=== PATIENT | female | born 1965 | race Caucasian/White ===

== ENCOUNTER → 2018-07-24 08:17 | Outpatient (CLI) | payer MEDICARE, MEDICAID, SELFPAY ==
--- NOTE | 2018-07-24 08:24 | RAD_ITS ---
STUDY: AIR-CONTRAST UPPER GI STUDY REASON FOR EXAM: Female, 52 years old. ABDOMINAL PAIN, CRAMPING AND BLOATING. DIARRHEA X6 WEEKS FLUOROSCOPY TIME (if supplied): (0:50) minutes/seconds. 12 spot images, 7 overhead images. TECHNIQUE: Barium pill swallow with sips of water is performed at the beginning of the study without difficulty. Multiple barium swallows were performed under fluoroscopic monitoring. Multiple views of the esophagus, the stomach and the duodenum were performed. COMPARISON: None. FINDINGS: The esophagus appears normal in size and shape it shows unremarkable mucosal pattern. There is no evidence of hiatal hernia or abnormal vascular compression. The stomach is normal in size shape and position the gastric mucosal folds are unremarkable. The duodenum and bulb and duodenal loop are unremarkable. The duodenal jejunal junction is in normal anatomic position to the left of the vertebral body of T12. STUDY: SMALL BOWEL FOLLOW-THROUGH STUDY FLUOROSCOPY TIME (if supplied): (0:50) minutes/seconds TECHNIQUE: Multiple views of the abdomen were performed after barium ingestion fluoroscopic examination of the terminal ileal loop is also performed with multiple spot views were obtained. 7 overhead films were obtained. FINDINGS: SMALL BOWEL FOLLOW-THROUGH: Normal progression of barium is seen throughout different parts of the small bowel the cecum is reached at approximately 2 hours after barium ingestion. The duodenum, jejunum, and ileum mucosal pattern is unremarkable. Fluoroscopic examination of the terminal loop shows no abnormality. RAD/Upper GI/w Small Bowel IMPRESSION: Unremarkable upper GI and small bowel follow-through studies. Electronically Signed: Juan Beard MD at 15:28 EDT Tel , Service support ,
== END ==
PROVIDERS: Family Provider Family Medicine; PCP Family Medicine; Referring Provider Nurse Practitioner Adult Health; Visit Provider Nurse Practitioner Adult Health
DX: R10.84 Generalized abdominal pain (principal); R19.4 Change in bowel habit
CPT/HCPCS: 74249

== ENCOUNTER → 2018-08-15 06:51 | Outpatient (CLI) | payer MEDICARE, MEDICAID, SELFPAY ==
--- NOTE | 2018-08-15 07:29 | MRI_ITS ---
STUDY: MRI LUMBAR SPINE WITHOUT CONTRAST REASON FOR EXAM: Female, 52 years old. back pain, bilat leg numbness, tingling bilat feet, bowel and bladder issues TECHNIQUE: Standardized fat and water weighted pulse sequences were obtained in the sagittal and axial planes. # of Images: 121 COMPARISON: None FINDINGS: T12-L1: Normal endplates. Normal disc height, hydration and morphology. Normal bilateral facet joints. Normal central canal and bilateral lateral recesses. Normal bilateral intervertebral neural foramina. Normal lumbar lordosis. There is no substantial scoliosis. Normal conus medullaris that terminates at the L1 L1-2: Normal endplates. Normal disc height, hydration and morphology. Normal bilateral facet joints. Normal central canal and bilateral lateral recesses. Normal bilateral intervertebral neural foramina. L2-3: Normal endplates. Normal disc height, hydration and morphology. Normal bilateral facet joints. Normal central canal and bilateral lateral recesses. Normal bilateral intervertebral neural foramina. L3-4: There is minimal disc space narrowing and endplate spondylosis. There is no significant disc herniation, central canal or foraminal stenosis. There is mild facet arthropathy. L4-5: There is mild disc space narrowing and endplate spondylosis. There is a mild disc bulge and facet arthropathy without significant central canal or foraminal stenosis. L5-S1: There is moderate disc space narrowing and endplates spondylosis. There is moderate disc bulge and facet arthropathy with mild central canal and bilateral foraminal stenosis. Normal visualized sacral ala. Normal visualized paraspinous soft tissue structures. MRI/Spine Lumbar (Routine) IMPRESSION: L5/S1: Mild bilateral foraminal stenosis. Electronically Signed: Lala Sun MD at 15:56 EDT Tel , Service support ,
== END ==
PROVIDERS: Family Provider Family Medicine; PCP Family Medicine; Referring Provider Anesthesiology Pain Medicine; Visit Provider Anesthesiology Pain Medicine
DX: M48.07 Spinal stenosis, lumbosacral region (principal)
CPT/HCPCS: 72148

== ENCOUNTER → 2018-09-01 07:51 | Outpatient (CLI) | payer MEDICARE, MEDICAID, SELFPAY ==
--- NOTE | 2018-09-01 10:10 | NEURO ---
NCS and/or EMG Patient Report Ordering Doctor: Amparo Pelaez DATE OF SERVICE: 09/01/18 This is a bilateral lower extremity nerve conduction study and a left lower extremity EMG performed on this 52-year-old female with a history of leg cramping and tripping. She does not know her hemoglobin A1c however she states that her blood sugars tend to run in the 120-130 range. Symptoms are somewhat worse on the left. She does have back issues by report. Lateral lower extremity sensory and motor nerve conduction studies are performed. The sural sensory distal latencies amplitudes and conduction velocities are preserved. The common peroneal motor and tibial motor distal latencies, amplitudes, and conduction velocities are symmetrically preserved. F-wave latencies from the bilateral tibial and common peroneal nerves are preserved and H reflex responses from the right tibial nerve is normal, on the left side the H reflex response is low amplitude of unclear clinical significance. Her graph left lower extremity needle electromyography was performed. Muscles evaluated included the extensor digitorum brevis, abductor hallucis, medial gastrocnemius, anterior tibialis, vastus medialis and vastus lateralis muscles. All muscles demonstrated normal insertional activity with absence of pathologic spontaneous activity. Motor unit potential recruitment pattern and amplitude is normal in all muscles tested. Impression: This is an essentially normal electrophysiologic study of the lower extremities. There is a reduced H reflex amplitude on the left which is of unclear clinical significance.
== END ==
PROVIDERS: Family Provider Family Medicine; PCP Family Medicine; Referring Provider Nurse Practitioner Family; Visit Provider Nurse Practitioner Family
DX: M54.17 Radiculopathy, lumbosacral region (principal)
CPT/HCPCS: 95886; 95910

== ENCOUNTER → 2019-02-18 16:36 | Outpatient (CLI) | payer MEDICARE, MEDICAID, SELFPAY ==
[2016-10-10 14:27] VITALS: BMI 33.6
== END ==
PROVIDERS: Family Provider Family Medicine; PCP Family Medicine; Referring Provider Physician Assistant; Visit Provider Physician Assistant
DX: R07.89 Other chest pain (principal); R06.02 Shortness of breath; R94.31 Abnormal electrocardiogram [ECG] [EKG]
CPT/HCPCS: 84484

== ENCOUNTER 2020-04-04 16:02 | Emergency (ER) | payer MEDICARE, MEDICAID, SELFPAY ==
[2020-04-04 16:03] VITALS: BP 157/95; PULSE 72; RESP 16; TEMP 36.4; O2SAT 95; BMI 35.8
--- NOTE | 2020-04-04 16:33 | CT_ITS ---
STUDY: CT ABDOMEN AND PELVIS WITHOUT CONTRAST REASON FOR EXAM: Female, 54 years old. PAIN MID ABD. Hx of diabetes, HTN and heart stent. Prior hysterectomy and lt oopherectomy RADIATION DOSAGE (If Supplied By Facility): CTDIvol = ( 15.75 ) mGy, DLP = ( 751.62 ) mGycm TECHNIQUE: Transaxial images were obtained from the dome of the diaphragm to the symphysis pubis without oral contrast, and without intravenous contrast. Sagittal and coronal images were reconstructed. Individualized dose optimization techniques were used for this CT. COMPARISON: CT abdomen and pelvis 10/10/2016. FINDINGS: The visualized lung bases are unremarkable. The visualized portions of the heart are within normal limits. There is mild hypodensity within the liver. Normal gallbladder and extrahepatic biliary system. Normal spleen. Normal pancreas. Normal bilateral adrenal glands. Normal right kidney. Normal left kidney. Normal visualized stomach. Normal small intestine. There is scattered colonic diverticulosis, no diverticulitis.. The appendix is visualized and appears normal. Normal abdominal aorta. Normal inferior vena cava. Normal retroperitoneum. Normal urinary bladder. There is prior hysterectomy. Normal abdominal wall. There is progression of degenerative changes of the lumbar spine with posterior disc protrusion at L4-L5 and likely superior extrusion at L5-S1. CT/Abdomen/Pelvis without Cont IMPRESSION: Mild fatty infiltration within the liver Scattered colonic diverticulosis no diverticulitis Prior hysterectomy progression of degenerative changes of the lumbar spine with posterior disc protrusion at L4-L5 and likely superior extrusion at L5-S1. Electronically Signed: Rashi Ma, at 17:36 EDT Tel , Service support ,
[2020-04-04 16:56] LABS: Absolute Lymphocyte Count 1.82 X10^3/uL (0.83-4.51); Absolute Neutrophil Count 5.6 X10^3/uL (2.0-7.7); Basophil# 0.04 X10^3/uL; Basophil% 0.5 % (0-1); Eosinophil# 0.27 X10^3/uL; Eosinophils% 3.2 % (0-5); Hematocrit 43.1 % (37-47); Hemoglobin 13.7 g/dL (12.0-15.0); Lymphocyte # 1.82 X10^3/ul (4.0); Lymphocyte % 21.7 % (19-41); Mean Corp Hgb Conc 31.8 g/dL (32-36); Mean Corpuscular Hgb 27.7 pg (27.0-32.0); Mean Corpuscular Volume 87.1 fL (81-99); Mean Platelet Vol. 9.5 fl (6.2-12.0); Monocyte# 0.59 X10^3/uL; NRBC Flagged by Analyzer 0 % (0-5); Platelet Count 236 K/mm3 (150-450); RBC Distribution Width CV 13.5 % (11.6-14.6); RBC Distribution Width SD 42.6 fl (35.1-43.9); Red Blood Count 4.95 M/mm3 (4.2-5.4); White Blood Count 8.4 K/mm3 (4.4-11.0)
[2020-04-04] MEDS: 0.9% Normal Saline 1,000 ML 1000 ML IV (16:56)
[2020-04-04] MEDS: Ondansetron 4 MG/2 ML Vial IV (16:56)
[2020-04-04] MEDS: Ketorolac 30 MG/ML Syringe 15 MG IV (16:56)
[2020-04-04 17:14] LABS: ALB/GLOB Ratio 1.3 RATIO (0.9-2.4); AST(SGOT) 17 U/L (15-37); Alanine Aminotransfer ALT/SGPT 29 U/L (13-56); Albumin, Serum 4.3 g/dL (3.2-5.0); Alkaline Phosphatase 61 U/L (45-117); Anion Gap 8 (5-15); BUN 22 mg/dL (7-18); BUN/Creat Ratio 22.2 RATIO (10-20); Calcium,Total 9.5 mg/dL (8.5-10.1); Chloride 105 mmol/L (98-107); Creatinine, Serum 0.99 mg/dL (0.55-1.02); EST Glomerular Filtration Rate 62 mL/min (>60); Est Glom Filt Rate - Afr Amer 75 mL/min (>60); Estimated Creatinine Clearance 50.78 ml/min; Globulin 3.3 g/dL (2.2-4.2); Glucose 112 mg/dL (74-106); Lipase 123 U/L (73-393); Potassium 3.9 mmol/L (3.5-5.1); Protein, Total 7.6 g/dL (6.4-8.2); Sodium Level 142 mmol/L (136-145)
--- NOTE | 2020-04-04 17:32 | ED.DCSUM_ITS ---
- ER Visit Summary Date of Service: 04/04/20 Chief Complaint: Abdominal pain History of Present Illness: The patient is a [address] Piper. She reports that she has abdominal pain that began yesterday and is gradually gotten worse. Is an aching pain is 7-10 at worst and 6 of 10 currently. Is worsened by eating. Is relieved by laying flat. She is had nausea without vomiting. No diarrhea. Her last bowel was today. She is passing flatus. She denies any dysuria or frequency. Patient denies sick contacts. Has not been camping out of the country. No possible bad food exposure. Does not drink well water. No recent antibiotic use. Patient reports she had similar symptoms on and off for the past 2 months. She talked with her primary care physician who suggested that she come to the emergency department be checked for diverticulitis. Physical Examination: Vitals: Stable. Afebrile. General: Well-nourished and well-developed. Head: Normocephalic atraumatic. Neck: Supple, no lymphadenopathy. No JVD. Nontender. Cardiovascular: Regular rate and rhythm. No murmurs. Respiratory: No respiratory distress. Clear to auscultation bilaterally. Abdominal: Soft, moderate tenderness palpation over a ventral hernia that spontaneously reduces, nondistended, normal bowel sounds. No guarding, rebound, or peritoneal signs. Back: Nontender. Extremities: Nontender, no edema. Skin: Normal color, no rash. Neurologic: Alert and oriented ?3. Cranial nerves II through XII are intact. Normal strength and sensation. Psych: Normal affect. Test Results: CBC is normal. Chem-7 shows a glucose of 112 and BUN of 22. LFTs are normal. Lipase is 123. UA shows 1+ calcium oxalate crystals. Clinical Impression(s) from Imaging Studies Abdomen/Pelvis CT 04/04/20 16:33 IMPRESSION: Mild fatty infiltration within the liver Scattered colonic diverticulosis no diverticulitis Prior hysterectomy progression of degenerative changes of the lumbar spine with posterior disc protrusion at L4-L5 and likely superior extrusion at L5-S1. Electronically Signed: Rashi Ma, at 17:36 EDT Tel , Service support , Emergency Department Course and Treatment: Patient was treated with Toradol and Zofran IV. She is resting comfortably. Treatment Plan: Had a prolonged scratch the patient that her pain on exam is over her ventral hernia and I suspect that this may be what has been bothering her over the past 2 months. She will be discharged with instructions to follow- up with Dr. King for further evaluation and treatment. She is given a prescription for Zofran, Colace, and Percocet. Return to the emergency department for any worsening symptoms. Disposition: To home in improved and stable condition. Impression: 1 1. Abdominal pain. 2. Ventral hernia. This note was generated with [employer] dictation software. It may contain incorrect words, spelling, and punctuation that were not noted in review of the chart prior to signing ED Disposition - Plan for ED Patient: Disposition: Home or Assisted Living Instructions: ED Hernia Inguinal Prescriptions: Docusate Sodium [Colace] 100 mg PO DAILY #20 cap Prescription Printed Oxycodone HCl/Acetaminophen [Percocet 5/325] 1 tab PO Q6H PRN PRN 3 Days #10 tab PRN Reason: Pain Prescription Printed Ondansetron [Zofran Odt] 4 mg PO Q8H PRN PRN #10 tab PRN Reason: Nausea Prescription Printed Referrals: Celina Solis MD [STAFF PHYSICIAN] - 3-5 Days
[2020-04-04 17:39] LABS: Bacteria 0 SEEN /hpf (None Seen); Red Blood Cells-Urine 0 SEEN /hpf (0-5); White Blood Cells 0 SEEN /hpf (0-5)
[2020-04-04 17:45] LABS: Color, Urine Yellow (Yellow); Glucose, Dipstick Normal (Normal); Ketone-Dipstick Negative (Negative); Leukocyte Esterase-Dipstick Negative /ul (Negative); Nitrite-Dipstick Negative (Negative); Occult Blood-Urine Negative /ul (Negative); Protein-Dipstick Negative (Negative); Urine Bilirubin Dipstick Negative (Negative); Urine Clarity Sl. Cloudy (Clear); Urine Urobilinogen Normal (Normal)
[2020-04-04 18:09] LABS: Calcium Oxalate Crystals Ur 1+ /hpf (<or=2+); Mucous, Urine 1+ /hpf (<or=2+); Squamous Epithelial Cells - UA 0-5 SEEN /hpf (5-10)
[2020-04-04 18:29] VITALS: BP 148/87; PULSE 81; RESP 16; O2SAT 97
== END 2020-04-04 18:36 | disposition home or self-care (01) ==
PROVIDERS: Emergency Provider Emergency Medicine; PCP Family Medicine
DX: K43.9 Ventral hernia without obstruction or gangrene (principal); K57.30 Diverticulosis of large intestine without perforation or abscess without bleeding; I10 Essential (primary) hypertension; E11.9 Type 2 diabetes mellitus without complications; Z95.5 Presence of coronary angioplasty implant and graft; Z90.710 Acquired absence of both cervix and uterus; Z79.899 Other long term (current) drug therapy
CPT/HCPCS: 74176; 80053; 81001; 83690; 85025; 96361; 96374; 96375; 99283; J7030; A4216; J2405

== ENCOUNTER → 2020-08-01 10:12 | Outpatient (CLI) | payer MEDICARE, MEDICAID, SELFPAY | PROVIDERS: PCP Family Medicine; Referring Provider Nurse Practitioner Family; Visit Provider Nurse Practitioner Family | DX: Z20.828 Contact with and (suspected) exposure to other viral communicable diseases (principal) | CPT/HCPCS: 87635; C9803; U0003 ==

== ENCOUNTER 2020-12-04 08:21 | Day surgery (SDC) | payer MEDICARE, MEDICAID, SELFPAY ==
[2020-12-04 08:41] VITALS: BP 132/75; PULSE 73; RESP 16; TEMP 36.1; O2SAT 99; BMI 34.4
[2020-12-04] MEDS: Lactated Ringers 1,000 ML 100 ML IV (09:03)
[2020-12-04 09:21] LABS: Bedside Glucose 136 mg/dL (70-110)
--- NOTE | 2020-12-04 09:30 | RAD_ITS ---
STUDY: X-RAY - THORACIC SPINE REASON FOR EXAM: Female, 55 years old. RIGHT T9-T12 FACET INJECTION TECHNIQUE: 3 cone-down view(s) of the thoracic spine were obtained. COMPARISON: None. FINDINGS: Intraoperative imaging provided for right T9-T12 facet injection. RAD/Thoracic Spine 3 Views IMPRESSION: Intraoperative imaging provided for right T9-T12 facet joint injection. Electronically Signed: Bert Terrazas MD at 12:26 EST , Service support ,
[2020-12-04] MEDS: Bupivacaine 0.25% 30 ML Vial (09:37)
[2020-12-04] MEDS: MethylPREDNISolone Acetate 40 MG/ML Vial IM (09:37)
[2020-12-04] MEDS: Lidocaine 1% (5 ml sdv) 5 ML Vial (09:38)
[2020-12-04 09:43] VITALS: BP 122/76; BP 132/75; PULSE 73; RESP 16; TEMP 36.1; O2SAT 95
[2020-12-04 09:45] VITALS: BP 132/75; BP 139/77; PULSE 73; RESP 16; O2SAT 98
[2020-12-04 09:55] VITALS: BP 132/75; BP 132/82; PULSE 73; RESP 16; O2SAT 97
[2020-12-04 10:00] VITALS: BP 128/78; BP 132/75; PULSE 67; RESP 16; TEMP 36.5; O2SAT 97
[2020-12-04 10:20] VITALS: BP 132/75
--- NOTE | 2020-12-04 15:56 | OP.PCM_ITS ---
Report of Operation Date of Procedure: 12/04/20 Description of Surgical Findings:: PREOPERATIVE DIAGNOSIS: Thoracic spondylosis, thoracic degenerative disc disease, thoracic facet arthropathy POSTOPERATIVE DIAGNOSIS: Thoracic spondylosis, thoracic degenerative disc disease, thoracic facet arthropathy PROCEDURE PERFORMED: Right-sided thoracic facet steroid injection, T9, T10, T11, T12 ANESTHESIA: MAC. BLOOD LOSS: Minimal. COMPLICATIONS: None. DESCRIPTION OF PROCEDURE: History and physical of today was reviewed. Risks and benefits of the procedure were explained. The patient understood and agreed to proceed. Informed consent was obtained. IV inserted per routine protocol. The patient was taken to the operating room and placed in the prone position with a pillow positioned underneath the chest. The mid back area was prepped and draped in a sterile fashion using iodine x3. Under fluoroscopy guidance on AP view, the T9 through T12 vertebral bodies were visualized. The skin and subcutaneous tissue was anesthetized with approximately 5 mL of 1% lidocaine using a 25-gauge regular needle. Under direct visualization on fluoroscopy, at approximately 15-degree angle, starting on the right T9 ending on the right T12, passing through T10 and T11 using a 22-gauge 3-1/2-inch spinal needle, the needle was passed through the skin. The tip of the needle was maneuvered and directed towards the epiphyseal junction of each corresponding vertebra. Once the tip of the needle was at the vicinity of the medial branch and in contact with the bone, the needle was pulled approximately 2 mm off the bone. After neg ative aspiration for blood or CSF and confirmation on AP as well as oblique view and lateral view, a total of 6 mL of preservative-free 0.25% Marcaine with 80 mg of Depo-Medrol was injected in divided doses between those four levels. The needles were then removed intact. The patient experienced no sign or symptoms of intrathecal or intravascular injection. The patient experienced no paresthesia. The procedure was completed without any apparent difficulty or any complications. The patient appeared to tolerate it well. ASSESSMENT AND PLAN: This is a 55-year-old female with thoracic spondylosis, thoracic degenerative disc disease, thoracic facet arthropathy status post right-sided thoracic facet steroid injection T9-T12, patient will continue her current medications, patient will follow in approximately 2 weeks for reevaluation.
== END 2020-12-04 10:20 | disposition home or self-care (01) ==
LOC: SDC 08:27 → AC 08:28
PROVIDERS: PCP Family Medicine; Referring Provider Anesthesiology Pain Medicine; Visit Provider Anesthesiology Pain Medicine
PROC: 3E0R3BZ Introduction of Anesthetic Agent into Spinal Canal, Percutaneous Approach (ICD-10-PCS; CPT 62281; principal; 2020-12-04 10:25)
DX: M47.814 Spondylosis without myelopathy or radiculopathy, thoracic region (principal); M51.34 Other intervertebral disc degeneration, thoracic region; M46.94 Unspecified inflammatory spondylopathy, thoracic region; I10 Essential (primary) hypertension; E11.9 Type 2 diabetes mellitus without complications; E78.00 Pure hypercholesterolemia, unspecified; F32.9 Major depressive disorder, single episode, unspecified; F41.9 Anxiety disorder, unspecified; Z79.891 Long term (current) use of opiate analgesic; Z79.899 Other long term (current) drug therapy
CPT/HCPCS: 64490; 64491; 64492; 72072; 82962; J7120

== ENCOUNTER 2021-03-05 08:40 | Day surgery (SDC) | payer MEDICARE, MEDICAID, SELFPAY ==
[2021-03-05] VITALS (7 sets, daily range): BP systolic 124–147; BP diastolic 71–91; PULSE 68–72; RESP 16–18; TEMP 36.1–36.4; O2SAT 95–98; BMI 35.0
[2021-03-05] MEDS: Lactated Ringers 1,000 ML 100 ML IV (09:48)
[2021-03-05 09:56] LABS: Bedside Glucose 126 mg/dL (70-110)
--- NOTE | 2021-03-05 10:35 | RAD_ITS ---
STUDY: X-RAY - THORACIC SPINE REASON FOR EXAM: Female, 55 years old. THORACIC FACETS INJECTION, T4-T7,RIGHT TECHNIQUE: 4 limited intraoperative studies view(s) of the thoracic spine were obtained. COMPARISON: None. FINDINGS: 4 limited intraoperative studies were performed as the patient has undergone right-sided facet injection from T4 to T7. No plain film evidence of complications RAD/Thoracic Spine 3 Views IMPRESSION: 4 limited intraoperative studies performed as the patient has undergone right facet injection from T4 to T7 Electronically Signed: Cruz Prseton MD at 13:38 EDT , Service support ,
[2021-03-05] MEDS: MethylPREDNISolone Acetate 80 MG/ML Vial (10:42)
[2021-03-05] MEDS: Lidocaine 1% (5 ml sdv) 5 ML Vial (10:42)
[2021-03-05] MEDS: Bupivacaine 0.25% 30 ML Vial (10:43)
--- NOTE | 2021-03-05 15:51 | OP.PCM_ITS ---
Report of Operation Date of Procedure: 03/05/21 Pre-Operative Diagnosis: Thoracic spondylosis, thoracic degenerative disc disea se, thoracic facet arthropathy Post-Operative Diagnosis: Thoracic spondylosis, thoracic degenerative disc disease, thoracic facet arthropathy Surgery/Procedure Performed:: Right-sided thoracic facet steroid injection T4, T5, T6, T7 Description of Surgical Findings:: ANESTHESIA: MAC. BLOOD LOSS: Minimal. COMPLICATIONS: None. DESCRIPTION OF PROCEDURE: History and physical of today was reviewed. Risks and benefits of the procedure were explained. The patient understood and agreed to proceed. Informed consent was obtained. IV inserted per routine protocol. The patient was taken to the operating room and placed in the prone position with a pillow positioned underneath the chest. The mid back area was prepped and draped in a sterile fashion using iodine x3. Under fluoroscopy guidance on AP view, the T5 through T8 vertebral bodies were visualized. The skin and subcutaneous tissue was anesthetized with approximately 5 mL of 1% lidocaine using a 25-gauge regular needle. Under direct visualization on fluoroscopy, at approximately 15-degree angle, starting on the right T4 ending on the right T7, passing through the T5 and T6, using a 22-gauge 3-1/2-inch spinal needle, the needle was passed through the skin. The tip of the needle was maneuvered and directed towards the epiphyseal junction of each corresponding vertebra. Once the tip of the needle was at the vicinity of the medial branch and in contact with the bone, the needle was pulled approximately 2 mm off the bone. After negative aspiration for blood or CSF and confirmation on AP as well as oblique view and lateral view, a total of 6 mL of preservative-free 0.25% Marcaine with 80 mg of Depo-Medrol was injected in divided doses between those four levels. The needles were then removed intact. The patient experienced no sign or symptoms of intrathecal or intravascular injection. The patient experienced no paresthesia. The procedure was completed without any apparent difficulty or any complications. The patient appeared to tolerate it well. ASSESSMENT AND PLAN: This is a 55-year-old female with thoracic spondylosis, thoracic degenerative disc disease, thoracic facet arthropathy status post right-sided thoracic facet steroid injection T4-T7, the patient will continue current medications, patient will find approximately 2 weeks for reevaluation. Type of Anesthesia: MAC Estimated Blood Loss (mL): Minimal Complications None.
== END 2021-03-05 11:40 | disposition home or self-care (01) ==
LOC: SDC 08:41 → AC 08:50
PROVIDERS: PCP Family Medicine; Referring Provider Anesthesiology Pain Medicine; Visit Provider Anesthesiology Pain Medicine
PROC: 3E0R3BZ Introduction of Anesthetic Agent into Spinal Canal, Percutaneous Approach (ICD-10-PCS; CPT 62281; principal; 2021-03-05 10:45)
DX: M47.814 Spondylosis without myelopathy or radiculopathy, thoracic region (principal); M51.34 Other intervertebral disc degeneration, thoracic region; M46.94 Unspecified inflammatory spondylopathy, thoracic region; I10 Essential (primary) hypertension; E11.9 Type 2 diabetes mellitus without complications; Z79.891 Long term (current) use of opiate analgesic; Z79.899 Other long term (current) drug therapy
CPT/HCPCS: 64491; 64492; 64490; 72072; 82962; J7120

== ENCOUNTER → 2021-08-06 08:38 | Outpatient (CLI) | payer MEDICARE, MEDICAID, SELFPAY ==
[2021-03-05 09:31] VITALS: BMI 35.0
--- NOTE | 2021-08-06 10:45 | NEURO ---
NCS and/or EMG Patient Report Ordering Doctor: Twin Piper DATE OF SERVICE: 08/06/21 Indication: Intermittent sensory disturbances and cramping of both lower extremities for the last 3-4 years. Findings: Nerve conduction studies were performed in the bilateral lower extremities. The right peroneal motor study recording the extensor digitorum brevis showed a normal amplitude, normal distal latency and normal conduction velocity. No conduction block or focal slowing was present across the fibular neck. The right tibial motor study recording the abductor hallucis brevis showed a normal amplitude, normal distal latency and normal conduction velocity. Right sural sensory response showed a normal amplitude and conduction velocity. Right superficial peroneal sensory response showed a normal amplitude and conduction velocity. Right medial plantar sensory response showed a normal amplitude and conduction velocity. The left peroneal motor study recording the extensor digitorum brevis showed a normal amplitude, normal distal latency and normal conduction velocity. No conduction block or focal slowing was present across the fibular neck. The left tibial motor study recording the abductor hallucis brevis showed a normal amplitude, normal distal latency and normal conduction velocity. Left sural sensory response showed a normal amplitude and conduction velocity. Left superficial peroneal sensory response showed a normal amplitude and conduction velocity. Left medial plantar sensory response showed a normal amplitude and conduction velocity. Needle EMG of the left lower extremity muscles was performed. The paraspinal muscles were not examined due to the common presence of denervation in the diabetic population. No denervation was present in any muscle. Motor unit morphology, activation, and recruitment patterns were normal. Impression: This is a normal study. There is no electrophysiologic evidence of peripheral neuropathy in either lower extremity. In addition, there was no electrophysiologic evidence of lumbar radiculopathy in the left lower extremity. Please note: routine nerve conduction studies and needle EMG assess the larger, myelinated motor and sensory fibers. Thus, routine electrodiagnostic studies may be insensitive in detecting a peripheral neuropathy restricted to small fibers alone (i.e., pain, temperature and autonomic fibers). However, most peripheral neuropathies with predominantly small fiber large dysfunction will also involve large fibers to a lesser extent, and will demonstrate abnormalities on electrodiagnostic studies. Thus, clinical correlation is required in the interpretation of this negative electrodiagnostic study if an isolated small fiber neuropathy is considered. Gurinder Hernandez D.O. Multi Select Codes Neurology Neurology Interp Codes: 22788-93 Musc test done w/n test comp (interp) and 41564-06 Nrv cndj test 9-10 studies (interp)
== END ==
PROVIDERS: PCP Family Medicine; Referring Provider Family Medicine; Visit Provider Family Medicine
DX: R20.0 Anesthesia of skin (principal); R20.2 Paresthesia of skin
CPT/HCPCS: 95886; 95911

== ENCOUNTER 2022-01-22 14:51 | Emergency (ER) | payer MEDICARE, MEDICAID, SELFPAY ==
[2022-01-22 14:53] VITALS: BP 172/88; PULSE 74; RESP 18; TEMP 36; O2SAT 97; BMI 38.1
[2022-01-22 15:01] VITALS: BP 159/77; PULSE 70; RESP 13; O2SAT 97
--- NOTE | 2022-01-22 15:16 | EKG12_ITS ---
Test Reason : DIZZINESS Blood Pressure : / mmHG Vent. Rate : 060 BPM Atrial Rate : 060 BPM P-R Int : 206 ms QRS Dur : 080 ms QT Int : 438 ms P-R-T Axes : 041 089 089 degrees QTc Int : 438 ms Normal sinus rhythm T wave abnormality, consider anterior ischemia Abnormal ECG Confirmed by PALLAVI HORNER, YAEL ([id number]), manuscript editor JORDAN BEDOLLA ([id number]) on 01/23/2022 2:10:07 PM Referred By: ODILON Confirmed By:YAEL OLIVO MD
--- NOTE | 2022-01-22 15:18 | EX.ED.DYSGE1 ---
HPI History of Present Illness Chief Complaint: Dizziness Detail of Chief Complaint: Generalized weakness Informant: patient Onset/Context/Timing Onset: Days Context: Gradual Onset Timing: Intermittent Current Severity: Mild Maximum Severity: Mild Narrative Narrative: 56-year-old female on the teeth pulled. When she was leaving the dentist office she had some bleeding. She states she has really felt good since that time. She has had some nausea, vomiting and diarrhea. No melena. She is peeing frequently but it does not burn. Blister states she is just overall dizzy. When I asked her specifically what she said lightheaded, room spinning and off-balance. She denies any headache. She denies any chest or abdominal pain. Prior similar symptoms: No Recent Illness/Hospitalization: No PFSH PFSH Home Medications multivitamin with folic acid [Thera] 1 tab PO DAILY 09/17/13 [History Last Taken Unknown] Cetirizine Hcl [Zyrtec] 10 mg PO DAILY PRN 02/07/16 [History Last Taken 05/28/16] acyclovir 400 mg PO BID 02/07/16 [History Last Taken 05/28/16] baclofen 10 mg PO BID 02/07/16 [History Last Taken 05/28/16] acetaminophen [Tylenol] 325 mg PO Q6H PRN PRN 05/28/16 [History Last Taken Unknown] atorvastatin 10 mg PO QHS 05/28/16 [History Last Taken 05/27/16] bupropion HCl 100 mg PO TID 05/28/16 [History Last Taken 05/28/16] fenofibrate nanocrystallized 145 mg PO DAILY 05/28/16 [History Last Taken 05/28/16] naproxen 500 mg PO BID PRN PRN 05/28/16 [History Last Taken Unknown] sertraline 200 mg PO DAILY 05/28/16 [History Last Taken 05/28/16] lisinopril 20 mg PO QHS 03/31/19 [History Last Taken Unknown] Potassium (Otc) [Potassium Otc] 99 mg PO DAILY PRN 11/29/20 [History Last Taken Unknown] ascorbic acid (vitamin C) 1,000 mg PO DAILY 11/29/20 [History Last Taken Unknown] cyanocobalamin (vitamin B-12) 500 mcg PO DAILY@0800 11/29/20 [History Last Taken Unknown] ginkgo biloba 120 mg PO DAILY 11/29/20 [History Last Taken Unknown] magnesium oxide 500 mg PO DAILY 11/29/20 [History Last Taken Unknown] diazepam 01/22/22 [History Last Taken Unknown] pioglitazone 45 mg PO DAILY 01/22/22 [History Last Taken Unknown] Allergy/AdvReac Type Severity Reaction Status Date / Time codeine Allergy Unknown Verified 01/22/22 14:53 erythromycin base Allergy Itching Verified 01/22/22 14:53 [Erythromycin Base] hydrocodone bitartrate Allergy Itching Verified 01/22/22 14:53 [From Vicodin] latex Allergy Hives Verified 01/22/22 14:53 paroxetine HCl [From Paxil] Allergy Unknown Verified 01/22/22 14:53 Social History Smoking Status: Never smoker ROS ROS ED ROS Narrative Nausea, vomiting and diarrhea. Weakness. Dizziness. Review of Systems ROS Unobtainable: Denies due to encephalopathy Constitutional Constitutional ED: Denies chills or fever(s) Eyes Eyes: Denies change in vision ENT ENT ED: Denies ear pain, rhinorrhea or sore throat Cardiovascular Cardiovascular: Denies chest pain Respiratory/Chest Respiratory/Chest: Denies cough, dyspnea or sputum Gastrointestinal Gastrointestinal: Reports diarrhea, nausea and vomiting; Denies abdominal pain, constipation or melena Genitourinary Genitourinary ED: Reports urinary frequency; Denies dysuria or hematuria Musculoskeletal Musculoskeletal: Denies myalgias Integumentary Denies rash Neurologic Neurologic: Denies headache(s) Psychiatric Psychiatric: Denies depression Endocrine Endocrinology: Denies polyuria EXAM Physical Exam Narrative Exam Narrative: 56-year-old female no acute distress. Vital signs stable afebrile. H EENT exam unremarkable. No facial droop. Normal speech. Moist membranes. No trauma. Neck nontender. Lungs clear to auscultation. Heart regular rhythm no murmur. Rate about 70. Abdomen soft nontender normal bowel sounds no peritoneal signs. Patient moving all 4 extremities. Calves are nontender without edema or cords. Neurologically she is awake and alert. No focal motor deficits. 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 Normal dorsi plantar flexion. Const Vital Signs: 01/22/22 14:53 01/22/22 14:59 01/22/22 15:01 Temperature 96.8 F L Temperature Source Temporal Pulse Rate 74 70 Respiratory Rate 18 13 Respiratory Effort Normal Non-Labored Respiratory Pattern Normal Blood Pressure 172/88 H 159/77 H Blood Pressure Mean 116 104 Pulse Ox 97 97 Oxygen Delivery Method Room Air Positive well nourished, well developed and obese; Negative for cachectic, contractures or unkempt General Appearance ED: well developed and NAD; Negative for unkempt, cachectic, contractures or pallor Nutritional Appearance: obese; Negative for cachectic HEENT Reports moist mucous membranes Negative for trauma or tenderness Eyes PERRL and EOMs intact bilaterally Neck no lymphadenopathy, supple and no JVD General: Negative for tenderness Chest Wall inspection of chest normal and palpation of chest normal Resp normal respiratory effort and clear to auscultation bilaterally Effort and Inspection: Negative for pain with movement Auscultation: Negative for rales Cardio regular rate, regular rhythm, S1 normal heart sound, S2 normal heart sound and no murmurs GI normal to inspection, nondistended, normoactive bowel sounds, non-tender and non-distended Palpation: soft Back/Spine no CVA tenderness General Back: Negative for CVA tenderness Cervical Spine: Negative for cervical spine tenderness Thoracic Spine / Upper Back: Negative for thoracic spinal tenderness Extremity normal to inspection General Extremety ED: Negative for edema or tenderness General Extremity: Negative for edema Neuro oriented x3 Sensorium / Orientation: alert; Negative for orientation impaired, lethargic or stuporous Motor Exam: strength 5/5 throughout Psych mental status grossly normal Appearance: Negative for unkempt Mood & Affect: Negative for depressed or tearful Skin no rashes or lesions noted, no wounds and No skin turgor normal General Skin Exam: Negative for elasticity normal, jaundice or pallor MDM MDM MDM Narrative Medical decision making narrative: 56-year-old female generalized weakness with nausea vomiting diarrhea after having her teeth pulled. Exam is benign. She received IV fluids and Zofran. Screening labs are being obtained. Repeat exam at 5:11 PM patient is doing well. Exam unchanged. We went over all of her test results. She is comfortable being discharged to home. Lab Data Attestation: I reviewed the patient's lab results. Lab results narrative: CBC normal. White count is 7. H&H 13 and 40. Electrolytes unremarkable gap of 4 normal BUN and creatinine. Glucose 153. UA negative. No nitrites nor red or white cells nor bacteria. Labs: Laboratory Results - last 24 hr 01/22/22 01/22/22 01/22/22 15:30 15:30 15:40 WBC 7.3 RBC 4.84 Hgb 13.3 Hct 40.3 MCV 83.3 MCH 27.5 MCHC 33.0 RDW Std Deviation 40.7 RDW Coeff of Delia 13.3 Plt Count 244 MPV 9.2 Immature Gran % (Auto) 0.500 Neut % (Auto) 64.4 Lymph % (Auto) 23.0 [place] % (Auto) 7.1 Eos % (Auto) 4.3 Baso % (Auto) 0.7 Absolute Neuts (auto) 4.7 Absolute Lymphs (auto) 1.68 Nucleated RBC % 0 Sodium 139 Potassium 3.9 Chloride 107 Carbon Dioxide 28.0 Anion Gap 4 L BUN 15 Creatinine 0.75 Estim Creat Clear Calc 65.45 Est GFR (MDRD) Af Amer 102 Est GFR (MDRD) Non-Af 85 BUN/Creatinine Ratio 20.0 Glucose 153 H Calcium 9.2 Urine Color Yellow Urine Clarity Clear Urine pH 5.0 Ur Specific [place] 1.025 Urine Protein Negative Urine Glucose (UA) Normal Urine Ketones Negative Urine Occult Blood Negative Urine Nitrite Negative Urine Bilirubin Negative Urine Urobilinogen Normal Ur Leukocyte Esterase Negative Urine RBC 0 SEEN Urine WBC 0 SEEN Ur Squamous Epith Cells 0 SEEN Urine Bacteria 0 SEEN Urine Mucus 0 SEEN Rhythm Strip Rhythm Strip: Sinus Rhythm Rate: 60 Ectopy: None EKG Initial EKG: Attestation: I personally reviewed and interpreted this EKG as follows: Interpretation: Sinus Rhythm and No Acute Injury Pattern Comments: Normal sinus rhythm rate of 60 no acute signs of VT or ischemia. Inverted T waves in V23 and 4. Discharge Plan Triage Chief Complaint: Dizziness ED Provider: Wes Calabrese Dx/Rx/DC Orders Clinical Impression: Generalized weakness, Hypertension, DM type 2 (diabetes mellitus, type 2) Instructions: ED Weakness (Uncertain Cause) Prescriptions: No Action multivitamin with folic acid [Thera] 1 TABLET tablet 1 tab PO DAILY RF: 0 acyclovir 400 MG tablet 400 mg PO BID RF: 0 baclofen 10 MG tablet 10 mg PO BID RF: 0 Cetirizine Hcl [Zyrtec] 10 MG tablet 10 mg PO DAILY PRN (Reason: Allergies) RF: 0 acetaminophen [Tylenol] 325 MG tablet 325 mg PO Q6H PRN PRN (Reason: Pain) RF: 0 atorvastatin 10 MG tablet 10 mg PO QHS RF: 0 sertraline 100 MG tablet 200 mg PO DAILY RF: 0 bupropion HCl 75 MG tablet 100 mg PO TID RF: 0 naproxen 500 MG tablet 500 mg PO BID PRN PRN (Reason: Pain) RF: 0 fenofibrate nanocrystallized 145 MG tablet 145 mg PO DAILY RF: 0 lisinopril 10 MG tablet 20 mg PO QHS RF: 0 ascorbic acid (vitamin C) 1,000 MG tablet 1,000 mg PO DAILY RF: 0 cyanocobalamin (vitamin B-12) 500 MCG tablet 500 mcg PO DAILY@0800 RF: 0 ginkgo biloba 120 MG tablet 120 mg PO DAILY RF: 0 magnesium oxide 500 MG capsule 500 mg PO DAILY RF: 0 Potassium (Otc) [Potassium Otc] 99 MG tablet 99 mg PO DAILY PRN (Reason: vitamin) RF: 0 pioglitazone 45 mg tablet 45 mg PO DAILY RF: 0 diazepam 10 mg tablet RF: 0 Primary Care Provider: Twin Piper Referrals: Twin Piper MD [Primary Care Provider] - 1 Week if not improving Activity Restrictions/Additional Instructions: Your exam and lab work was unremarkable. Plenty of fluids and rest. Follow-up with your primary care physician in a week if not improving. Return if worse. Disposition Disposition: Home, Self Care
[2022-01-22] MEDS: Ondansetron 4 MG/2 ML Vial IV (15:33)
[2022-01-22] MEDS: 0.9% Normal Saline 1,000 ML 1000 ML IV (15:33)
[2022-01-22 15:47] LABS: Absolute Lymphocyte Count 1.68 X10^3/uL (0.83-4.51); Absolute Neutrophil Count 4.7 X10^3/uL (2.0-7.7); Basophil# 0.05 X10^3/uL; Basophil% 0.7 % (0-1); Eosinophil# 0.31 X10^3/uL; Eosinophils% 4.3 % (0-5); Hematocrit 40.3 % (37-47); Hemoglobin 13.3 g/dL (12.0-15.0); Lymphocyte # 1.68 X10^3/ul (0.83-4.51); Mean Corpuscular Hgb 27.5 pg (27.0-32.0); Mean Corpuscular Volume 83.3 fL (81-99); Mean Platelet Vol. 9.2 fl (6.2-12.0); Monocyte# 0.52 X10^3/uL; Monocyte% 7.1 % (0-10); NRBC Flagged by Analyzer 0 % (0-5); Neutrophil # 4.69 X10^3/uL (2.7-7.7); Neutrophil % 64.4 % (47-70); Platelet Count 244 K/mm3 (150-450); RBC Distribution Width CV 13.3 % (11.6-14.6); RBC Distribution Width SD 40.7 fl (35.1-43.9); Red Blood Count 4.84 M/mm3 (4.2-5.4); White Blood Count 7.3 K/mm3 (4.4-11.0)
[2022-01-22 15:47] LABS: Bacteria 0 SEEN /hpf (None Seen); Mucous, Urine 0 SEEN /hpf (<or=2+); Red Blood Cells-Urine 0 SEEN /hpf (0-5); Squamous Epithelial Cells - UA 0 SEEN /hpf (5-10); White Blood Cells 0 SEEN /hpf (0-5)
[2022-01-22 15:58] LABS: Anion Gap 4 (5-15); BUN 15 mg/dL (7-18); Calcium,Total 9.2 mg/dL (8.5-10.1); Chloride 107 mmol/L (98-107); Creatinine, Serum 0.75 mg/dL (0.55-1.02); EST Glomerular Filtration Rate 85 mL/min (>60); Est Glom Filt Rate - Afr Amer 102 mL/min (>60); Estimated Creatinine Clearance 65.45 ml/min; Glucose 153 mg/dL (74-106); Potassium 3.9 mmol/L (3.5-5.1); Sodium Level 139 mmol/L (136-145)
[2022-01-22 15:59] LABS: Color, Urine Yellow (Yellow); Glucose, Dipstick Normal (Normal); Ketone-Dipstick Negative (Negative); Leukocyte Esterase-Dipstick Negative /ul (Negative); Nitrite-Dipstick Negative (Negative); Occult Blood-Urine Negative /ul (Negative); Protein-Dipstick Negative (Negative); Specific Gravity, Urine 1.025 (1.002-1.030); Urine Bilirubin Dipstick Negative (Negative); Urine Clarity Clear (Clear); Urine Urobilinogen Normal (Normal)
[2022-01-22 17:12] VITALS: BP 172/82; PULSE 66; RESP 16; O2SAT 97
== END 2022-01-22 17:25 | disposition home or self-care (01) ==
PROVIDERS: Emergency Provider Emergency Medicine; PCP Family Medicine; Visit Provider Emergency Medicine
DX: R53.1 Weakness (principal); E11.9 Type 2 diabetes mellitus without complications; I10 Essential (primary) hypertension; E66.9 Obesity, unspecified; Z68.38 Body mass index [BMI] 38.0-38.9, adult; Z79.899 Other long term (current) drug therapy
CPT/HCPCS: 80048; 81001; 85025; 93005; 96361; 96374; 99283; J7030; A4216; J2405

== ENCOUNTER 2022-04-08 14:02 | Emergency (ER) | payer MEDICARE, MEDICAID, SELFPAY ==
[2022-04-08 14:02] VITALS: BP 177/89; PULSE 75; RESP 18; TEMP 35.8; O2SAT 97; BMI 36.2
--- NOTE | 2022-04-08 14:31 | CT_ITS ---
STUDY: CT ABDOMEN AND PELVIS WITH CONTRAST REASON FOR EXAM: Female, 56 years old. Abdominal pain and bloating RADIATION DOSAGE (If Supplied By Facility): CTDIvol = ( 19.07 ) mGy, DLP = ( 1094.87 ) mGycm TECHNIQUE: Transaxial images were obtained from the dome of the diaphragm to the symphysis pubis without oral contrast. IV 100mL Isovue-370 was administered. Sagittal and coronal images were reconstructed. Individualized dose optimization techniques were used for this CT. COMPARISON: None. FINDINGS: The visualized lung bases are unremarkable. The visualized portions of the heart are within normal limits. Enlarged fatty infiltrated liver without mass or bile duct dilatation. Normal gallbladder and extrahepatic biliary system. Normal spleen. Normal pancreas. Normal bilateral adrenal glands. Normal right kidney. Mild renal pelvocaliectasis or small parapelvic cysts. Normal visualized stomach. Mild ileus with diffuse fecal retention in the colon. Diverticular changes of the descending and sigmoid colon with minor stranding in the pelvic fat consistent with mild acute diverticulitis.. The appendix is visualized and appears normal. Minor atherosclerotic changes of the aorta without evidence for aneurysm. Normal inferior vena cava. Normal retroperitoneum. Incompletely distended thick-walled bladder likely of no significance Uterus has been removed surgically Normal abdominal wall. Lumbar spine demonstrates mild spondylosis. CT/Abdomen/Pelvis W IV Cont ONLY IMPRESSION: Mild nonspecific ileus.. Diverticular changes of the descending and sigmoid colon with mild stranding in the pelvic fat consistent with mild acute diverticulitis. Electronically Signed: Twin Simon MD at 16:31 EDT ,
--- NOTE | 2022-04-08 14:33 | ED.VIS.GI ---
HPI HPI - GI History of Present Illness Chief Complaint: Diarrhea Narrative Narrative: Patient presents with abdominal pain and bloating, along with diarrhea that she has had for a week. She states that she is having yellow stooling. There was a time last week when she went a small amount and it was pebble-like. She denies any blood in her stooling. No dysuria or hematuria. She states that her abdomen feels bloated as if she were 3 months . She has past surgical history of sections, and had a cyst that was removed and she states her intestines were wrapped around it. She denies any fevers or chills. No nausea or vomiting, no exacerbating or alleviating factors. She presents because of the due to diffuse abdominal pain, bloating, and diarrhea. PFSH PFSH Home Medications multivitamin with folic acid 400 mcg tablet (Thera) 1 tab PO DAILY 09/17/13 [History Last Taken Unknown] Cetirizine Hcl [Zyrtec] 10 mg PO DAILY PRN Allergies 02/07/16 [History Last Taken 05/28/16] acyclovir 400 mg tablet 400 mg PO BID 02/07/16 [History Last Taken 05/28/16] baclofen 10 mg tablet 10 mg PO BID 02/07/16 [History Last Taken 05/28/16] acetaminophen 325 mg tablet (Tylenol) 325 mg PO Q6H PRN PRN Pain 05/28/16 [History Last Taken Unknown] atorvastatin 10 mg tablet 10 mg PO QHS 05/28/16 [History Last Taken 05/27/16] bupropion HCl 75 mg tablet 100 mg PO TID 05/28/16 [History Last Taken 05/28/16] fenofibrate nanocrystallized 145 mg tablet 145 mg PO DAILY 05/28/16 [History Last Taken 05/28/16] naproxen 500 mg tablet 500 mg PO BID PRN PRN Pain 05/28/16 [History Last Taken Unknown] sertraline 100 mg tablet 200 mg PO DAILY 05/28/16 [History Last Taken 05/28/16] lisinopril 10 mg tablet 20 mg PO QHS 03/31/19 [History Last Taken Unknown] Potassium (Otc) [Potassium Otc] 99 mg PO DAILY PRN vitamin 11/29/20 [History Last Taken Unknown] ascorbic acid (vitamin C) 1,000 mg tablet 1,000 mg PO DAILY 11/29/20 [History Last Taken Unknown] cyanocobalamin (vitamin B-12) 500 mcg tablet 500 mcg PO DAILY@0800 11/29/20 [History Last Taken Unknown] ginkgo biloba 120 mg tablet 120 mg PO DAILY 11/29/20 [History Last Taken Unknown] magnesium oxide 500 mg capsule 500 mg PO DAILY 11/29/20 [History Last Taken Unknown] diazepam 10 mg tablet 01/22/22 [History Last Taken Unknown] pioglitazone 45 mg tablet 45 mg PO DAILY 01/22/22 [History Last Taken Unknown] ciprofloxacin HCl 500 mg tablet (Cipro) 500 mg PO BID #20 tabs 04/08/22 [Rx Last Taken Unknown] metronidazole 500 mg tablet 500 mg PO TID #30 tabs 04/08/22 [Rx Last Taken Unknown] Allergy/AdvReac Type Severity Reaction Status Date / Time codeine Allergy Unknown Verified 04/08/22 14:04 erythromycin base Allergy Itching Verified 04/08/22 14:04 [Erythromycin Base] hydrocodone bitartrate Allergy Itching Verified 04/08/22 14:04 [From Vicodin] latex Allergy Hives Verified 04/08/22 14:04 paroxetine HCl [From Paxil] Allergy Unknown Verified 04/08/22 14:04 Social History Smoking Status: Never smoker ROS ROS ED ROS Narrative Constitutional: No fever, no chills. HEENT: No sore throat. No neck pain. No loss of vision. No rhinorrhea. Cardiovascular: No chest pain. No palpitations. No pedal edema. Respiratory: No cough, no shortness of breath. Abdominal: Positive diffuse abdominal pain. Abdominal bloating. No nausea. No vomiting. Diarrhea. 5 episodes of nonbloody stool within the last 24 hours. Genitourinary: No dysuria. No hematuria. Musculoskeletal: No myalgias. No arthralgias. Neurologic: No headaches. No dizziness. No lightheadedness. Skin: No rash. No change in color. Psychiatric: No depression. No anxiety. EXAM Physical Exam Narrative Exam Narrative: Afebrile. Vital signs noted. HEENT: Normocephalic. Atraumatic. PERRL, EOMI. Neck soft and supple. No point tenderness or step off. Cardiovascular: Regular rate and rhythm. No murmurs, rubs, or gallops appreciated. Respiratory: No tachypnea. Lungs clear to auscultation bilaterally. Gastrointestinal: Abdomen soft, diffuse tenderness to palpation, with normoactive to decreased bowel sounds. No rebound or guarding. Neurological: Awake. Alert. Nonfocal, nonlateralizing. Skin: No rash. Normal color. No pallor. Musculoskeletal: No pedal edema. Full range of motion extremities. Const Vital Signs: 04/08/22 14:02 Temperature 96.4 F L Temperature Source Temporal Pulse Rate 75 Respiratory Rate 18 Blood Pressure 177/89 H Blood Pressure Mean 118 Pulse Ox 97 Oxygen Delivery Method Room Air MDM MDM MDM Narrative Medical decision making narrative: Comprehensive work-up was pursued. Concern is also for partial small bowel obstruction although she has not had nausea and vomiting. CBC shows normal white count of 8.9, hemoglobin normal at 13.6, hematocrit 42.5. Electrolyte panel is grossly unremarkable with an AST of 12 low however, normal ALT. Urinalysis shows no evidence of infection. CT of the abdomen and pelvis does show questionable nonspecific ileus, but on examination she has bowel sounds, but there is noted descending colon and sigmoid diverticulitis. Repeat examination shows that her abdomen remains soft. She declined any analgesics here in the emergency department. Given that she is afebrile, and does not have an elevated white count, she would like to try outpatient antibiotics. She was given her first doses of Cipro/Flagyl and prescriptions written for the next 10 days. She was warned of the risk of perforation and abscess development and acknowledges an understanding. She would like to take [id number] medications for analgesia and declined a prescription for narcotic pain medications. Return instructions to the emergency department were reviewed. She will follow-up with her primary care physician in the next 2 to 5 days. I feel she can be discharged safely home with follow-up. Disposition is discharged home in stable condition. Lab Data Attestation: I reviewed the patient's lab results. Labs: Laboratory Results - last 24 hr 04/08/22 04/08/22 04/08/22 14:45 15:13 15:13 WBC 8.9 RBC 5.01 Hgb 13.6 Hct 42.5 MCV 84.8 MCH 27.1 MCHC 32.0 RDW Std Deviation 41.1 RDW Coeff of Delia 13.3 Plt Count 239 MPV 9.7 Immature Gran % (Auto) 0.300 Neut % (Auto) 67.7 Lymph % (Auto) 21.1 [place] % (Auto) 6.7 Eos % (Auto) 3.8 Baso % (Auto) 0.4 Absolute Neuts (auto) 6.0 Absolute Lymphs (auto) 1.88 Nucleated RBC % 0 Sodium 139 Potassium 3.9 Chloride 106 Carbon Dioxide 29.0 Anion Gap 4 L BUN 15 Creatinine 0.66 Estim Creat Clear Calc 74.38 Est GFR (MDRD) Af Amer 118 Est GFR (MDRD) Non-Af 97 BUN/Creatinine Ratio 22.6 H Glucose 103 Calcium 9.4 Total Bilirubin 0.30 Direct Bilirubin 0.11 AST 12 L ALT 29 Alkaline Phosphatase 94 Total Protein 7.2 Albumin 3.9 Globulin 3.3 Albumin/Globulin Ratio 1.2 Urine Color Yellow Urine Clarity Clear Urine pH 5.0 Ur Specific [place] 1.025 Urine Protein Negative Urine Glucose (UA) Normal Urine Ketones Negative Urine Occult Blood Negative Urine Nitrite Negative Urine Bilirubin Negative Urine Urobilinogen Normal Ur Leukocyte Esterase Negative Urine RBC 0 SEEN Urine WBC 0 SEEN Ur Squamous Epith Cells 0 SEEN Ur Transition Epith Cell 0-5 SEEN Triple Phos Crystals 4+ Urine Bacteria 1+ Urine Mucus 0 SEEN Radiography Diagnostic Testing: Clinical Impression(s) from Imaging Studies Abdomen/Pelvis CT 04/08/22 14:31 IMPRESSION: Mild nonspecific ileus.. Diverticular changes of the descending and sigmoid colon with mild stranding in the pelvic fat consistent with mild acute diverticulitis. Electronically Signed: Twin Simon MD at 16:31 EDT Reading Location ID and State: [facility] / [place] , Service support , Discharge Plan Triage Chief Complaint: Diarrhea ED Provider: Rufino Salter Dx/Rx/DC Orders Clinical Impression: Ileus, Diverticulitis large intestine, Diarrhea Instructions: ED Diverticulitis Prescriptions: New ciprofloxacin HCl [Cipro] 500 mg tablet 500 mg PO BID Qty: 20 0RF metronidazole 500 mg tablet 500 mg PO TID Qty: 30 0RF No Action multivitamin with folic acid [Thera] 1 TABLET tablet 1 tab PO DAILY Label Comments: supplement acyclovir 400 MG tablet 400 mg PO BID Label Comments: anti-viral baclofen 10 MG tablet 10 mg PO BID Label Comments: pain Cetirizine Hcl [Zyrtec] 10 MG tablet 10 mg PO DAILY PRN (Reason: Allergies) Label Comments: allergies acetaminophen [Tylenol] 325 MG tablet 325 mg PO Q6H PRN PRN (Reason: Pain) atorvastatin 10 MG tablet 10 mg PO QHS Label Comments: cholesterol lowering sertraline 100 MG tablet 200 mg PO DAILY Label Comments: mental health bupropion HCl 75 MG tablet 100 mg PO TID Label Comments: mental health naproxen 500 MG tablet 500 mg PO BID PRN PRN (Reason: Pain) fenofibrate nanocrystallized 145 MG tablet 145 mg PO DAILY Label Comments: cholesterol lisinopril 10 MG tablet 20 mg PO QHS ascorbic acid (vitamin C) 1,000 MG tablet 1,000 mg PO DAILY cyanocobalamin (vitamin B-12) 500 MCG tablet 500 mcg PO DAILY@0800 ginkgo biloba 120 MG tablet 120 mg PO DAILY magnesium oxide 500 MG capsule 500 mg PO DAILY Potassium (Otc) [Potassium Otc] 99 MG tablet 99 mg PO DAILY PRN (Reason: vitamin) pioglitazone 45 mg tablet 45 mg PO DAILY diazepam 10 mg tablet Label Comments: TAKE 1 TABLET BY MOUTH 1 HOUR PRIOR , DO NOT DRIVE. Primary Care Provider: Twin Piper Referrals: Twin Piper MD [Primary Care Provider] - 3-5 Days Activity Restrictions/Additional Instructions: Take your antibiotics as directed. You have been diagnosed with diverticulitis. Return with fever, increased pain, new or worsening symptoms. This includes inability to take your medications. Follow-up with your primary care physician in the next 2 to 5 days. Disposition Disposition: Home, Self Care
[2022-04-08 14:53] LABS: Mucous, Urine 0 SEEN /hpf (<or=2+); Red Blood Cells-Urine 0 SEEN /hpf (0-5); Squamous Epithelial Cells - UA 0 SEEN /hpf (5-10); White Blood Cells 0 SEEN /hpf (0-5)
[2022-04-08] MEDS: 0.9% Normal Saline 1,000 ML 1000 ML IV (15:08)
[2022-04-08 15:17] LABS: Absolute Lymphocyte Count 1.88 X10^3/uL (0.83-4.51); Basophil# 0.04 X10^3/uL; Basophil% 0.4 % (0-1); Eosinophil# 0.34 X10^3/uL; Eosinophils% 3.8 % (0-5); Hematocrit 42.5 % (37-47); Hemoglobin 13.6 g/dL (12.0-15.0); Lymphocyte # 1.88 X10^3/ul (0.83-4.51); Lymphocyte % 21.1 % (19-41); Mean Corpuscular Hgb 27.1 pg (27.0-32.0); Mean Corpuscular Volume 84.8 fL (81-99); Mean Platelet Vol. 9.7 fl (6.2-12.0); Monocyte% 6.7 % (0-10); NRBC Flagged by Analyzer 0 % (0-5); Neutrophil # 6.01 X10^3/uL (2.7-7.7); Neutrophil % 67.7 % (47-70); Platelet Count 239 K/mm3 (150-450); RBC Distribution Width CV 13.3 % (11.6-14.6); RBC Distribution Width SD 41.1 fl (35.1-43.9); Red Blood Count 5.01 M/mm3 (4.2-5.4); White Blood Count 8.9 K/mm3 (4.4-11.0)
[2022-04-08 15:23] LABS: Color, Urine Yellow (Yellow); Glucose, Dipstick Normal (Normal); Ketone-Dipstick Negative (Negative); Leukocyte Esterase-Dipstick Negative /ul (Negative); Nitrite-Dipstick Negative (Negative); Occult Blood-Urine Negative /ul (Negative); Protein-Dipstick Negative (Negative); Specific Gravity, Urine 1.025 (1.002-1.030); Urine Bilirubin Dipstick Negative (Negative); Urine Clarity Clear (Clear); Urine Urobilinogen Normal (Normal)
[2022-04-08 15:44] LABS: ALB/GLOB Ratio 1.2 RATIO (0.9-2.4); AST(SGOT) 12 U/L (15-37); Alanine Aminotransfer ALT/SGPT 29 U/L (13-56); Albumin, Serum 3.9 g/dL (3.2-5.0); Alkaline Phosphatase 94 U/L (45-117); Anion Gap 4 (5-15); BUN 15 mg/dL (7-18); BUN/Creat Ratio 22.6 RATIO (10-20); Bilirubin, Direct 0.11 mg/dL (0.00-0.30); Calcium,Total 9.4 mg/dL (8.5-10.1); Chloride 106 mmol/L (98-107); Creatinine, Serum 0.66 mg/dL (0.55-1.02); EST Glomerular Filtration Rate 97 mL/min (>60); Est Glom Filt Rate - Afr Amer 118 mL/min (>60); Estimated Creatinine Clearance 74.38 ml/min; Globulin 3.3 g/dL (2.2-4.2); Glucose 103 mg/dL (74-106); Potassium 3.9 mmol/L (3.5-5.1); Protein, Total 7.2 g/dL (6.4-8.2); Sodium Level 139 mmol/L (136-145)
[2022-04-08 16:00] LABS: Transitional Epithelial - Ur 0-5 SEEN /hpf (0-5)
[2022-04-08 16:01] LABS: Bacteria 1+ /hpf (None Seen); Triple Phosphate Crystals Ur 4+ /hpf (<or=1+)
[2022-04-08] MEDS: metroNIDAZOLE 500 MG Tablet PO (18:04)
[2022-04-08] MEDS: Ciprofloxacin 500 MG Tablet PO (18:04)
[2022-04-08 18:05] VITALS: BP 167/88; PULSE 69; RESP 18; O2SAT 98
== END 2022-04-08 18:08 | disposition home or self-care (01) ==
PROVIDERS: Emergency Provider Emergency Medicine; PCP Family Medicine; Visit Provider Emergency Medicine
DX: K56.7 Ileus, unspecified (principal); K57.32 Diverticulitis of large intestine without perforation or abscess without bleeding
CPT/HCPCS: 74177; 80053; 80076; 81001; 85025; 96360; 99284; J7030; Q9967; A4216

== ENCOUNTER 2022-04-24 10:29 | Emergency (ER) | payer MEDICARE, MEDICAID, SELFPAY ==
[2022-04-24 10:30] VITALS: BP 193/85; PULSE 59; RESP 18; TEMP 35.9; O2SAT 98; BMI 37.1
[2022-04-24 10:32] VITALS: BP 193/85; PULSE 59; RESP 18; TEMP 35.9; O2SAT 98
--- NOTE | 2022-04-24 10:41 | CT_ITS ---
STUDY: CT ABDOMEN AND PELVIS WITHOUT CONTRAST REASON FOR EXAM: Female, 56 years old. Abdominal pain, HISTORY OF DIVERTICULITIS RADIATION DOSAGE (If Supplied By Facility): CTDIvol = ( 16.49 ) mGy, DLP = ( 782.68 ) mGycm TECHNIQUE: Transaxial images were obtained from the dome of the diaphragm to the symphysis pubis without oral contrast, and without intravenous contrast. Sagittal and coronal images were reconstructed. Individualized dose optimization techniques were used for this CT. COMPARISON: Comparison is made with prior study dated 04/08/2022. FINDINGS: The visualized lung bases are unremarkable. The visualized portions of the heart are within normal limits. There is decreased attenuation of the liver consistent with steatosis. Normal gallbladder and extrahepatic biliary system. Normal spleen. Normal pancreas. Normal bilateral adrenal glands. There is malrotation of the right kidney. Normal left kidney. There is a small hiatal hernia. Normal small intestine. There are multiple colonic diverticula consistent with diverticulosis. There is non-visualization of the appendix. There is scattered atherosclerotic calcification of the abdominal aorta, without a demonstrated aneurysm. Normal inferior vena cava. There is borderline retroperitoneal lymphadenopathy with enlarged nodes no greater than 10mm in the short axis diameter. Normal urinary bladder. There is absence of the uterus consistent with a prior hysterectomy. Normal abdominal wall. Disc space narrowing and disc degeneration at the L5-S1 level. CT/Abdomen/Pelvis without Cont IMPRESSION: Sigmoid diverticulosis without diverticulitis. Status post hysterectomy. Stable malrotation of the right kidney. Electronically Signed: Bert Terrazas MD at 11:54 EDT ,
--- NOTE | 2022-04-24 10:43 | EDS_ITS ---
HPI History of Present Illness Chief Complaint: Abd Pain Narrative Narrative: Patient presents with few week history of abdominal pain she was found to have diverticulitis she took antibiotics but the pain persists. The past week or so she has had loose stools but not watery stools. She has no fevers or chills, she is complaining of polyuria but no urinary hesitancy or dysuria or hematuria. She has no upper abdominal pain, she has no fever chills no back pain or tearing sensation PFSH PFSH Home Medications multivitamin with folic acid 400 mcg tablet (Thera) 1 tab PO DAILY 09/17/13 [Hi story Last Taken Unknown] Cetirizine Hcl [Zyrtec] 10 mg PO DAILY PRN Allergies 02/07/16 [History Last Taken 05/28/16] acyclovir 400 mg tablet 400 mg PO BID 02/07/16 [History Last Taken 05/28/16] baclofen 10 mg tablet 10 mg PO BID 02/07/16 [History Last Taken 05/28/16] acetaminophen 325 mg tablet (Tylenol) 325 mg PO Q6H PRN PRN Pain 05/28/16 [History Last Taken Unknown] atorvastatin 10 mg tablet 10 mg PO QHS 05/28/16 [History Last Taken 05/27/16] bupropion HCl 75 mg tablet 100 mg PO TID 05/28/16 [History Last Taken 05/28/16] fenofibrate nanocrystallized 145 mg tablet 145 mg PO DAILY 05/28/16 [History Last Taken 05/28/16] naproxen 500 mg tablet 500 mg PO BID PRN PRN Pain 05/28/16 [History Last Taken Unknown] sertraline 100 mg tablet 200 mg PO DAILY 05/28/16 [History Last Taken 05/28/16] lisinopril 10 mg tablet 20 mg PO QHS 03/31/19 [History Last Taken Unknown] Potassium (Otc) [Potassium Otc] 99 mg PO DAILY PRN vitamin 11/29/20 [History Last Taken Unknown] ascorbic acid (vitamin C) 1,000 mg tablet 1,000 mg PO DAILY 11/29/20 [History Last Taken Unknown] cyanocobalamin (vitamin B-12) 500 mcg tablet 500 mcg PO DAILY@0800 11/29/20 [History Last Taken Unknown] ginkgo biloba 120 mg tablet 120 mg PO DAILY 11/29/20 [History Last Taken Unknown] magnesium oxide 500 mg capsule 500 mg PO DAILY 11/29/20 [History Last Taken Unknown] diazepam 10 mg tablet 01/22/22 [History Last Taken Unknown] pioglitazone 45 mg tablet 45 mg PO DAILY 01/22/22 [History Last Taken Unknown] ciprofloxacin HCl 500 mg tablet (Cipro) 500 mg PO BID #20 tabs 04/08/22 [Rx Last Taken Unknown] metronidazole 500 mg tablet 500 mg PO TID #30 tabs 04/08/22 [Rx Last Taken Unknown] dicyclomine 20 mg tablet 20 mg PO BID #10 tabs 04/24/22 [Rx Last Taken Unknown] ondansetron 4 mg disintegrating tablet 4 mg PO Q8H #7 tabs 04/24/22 [Rx Last Taken Unknown] Allergy/AdvReac Type Severity Reaction Status Date / Time codeine Allergy Unknown Verified 04/24/22 10:32 erythromycin base Allergy Itching Verified 04/24/22 10:32 [Erythromycin Base] hydrocodone bitartrate Allergy Itching Verified 04/24/22 10:32 [From Vicodin] latex Allergy Hives Verified 04/24/22 10:32 paroxetine HCl [From Paxil] Allergy Unknown Verified 04/24/22 10:32 Surgical History (Updated 04/24/22 @ 10:55 by Tamra Hull) H/O: hysterectomy History of tonsillectomy Social History Smoking Status: Never smoker ROS ROS ED ROS Narrative Past medical history: Reviewed in [facility] and at the bedside, includes diabetes, hypertension, chronic back pain on disability for this, fatty liver, diverticulitis Medications: Reviewed Social history: Noncontributory Review of systems: All systems negative except as indicated General: No fever Eyes: No visual changes ENT: No upper airway congestion, normal voice Neck: No neck pain Cardiovascular: No chest pain Respiratory: No shortness of breath or cough Gastrointestinal: As in HPI Genitourinary: Polyuria but no dysuria no hematuria or other urinary symptoms Musculoskeletal: Denies myalgias no difficulty with ambulation Skin: No rash Neurological: No memory loss, confusion or any focal weakness Psych: No recent behavioral changes Hematologic: No easy bleeding or easy bruising EXAM Physical Exam Narrative Exam Narrative: Physical exam General: Well nourished, Well developed, No Acute Distress. She appears relatively comfortable in the bed Head: Normocephalic, Atraumatic Eyes: Conjunctiva not pale ENT: Moist mucous membranes, she does not exhibit any signs of dehydration Neck: Supple, Nontender, No lymphadenopathy Cardiovascular: Regular rate, Regular rhythm Respiratory: No distress, CTA bilaterally Abdomen: Soft, mostly suprapubic and some left-sided abdominal pain mostly lower. She does not have any upper abdominal pain she does not have any pain at McBurney's, negative Bianchi's Back: Nontender, Normal Inspection. Negative for: CVA tenderness Extremities: Nontender, No edema Skin: Normal color, No rash Neurological: Alert, Normal Strength, Normal Sensation Psychological: Normal affect Const Vital Signs: 04/24/22 10:30 04/24/22 10:32 04/24/22 12:01 Temperature 96.6 F L 96.6 F L Temperature Source Temporal Temporal Pulse Rate 59 L 59 L 66 Respiratory Rate 18 18 16 Blood Pressure 193/85 H 193/85 H 153/90 H Blood Pressure Mean 121 111 Pulse Ox 98 98 97 Oxygen Delivery Method Room Air Room Air Room Air MDM MDM MDM Narrative Medical decision making narrative: Patient's work-up is unremarkable, this is chronic and recurrent abdominal pain in fact she has seen GI in the past and is due to have a colonoscopy. I will add Bentyl and I will discharge in stable condition Lab Data Labs: Laboratory Results - last 24 hr 04/24/22 04/24/22 04/24/22 10:40 10:58 10:58 WBC 7.0 RBC 5.23 Hgb 14.1 Hct 44.1 MCV 84.3 MCH 27.0 MCHC 32.0 RDW Std Deviation 40.9 RDW Coeff of Delia 13.3 Plt Count 239 MPV 9.6 Immature Gran % (Auto) 0.300 Neut % (Auto) 64.0 Lymph % (Auto) 22.6 [place] % (Auto) 8.2 Eos % (Auto) 4.2 Baso % (Auto) 0.7 Absolute Neuts (auto) 4.5 Absolute Lymphs (auto) 1.57 Nucleated RBC % 0 Sodium 141 Potassium 3.8 Chloride 108 H Carbon Dioxide 29.0 Anion Gap 4 L BUN 15 Creatinine 0.66 Estim Creat Clear Calc 74.38 Est GFR (MDRD) Af Amer 119 Est GFR (MDRD) Non-Af 99 BUN/Creatinine Ratio 22.9 H Glucose 122 H Calcium 9.2 Total Bilirubin 0.50 AST 13 L ALT 25 Alkaline Phosphatase 84 Total Protein 6.9 Albumin 3.7 Globulin 3.2 Albumin/Globulin Ratio 1.2 Lipase 101 Urine Color Yellow Urine Clarity Clear Urine pH 8.0 Ur Specific [place] 1.015 Urine Protein Negative Urine Glucose (UA) Normal Urine Ketones Negative Urine Occult Blood Negative Urine Nitrite Negative Urine Bilirubin Negative Urine Urobilinogen Normal Ur Leukocyte Esterase 25 H Urine RBC 0 SEEN Urine WBC 0 SEEN Ur Squamous Epith Cells 0 SEEN Urine Bacteria 0 SEEN Urine Mucus 0 SEEN Radiography Diagnostic Testing: Clinical Impression(s) from Imaging Studies Abdomen/Pelvis CT 04/24/22 10:41 IMPRESSION: Sigmoid diverticulosis without diverticulitis. Status post hysterectomy. Stable malrotation of the right kidney. Electronically Signed: Bert Terrazas MD at 11:54 EDT , Discharge Plan Triage Chief Complaint: Abd Pain ED Provider: French Will Dx/Rx/DC Orders Clinical Impression: Abdominal pain, Nausea Instructions: Abdominal Pain Prescriptions: New dicyclomine 20 mg tablet 20 mg PO BID Qty: 10 0RF ondansetron 4 mg tablet,disintegrating 4 mg PO Q8H Qty: 7 0RF No Action multivitamin with folic acid [Thera] 1 TABLET tablet 1 tab PO DAILY Label Comments: supplement acyclovir 400 MG tablet 400 mg PO BID Label Comments: anti-viral baclofen 10 MG tablet 10 mg PO BID Label Comments: pain Cetirizine Hcl [Zyrtec] 10 MG tablet 10 mg PO DAILY PRN (Reason: Allergies) Label Comments: allergies acetaminophen [Tylenol] 325 MG tablet 325 mg PO Q6H PRN PRN (Reason: Pain) atorvastatin 10 MG tablet 10 mg PO QHS Label Comments: cholesterol lowering sertraline 100 MG tablet 200 mg PO DAILY Label Comments: mental health bupropion HCl 75 MG tablet 100 mg PO TID Label Comments: mental health naproxen 500 MG tablet 500 mg PO BID PRN PRN (Reason: Pain) fenofibrate nanocrystallized 145 MG tablet 145 mg PO DAILY Label Comments: cholesterol lisinopril 10 MG tablet 20 mg PO QHS ascorbic acid (vitamin C) 1,000 MG tablet 1,000 mg PO DAILY cyanocobalamin (vitamin B-12) 500 MCG tablet 500 mcg PO DAILY@0800 ginkgo biloba 120 MG tablet 120 mg PO DAILY magnesium oxide 500 MG capsule 500 mg PO DAILY Potassium (Otc) [Potassium Otc] 99 MG tablet 99 mg PO DAILY PRN (Reason: vitamin) pioglitazone 45 mg tablet 45 mg PO DAILY diazepam 10 mg tablet Label Comments: TAKE 1 TABLET BY MOUTH 1 HOUR PRIOR , DO NOT DRIVE. ciprofloxacin HCl [Cipro] 500 mg tablet 500 mg PO BID Qty: 20 0RF metronidazole 500 mg tablet 500 mg PO TID Qty: 30 0RF Primary Care Provider: Twin Piper Referrals: Twin Piper MD [Primary Care Provider] - 2 Days Disposition Disposition: Home, Self Care
[2022-04-24 11:03] LABS: Bacteria 0 SEEN /hpf (None Seen); Mucous, Urine 0 SEEN /hpf (<or=2+); Red Blood Cells-Urine 0 SEEN /hpf (0-5); Squamous Epithelial Cells - UA 0 SEEN /hpf (5-10); White Blood Cells 0 SEEN /hpf (0-5)
[2022-04-24 11:07] LABS: Absolute Lymphocyte Count 1.57 X10^3/uL (0.83-4.51); Absolute Neutrophil Count 4.5 X10^3/uL (2.0-7.7); Basophil# 0.05 X10^3/uL; Basophil% 0.7 % (0-1); Eosinophil# 0.29 X10^3/uL; Eosinophils% 4.2 % (0-5); Hematocrit 44.1 % (37-47); Hemoglobin 14.1 g/dL (12.0-15.0); Lymphocyte # 1.57 X10^3/ul (0.83-4.51); Lymphocyte % 22.6 % (19-41); Mean Corpuscular Volume 84.3 fL (81-99); Mean Platelet Vol. 9.6 fl (6.2-12.0); Monocyte# 0.57 X10^3/uL; Monocyte% 8.2 % (0-10); NRBC Flagged by Analyzer 0 % (0-5); Neutrophil # 4.46 X10^3/uL (2.7-7.7); Platelet Count 239 K/mm3 (150-450); RBC Distribution Width CV 13.3 % (11.6-14.6); RBC Distribution Width SD 40.9 fl (35.1-43.9); Red Blood Count 5.23 M/mm3 (4.2-5.4)
[2022-04-24 11:10] LABS: Color, Urine Yellow (Yellow); Glucose, Dipstick Normal (Normal); Ketone-Dipstick Negative (Negative); Leukocyte Esterase-Dipstick 25 /ul (Negative); Nitrite-Dipstick Negative (Negative); Occult Blood-Urine Negative /ul (Negative); Protein-Dipstick Negative (Negative); Specific Gravity, Urine 1.015 (1.002-1.030); Urine Bilirubin Dipstick Negative (Negative); Urine Clarity Clear (Clear); Urine Urobilinogen Normal (Normal)
[2022-04-24 11:20] LABS: ALB/GLOB Ratio 1.2 RATIO (0.9-2.4); AST(SGOT) 13 U/L (15-37); Alanine Aminotransfer ALT/SGPT 25 U/L (13-56); Albumin, Serum 3.7 g/dL (3.2-5.0); Alkaline Phosphatase 84 U/L (45-117); Anion Gap 4 (5-15); BUN 15 mg/dL (7-18); BUN/Creat Ratio 22.9 RATIO (10-20); Calcium,Total 9.2 mg/dL (8.5-10.1); Chloride 108 mmol/L (98-107); Creatinine, Serum 0.66 mg/dL (0.55-1.02); EST Glomerular Filtration Rate 99 mL/min (>60); Est Glom Filt Rate - Afr Amer 119 mL/min (>60); Estimated Creatinine Clearance 74.38 ml/min; Globulin 3.2 g/dL (2.2-4.2); Glucose 122 mg/dL (74-106); Lipase 101 U/L (73-393); Potassium 3.8 mmol/L (3.5-5.1); Protein, Total 6.9 g/dL (6.4-8.2); Sodium Level 141 mmol/L (136-145)
[2022-04-24 12:01] VITALS: BP 153/90; PULSE 66; RESP 16; O2SAT 97
[2022-04-24 13:09] VITALS: RESP 16
== END 2022-04-24 13:09 | disposition home or self-care (01) ==
PROVIDERS: Emergency Provider Emergency Medicine; PCP Family Medicine; Visit Provider Emergency Medicine
DX: K57.30 Diverticulosis of large intestine without perforation or abscess without bleeding (principal); E11.9 Type 2 diabetes mellitus without complications; G89.29 Other chronic pain; I10 Essential (primary) hypertension; Z90.710 Acquired absence of both cervix and uterus; Z79.84 Long term (current) use of oral hypoglycemic drugs; Z79.899 Other long term (current) drug therapy
CPT/HCPCS: 74176; 80053; 81001; 83690; 85025; 96360; 99284; J7040

== ENCOUNTER 2022-07-18 16:03 | Emergency (ER) | payer MEDICARE, MEDICAID, SELFPAY ==
[2022-07-18 16:04] VITALS: BP 149/67; PULSE 74; RESP 16; TEMP 36.4; O2SAT 98; BMI 36.6
--- NOTE | 2022-07-18 16:16 | CT_ITS ---
STUDY: CT ABDOMEN AND PELVIS WITH CONTRAST REASON FOR EXAM: Female, 56 years old. right sided abd pain -- IV PO Contrast RADIATION DOSAGE (If Supplied By Facility): CTDIvol = ( 15.75 ) mGy, DLP = ( 1011.18 ) mGycm TECHNIQUE: Transaxial images were obtained from the dome of the diaphragm to the symphysis pubis without oral contrast. Oral and amp; IV Gastrografin and amp; 100mL Isovue-300 was administered. Sagittal and coronal images were reconstructed. Individualized dose optimization techniques were used for this CT. COMPARISON: CT abdomen and pelvis 04/24/2022 FINDINGS: The visualized lung bases are unremarkable. The visualized portions of the heart are within normal limits. Normal liver. Normal gallbladder and extrahepatic biliary system. Normal spleen. Normal pancreas. Normal bilateral adrenal glands. Normal right kidney. Normal left kidney. Normal visualized stomach. Oral contrast into the small or large bowel. Increased stool otherwise Normal colon. The appendix is visualized and appears normal. Normal abdominal aorta. Normal inferior vena cava. Normal retroperitoneum. Normal urinary bladder. Normal abdominal wall. Vacuum disc phenomena at L5-S1. CT/Abdomen/Pelvis WITH Contrast IMPRESSION: Increased stool. No acute disease. Electronically Signed: Levi Jacobson MD at 18:34 EDT ,
--- NOTE | 2022-07-18 16:17 | EDS_ITS ---
HPI History of Present Illness Chief Complaint: Abd Pain Informant: patient Onset/Context/Timing Onset: Days (3 days) Context: Gradual Onset Timing: Waxes and wanes Current Severity: Moderate Maximum Severity: Moderate Narrative Narrative: Patient presents secondary to right-sided abdominal pain. She points to the mid right abdomen and states she had pain for the past 3 days. She went to her PCP today thinking that she had a flare of her diverticulitis. She has had episodes where she gets hot flashes but did not measure her temperature. She has had some diarrhea but no vomiting. No blood in her stool. [facility] Medical History Chronic pain syndrome DM type 2 (diabetes mellitus, type 2) Gastroesophageal reflux disease Hypertension Home Medications multivitamin with folic acid 400 mcg tablet (Thera) 1 tab PO DAILY 09/17/13 [History Last Taken Unknown] Cetirizine Hcl [Zyrtec] 10 mg PO DAILY PRN Allergies 02/07/16 [History Last Taken 05/28/16] acyclovir 400 mg tablet 400 mg PO BID 02/07/16 [History Last Taken 05/28/16] baclofen 10 mg tablet 10 mg PO BID 02/07/16 [History Last Taken 05/28/16] acetaminophen 325 mg tablet (Tylenol) 325 mg PO Q6H PRN PRN Pain 05/28/16 [History Last Taken Unknown] atorvastatin 10 mg tablet 10 mg PO QHS 05/28/16 [History Last Taken 05/27/16] bupropion HCl 75 mg tablet 100 mg PO TID 05/28/16 [History Last Taken 05/28/16] fenofibrate nanocrystallized 145 mg tablet 145 mg PO DAILY 05/28/16 [History Last Taken 05/28/16] naproxen 500 mg tablet 500 mg PO BID PRN PRN Pain 05/28/16 [History Last Taken Unknown] sertraline 100 mg tablet 200 mg PO DAILY 05/28/16 [History Last Taken 05/28/16] lisinopril 10 mg tablet 20 mg PO QHS 03/31/19 [History Last Taken Unknown] Potassium (Otc) [Potassium Otc] 99 mg PO DAILY PRN vitamin 11/29/20 [History Last Taken Unknown] ascorbic acid (vitamin C) 1,000 mg tablet 1,000 mg PO DAILY 11/29/20 [History Last Taken Unknown] cyanocobalamin (vitamin B-12) 500 mcg tablet 500 mcg PO DAILY@0800 11/29/20 [History Last Taken Unknown] ginkgo biloba 120 mg tablet 120 mg PO DAILY 11/29/20 [History Last Taken Unknown] magnesium oxide 500 mg capsule 500 mg PO DAILY 11/29/20 [History Last Taken Unknown] diazepam 10 mg tablet 01/22/22 [History Last Taken Unknown] pioglitazone 45 mg tablet 45 mg PO DAILY 01/22/22 [History Last Taken Unknown] ciprofloxacin HCl 500 mg tablet (Cipro) 500 mg PO BID #20 tabs 04/08/22 [Rx Last Taken Unknown] metronidazole 500 mg tablet 500 mg PO TID #30 tabs 04/08/22 [Rx Last Taken Unknown] dicyclomine 20 mg tablet 20 mg PO BID #10 tabs 04/24/22 [Rx Last Taken Unknown] ondansetron 4 mg disintegrating tablet 4 mg PO Q8H #7 tabs 04/24/22 [Rx Last Taken Unknown] Allergy/AdvReac Type Severity Reaction Status Date / Time codeine Allergy Unknown Verified 07/18/22 16:04 erythromycin base Allergy Itching Verified 07/18/22 16:04 [Erythromycin Base] hydrocodone bitartrate Allergy Itching Verified 07/18/22 16:04 [From Vicodin] latex Allergy Hives Verified 07/18/22 16:04 paroxetine HCl [From Paxil] Allergy Unknown Verified 07/18/22 16:04 Surgical History H/O: hysterectomy History of tonsillectomy Social History Smoking Status: Never smoker ROS ROS ED Constitutional Constitutional ED: Denies chills or fever(s) Eyes Eyes: Denies change in vision or discharge from eye(s) ENT ENT ED: Denies discharge from eye(s), rhinorrhea or sore throat Cardiovascular Cardiovascular: Denies chest pain or palpitations Respiratory/Chest Respiratory/Chest: Denies cough or dyspnea Gastrointestinal Gastrointestinal: Reports abdominal pain and diarrhea; Denies nausea or vomiting Genitourinary Genitourinary ED: Denies difficulty urinating or dysuria Musculoskeletal Musculoskeletal: Denies back pain or extremity pain Integumentary Denies Abrasions or rash Neurologic Neurologic: Denies headache(s) or weakness Allergic/Immunologic Allergic/Immunologic ED: Denies lip swelling or urticaria EXAM Physical Exam Const Vital Signs: 07/18/22 16:04 07/18/22 18:28 Temperature 97.6 F L Temperature Source Temporal Pulse Rate 74 71 Respiratory Rate 16 18 Blood Pressure 149/67 H 176/88 H Blood Pressure Mean 94 117 Pulse Ox 98 97 Oxygen Delivery Method Room Air Room Air Positive well nourished and well developed General Appearance ED: well developed HEENT Reports normocephalic and head/scalp atraumatic Eyes PERRL and EOMs intact bilaterally Neck supple Chest Wall inspection of chest normal and palpation of chest normal Resp normal respiratory effort and clear to auscultation bilaterally Cardio regular rate and regular rhythm GI GI Narrative: Abdomen is soft with tenderness in the right lower quadrant. No guarding at this time. Hypoactive bowel sounds are noted. Palpation: soft Back/Spine no CVA tenderness Extremity normal to inspection Neuro oriented x3 and no sensory deficits noted Sensorium / Orientation: alert Motor Exam: strength 5/5 throughout Psych mental status grossly normal Skin no rashes or lesions noted MDM MDM MDM Narrative Medical decision making narrative: Patient declined anything for pain. Lab work, urinalysis, CT scan obtained. Lab Data Attestation: I reviewed the patient's lab results. Labs: Laboratory Results - last 24 hr 07/18/22 07/18/22 07/18/22 15:45 16:15 16:15 WBC 7.4 RBC 5.28 Hgb 14.7 Hct 45.0 MCV 85.2 MCH 27.8 MCHC 32.7 RDW Std Deviation 42.5 RDW Coeff of Delia 13.6 Plt Count 236 MPV 9.8 Immature Gran % (Auto) 0.400 Neut % (Auto) 63.0 Lymph % (Auto) 24.8 [place] % (Auto) 6.6 Eos % (Auto) 4.5 Baso % (Auto) 0.7 Absolute Neuts (auto) 4.7 Absolute Lymphs (auto) 1.83 Nucleated RBC % 0 Sodium 141 Potassium 3.7 Chloride 106 Carbon Dioxide 26.0 Anion Gap 9 BUN 12 Creatinine 0.76 Estim Creat Clear Calc 64.59 Est GFR (MDRD) Af Amer 100 Est GFR (MDRD) Non-Af 83 BUN/Creatinine Ratio 15.7 Glucose 144 H Calcium 9.1 Total Bilirubin 0.40 Direct Bilirubin 0.08 AST 13 L ALT 27 Alkaline Phosphatase 89 Total Protein 7.2 Albumin 3.8 Globulin 3.4 Lipase 105 Urine Color Yellow Urine Clarity Clear Urine pH 5.0 Ur Specific [place] 1.020 Urine Protein 15 H Urine Glucose (UA) Normal Urine Ketones Negative Urine Occult Blood Negative Urine Nitrite Negative Urine Bilirubin Negative Urine Urobilinogen Normal Ur Leukocyte Esterase Negative Urine RBC 0 SEEN Urine WBC 0 SEEN Ur Squamous Epith Cells 0 SEEN Calcium Oxalate Crystal RARE Urine Bacteria 0 SEEN Urine Mucus 0 SEEN Radiography Diagnostic Testing: Clinical Impression(s) from Imaging Studies Abdomen/Pelvis CT 07/18/22 16:16 IMPRESSION: Increased stool. No acute disease. Electronically Signed: Levi Jacobson MD at 18:34 EDT Reading Location ID and State: [address] [place] [address] , Service support , Treatment and Re-Evaluation Narrative: Lab work is unremarkable. Urinalysis reveals no sign of acute infection. CT scan shows increased stool but no evidence of acute disease.The appendix is visualized and appears normal. Test results are discussed with the patient. She states she had a large bowel movement here after going to CT. I encouraged her to increase fluids. Return for worsened pain, fever, chills, any further concerns. Discharge Plan Triage Chief Complaint: Abd Pain ED Provider: Trice Tipton Dx/Rx/DC Orders Clinical Impression: Abdominal pain, Constipation Instructions: ED Abdominal Pain Unkn Cause Fem, ED Constipation (Adult) Prescriptions: No Action multivitamin with folic acid [Thera] 1 TABLET tablet 1 tab PO DAILY Label Comments: supplement acyclovir 400 MG tablet 400 mg PO BID Label Comments: anti-viral baclofen 10 MG tablet 10 mg PO BID Label Comments: pain Cetirizine Hcl [Zyrtec] 10 MG tablet 10 mg PO DAILY PRN (Reason: Allergies) Label Comments: allergies acetaminophen [Tylenol] 325 MG tablet 325 mg PO Q6H PRN PRN (Reason: Pain) atorvastatin 10 MG tablet 10 mg PO QHS Label Comments: cholesterol lowering sertraline 100 MG tablet 200 mg PO DAILY Label Comments: mental health bupropion HCl 75 MG tablet 100 mg PO TID Label Comments: mental health naproxen 500 MG tablet 500 mg PO BID PRN PRN (Reason: Pain) fenofibrate nanocrystallized 145 MG tablet 145 mg PO DAILY Label Comments: cholesterol lisinopril 10 MG tablet 20 mg PO QHS ascorbic acid (vitamin C) 1,000 MG tablet 1,000 mg PO DAILY cyanocobalamin (vitamin B-12) 500 MCG tablet 500 mcg PO DAILY@0800 ginkgo biloba 120 MG tablet 120 mg PO DAILY magnesium oxide 500 MG capsule 500 mg PO DAILY Potassium (Otc) [Potassium Otc] 99 MG tablet 99 mg PO DAILY PRN (Reason: vitamin) pioglitazone 45 mg tablet 45 mg PO DAILY diazepam 10 mg tablet Label Comments: TAKE 1 TABLET BY MOUTH 1 HOUR PRIOR , DO NOT DRIVE. ciprofloxacin HCl [Cipro] 500 mg tablet 500 mg PO BID Qty: 20 0RF metronidazole 500 mg tablet 500 mg PO TID Qty: 30 0RF dicyclomine 20 mg tablet 20 mg PO BID Qty: 10 0RF ondansetron 4 mg tablet,disintegrating 4 mg PO Q8H Qty: 7 0RF Primary Care Provider: Twin Piper Referrals: Twin Piper MD [Primary Care Provider] - 1 Week if not improving Disposition Disposition: Home, Self Care
[2022-07-18] MEDS: 0.9% Normal Saline 1,000 ML 150 ML IV (16:35)
[2022-07-18 16:43] LABS: Bacteria 0 SEEN /hpf (None Seen); Mucous, Urine 0 SEEN /hpf (<or=2+); Red Blood Cells-Urine 0 SEEN /hpf (0-5); Squamous Epithelial Cells - UA 0 SEEN /hpf (5-10); White Blood Cells 0 SEEN /hpf (0-5)
[2022-07-18 16:48] LABS: Color, Urine Yellow (Yellow); Glucose, Dipstick Normal (Normal); Ketone-Dipstick Negative (Negative); Leukocyte Esterase-Dipstick Negative /ul (Negative); Nitrite-Dipstick Negative (Negative); Occult Blood-Urine Negative /ul (Negative); Protein-Dipstick 15 mg/dl (Negative); Urine Bilirubin Dipstick Negative (Negative); Urine Clarity Clear (Clear); Urine Urobilinogen Normal (Normal)
[2022-07-18 16:54] LABS: Calcium Oxalate Crystals Ur RARE /hpf (<or=2+)
[2022-07-18 17:00] LABS: Absolute Lymphocyte Count 1.83 X10^3/uL (0.83-4.51); Absolute Neutrophil Count 4.7 X10^3/uL (2.0-7.7); Basophil# 0.05 X10^3/uL; Basophil% 0.7 % (0-1); Eosinophil# 0.33 X10^3/uL; Eosinophils% 4.5 % (0-5); Hemoglobin 14.7 g/dL (12.0-15.0); Lymphocyte # 1.83 X10^3/ul (0.83-4.51); Lymphocyte % 24.8 % (19-41); Mean Corp Hgb Conc 32.7 g/dL (32-36); Mean Corpuscular Hgb 27.8 pg (27.0-32.0); Mean Corpuscular Volume 85.2 fL (81-99); Mean Platelet Vol. 9.8 fl (6.2-12.0); Monocyte# 0.49 X10^3/uL; Monocyte% 6.6 % (0-10); NRBC Flagged by Analyzer 0 % (0-5); Neutrophil # 4.65 X10^3/uL (2.7-7.7); Platelet Count 236 K/mm3 (150-450); RBC Distribution Width CV 13.6 % (11.6-14.6); RBC Distribution Width SD 42.5 fl (35.1-43.9); Red Blood Count 5.28 M/mm3 (4.2-5.4); White Blood Count 7.4 K/mm3 (4.4-11.0)
[2022-07-18 17:07] LABS: AST(SGOT) 13 U/L (15-37); Alanine Aminotransfer ALT/SGPT 27 U/L (13-56); Albumin, Serum 3.8 g/dL (3.2-5.0); Alkaline Phosphatase 89 U/L (45-117); Anion Gap 9 (5-15); BUN 12 mg/dL (7-18); BUN/Creat Ratio 15.7 RATIO (10-20); Bilirubin, Direct 0.08 mg/dL (0.00-0.30); Calcium,Total 9.1 mg/dL (8.5-10.1); Chloride 106 mmol/L (98-107); Creatinine, Serum 0.76 mg/dL (0.55-1.02); EST Glomerular Filtration Rate 83 mL/min (>60); Est Glom Filt Rate - Afr Amer 100 mL/min (>60); Estimated Creatinine Clearance 64.59 ml/min; Globulin 3.4 g/dL (2.2-4.2); Glucose 144 mg/dL (74-106); Lipase 105 U/L (73-393); Potassium 3.7 mmol/L (3.5-5.1); Protein, Total 7.2 g/dL (6.4-8.2); Sodium Level 141 mmol/L (136-145)
[2022-07-18 18:28] VITALS: BP 176/88; PULSE 71; RESP 18; O2SAT 97
== END 2022-07-18 19:00 | disposition home or self-care (01) ==
PROVIDERS: Emergency Provider Emergency Medicine; PCP Family Medicine; Visit Provider Emergency Medicine
DX: K59.00 Constipation, unspecified (principal); I10 Essential (primary) hypertension; Z79.899 Other long term (current) drug therapy
CPT/HCPCS: 74177; 80048; 80076; 81001; 83690; 85025; 96360; 96361; 99282; J7030; Q9967; A4216

== ENCOUNTER 2023-11-27 18:53 | Emergency (ER) | payer MEDICARE, MEDICAID, SELFPAY ==
[2023-11-27 18:54] VITALS: BP 154/87; PULSE 78; RESP 24; TEMP 35.7; O2SAT 100
[2023-11-27 19:10] VITALS: BMI 37.0
--- OUTSIDE RECORDS SUMMARY | 2023-11-27 19:19 | XMS RPT_ITS | CCD ---
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 unspecified ovarian cyst 01/11/2009 01/26/2013 Abdominal pain, right upper quadrant 12/01/2008 01/26/2013 Peritoneal adhesions (postoperative) (postinfect ion) 09/14/2008 01/26/2013 Pain in joint, ankle and foot 11/26/2006 Enthesopathy of unspecified site 11/26/2006 01/26/2013 Calcaneal spur 10/22/2006 01/26/2013 documented as of this encounter (statuses as of 11/11/2022) [facility] History of Past illness Narrative* Problem Noted Date Resolved Date Neoplasm of uncertain behavior of skin 1 02/04/2022 Overview: left lateral forearm Other and unspecified ovarian cyst 01/11/2009 01/26/2013 Abdominal pain, right upper quadrant 12/01/2008 01/26/2013 Peritoneal adhesions (postoperative) (postinfect ion) 09/14/2008 01/26/2013 Pain in joint, ankle and foot 11/26/2006 Enthesopathy of unspecified site 11/26/2006 01/26/2013 Calcaneal spur 10/22/2006 01/26/2013 documented as of this encounter (statuses as of 11/15/2022) [facility] History of Past illness Narrative* Problem Noted Date Resolved Date Neoplasm of uncertain behavior of skin 1 02/04/2022 Overview: left lateral forearm Other and unspecified ovarian cyst 01/11/2009 01/26/2013 Abdominal pain, right upper quadrant 12/01/2008 01/26/2013 Peritoneal adhesions (postoperative) (postinfect ion) 09/14/2008 01/26/2013 Pain in joint, ankle and foot 11/26/2006 Enthesopathy of unspecified site 11/26/2006 01/26/2013 Calcaneal spur 10/22/2006 01/26/2013 documented as of this encounter (statuses as of 11/15/2022) [facility] History of Past illness Narrative* Problem Noted Date Resolved Date Neoplasm of uncertain behavior of skin 1 02/04/2022 Overview: left lateral forearm Other and unspecified ovarian cyst 01/11/2009 01/26/2013 Abdominal pain, right upper quadrant 12/01/2008 01/26/2013 Peritoneal adhesions (postoperative) (postinfect ion) 09/14/2008 01/26/2013 Pain in joint, ankle and foot 11/26/2006 Enthesopathy of unspecified site 11/26/2006 01/26/2013 Calcaneal spur 10/22/2006 01/26/2013 documented as of this encounter (statuses as of 11/26/2022) [facility] History of Past illness Narrative* Problem Noted Date Resolved Date Neoplasm of uncertain behavior of skin 1 02/04/2022 Overview: left lateral forearm Other and unspecified ovarian cyst 01/11/2009 01/26/2013 Abdominal pain, right upper quadrant 12/01/2008 01/26/2013 Peritoneal adhesions (postoperative) (postinfect ion) 09/14/2008 01/26/2013 Pain in joint, ankle and foot 11/26/2006 Enthesopathy of unspecified site 11/26/2006 01/26/2013 Calcaneal spur 10/22/2006 01/26/2013 documented as of this encounter (statuses as of 11/29/2022) [facility] History of Past illness Narrative* Problem Noted Date Resolved Date Neoplasm of uncertain behavior of skin 1 02/04/2022 Overview: left lateral forearm Other and unspecified ovarian cyst 01/11/2009 01/26/2013 Abdominal pain, right upper quadrant 12/01/2008 01/26/2013 Peritoneal adhesions (postoperative) (postinfect ion) 09/14/2008 01/26/2013 Pain in joint, ankle and foot 11/26/2006 Enthesopathy of unspecified site 11/26/2006 01/26/2013 Calcaneal spur 10/22/2006 01/26/2013 documented as of this encounter (statuses as of 12/08/2022) [facility] History of Past illness Narrative* Problem Noted Date Resolved Date Neoplasm of uncertain behavior of skin 1 02/04/2022 Overview: left lateral forearm Other and unspecified ovarian cyst 01/11/2009 01/26/2013 Abdominal pain, right upper quadrant 12/01/2008 01/26/2013 Peritoneal adhesions (postoperative) (postinfect ion) 09/14/2008 01/26/2013 Pain in joint, ankle and foot 11/26/2006 Enthesopathy of unspecified site 11/26/2006 01/26/2013 Calcaneal spur 10/22/2006 01/26/2013 documented as of this encounter (statuses as of 12/23/2022) [facility] History of Past illness Narrative* Problem Noted Date Resolved Date Neoplasm of uncertain behavior of skin 1 02/04/2022 Overview: left lateral forearm Other and unspecified ovarian cyst 01/11/2009 01/26/2013 Abdominal pain, right upper quadrant 12/01/2008 01/26/2013 Peritoneal adhesions (postoperative) (postinfect ion) 09/14/2008 01/26/2013 Pain in joint, ankle and foot 11/26/2006 Enthesopathy of unspecified site 11/26/2006 01/26/2013 Calcaneal spur 10/22/2006 01/26/2013 documented as of this encounter (statuses as of 12/24/2022) [facility] of Past illness Narrative* Problem Noted Date Resolved Date Neoplasm of uncertain behavior of skin 1 02/04/2022 Overview: left lateral forearm Other and unspecified ovarian cyst 01/11/2009 01/26/2013 Abdominal pain, right upper quadrant 12/01/2008 01/26/2013 Peritoneal adhesions (postoperative) (postinfect ion) 09/14/2008 01/26/2013 Pain in joint, ankle and foot 11/26/2006 Enthesopathy of unspecified site 11/26/2006 01/26/2013 Calcaneal spur 10/22/2006 01/26/2013 documented as of this encounter (statuses as of 01/14/2023) [facility] History of Past illness Narrative* Problem Noted Date Resolved Date Neoplasm of uncertain behavior of skin 1 02/04/2022 Overview: left lateral forearm Other and unspecified ovarian cyst 01/11/2009 01/26/2013 Abdominal pain, right upper quadrant 12/01/2008 01/26/2013 Peritoneal adhesions (postoperative) (postinfect ion) 09/14/2008 01/26/2013 Pain in joint, ankle and foot 11/26/2006 Enthesopathy of unspecified site 11/26/2006 01/26/2013 Calcaneal spur 10/22/2006 01/26/2013 documented as of this encounter (statuses as of 01/16/2023) [facility] History of Past illness Narrative* Problem Noted Date Resolved Date Neoplasm of uncertain behavior of skin 1 02/04/2022 Overview: left lateral forearm Other and unspecified ovarian cyst 01/11/2009 01/26/2013 Abdominal pain, right upper quadrant 12/01/2008 01/26/2013 Peritoneal adhesions (postoperative) (postinfect ion) 09/14/2008 01/26/2013 Pain in joint, ankle and foot 11/26/2006 Enthesopathy of unspecified site 11/26/2006 01/26/2013 Calcaneal spur 10/22/2006 01/26/2013 documented as of this encounter (statuses as of 01/16/2023) [facility] History of Past illness Narrative* Problem Noted Date Resolved Date Neoplasm of uncertain behavior of skin 1 02/04/2022 Overview: left lateral forearm Other and unspecified ovarian cyst 01/11/2009 01/26/2013 Abdominal pain, right upper quadrant 12/01/2008 01/26/2013 Peritoneal adhesions (postoperative) (postinfect ion) 09/14/2008 01/26/2013 Pain in joint, ankle and foot 11/26/2006 Enthesopathy of unspecified site 11/26/2006 01/26/2013 Calcaneal spur 10/22/2006 01/26/2013 documented as of this encounter (statuses as of 01/17/2023) [facility] History of Past illness Narrative* Problem Noted Date Resolved Date Neoplasm of uncertain behavior of skin 1 02/04/2022 Overview: left lateral forearm Other and unspecified ovarian cyst 01/11/2009 01/26/2013 Abdominal pain, right upper quadrant 12/01/2008 01/26/2013 Peritoneal adhesions (postoperative) (postinfect ion) 09/14/2008 01/26/2013 Pain in joint, ankle and foot 11/26/2006 Enthesopathy of unspecified site 11/26/2006 01/26/2013 Calcaneal spur 10/22/2006 01/26/2013 documented as of this encounter (statuses as of 02/06/2023) [facility] History of Past illness Narrative* Problem Noted Date Resolved Date Neoplasm of uncertain behavior of skin 1 02/04/2022 Overview: left lateral forearm Other and unspecified ovarian cyst 01/11/2009 01/26/2013 Abdominal pain, right upper quadrant 12/01/2008 01/26/2013 Peritoneal adhesions (postoperative) (postinfect ion) 09/14/2008 01/26/2013 Pain in joint, ankle and foot 11/26/2006 Enthesopathy of unspecified site 11/26/2006 01/26/2013 Calcaneal spur 10/22/2006 01/26/2013 documented as of this encounter (statuses as of 02/18/2023) [facility] History of Past illness Narrative* Problem Noted Date Resolved Date Neoplasm of uncertain behavior of skin 02/04/2022 Overview: left lateral forearm Other and unspecified ovarian cyst 01/11/2009 01/26/2013 Abdominal pain, right upper quadrant 12/01/2008 01/26/2013 Peritoneal adhesions (postoperative) (postinfect ion) 09/14/2008 01/26/2013 Pain in joint, ankle and foot 11/26/2006 Enthesopathy of unspecified site 11/26/2006 01/26/2013 Calcaneal spur 10/22/2006 01/26/2013 documented as of this encounter (statuses as of 02/18/2023) [facility] History of Past illness Narrative* Problem Noted Date Resolved Date Neoplasm of uncertain behavior of skin 02/04/2022 Overview: left lateral forearm Other and unspecified ovarian cyst 01/11/2009 01/26/2013 Abdominal pain, right upper quadrant 12/01/2008 01/26/2013 Peritoneal adhesions (postoperative) (postinfect ion) 09/14/2008 01/26/2013 Pain in joint, ankle and foot 11/26/2006 Enthesopathy of unspecified site 11/26/2006 01/26/2013 Calcaneal spur 10/22/2006 01/26/2013 documented as of this encounter (statuses as of 02/19/2023) [facility] History of Past illness Narrative* Problem Noted Date Resolved Date Neoplasm of uncertain behavior of skin 1 02/04/2022 Overview: left lateral forearm Other and unspecified ovarian cyst 01/11/2009 01/26/2013 Abdominal pain, right upper quadrant 12/01/2008 01/26/2013 Peritoneal adhesions (postoperative) (postinfect ion) 09/14/2008 01/26/2013 Pain in joint, ankle and foot 11/26/2006 Enthesopathy of unspecified site 11/26/2006 01/26/2013 Calcaneal spur 10/22/2006 01/26/2013 documented as of this encounter (statuses as of 02/26/2023) [facility] History of Past illness Narrative* Problem Noted Date Resolved Date Neoplasm of uncertain behavior of skin 1 02/04/2022 Overview: left lateral forearm Other and unspecified ovarian cyst 01/11/2009 01/26/2013 RUQ pain 12/01/2008 03/03/2023 Peritoneal adhesions (postoperative) (postinfect ion) 09/14/2008 01/26/2013 Pain in joint, ankle and foot 11/26/2006 Enthesopathy of unspecified site 11/26/2006 01/26/2013 Calcaneal spur 10/22/2006 01/26/2013 documented as of this encounter (statuses as of 03/19/2023) [facility] History of Past illness Narrative* Problem Noted Date Resolved Date Neoplasm of uncertain behavior of skin 1 02/04/2022 Overview: left lateral forearm Other and unspecified ovarian cyst 01/11/2009 01/26/2013 RUQ pain 12/01/2008 03/03/2023 Peritoneal adhesions (postoperative) (postinfect ion) 09/14/2008 01/26/2013 Pain in joint, ankle and foot 11/26/2006 Enthesopathy of unspecified site 11/26/2006 01/26/2013 Calcaneal spur 10/22/2006 01/26/2013 documented as of this encounter (statuses as of 03/25/2023) [facility]21 History of Past illness Narrative* Problem Noted Date Resolved Date Neoplasm of uncertain behavior of skin 1 02/04/2022 Overview: left lateral forearm Other and unspecified ovarian cyst 01/11/2009 01/26/2013 RUQ pain 12/01/2008 03/03/2023 Peritoneal adhesions (postoperative) (postinfect ion) 09/14/2008 01/26/2013 Pain in joint, ankle and foot 11/26/2006 Enthesopathy of unspecified site 11/26/2006 01/26/2013 Calcaneal spur 10/22/2006 01/26/2013 documented as of this encounter (statuses as of 03/27/2023) [facility] History of Past illness Narrative* Problem Noted Date Resolved Date Neoplasm of uncertain behavior of skin 1 02/04/2022 Overview: left lateral forearm Other and unspecified ovarian cyst 01/11/2009 01/26/2013 RUQ pain 12/01/2008 03/03/2023 Peritoneal adhesions (postoperative) (postinfect ion) 09/14/2008 01/26/2013 Pain in joint, ankle and foot 11/26/2006 Enthesopathy of unspecified site 11/26/2006 01/26/2013 Calcaneal spur 10/22/2006 01/26/2013 documented as of this encounter (statuses as of 04/01/2023) [facility] History of Past illness Narrative* Problem Noted Date Resolved Date Neoplasm of uncertain behavior of skin 02/04/2022 Overview: left lateral forearm Other and unspecified ovarian cyst 01/11/2009 01/26/2013 RUQ pain 12/01/2008 03/03/2023 Peritoneal adhesions (postoperative) (postinfect ion) 09/14/2008 01/26/2013 Pain in joint, ankle and foot 11/26/2006 Enthesopathy of unspecified site 11/26/2006 01/26/2013 Calcaneal spur 10/22/2006 01/26/2013 documented as of this encounter (statuses as of 04/08/2023) [facility] History of Past illness Narrative* Problem Noted Date Resolved Date Neoplasm of uncertain behavior of skin 02/04/2022 Overview: left lateral forearm Other and unspecified ovarian cyst 01/11/2009 01/26/2013 RUQ pain 12/01/2008 03/03/2023 Peritoneal adhesions (postoperative) (postinfect ion) 09/14/2008 01/26/2013 Pain in joint, ankle and foot 11/26/2006 Enthesopathy of unspecified site 11/26/2006 01/26/2013 Calcaneal spur 10/22/2006 01/26/2013 documented as of this encounter (statuses as of 04/09/2023) [facility] History of Past illness Narrative* Problem Noted Date Diagnosed Date Resolved Date Neoplasm of uncertain behavior of skin 10/05/2021 02/04/2022 Overview: left lateral forearm Other and unspecified ovarian cyst 01/11/2009 01/26/2013 RUQ pain 12/01/2008 03/03/2023 Peritoneal adhesions (postop erative) (postinfection) 09/14/2008 01/26/2013 Pain in joint, ankle and foot 11/26/2006 01/26/2013 Enthesopathy of unspecified site 11/26/2006 01/26/2013 Calcaneal spur 10/22/2006 01/26/2013 documented as of this encounter (statuses as of 06/19/2023) [facility] History of Past illness Narrative* Problem Noted Date Diagnosed Date Resolved Date Neoplasm of uncertain behavior of skin 10/05/2021 02/04/2022 Overview: left lateral forearm Other and unspecified ovarian cyst 01/11/2009 01/26/2013 RUQ pain 12/01/2008 03/03/2023 Peritoneal adhesions (postop erative) (postinfection) 09/14/2008 01/26/2013 Pain in joint, ankle and foot 11/26/2006 01/26/2013 Enthesopathy of unspecified site 11/26/2006 01/26/2013 Calcaneal spur 10/22/2006 01/26/2013 documented as of this encounter (statuses as of 08/05/2023) [facility] History of Past illness Narrative* Problem Noted Date Diagnosed Date Resolved Date Neoplasm of uncertain behavior of skin 10/05/2021 02/04/2022 Overview: left lateral forearm Other and unspecified ovarian cyst 01/11/2009 01/26/2013 RUQ pain 12/01/2008 03/03/2023 Peritoneal adhesions (postop erative) (postinfection) 09/14/2008 01/26/2013 Pain in joint, ankle and foot 11/26/2006 01/26/2013 Enthesopathy of unspecified site 11/26/2006 01/26/2013 Calcaneal spur 10/22/2006 01/26/2013 documented as of this encounter (statuses as of 08/07/2023) [facility] History of Past illness Narrative* Problem Noted Date Diagnosed Date Resolved Date Neoplasm of uncertain behavior of skin 10/05/2021 02/04/2022 Overview: left lateral forearm Other and unspecified ovarian cyst 01/11/2009 01/26/2013 RUQ pain 12/01/2008 03/03/2023 Peritoneal adhesions (postop erative) (postinfection) 09/14/2008 01/26/2013 Pain in joint, ankle and foot 11/26/2006 01/26/2013 Enthesopathy of unspecified site 11/26/2006 01/26/2013 Calcaneal spur 10/22/2006 01/26/2013 documented as of this encounter (statuses as of 08/24/2023) [facility] History of Past illness Narrative* Problem Noted Date Diagnosed Date Resolved Date Neoplasm of uncertain behavior of skin 10/05/2021 02/04/2022 Overview: left lateral forearm Other and unspecified ovarian cyst 01/11/2009 01/26/2013 RUQ pain 12/01/2008 03/03/2023 Peritoneal adhesions (postop erative) (postinfection) 09/14/2008 01/26/2013 Pain in joint, ankle and foot 11/26/2006 01/26/2013 Enthesopathy of unspecified site 11/26/2006 01/26/2013 Calcaneal spur 10/22/2006 01/26/2013 documented as of this encounter (statuses as of 08/24/2023) [facility] History of Past illness Narrative* Problem Noted Date Diagnosed Date Resolved Date Neoplasm of uncertain behavior of skin 10/05/2021 02/04/2022 Overview: left lateral forearm Other and unspecified ovarian cyst 01/11/2009 01/26/2013 RUQ pain 12/01/2008 03/03/2023 Peritoneal adhesions (postop erative) (postinfection) 09/14/2008 01/26/2013 Pain in joint, ankle and foot 11/26/2006 01/26/2013 Enthesopathy of unspecified site 11/26/2006 01/26/2013 Calcaneal spur 10/22/2006 01/26/2013 documented as of this encounter (statuses as of 08/24/2023) [facility] History of Past illness Narrative* Problem Noted Date Diagnosed Date Resolved Date Neoplasm of uncertain behavior of skin 10/05/2021 02/04/2022 Overview: left lateral forearm Other and unspecified ovarian cyst 01/11/2009 01/26/2013 RUQ pain 12/01/2008 03/03/2023 Peritoneal adhesions (postop erative) (postinfection) 09/14/2008 01/26/2013 Pain in joint, ankle and foot 11/26/2006 01/26/2013 Enthesopathy of unspecified site 11/26/2006 01/26/2013 Calcaneal spur 10/22/2006 01/26/2013 documented as of this encounter (statuses as of 09/15/2023) [facility] History of Past illness Narrative* Problem Noted Date Diagnosed Date Resolved Date Neoplasm of uncertain behavior of skin 10/05/2021 02/04/2022 Overview: left lateral forearm Other and unspecified ovarian cyst 01/11/2009 01/26/2013 RUQ pain 12/01/2008 03/03/2023 Peritoneal adhesions (postop erative) (postinfection) 09/14/2008 01/26/2013 Pain in joint, ankle and foot 11/26/2006 01/26/2013 Enthesopathy of unspecified site 11/26/2006 01/26/2013 Calcaneal spur 10/22/2006 01/26/2013 documented as of this encounter (statuses as of 09/23/2023) [facility] History of Past illness Narrative* Problem Noted Date Diagnosed Date Resolved Date Neoplasm of uncertain behavior of skin 10/05/2021 02/04/2022 Overview: left lateral forearm Other and unspecified ovarian cyst 01/11/2009 01/26/2013 RUQ pain 12/01/2008 03/03/2023 Peritoneal adhesions (postop erative) (postinfection) 09/14/2008 01/26/2013 Pain in joint, ankle and foot 11/26/2006 01/26/2013 Enthesopathy of unspecified site 11/26/2006 01/26/2013 Calcaneal spur 10/22/2006 01/26/2013 documented as of this encounter (statuses as of 09/26/2023) [facility] History of Past illness Narrative* Problem Noted Date Diagnosed Date Resolved Date Neoplasm of uncertain behavior of skin 10/05/2021 02/04/2022 Overview: left lateral forearm Other and unspecified ovarian cyst 01/11/2009 01/26/2013 RUQ pain 12/01/2008 03/03/2023 Peritoneal adhesions (postop erative) (postinfection) 09/14/2008 01/26/2013 Pain in joint, ankle and foot 11/26/2006 01/26/2013 Enthesopathy of unspecified site 11/26/2006 01/26/2013 Calcaneal spur 10/22/2006 01/26/2013 documented as of this encounter (statuses as of 10/01/2023) [facility] History of Past illness Narrative* Problem Noted Date Resolved Date Other and unspecified ovarian cyst 01/11/2009 01/26/2013 Abdominal pain, right upper quadrant 12/01/2008 01/26/2013 Peritoneal adhesions (postoperative) (postinfect ion) 09/14/2008 01/26/2013 Pain in joint, ankle and foot 11/26/2006 Enthesopathy of unspecified site 11/26/2006 01/26/2013 Calcaneal spur 10/22/2006 01/26/2013 documented as of this encounter (statuses as of 01/22/2022) [facility] Diagnosis Facial swelling- Primary Swelling, mass, or lump in head and neck Type 2 diabetes mellitus without complication, without long-term current use of insulin (HCC) Malaise Other malaise and fatigue [facility] Diagnosis Diverticulitis- Primary Diverticulitis of colon (without mention of hemorrhage) Nausea Nausea alone [facility] Diagnosis Encounter for screening mamm[facility] for [facility] cancer [facility] Family history of colon cancer in father- Primary Colon cancer screening Special screening for malignant neoplasms, colon [facility] Diagnosis Breast pain- Primary Mastodynia [facility] Diagnosis Breast pain, right Mastodynia [facility] Diagnosis Generalized abdominal pain- Primary Abdominal pain, generalized Diarrhea, unspecified type Hemorrhoids, unspecified hemorrhoid type Rectal bleeding Hemorrhage of rectum and anus Impacted cerumen of left ear Impacted cerumen [facility] Diagnosis Irritation of external ear canal, left- Primary [facility] Diagnosis RLQ abdominal pain- Primary Abdominal pain, right lower quadrant Diverticulosis Diverticulosis of colon (without mention of hemorrhage) [facility] Diagnosis Left wrist pain Pain in joint, forearm [facility] Diagnosis Acute otitis externa of left ear, unspecified type- Primary Foot pain, right Pain in limb Left wrist pain Pain in joint, forearm Encounter for immunization Need for other specified prophylactic vaccination against single bacterial disease [facility] Diagnosis Colon cancer screening- Primary Special screening for malignant neoplasms, colon OME (otitis media with effusion), right [facility] Diagnosis TMJ dysfunction- Primary Temporomandibular joint disorders, unspecified [facility] Diagnosis Essential hypertension- Primary Unspecified essential hypertension Mixed hyperlipidemia Type 2 diabetes mellitus without complication, without long-term current use of insulin (HCC) Gastroesophageal reflux disease without esophagitis Esophageal reflux Moderate episode of recurrent major depressive disorder (HCC) Generalized anxiety disorder Skin lesion Unspecified disorder of skin and subcutaneous tissue [facility] Diagnosis Mixed hyperlipidemia [facility]* Diagnosis Essential hypertension- Primary Unspecified essential hypertension documented in this encounter [facility]* Diagnosis Essential hypertension- Primary Unspecified essential hypertension Generalized abdominal pain Abdominal pain, generalized documented [facility] this [facility]* Diagnosis Generalized abdominal pain- Primary Abdominal pain, generalized [facility] Diagnosis Viral gastritis- Primary Unspecified gastritis and gastroduodenitis without mention of hemorrhage RUQ pain Abdominal pain, right upper quadrant [facility] Diagnosis Mixed hyperlipidemia- Primary Essential hypertension Unspecified essential hypertension Type 2 diabetes mellitus without complication, without long-term current use of insulin (HCC) [facility] Diagnosis Generalized abdominal pain Abdominal pain, generalized Epigastric abdominal pain Abdominal pain, epigastric documented [facility]* Diagnosis URI, acute- Primary Acute upper respiratory infections of unspecified site ETD (Eustachian tube dysfunction), bilateral [facility] Diagnosis Epigastric abdominal pain- Primary Abdominal pain, epigastric [facility] Diagnosis Pain of upper abdomen- Primary Abdominal pain, other specified site Nausea Nausea alone documented [facility] this [facility]* Diagnosis Abnormal biliary HIDA scan- Primary Nonspecific abnormal results of other specified function study Epigastric abdominal pain Abdominal pain, epigastric Epigastric pain Abdominal pain, epigastric Abnormal biliary HIDA scan Nonspecific abnormal results of other specified function study documented [facility] this [facility]* Diagnosis Biliary dyskinesia- Primary Other specified disorder of gallbladder Generalized abdominal pain Abdominal pain, generalized RUQ pain Abdominal pain, right upper quadrant [facility] Diagnosis Medicare annual wellness visit, subsequent- Primary Routine general medical examination at a health care facility Mixed hyperlipidemia Generalized anxiety disorder Moderate episode of recurrent major depressive disorder (HCC) Essential hypertension Unspecified essential hypertension Type 2 diabetes mellitus without complication, without long-term current use of insulin (HCC) Migraine without aura and without status migrainosus, not intractable Migraine without aura, without mention of intractable migraine without mention of status migrainosus Gastroesophageal reflux disease without esophagitis Esophageal reflux Fatty liver Other chronic nonalcoholic liver disease Encounter for screening mammogram for breast cancer Chronic pain of left knee Pain in joint, lower leg [facility] Diagnosis Patient left without being seen- Primary Surgical or other procedure not carried out because of patient's decision [facility] Diagnosis Essential hypertension- Primary Unspecified essential hypertension Chronic pain of both knees Tail bone pain Other disorder of coccyx [facility] Diagnosis Nausea- Primary Nausea alone Irritable bowel syndrome with both constipation and diarrhea [facility] Diagnosis ETD (Eustachian tube dysfunction), bilateral- Primary URI, acute Acute upper respiratory infections of unspecified site documented in this encounter [facility]* Diagnosis RUQ pain Abdominal pain, right upper quadrant Chronic cholecystitis Left lower quadrant abdominal pain Nausea Nausea alone documented in this encounter [facility] note* Diagnosis Heartburn- Primary Epigastric abdominal pain Abdominal pain, epigastric [facility] Diagnosis Generalized abdominal pain Abdominal pain, generalized [facility] Diagnosis Encounter for immunization- Primary Need for other specified prophylactic vaccination against single bacterial disease Type 2 diabetes mellitus without complication, without long-term current use of insulin (HCC) Mixed hyperlipidemia Gastroesophageal reflux disease without esophagitis Esophageal reflux Essential hypertension Unspecified essential hypertension Moderate episode of recurrent major depressive disorder (HCC) Migraine without aura and without status migrainosus, not intractable Migraine without aura, without mention of intractable migraine without mention of status migrainosus Generalized anxiety disorder Fatty liver Other chronic nonalcoholic liver disease Non morbid obesity due to excess calories Female stress incontinence Irritable bowel syndrome with both constipation and diarrhea Acute pain of right knee [facility] Diagnosis Acute pain of right knee- Primary documented in this encounter [facility] for referral (narrative)* Diagnostic Procedure Only (Routine) - Pending Review Specialty Diagnoses / Procedures Referred By Deangelo kim Referred To Contact [facility] Diagnoses Encounter for screening mammogram for breast cancer Procedures BULL SCREENING SCREENING MAMMOGRAPHY BI 2-VIEW BREAST INC CAD Twin Barrera MD [address] [place] [address] [facility] [address] [place] [address] Referral ID Status Reason Start Date Expiration Date Visits Requested Visits Authorized [id number] Pending Review Auto-Generat ed Referral 04/17/2022 05/17/2023 1 1 [facility] for referral (narrative)* Diagnostic Procedure Only (Routine) - Authorized Specialty Diagnoses / Procedures Referred By Contac t Referred To Contact [facility] Diagnoses Breast pain Procedures US BREAST LTD LT US BREAST UNI REAL TIME WITH IMAGE LIMITED Evonne Reyes PA-C [address] [place] [address] [facility] [address] [place] [phone] Referral ID Status Reason Start Date Expiration Date Visits Requested Visits Authorized [id number] Authorized Auto-Generat ed Referral 06/05/2022 07/05/2023 1 1 * Diagnostic Procedure Only (Routine) - Authorized Specialty Diagnoses / Procedures Referred By Contac t Referred To Contact [facility] Diagnoses Breast pain Procedures US BREAST LTD RT US BREAST UNI REAL TIME WITH IMAGE LIMITED Evonne Reyes PA-C [address] [place] [address] [facility] [address] [place] [address] Referral ID Status Reason Start Date Expiration Date Visits Requested Visits Authorized [id number] Authorized Auto-Generat ed Referral 06/05/2022 07/05/2023 1 1 * Diagnostic Procedure Only (Routine) - Pending Review Specialty Diagnoses / Procedures Referred By Contac t Referred To Contact [facility] Diagnoses Breast pain Procedures BULL DIAGNOSTIC BILAT DIAGNOSTIC MAMMOGRAPHY COMPUTER-AIDED DETCJ BI Evonne Reyes PA-C [address] [place] [address] [facility] [address] [place] [address] Referral ID Status Reason Start Date Expiration Date Visits Requested Visits Authorized [id number] Pending Review Auto-Generat ed Referral 06/05/2022 07/05/2023 1 1 [facility] for referral (narrative)* Diagnostic Procedure Only (Routine) - Closed Specialty Diagnoses / Procedures Referred By Contac t Referred To Contact [facility] Diagnoses Breast pain, right Procedures BULL DIAGNOSTIC LT DIAGNOSTIC MAMMOGRAPHY COMPUTER-AIDED DETCJ UNI Twin Barrera MD [address] [place] [address] [facility] [address] [place] [address] Referral ID Status Reason Start Date Expiration Date V isits Requested Visits Authorized [id number] Closed Auto-Generate d Referral 06/04/2021 07/04/2022 1 1 [facility] for referral (narrative)* Diagnostic Procedure Only (Routine) - Closed Specialty Diagnoses / Procedures Referred By Contac t Referred To Contact [facility] Diagnoses Left wrist pain Procedures XR WRIST GENERAL 3V PA/LAT/OBL LEFT RADEX WRIST COMPLETE MINIMUM 3 VIEWS Twin Barrera MD [address] [place] [address] [facility] Referral ID Status Reason Start Date Expiration Date V isits Requested Visits Authorized [id number] Closed Auto-Generate d Referral 08/02/2022 09/01/2023 1 1 [facility] for referral (narrative)* Diagnostic Procedure Only (Routine) - Closed Specialty Diagnoses / Procedures Referred By Contac t Referred To Contact [facility] Diagnoses Left wrist pain Procedures XR WRIST GENERAL 3V PA/LAT/OBL LEFT RADEX WRIST COMPLETE MINIMUM 3 VIEWS Twin Barrera MD [address] [place] [address] X[facility] Imaging Referral ID Status Reason Start Date Expiration Date V isits Requested Visits Authorized [id number] Closed Auto-Generate d Referral 08/02/2022 09/01/2023 1 1 [facility] for referral (narrative)* Outpatient Procedure (Routine) - Closed Specialty Diagnoses / Procedures Referred By Contac t Referred To Contact [facility] Diagnoses Colon cancer screening Procedures COLONOSCOPY SCREENING COLONOSCOPY SCREENING COLONOSCOPY SCREENING COLONOSCOPY FLX DX W/COLLJ SPEC WHEN PFRMD Celina oSlis MD [address] [place] [address] [address] Referral ID Status Reason Start Date Expiration Date V isits Requested Visits Authorized [id number] Closed Auto-Generate d Referral 05/30/2022 05/30/2023 1 1 [facility] for referral (narrative)* Diagnostic Procedure Only (Routine) - Closed Specialty Diagnoses / Procedures Referred By Contac t Referred To Contact [facility] Diagnoses Viral gastritis Procedures XR ABDOMEN 1V SUPINE RADIOLOGIC EXAM ABDOMEN 1 VIEW Kerri March APRN.CNP [address] [place] [address] Xr Imaging Referral ID Status Reason Start Date Expiration Date V isits Requested Visits Authorized [id number] Closed Auto-Generate d Referral 11/08/2022 12/08/2023 1 1 [facility] [facility] for referral (narrative)* Outpatient Procedure (Routine) - Closed Specialty Diagnoses / Procedures Referred By Contac t Referred To Contact [facility] Diagnoses Epigastric abdominal pain Procedures EGD DIAGNOSTIC ESOPHAGOGASTRODUODENOSC OPY TRANSORAL DIAGNOSTIC Celina Solis MD [address] [place] [address] [address] Referral ID Status Reason Start Date Expiration Date V isits Requested Visits Authorized [id number] Closed Auto-Generate d Referral 11/14/2022 11/14/2023 1 1 [facility] for referral (narrative)* Diagnostic Procedure Only (Routine) - Authorized Specialty Diagnoses / Procedures Referred By Contac t Referred To Contact [facility] Diagnoses Nausea Procedures NM HEPATOBILIARY W EF AND/OR RX HEPATOBIL SYST IMAG INC GB W/PHARMA INTERVENJ Jamee Contreras PA-C [address] [place] [address] [facility] [address] [place], [place] [id number] Referral ID Status Reason Start Date Expiration Date Visits Requested Visits Authorized [id number] Authorized Auto-Generat ed Referral 12/24/2022 01/23/2024 1 1 [facility] [place] for referral (narrative)* Diagnostic Procedure Only (Routine) - Pending Review Specialty Diagnoses / Procedures Referred By Contac t Referred To Contact XR IMAGING Diagnoses Chronic pain of left knee Procedures XR KNEE GENERAL 4V AP BOTH/PA BOTH/LAT/MERC LEFT RADIOLOGIC EXAM KNEE COMPLETE 4/MORE VIEWS Evonne Reyes PA-C [address] [place] [address] Xr Imaging Referral ID Status Reason Start Date Expiration Date Visits Requested Visits Authorized [id number] Pending Review Auto-Generat ed Referral 03/25/2023 04/23/2024 1 1 * Diagnostic Procedure Only (Routine) - Pending Review Specialty Diagnoses / Procedures Referred By Contac t Referred To Contact BR IMAGING Diagnoses Encounter for screening mammogram for breast cancer Procedures BULL SCREENING SCREENING MAMMOGRAPHY BI 2-VIEW BREAST INC CAD Evonne Reyes PA-C [address] [place] [address] [facility] [address] [place] [address] Referral ID Status Reason Start Date Expiration Date Visits Requested Visits Authorized [id number] Pending Review Auto-Generat ed Referral 03/25/2023 04/23/2024 1 1 [facility] for referral (narrative)* Diagnostic Procedure Only (Routine) - Closed Specialty Diagnoses / Procedures Referred By Contac t Referred To Contact XR IMAGING Diagnoses Tail bone pain Procedures XR SACRUM/COCCYX 3V AP/LAT RADEX SACRUM & COCCYX MINIMUM 2 VIEWS Twin Barrera MD [address] [place] [address] Xr Imaging Referral ID Status Reason Start Date Expiration Date V isits Requested Visits Authorized [id number] Closed Auto-Generate d Referral 04/07/2023 05/06/2024 1 1 * Physical Therapy (Routine) - Pending Review Specialty Diagnoses / Procedures Referred By Contac t Referred To Contact [facility] Diagnoses Chronic pain of both knees Procedures CONSULT TO PHYSICAL THERAPY PHYSICAL THERAPY EVALUATION HIGH COMPLEX 45 MINS Twin Barrera MD [address] [place] [address] [facility] [place] [address] [place] [address] Referral ID Status Reason Start Date Expiration Date Visits Requested Visits Authorized [id number] Pending Review Auto-Generat ed Referral 04/07/2023 04/06/2024 1 1 [facility] for referral (narrative)* Outpatient Procedure (Routine) - Closed Specialty Diagnoses / Procedures Referred By Contac t Referred To Contact [facility] Diagnoses Epigastric abdominal pain Procedures EGD DIAGNOSTIC ESOPHAGOGASTRODUODENOSC OPY TRANSORAL DIAGNOSTIC Celina Solis MD [address] [place] [address] [facility] [place] [address] [place] [address] Referral ID Status Reason Start Date Expiration Date V isits Requested Visits Authorized [id number] Closed Auto-Generate d Referral 11/14/2022 11/14/2023 1 1 [facility] for referral (narrative)* Diagnostic Procedure Only (Routine) - Closed Specialty Diagnoses / Procedures Referred By Contac t Referred To Contact US IMAGING Diagnoses Generalized abdominal pain Procedures US ABD RT UPPER QUADRANT US ABDOMINAL REAL TIME W/IMAGE LIMITED Evonne Reyes PA-C [address] [place], [place] [id number] [place] [address] Referral ID Status Reason Start Date Expiration Date V isits Requested Visits Authorized [id number] Closed Auto-Generate d Referral 11/07/2022 12/07/2023 1 1 [facility] for referral (narrative)* Diagnostic Procedure Only (Routine) - Closed Specialty Diagnoses / Procedures Referred By Contac t Referred To Contact XR IMAGING Diagnoses Acute pain of right knee Procedures XR KNEE GENERAL 4V AP BOTH/PA BOTH/LAT/MERC RIGHT RADIOLOGIC EXAM KNEE COMPLETE 4/MORE VIEWS Kerri March APRN.CNP [address] [place] [address] [place] [id number] Referral ID Status Reason Start Date Expiration Date V isits Requested Visits Authorized [id number] Closed Auto-Generate d Referral 09/25/2023 10/24/2024 1 1 [facility] for visit Narrative* Diagnostic Procedure Only (Routine) - Closed Specialty Diagnoses / Procedures Referred By Contac t Referred To Contact [facility] Diagnoses Atypical chest pain SOB (shortness of breath) Procedures NM CARDIAC PERF STRESS/PHARM MYOCARDIAL SPECT MULTIPLE STUDIES Twin Barrera MD [address] [place] [address] [facility] [address] [place] [address] Referral ID Status Reason Start Date Expiration Date V isits Requested Visits Authorized [id number] Closed Auto-Generate d Referral 02/04/2022 03/06/2023 1 1 [facility] for visit Narrative* Diagnostic Procedure Only (Routine) - Closed Specialty Diagnoses / Procedures Referred By Contac t Referred To Contact XR IMAGING Diagnoses Left wrist pain Procedures XR WRIST GENERAL 3V PA/LAT/OBL LEFT RADEX WRIST COMPLETE MINIMUM 3 VIEWS Twin Barrera MD [address] [place] [address] Xr Imaging Referral ID Status Reason Start Date Expiration Date V isits Requested Visits Authorized [id number] Closed Auto-Generate d Referral 08/02/2022 09/01/2023 1 1 [facility] for visit Narrative* Outpatient Procedure (Routine) - Closed Specialty Diagnoses / Procedures Referred By Contac t Referred To Contact [facility] Diagnoses Colon cancer screening Procedures COLONOSCOPY SCREENING COLONOSCOPY SCREENING COLONOSCOPY SCREENING COLONOSCOPY FLX DX W/COLLJ SPEC WHEN PFRMD Celina Solis MD [address] [facility] [place] [address] [facility] [address] [address] Referral ID Status Reason Start Date Expiration Date V isits Requested Visits Authorized [id number] Closed Auto-Generate d Referral 05/30/2022 05/30/2023 1 1 [facility] for visit Narrative* Outpatient Procedure (Routine) - Closed Specialty Diagnoses / Procedures Referred By Contac t Referred To Contact [facility] Diagnoses Epigastric abdominal pain Procedures EGD DIAGNOSTIC ESOPHAGOGASTRODUODENOSC OPY TRANSORAL DIAGNOSTIC Celina Solis MD [address] [facility] [place] [address] [facility] [address] [address] Referral ID Status Reason Start Date Expiration Date V isits Requested Visits Authorized [id number] Closed Auto-Generate d Referral 11/14/2022 11/14/2023 1 1 [facility] Advance Directives No Advanced Directives Records FoundDocuments on File Type Date Recorded 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 Advance Directive(s) 09/02/2017 3:47 PM Documents on File Type Date Recorded 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 Advance Directive(s) 09/02/2017 3:47 PM Summary Purpose Family History No Family History Records FoundNo Family History Records FoundNo Family History Records Found Medications Administered Section Inactive Administered Medications - up to 3 most recent administrations Medication Order MAR Action Action Date Dose Rate Site diphenhydrAMINE 12.5-50 mg injection (BENADRYL) 12.5-50 mg, INTRAVENOUS, DIRECTED, Starting on Fri08/07/22 at 0830, Until Fri08/07/22 at 1229, DOSING DIRECTED BY PHYSICIAN FOR PROCEDURAL SEDATION ONLY, Intraprocedure Given 08/07/2022 8:10 AM EDT 50 mg fentaNYL 50 mcg/mL 25-100 mcg injection (SUBLIMAZE) 25-100 mcg, INTRAVENOUS, DIRECTED, Starting on Fri08/07/22 at 0830, Until Fri08/07/22 at 1229, DOSING DIRECTED BY PHYSICIAN FOR PROCEDURAL SEDATION ONLY, Intraprocedure Given 08/07/2022 8:16 AM EDT 50 mcg Inactive Administered Medications - up to 3 most recent administrations Medication Order MAR Action Action Date Dose Rate Site benzocaine 20% 1 [place] (TOPEX) 1 [place], TOPICAL, DIRECTED, Starting on Fri12/11/22 at 1400, Until Fri12/11/22 at 1759, DOSING DIRECTED BY PHYSICIAN FOR PROCEDURAL SEDATION ONLY - Pharmaceutical Waste: Aerosol -, Intraprocedure Given 12/11/2022 1:37 PM EST 5 Sprays diphenhydrAMINE 12.5-50 mg injection (BENADRYL) 12.5-50 mg, INTRAVENOUS, DIRECTED, Starting on Fri12/11/22 at 1400, Until Fri12/11/22 at 1759, DOSING DIRECTED BY PHYSICIAN FOR PROCEDURAL SEDATION ONLY, Intraprocedure Given 12/11/2022 1:40 PM EST 50 mg fentaNYL 50 mcg/mL 25-100 mcg injection (SUBLIMAZE) 25-100 mcg, INTRAVENOUS, DIRECTED, Starting on Fri12/11/22 at 1400, Until Fri12/11/22 at 1759, DOSING DIRECTED BY PHYSICIAN FOR PROCEDURAL SEDATION ONLY, Intraprocedure Given 12/11/2022 1:38 PM EST 50 mcg lactated ringers iv infusion 75 mL/hr, INTRAVENOUS, CONTINUOUS, Starting on Fri12/11/22 at 1200, Until Fri12/11/22 at 1400, Preprocedure New Bag/Syringe/Bottle 12/11/2022 12:20 PM EST 75 mL/hr 75 mL/hr midazolam 1-5 mg injection (VERSED) 1-5 mg, INTRAVENOUS, DIRECTED, Starting on Fri12/11/22 at 1400, Until Fri12/11/22 at 1759, DOSING DIRECTED BY PHYSICIAN FOR PROCEDURAL SEDATION ONLY, Intraprocedure Given 12/11/2022 1:41 PM EST 1 mg Reason for Referral Specialty Diagnoses / Procedures Referred By Contac t Referred To Contact Dermatology Diagnoses Skin lesion Procedures CONSULT TO DERMATOLOGY Evonne Reyes PA-C [address] [place] [address] Referral ID Status Reason Start Date Expiration Date Visits Requested Visits Authorized [id number] Ref Not Required PCP Requested Referral 2 09/03/2023 1 1 Specialty Diagnoses / Procedures Referred By Contac t Referred To Contact General Surgery Diagnoses Generalized abdominal pain Procedures CONSULT TO GENERAL SURGERY OFFICE/OUTPATIENT [facility] MDM 60-74 MINUTES Evonne Reyes PA-C [address] [place] [address] Referral ID Status Reason Start Date Expiration Date Visits Requested Visits Authorized [id number] Pending Review PCP Requested Referral 11/07/2022 11/07/2023 1 1 Specialty Diagnoses / Procedures Referred By Contac t Referred To Contact US IMAGING Diagnoses Generalized abdominal pain Procedures US ABD RT UPPER QUADRANT US ABDOMINAL REAL TIME W/IMAGE LIMITED Evonne Reyes PA-C [address] [place] [address] Us Imaging Referral ID Status Reason Start Date Expiration Date Visits Requested Visits Authorized [id number] Pending Review Auto-Generat ed Referral 11/07/2022 12/07/2023 1 1 Specialty Diagnoses / Procedures Referred By Contac t Referred To Contact Nutrition Diagnoses Mixed hyperlipidemia Essential hypertension Type 2 diabetes mellitus without complication, without long-term current use of insulin (HCC) Procedures CONSULT TO NUTRITION THERAPY OFFICE/OUTPATIENT NEW HIGH MDM 60-74 MINUTES Evonne Reyes PA-C [address] [place] [address] Referral ID Status Reason Start Date Expiration Date Visits Requested Visits Authorized [id number] Pending Review PCP Requested Referral 11/15/2022 11/15/2023 1 1 Specialty Diagnoses / Procedures Referred By Contac t Referred To Contact Gastroenterology Diagnoses Nausea Irritable bowel syndrome with both constipation and diarrhea Procedures CONSULT TO GASTROENTEROLOGY Chandler Barreto MD [address] [place] [address] Mikey Huerta MD [address] [address] Referral ID Status Reason Start Date Expiration Date Visits Requested Visits Authorized [id number] Ref Not Required PCP Requested Referral 3 08/04/2024 1 1 Specialty Diagnoses / Procedures Referred By Contac t Referred To Contact CT IMAGING Diagnoses RUQ pain Generalized abdominal pain Chronic cholecystitis Left lower quadrant abdominal pain Nausea Procedures CT ABD/PEL W IVCON CT ABD & PELVIS W/CONTRAST Jessica Lal, CONSULTING PROJECT DIRECTOR.SHEET METAL APPRENTICE [address] [place] [id number] [facility] Referral ID Status Reason Start Date Expiration Date V isits Requested Visits Authorized [id number] Closed Auto-Generate d Referral 02/06/2023 03/07/2024 1 1 Specialty Diagnoses / Procedures Referred By Contac t Referred To Contact Orthopedics Diagnoses Acute pain of right knee Procedures CONSULT TO ORTHOPAEDICS OFFICE/OUTPATIENT [facility] 60-74 MINUTES Kerri March, CONSULTING PROJECT DIRECTOR.SHEET METAL APPRENTICE [address] [place] [address] Referral ID Status Reason Start Date Expiration Date Visits Requested Visits Authorized [id number] Authorized PCP Requested Referral 3 09/29/2024 1 1 Additional Source Comments Source Comments (unrecognize d section and content) In the event this informatio n is protected by the Federal Confidentiality of Alcohol and Drug Abuse Patient Records regulations: The Federal rules restrict any use of the information to criminally investigate or prosecute any alcohol or drug abuse patient.[facility] Center[facility] the event this information is protected by the Federal Confidentiality of Alcohol and Drug Abuse Patient Records regulations: The Federal rules restrict any use of the information to criminally investigate or prosecute any alcohol or drug abuse patient.[facility] CenterIn the event this information is protected by the Federal Confidentiality of Alcohol and Drug Abuse Patient Records regulations: The Federal rules restrict any use of the information to criminally investigate or prosecute any alcohol or drug abuse patient.[facility] CenterIn the event this information is protected by the Federal Confidentiality of Alcohol and Drug Abuse Patient Records regulations: The Federal rules restrict any use of the information to criminally investigate or prosecute any alcohol or drug abuse patient.[facility] CenterIn the event this information is protected by the Federal Confidentiality of Alcohol and Drug Abuse Patient Records regulations: The Federal rules restrict any use of the information to criminally investigate or prosecute any alcohol or drug abuse patient.[facility] CenterIn the event this information is protected by the Federal Confidentiality of Alcohol and Drug Abuse Patient Records regulations: The Federal rules restrict any use of the information to criminally investigate or prosecute any alcohol or drug abuse patient.[facility] CenterIn the event this information is protected by the Federal Confidentiality of Alcohol and Drug Abuse Patient Records regulations: The Federal rules restrict any use of the information to criminally investigate or prosecute any alcohol or drug abuse patient.[facility] CenterIn the event this information is protected by the Federal Confidentiality of Alcohol and Drug Abuse Patient Records regulations: The Federal rules restrict any use of the information to criminally investigate or prosecute any alcohol or drug abuse patient.[facility] CenterIn the event this information is protected by the Federal Confidentiality of Alcohol and Drug Abuse Patient Records regulations: The Federal rules restrict any use of the information to criminally investigate or prosecute any alcohol or drug abuse patient.[facility] CenterIn the event this information is protected by the Federal Confidentiality of Alcohol and Drug Abuse Patient Records regulations: The Federal rules restrict any use of the information to criminally investigate or prosecute any alcohol or drug abuse patient.[facility] CenterIn the event this information is protected by the Federal Confidentiality of Alcohol and Drug Abuse Patient Records regulations: The Federal rules restrict any use of the information to criminally investigate or prosecute any alcohol or drug abuse patient.[facility] CenterIn the event this information is protected by the Federal Confidentiality of Alcohol and Drug Abuse Patient Records regulations: The Federal rules restrict any use of the information to criminally investigate or prosecute any alcohol or drug abuse patient.[facility] CenterIn the event this information is protected by the Federal Confidentiality of Alcohol and Drug Abuse Patient Records regulations: The Federal rules restrict any use of the information to criminally investigate or prosecute any alcohol or drug abuse patient.[facility] CenterIn the event this information is protected by the Federal Confidentiality of Alcohol and Drug Abuse Patient Records regulations: The Federal rules restrict any use of the information to criminally investigate or prosecute any alcohol or drug abuse patient.[facility] CenterIn the event this information is protected by the Federal Confidentiality of Alcohol and Drug Abuse Patient Records regulations: The Federal rules restrict any use of the information to criminally investigate or prosecute any alcohol or drug abuse patient.[facility] CenterIn the event this information is protected by the Federal Confidentiality of Alcohol and Drug Abuse Patient Records regulations: The Federal rules restrict any use of the information to criminally investigate or prosecute any alcohol or drug abuse patient.[facility] CenterIn the event this information is protected by the Federal Confidentiality of Alcohol and Drug Abuse Patient Records regulations: The Federal rules restrict any use of the information to criminally investigate or prosecute any alcohol or drug abuse patient.[facility] CenterIn the event this information is protected by the Federal Confidentiality of Alcohol and Drug Abuse Patient Records regulations: The Federal rules restrict any use of the information to criminally investigate or prosecute any alcohol or drug abuse patient.[facility] CenterIn the event this information is protected by the Federal Confidentiality of Alcohol and Drug Abuse Patient Records regulations: The Federal rules restrict any use of the information to criminally investigate or prosecute any alcohol or drug abuse patient.[facility] CenterIn the event this information is protected by the Federal Confidentiality of Alcohol and Drug Abuse Patient Records regulations: The Federal rules restrict any use of the information to criminally investigate or prosecute any alcohol or drug abuse patient.[facility] CenterIn the event this information is protected by the Federal Confidentiality of Alcohol and Drug Abuse Patient Records regulations: The Federal rules restrict any use of the information to criminally investigate or prosecute any alcohol or drug abuse patient.[facility] CenterIn the event this information is protected by the Federal Confidentiality of Alcohol and Drug Abuse Patient Records regulations: The Federal rules restrict any use of the information to criminally investigate or prosecute any alcohol or drug abuse patient.[facility] CenterIn the event this information is protected by the Federal Confidentiality of Alcohol and Drug Abuse Patient Records regulations: The Federal rules restrict any use of the information to criminally investigate or prosecute any alcohol or drug abuse patient.[facility] CenterIn the event this information is protected by the Federal Confidentiality of Alcohol and Drug Abuse Patient Records regulations: The Federal rules restrict any use of the information to criminally investigate or prosecute any alcohol or drug abuse patient.[facility] CenterIn the event this information is protected by the Federal Confidentiality of Alcohol and Drug Abuse Patient Records regulations: The Federal rules restrict any use of the information to criminally investigate or prosecute any alcohol or drug abuse patient.[facility] CenterIn the event this information is protected by the Federal Confidentiality of Alcohol and Drug Abuse Patient Records regulations: The Federal rules restrict any use of the information to criminally investigate or prosecute any alcohol or drug abuse patient.[facility] CenterIn the event this information is protected by the Federal Confidentiality of Alcohol and Drug Abuse Patient Records regulations: The Federal rules restrict any use of the information to criminally investigate or prosecute any alcohol or drug abuse patient.[facility] CenterIn the event this information is protected by the Federal Confidentiality of Alcohol and Drug Abuse Patient Records regulations: The Federal rules restrict any use of the information to criminally investigate or prosecute any alcohol or drug abuse patient.[facility] CenterIn the event this information is protected by the Federal Confidentiality of Alcohol and Drug Abuse Patient Records regulations: The Federal rules restrict any use of the information to criminally investigate or prosecute any alcohol or drug abuse patient.[facility] CenterIn the event this information is protected by the Federal Confidentiality of Alcohol and Drug Abuse Patient Records regulations: The Federal rules restrict any use of the information to criminally investigate or prosecute any alcohol or drug abuse patient.[facility] CenterIn the event this information is protected by the Federal Confidentiality of Alcohol and Drug Abuse Patient Records regulations: The Federal rules restrict any use of the information to criminally investigate or prosecute any alcohol or drug abuse patient.[facility] CenterIn the event this information is protected by the Federal Confidentiality of Alcohol and Drug Abuse Patient Records regulations: The Federal rules restrict any use of the information to criminally investigate or prosecute any alcohol or drug abuse patient.[facility] CenterIn the event this information is protected by the Federal Confidentiality of Alcohol and Drug Abuse Patient Records regulations: The Federal rules restrict any use of the information to criminally investigate or prosecute any alcohol or drug abuse patient.[facility] CenterIn the event this information is protected by the Federal Confidentiality of Alcohol and Drug Abuse Patient Records regulations: The Federal rules restrict any use of the information to criminally investigate or prosecute any alcohol or drug abuse patient.[facility] CenterIn the event this information is protected by the Federal Confidentiality of Alcohol and Drug Abuse Patient Records regulations: The Federal rules restrict any use of the information to criminally investigate or prosecute any alcohol or drug abuse patient.[facility] CenterIn the event this information is protected by the Federal Confidentiality of Alcohol and Drug Abuse Patient Records regulations: The Federal rules restrict any use of the information to criminally investigate or prosecute any alcohol or drug abuse patient.[facility] CenterIn the event this information is protected by the Federal Confidentiality of Alcohol and Drug Abuse Patient Records regulations: The Federal rules restrict any use of the information to criminally investigate or prosecute any alcohol or drug abuse patient.[facility] CenterIn the event this information is protected by the Federal Confidentiality of Alcohol and Drug Abuse Patient Records regulations: The Federal rules restrict any use of the information to criminally investigate or prosecute any alcohol or drug abuse patient.[facility] CenterIn the event this information is protected by the Federal Confidentiality of Alcohol and Drug Abuse Patient Records regulations: The Federal rules restrict any use of the information to criminally investigate or prosecute any alcohol or drug abuse patient.[facility] CenterIn the event this information is protected by the Federal Confidentiality of Alcohol and Drug Abuse Patient Records regulations: The Federal rules restrict any use of the information to criminally investigate or prosecute any alcohol or drug abuse patient.[facility] CenterIn the event this information is protected by the Federal Confidentiality of Alcohol and Drug Abuse Patient Records regulations: The Federal rules restrict any use of the information to criminally investigate or prosecute any alcohol or drug abuse patient.[facility] CenterIn the event this information is protected by the Federal Confidentiality of Alcohol and Drug Abuse Patient Records regulations: The Federal rules restrict any use of the information to criminally investigate or prosecute any alcohol or drug abuse patient.[facility] CenterIn the event this information is protected by the Federal Confidentiality of Alcohol and Drug Abuse Patient Records regulations: The Federal rules restrict any use of the information to criminally investigate or prosecute any alcohol or drug abuse patient.[facility] CenterIn the event this information is protected by the Federal Confidentiality of Alcohol and Drug Abuse Patient Records regulations: The Federal rules restrict any use of the information to criminally investigate or prosecute any alcohol or drug abuse patient.[facility] CenterIn the event this information is protected by the Federal Confidentiality of Alcohol and Drug Abuse Patient Records regulations: The Federal rules restrict any use of the information to criminally investigate or prosecute any alcohol or drug abuse patient.[facility] CenterIn the event this information is protected by the Federal Confidentiality of Alcohol and Drug Abuse Patient Records regulations: The Federal rules restrict any use of the information to criminally investigate or prosecute any alcohol or drug abuse patient.[facility] CenterIn the event this information is protected by the Federal Confidentiality of Alcohol and Drug Abuse Patient Records regulations: The Federal rules restrict any use of the information to criminally investigate or prosecute any alcohol or drug abuse patient.[facility] CenterIn the event this information is protected by the Federal Confidentiality of Alcohol and Drug Abuse Patient Records regulations: The Federal rules restrict any use of the information to criminally investigate or prosecute any alcohol or drug abuse patient.[facility] CenterIn the event this information is protected by the Federal Confidentiality of Alcohol and Drug Abuse Patient Records regulations: The Federal rules restrict any use of the information to criminally investigate or prosecute any alcohol or drug abuse patient.[facility] CenterIn the event this information is protected by the Federal Confidentiality of Alcohol and Drug Abuse Patient Records regulations: The Federal rules restrict any use of the information to criminally investigate or prosecute any alcohol or drug abuse patient.[facility] CenterIn the event this information is protected by the Federal Confidentiality of Alcohol and Drug Abuse Patient Records regulations: The Federal rules restrict any use of the information to criminally investigate or prosecute any alcohol or drug abuse patient.[facility] CenterIn the event this information is protected by the Federal Confidentiality of Alcohol and Drug Abuse Patient Records regulations: The Federal rules restrict any use of the information to criminally investigate or prosecute any alcohol or drug abuse patient.[facility] CenterIn the event this information is protected by the Federal Confidentiality of Alcohol and Drug Abuse Patient Records regulations: The Federal rules restrict any use of the information to criminally investigate or prosecute any alcohol or drug abuse patient.[facility] CenterIn the event this information is protected by the Federal Confidentiality of Alcohol and Drug Abuse Patient Records regulations: The Federal rules restrict any use of the information to criminally investigate or prosecute any alcohol or drug abuse patient.[facility] CenterIn the event this information is protected by the Federal Confidentiality of Alcohol and Drug Abuse Patient Records regulations: The Federal rules restrict any use of the information to criminally investigate or prosecute any alcohol or drug abuse patient.[facility] CenterIn the event this information is protected by the Federal Confidentiality of Alcohol and Drug Abuse Patient Records regulations: The Federal rules restrict any use of the information to criminally investigate or prosecute any alcohol or drug abuse patient.[facility] CenterIn the event this information is protected by the Federal Confidentiality of Alcohol and Drug Abuse Patient Records regulations: The Federal rules restrict any use of the information to criminally investigate or prosecute any alcohol or drug abuse patient.[facility] CenterIn the event this information is protected by the Federal Confidentiality of Alcohol and Drug Abuse Patient Records regulations: The Federal rules restrict any use of the information to criminally investigate or prosecute any alcohol or drug abuse patient.[facility] CenterIn the event this information is protected by the Federal Confidentiality of Alcohol and Drug Abuse Patient Records regulations: The Federal rules restrict any use of the information to criminally investigate or prosecute any alcohol or drug abuse patient.[facility] CenterIn the event this information is protected by the Federal Confidentiality of Alcohol and Drug Abuse Patient Records regulations: The Federal rules restrict any use of the information to criminally investigate or prosecute any alcohol or drug abuse patient.[facility] CenterIn the event this information is protected by the Federal Confidentiality of Alcohol and Drug Abuse Patient Records regulations: The Federal rules restrict any use of the information to criminally investigate or prosecute any alcohol or drug abuse patient.[facility] CenterIn the event this information is protected by the Federal Confidentiality of Alcohol and Drug Abuse Patient Records regulations: The Federal rules restrict any use of the information to criminally investigate or prosecute any alcohol or drug abuse patient.[facility] CenterIn the event this information is protected by the Federal Confidentiality of Alcohol and Drug Abuse Patient Records regulations: The Federal rules restrict any use of the information to criminally investigate or prosecute any alcohol or drug abuse patient.[facility] CenterIn the event this information is protected by the Federal Confidentiality of Alcohol and Drug Abuse Patient Records regulations: The Federal rules restrict any use of the information to criminally investigate or prosecute any alcohol or drug abuse patient.[facility] CenterIn the event this information is protected by the Federal Confidentiality of Alcohol and Drug Abuse Patient Records regulations: The Federal rules restrict any use of the information to criminally investigate or prosecute any alcohol or drug abuse patient.[facility] CenterIn the event this information is protected by the Federal Confidentiality of Alcohol and Drug Abuse Patient Records regulations: The Federal rules restrict any use of the information to criminally investigate or prosecute any alcohol or drug abuse patient.[facility] CenterIn the event this information is protected by the Federal Confidentiality of Alcohol and Drug Abuse Patient Records regulations: The Federal rules restrict any use of the information to criminally investigate or prosecute any alcohol or drug abuse patient.[facility] CenterIn the event this information is protected by the Federal Confidentiality of Alcohol and Drug Abuse Patient Records regulations: The Federal rules restrict any use of the information to criminally investigate or prosecute any alcohol or drug abuse patient.[facility] CenterIn the event this information is protected by the Federal Confidentiality of Alcohol and Drug Abuse Patient Records regulations: The Federal rules restrict any use of the information to criminally investigate or prosecute any alcohol or drug abuse patient.[facility] Reason for Visit (unrecogniz ed section and content) Reason Comments Results Reason Comments Diarrhea Reason Comments ED Follow-up Reason Comments ER F/U Reason Comments Patient Question Reason Comments ER Summary Reason Comments Patient Update Results Reason Comments Patient Update Reason Comments Consult Colonoscopy Specialty Diagnoses / Procedures Referred By Contac t Referred To Contact Gastroenterology Diagnoses Colon cancer screening Procedures CONSULT TO GASTROENTEROLOGY NEW PATIENT VISIT LEVEL 5 Twin Barrera MD [address] [place] [address] Referral ID Status Reason Start Date Expiration Date V isits Requested Visits Authorized [id number] Closed PCP Requested Referral 06/04/2021 06/04/2022 1 1 Reason Comments Orders Reason Comments Reminder Call Reason Comments Results colonoscopy clearance Reason Comments Radiology Mammogram Specialty Diagnoses / Procedures Referred By Contac t Referred To Contact BR IMAGING Diagnoses Breast pain, right Procedures BULL DIAGNOSTIC RT DIAGNOSTIC MAMMOGRAPHY COMPUTER-AIDED DETCJ UNI Twin Barrera MD [address] [place] [address] [facility] [address] [place] [address] Referral ID Status Reason Start Date Expiration Date V isits Requested Visits Authorized [id number] Closed Auto-Generate d Referral 06/04/2021 07/04/2022 1 1 Reason Comments Acute Visit stomach pain, loose stools, bleeging and burning Reason Comments Ear Pain Left ear pain x 1 we ek Reason Comments Diverticulitis Reason Comments stomach pain and diarrhea Reason Comments Pain Pain in left ear; le ft wrist; spot on bottom of right foot. Reason Comments Ear Pain left, headache, sore throat x 4 days Reason Comments Recheck Reason Comments Blood Pressure Check Reason Onset Date Comments ACM LISANDRA RN 10/24/2022 Chart review for ED utilization completed at request of payer. Reason Comments 4 week f/u BP & medication chec k Reason Comments Patient Update Reason Comments Nausea Abdominal Pain Reason Comments Results Patient Update Reason Comments Results Reason Comments Consult Abdomen pain Specialty Diagnoses / Procedures Referred By Contac t Referred To Contact General Surgery Diagnoses Generalized abdominal pain Procedures CONSULT TO GENERAL SURGERY OFFICE/OUTPATIENT NEW HIGH MDM 60-74 MINUTES Evonne Reyes PA-C [address] [place] [address] Referral ID Status Reason Start Date Expiration Date V isits Requested Visits Authorized [id number] Closed PCP Requested Referral 11/07/2022 11/07/2023 1 1 Reason Comments Order for glucometer Reason Comments Ear Pain X 3 days with ringin g in left ear and dizziness Reason Comments 12/11/2022 Egd asc' Results Reason Comments Follow Up EGD Specialty Diagnoses / Procedures Referred By Contac t Referred To Contact General Surgery / GENERAL SURGERY Diagnoses Follow-up exam egd f/u asc 11/15 Procedures OFFICE/OUTPATIENT ESTABLISHED [facility] MDM 40-54 MIN EST DDI PATIENT Twin Barrera MD [address] [place] [address] Jamee Contreras PA-C [address] [place] [address] Referral ID Status Reason Start Date Expiration Date V isits Requested Visits Authorized [id number] Authorized 11/18/2022 11/18/2023 99 99 Reason Comments Follow Up HIDA scan results Specialty Diagnoses / Procedures Referred By Contac t Referred To Contact General Surgery / GENERAL SURGERY Diagnoses review HIDA scan results Procedures EST DDI PATIENT Celina Solis MD [address] [facility] [place] [address] Celina Solis MD [address] [facility] [place] [address] Referral ID Status Reason Start Date Expiration Date V isits Requested Visits Authorized [id number] Denied Patient Cleared - Admin/Chairm an/Director advise to proceed 01/14/2023 01/14/2023 2 0 Reason Comments Medication Problem Reason Comments 01/30/2023 LAP KESHAV CONTRERAS 03/03/2023 lap keshav contreras Reason Comments Consult RUQ pain Specialty Diagnoses / Procedures Referred By Contac t Referred To Contact General Surgery / GENERAL SURGERY Diagnoses RUQ pain Generalized abdominal pain Chronic cholecystitis Procedures CONSULT TO GENERAL SURGERY OFFICE/OUTPATIENT [facility] MDM 60-74 MINUTES Jessica Lal APRN.[employer]HEET [employer]AL APPRENTICE [address] [place] [address] [facility] [address] [facility] [place] [address] Referral ID Status Reason Start Date Expiration Date V isits Requested Visits Authorized [id number] Closed PCP Requested Referral 02/06/2023 02/06/2024 1 1 Reason Comments Preparations For Surgery Reason Comments Appointment Reason Comments Yearly Exam Reason Comments Blood Pressure Reason Comments Blood Pressure Reason Onset Date Comments Allied Health Visit 06/19/2023 Medication A dherence Outreach Reason Comments Follow Up Still having diarrhe a since lap keshav 03/03/2023. Specialty Diagnoses / Procedures Referred By Contac t Referred To Contact General Surgery / GENERAL SURGERY Diagnoses bowel issues since lap keshav keep DP Procedures EST DDI PATIENT Twin Barrera MD [address] [place] [address] Chandler Barreto MD [address] [place] [address] Referral ID Status Reason Start Date Expiration Date V isits Requested Visits Authorized [id number] Authorized 08/04/2023 08/04/2024 99 99 Reason Comments Ear Pain Bilateral x2 days Reason Comments Radiology CT Specialty Diagnoses / Procedures Referred By Contac t Referred To Contact CT IMAGING Diagnoses RUQ pain Generalized abdominal pain Chronic cholecystitis Left lower quadrant abdominal pain Nausea Procedures CT ABD/PEL W IVCON CT ABD & PELVIS W/CONTRAST Jessica Lal, LISSETTE.SHEET METAL APPRENTICE [address] [place] [address] [place] [address] Referral ID Status Reason Start Date Expiration Date V isits Requested Visits Authorized [id number] Closed Auto-Generate d Referral 02/06/2023 03/07/2024 1 1 Specialty Diagnoses / Procedures Referred By Contac t Referred To Contact CT IMAGING Diagnoses RUQ pain Left lower quadrant abdominal pain Nausea Epigastric pain LLQ abdominal pain Procedures CT ABD/PEL W IVCON CT ABD & PELVIS W/CONTRAST Jessica Lal, LISSETTE.SHEET METAL APPRENTICE [address] [place] [address] [place] [address] Referral ID Status Reason Start Date Expiration Date V isits Requested Visits Authorized [id number] Closed Auto-Generate d Referral 02/06/2023 03/07/2024 1 1 Reason Comments Radiology US Specialty Diagnoses / Procedures Referred By Deangelo t Referred To Contact US IMAGING Diagnoses Generalized abdominal pain Procedures US ABD RT UPPER QUADRANT US ABDOMINAL REAL TIME W/IMAGE LIMITED Evonne Reeys PA-C [address] [place] [address] [place] [address] Referral ID Status Reason Start Date Expiration Date V isits Requested Visits Authorized [id number] Closed Auto-Generate d Referral 11/07/2022 12/07/2023 1 1 Reason Onset Date Comments ACM LISANDRA RN 09/15/2023 Medication Ad herence review completed per request of payer Reason Onset Date Comments Refill Request 09/22/2023 Reason Comments 6 Month Exam Care Teams (unrecognized sec tion and content) Digital Editor Relationship Specialty Start Date End Date Twin Barrera MD [address] [place] [address] PCP - General Family Practice 05/18/14 Digital Editor Relationship Specialty Start Date End Date Twin Barrera MD [address] [place] [address] PCP - General Family Practice 05/18/14 Digital Editor Relationship Specialty Start Date End Date Twin Barrera MD [address] [place] [address] PCP - General Family Practice 05/18/14 Digital Editor Relationship Specialty Start Date End Date Twin Barrera MD [address] [place] [address] PCP - General Family Practice 05/18/14 Digital Editor Relationship Specialty Start Date End Date Twin Barrera MD [address] [place] [address] PCP - General Family Practice 05/18/14 Digital Editor Relationship Specialty Start Date End Date Twin Barrera MD [address] [place] [address] PCP - General Family Practice 05/18/14 Digital Editor Relationship Specialty Start Date End Date Twin Barrera MD [address] [facility] [place] [address] PCP - General Family Practice 05/18/14 Digital Editor Relationship Specialty Start Date End Date Twin Barrera MD [facility] [place] [address] PCP - General Family Practice 05/18/14 Digital Editor Relationship Specialty Start Date End Date Twin Barrera MD [address] [place] [address], [place] [address] PCP - General Family Practice 05/18/14 Digital Editor Relationship Specialty Start Date End Date Twin Barrera MD [address] [place] [address] [place] [address] PCP - General Family Practice 05/18/14 Digital Editor Relationship Specialty Start Date End Date Twin Barrera MD [address] [place] [address], [place] [address] PCP - General Family Medicine 05/18/14 Digital Editor Relationship Specialty Start Date End Date Twin Barrera MD [address] [place] [address], [place] [address] PCP - General Family Medicine 05/18/14 Digital Editor Relationship Specialty Start Date End Date Twin Barrera MD [address] [place] [address], [place] [address] PCP - General Family Medicine 05/18/14 Digital Editor Relationship Specialty Start Date End Date Twin Barrera MD [address] [place] [address], [place] [address] PCP - General Family Medicine 05/18/14 Digital Editor Relationship Specialty Start Date End Date Twin Barrera MD [address] [place] [address], [place] [address] PCP - General Family Medicine 05/18/14 Digital Editor Relationship Specialty Start Date End Date Twin Barrera MD [address] [facility] [place] [address] PCP - General Family Medicine 05/18/14 Digital Editor Relationship Specialty Start Date End Date Twin Barrera MD [address] [place] [address] PCP - General Family Medicine 05/18/14 Digital Editor Relationship Specialty Start Date End Date Twin Barrera MD [facility] [place] [address] PCP - General Family Medicine 05/18/14 Digital Editor Relationship Specialty Start Date End Date Twin Barrera MD [address] [place] [address] PCP - General Family Medicine 05/18/14 Digital Editor Relationship Specialty Start Date End Date Twin Barrera MD [facility] [place] [address] PCP - General Family Medicine 05/18/14 Digital Editor Relationship Specialty Start Date End Date Twin Barrera MD [facility] [place] [address] PCP - General Family Medicine 05/18/14 Digital Editor Relationship Specialty Start Date End Date Twin Barrera MD [facility] [place] [address] PCP - General Family Medicine 05/18/14 Digital Editor Relationship Specialty Start Date End Date Twin Barrera MD [address] [place] [address] [place] [address] PCP - General Family Medicine 05/18/14 Digital Editor Relationship Specialty Start Date End Date Twin Barrera MD [address] [facility] [place] [address] PCP - General Family Medicine 05/18/14 Digital Editor Relationship Specialty Start Date End Date Twin Barrera MD [address] [facility] [place] [address] PCP - General Family Medicine 05/18/14 Digital Editor Relationship Specialty Start Date End Date Twin Barrera MD [address] [facility] [place] [address] PCP - General Family Medicine 05/18/14 Digital Editor Relationship Specialty Start Date End Date Twin Barrera MD [facility] [place] [address] PCP - General Family Medicine 05/18/14 Digital Editor Relationship Specialty Start Date End Date Twin Barrera MD [facility] [place] [address] PCP - General Family Medicine 05/18/14 Digital Editor Relationship Specialty Start Date End Date Twin Barrera MD [facility] [place] [address] PCP - General Family Medicine 05/18/14 Digital Editor Relationship Specialty Start Date End Date Twin Barrera MD [facility] [place] [address] PCP - General Family Medicine 05/18/14 Digital Editor Relationship Specialty Start Date End Date Twin Barrera MD [facility] [place] [address] PCP - General Family Medicine 05/18/14 Digital Editor Relationship Specialty Start Date End Date Twin Barrera MD [facility] [place] [address] PCP - General Family Medicine 05/18/14 Digital Editor Relationship Specialty Start Date End Date Twin Barrera MD [address] [place] [address] PCP - General Family Medicine 05/18/14 Digital Editor Relationship Specialty Start Date End Date Twin Barrera MD [address] [place] [address] PCP - General Family Medicine 05/18/14 Digital Editor Relationship Specialty Start Date End Date Twin Barrera MD [address] [place] [address] PCP - General Family Medicine 05/18/14 Digital Editor Relationship Specialty Start Date End Date Twin Barrera MD [address] [place] [address] PCP - General Family Medicine 05/18/14 Digital Editor Relationship Specialty Start Date End Date Twin Barrera MD [address] [place] [address] PCP - General Family Medicine 05/18/14 Digital Editor Relationship Specialty Start Date End Date Twin Barrera MD [address] [place] [address] PCP - General Family Medicine 05/18/14 Digital Editor Relationship Specialty Start Date End Date Twin Barrera MD [address] [place] [address] PCP - General Family Medicine 05/18/14 Digital Editor Relationship Specialty Start Date End Date Twin Barrera MD [address] [place] [address] PCP - General Family Medicine 05/18/14 Digital Editor Relationship Specialty Start Date End Date Twin Barrera MD [address] [place] [address] PCP - General Family Medicine 05/18/14 INFORMATION SOURCE (unrecogn ized section and content) DATE CREATED AUTHOR AUTHOR'S ORGANIZ ATION 03/05/2023 [facility] DATE CREATED AUTHOR AUTHOR'S ORGANIZ ATION 11/19/2023 [facility] FOR RECORDS PERTAINING TO PATIENTS WHO ARE OR HAVE BEEN ENROLLED IN A CHEMICAL DEPENDENCY/SUBSTANCEABUSE PROGRAM, SOME INFORMATION MAY BE OMITTED. This clinical summary was aggregated from multiple sources. Caution should be exercised in using it in the provision of clinical care. This summary normalizes information from multiple sources, and as a consequence, information in this document may materially change the coding, format and clinical context of patient data. In addition, data may be omitted in some cases. CLINICAL DECISIONS SHOULD BE BASED ON THE PRIMARY CLINICAL RECORDS. [employer] [facility]. provides no warranty or guarantee of the accuracy or completeness of information in this document.
--- NOTE | 2023-11-27 19:33 | EDS_ITS ---
HPI History of Present Illness Chief Complaint: Shortness of Breath Narrative Narrative: 58-year-old female presenting with dyspnea. States had this for a few days and she saw her primary doctor who put her on a inhaler. Patient states she was not told she was wheezing and has no history of asthma or COPD. She is not on steroids. Patient states the albuterol is not helping. Patient states she has some neighbors that smoke cigarettes and this is irritation all to her. Patient states that she does not smoke or self. No fevers, chills but does complain of headache and rhinorrhea as well as cough. She denies chest pain. [facility] Medical History Chronic pain syndrome DM type 2 (diabetes mellitus, type 2) Gastroesophageal reflux disease Hypertension Home Medications multivitamin with folic acid 400 mcg tablet (Thera) 1 tab PO DAILY 09/17/13 [History Last Taken Unknown] Cetirizine Hcl [Zyrtec] 10 mg PO DAILY PRN Allergies 02/07/16 [History Last Taken 05/28/16] acyclovir 400 mg tablet 400 mg PO BID 02/07/16 [History Last Taken 05/28/16] baclofen 10 mg tablet 10 mg PO BID 02/07/16 [History Last Taken 05/28/16] acetaminophen 325 mg tablet (Tylenol) 325 mg PO Q6H PRN PRN Pain 05/28/16 [History Last Taken Unknown] atorvastatin 10 mg tablet 10 mg PO QHS 05/28/16 [History Last Taken 05/27/16] bupropion HCl 75 mg tablet 100 mg PO TID 05/28/16 [History Last Taken 05/28/16] fenofibrate nanocrystallized 145 mg tablet 145 mg PO DAILY 05/28/16 [History Last Taken 05/28/16] naproxen 500 mg tablet 500 mg PO BID PRN PRN Pain 05/28/16 [History Last Taken Unknown] sertraline 100 mg tablet 200 mg PO DAILY 05/28/16 [History Last Taken 05/28/16] lisinopril 10 mg tablet 20 mg PO QHS 03/31/19 [History Last Taken Unknown] Potassium (Otc) [Potassium Otc] 99 mg PO DAILY PRN vitamin 11/29/20 [History Last Taken Unknown] ascorbic acid (vitamin C) 1,000 mg tablet 1,000 mg PO DAILY 11/29/20 [History Last Taken Unknown] cyanocobalamin (vitamin B-12) 500 mcg tablet 500 mcg PO DAILY@0800 11/29/20 [History Last Taken Unknown] ginkgo biloba 120 mg tablet 120 mg PO DAILY 11/29/20 [History Last Taken Unknown] magnesium oxide 500 mg capsule 500 mg PO DAILY 11/29/20 [History Last Taken Unknown] diazepam 10 mg tablet 01/22/22 [History Last Taken Unknown] pioglitazone 45 mg tablet 45 mg PO DAILY 01/22/22 [History Last Taken Unknown] ciprofloxacin HCl 500 mg tablet (Cipro) 500 mg PO BID #20 tabs 04/08/22 [Rx Last Taken Unknown] metronidazole 500 mg tablet 500 mg PO TID #30 tabs 04/08/22 [Rx Last Taken Unknown] dicyclomine 20 mg tablet 20 mg PO BID #10 tabs 04/24/22 [Rx Last Taken Unknown] ondansetron 4 mg disintegrating tablet 4 mg PO Q8H #7 tabs 04/24/22 [Rx Last Taken Unknown] benzonatate 200 mg capsule 200 mg PO TID PRN cough #30 caps 11/27/23 [Rx Last Taken Unknown] prednisone 50 mg tablet 50 mg PO DAILY #5 tabs 11/27/23 [Rx Last Taken Unknown] Allergy/AdvReac Type Severity Reaction Status Date / Time codeine Allergy Unknown Verified 11/27/23 18:54 erythromycin base Allergy Itching Verified 11/27/23 18:54 [Erythromycin Base] hydrocodone bitartrate Allergy Itching Verified 11/27/23 18:54 [From Vicodin] latex Allergy Hives Verified 11/27/23 18:54 paroxetine HCl [From Paxil] Allergy Unknown Verified 11/27/23 18:54 Surgical History H/O: hysterectomy History of tonsillectomy Social History Smoking Status: Never smoker ROS ROS ED Constitutional Constitutional ED: Denies chills, fever(s) or sweats Eyes Eyes: Denies blurry vision or change in vision ENT ENT ED: Denies ear pain or sore throat Cardiovascular Cardiovascular: Denies chest pain, palpitations or racing heartbeat Respiratory/Chest Respiratory/Chest: Reports cough and dyspnea; Denies sputum Gastrointestinal Gastrointestinal: Denies abdominal pain, constipation, diarrhea, nausea or vomiting Genitourinary Genitourinary ED: Denies dysuria, hematuria or urinary frequency Musculoskeletal Musculoskeletal: Denies arthralgias, myalgias or neck pain Integumentary Denies abscess, Abrasions or rash Neurologic Neurologic: Reports headache(s); Denies paresthesias or weakness Psychiatric Psychiatric: Denies anxiety, depression, suicidal ideation or suicidal thoughts Endocrine Endocrinology: Denies polydipsia or polyuria EXAM Physical Exam Const Vital Signs: 11/27/23 18:54 11/27/23 19:56 11/27/23 19:43 Temperature 96.3 F L Temperature Source Temporal Pulse Rate 78 85 Respiratory Rate 24 H 18 Respiratory Pattern Normal Blood Pressure 154/87 H Blood Pressure Mean 109 Pulse Ox 100 Oxygen Delivery Method Room Air Room Air 11/27/23 21:55 Temperature 97.9 F Temperature Source Pulse Rate 87 Respiratory Rate 18 Respiratory Pattern Blood Pressure 130/67 H Blood Pressure Mean 88 Pulse Ox 94 Oxygen Delivery Method Positive well nourished and obese General Appearance ED: NAD; Negative for pallor Nutritional Appearance: obese HEENT Reports moist mucous membranes Eyes PERRL and EOMs intact bilaterally Resp normal respiratory effort Auscultation: Negative for rales, rhonchi or wheezes Cardio regular rate and regular rhythm Neuro oriented x3 and CN's II-XII intact bilaterally Sensorium / Orientation: alert Motor Exam: strength 5/5 throughout Psych mental status grossly normal Skin no wounds General Skin Exam: Negative for jaundice or pallor MDM MDM MDM Narrative Medical decision making narrative: Patient presenting with cough, headache, rhinorrhea. Clinically her she has a viral syndrome. She states she has not had a fever. On examination she is not wheezing. Lungs are clear to auscultation. Heart regular rate and rhythm. Patient subjectively feels short of breath however. She is given breathing treatments and Solu-Medrol. Will obtain a chest x-ray to rule out pneumonia. COVID, influenza, RSV are obtained. CBC and BMP will be obtained for screening purposes. Patient was given Toradol for her headache. On reevaluation the patient still complains of a mild cough although she feels better. Lab work unremarkable. Chest x-ray my interpretation is no acute process. Radiologist interprets this and agrees. EKG on my interpretation showed a normal sinus rhythm with a ventricular rate of 70 bpm without sign ischemic change. Given patient's shortness of breath we will send her home with a prednisone burst that she feels that this helped her as well as her breathing treatments. She has albuterol at home. I recommended follow-up with her PCP as an outpatient and return precautions were discussed. COVID, influenza, RSV all negative. Impression: 1. Dyspnea 2. Cough Lab Data Attestation: I reviewed the patient's lab results. Labs: Laboratory Results - last 24 hr 11/27/23 19:46 WBC 8.6 RBC 4.89 Hgb 13.4 Hct 41.6 MCV 85.1 MCH 27.4 MCHC 32.2 RDW Std Deviation 43.7 RDW Coeff of Delia 14.1 Plt Count 271 MPV 9.9 Immature Gran % (Auto) 0.500 Neut % (Auto) 59.3 Lymph % (Auto) 26.9 [place] % (Auto) 7.9 Eos % (Auto) 4.6 Baso % (Auto) 0.8 Absolute Neuts (auto) 5.1 Absolute Lymphs (auto) 2.32 Nucleated RBC % 0 Sodium 144 Potassium 4.1 Chloride 110 H Carbon Dioxide 27.0 Anion Gap 7 BUN 26 H Creatinine 1.08 H Estim Creat Clear Calc 59.13 Est GFR (MDRD) Af Amer 67 Est GFR (MDRD) Non-Af 55 L BUN/Creatinine Ratio 24.1 H Glucose 128 H Calcium 9.5 Radiography Diagnostic Testing: Clinical Impression(s) from Imaging Studies Chest X-Ray 11/27/23 20:05 IMPRESSION: Normal x-ray examination of the chest. Electronically Signed: Humble Marie MD at 20:38 EST , Discharge Plan Triage Chief Complaint: Shortness of Breath ED Provider: Fidel Daley Dx/Rx/DC Orders Instructions: ED Bronchitis, No Antibiotic (Adult) Prescriptions: New prednisone 50 mg tablet 50 mg PO DAILY Qty: 5 0RF benzonatate 200 mg capsule 200 mg PO TID PRN (Reason: cough) Qty: 30 0RF No Action multivitamin with folic acid [Thera] 1 TABLET tablet 1 tab PO DAILY Patient Comments: supplement acyclovir 400 MG tablet 400 mg PO BID Patient Comments: anti-viral baclofen 10 MG tablet 10 mg PO BID Patient Comments: pain Cetirizine Hcl [Zyrtec] 10 MG tablet 10 mg PO DAILY PRN (Reason: Allergies) Patient Comments: allergies acetaminophen [Tylenol] 325 MG tablet 325 mg PO Q6H PRN PRN (Reason: Pain) atorvastatin 10 MG tablet 10 mg PO QHS Patient Comments: cholesterol lowering sertraline 100 MG tablet 200 mg PO DAILY Patient Comments: mental health bupropion HCl 75 MG tablet 100 mg PO TID Patient Comments: mental health naproxen 500 MG tablet 500 mg PO BID PRN PRN (Reason: Pain) fenofibrate nanocrystallized 145 MG tablet 145 mg PO DAILY Patient Comments: cholesterol lisinopril 10 MG tablet 20 mg PO QHS ascorbic acid (vitamin C) 1,000 MG tablet 1,000 mg PO DAILY cyanocobalamin (vitamin B-12) 500 MCG tablet 500 mcg PO DAILY@0800 ginkgo biloba 120 MG tablet 120 mg PO DAILY magnesium oxide 500 MG capsule 500 mg PO DAILY Potassium (Otc) [Potassium Otc] 99 MG tablet 99 mg PO DAILY PRN (Reason: vitamin) pioglitazone 45 mg tablet 45 mg PO DAILY diazepam 10 mg tablet Patient Comments: TAKE 1 TABLET BY MOUTH 1 HOUR PRIOR , DO NOT DRIVE. ciprofloxacin HCl [Cipro] 500 mg tablet 500 mg PO BID Qty: 20 0RF metronidazole 500 mg tablet 500 mg PO TID Qty: 30 0RF dicyclomine 20 mg tablet 20 mg PO BID Qty: 10 0RF ondansetron 4 mg tablet,disintegrating 4 mg PO Q8H Qty: 7 0RF Primary Care Provider: Twin Piper Referrals: Twin Piper MD [Primary Care Provider] - Disposition Disposition: Home, Self Care Discharge Date/Time: 11/27/23 21:56
[2023-11-27 19:43] VITALS: PULSE 85; RESP 18
[2023-11-27] MEDS: Albuterol 2.5 MG/3 ML VIAL.NEB. INHALATION (19:43)
[2023-11-27] MEDS: Ipratropium/Albuterol Sulfate 3 ML AMPUL.NEB INHALATION (19:43)
[2023-11-27 19:54] LABS: Absolute Lymphocyte Count 2.32 X10^3/uL (0.83-4.51); Absolute Neutrophil Count 5.1 X10^3/uL (2.0-7.7); Basophil# 0.07 X10^3/uL; Basophil% 0.8 % (0-1); Eosinophils% 4.6 % (0-5); Hematocrit 41.6 % (37-47); Hemoglobin 13.4 g/dL (12.0-15.0); Lymphocyte # 2.32 X10^3/ul (0.83-4.51); Lymphocyte % 26.9 % (19-41); Mean Corp Hgb Conc 32.2 g/dL (32-36); Mean Corpuscular Hgb 27.4 pg (27.0-32.0); Mean Corpuscular Volume 85.1 fL (81-99); Mean Platelet Vol. 9.9 fl (6.2-12.0); Monocyte# 0.68 X10^3/uL; Monocyte% 7.9 % (0-10); NRBC Flagged by Analyzer 0 % (0-5); Neutrophil # 5.11 X10^3/uL (2.7-7.7); Neutrophil % 59.3 % (47-70); Platelet Count 271 K/mm3 (150-450); RBC Distribution Width CV 14.1 % (11.6-14.6); RBC Distribution Width SD 43.7 fl (35.1-43.9); Red Blood Count 4.89 M/mm3 (4.2-5.4); White Blood Count 8.6 K/mm3 (4.4-11.0)
[2023-11-27] MEDS: Ketorolac 15 MG/ML Vial IV (19:54)
[2023-11-27] MEDS: MethylPREDNISolone 125 MG/2 ML Vial IV (19:54)
--- NOTE | 2023-11-27 20:05 | RAD_ITS ---
STUDY: X-RAY CHEST REASON FOR EXAM: Female, 58 years old. Cough TECHNIQUE: Single AP portable view of the chest. COMPARISON: June 10, 2016 FINDINGS: There are monitoring devices. The lungs are clear and expanded. There is no demonstrated pleural abnormality. Normal size heart. Normal mediastinum and maricarmen. Normal visualized pulmonary arteries. Normal visualized aortic arch and descending thoracic aorta. Normal visualized thoracic spine. Normal visualized ribs, clavicles, and shoulders. There is no demonstrated abnormality of the visualized soft tissue structures of the upper abdomen. RAD/Chest 1 View (Portable) IMPRESSION: Normal x-ray examination of the chest. Electronically Signed: Humble Marie MD at 20:38 EST ,
[2023-11-27 20:07] LABS: Anion Gap 7 (5-15); BUN 26 mg/dL (7-18); BUN/Creat Ratio 24.1 RATIO (10-20); Calcium,Total 9.5 mg/dL (8.5-10.1); Chloride 110 mmol/L (98-107); Creatinine, Serum 1.08 mg/dL (0.55-1.02); EST Glomerular Filtration Rate 55 mL/min (>60); Est Glom Filt Rate - Afr Amer 67 mL/min (>60); Estimated Creatinine Clearance 59.13 ml/min; Glucose 128 mg/dL (74-106); Potassium 4.1 mmol/L (3.5-5.1); Sodium Level 144 mmol/L (136-145)
--- NOTE | 2023-11-27 20:10 | CPS ---
x1 Albuterol given to pt. in ER as well
[2023-11-27 21:55] VITALS: BP 130/67; PULSE 87; RESP 18; TEMP 36.6; O2SAT 94
== END 2023-11-27 21:56 | disposition home or self-care (01) ==
PROVIDERS: Emergency Provider Student in an Organized Health Care Education/Training Program; PCP Family Medicine; Visit Provider Student in an Organized Health Care Education/Training Program
DX: R06.02 Shortness of breath (principal); R05.9 Cough, unspecified; I10 Essential (primary) hypertension; Z79.899 Other long term (current) drug therapy; Z77.22 Contact with and (suspected) exposure to environmental tobacco smoke (acute) (chronic)
CPT/HCPCS: 71045; 80048; 85025; 87631; 93005; 94640; 96374; 96375; 99283; A4216

== ENCOUNTER → 2024-05-27 | Outpatient (CLI) | payer MEDICARE, MEDICAID, SELFPAY ==
[2024-06-01 12:00] LABS: Pancreatic Elastase, Fecal > 800 (>200)
[2024-06-01 16:10] LABS: Calprotectin, Stool 7 ug/g (0-120)
== END | disposition home or self-care (01) ==
PROVIDERS: PCP Family Medicine; Referring Provider Student in an Organized Health Care Education/Training Program; Visit Provider Student in an Organized Health Care Education/Training Program
DX: R19.7 Diarrhea, unspecified (principal); K58.0 Irritable bowel syndrome with diarrhea
CPT/HCPCS: 82653; 83630; 83993

== ENCOUNTER 2024-05-28 11:01 | Emergency (ER) | payer MEDICARE, MEDICAID, SELFPAY ==
[2024-05-28] VITALS (7 sets, daily range): BP systolic 121–150; BP diastolic 68–86; PULSE 64–75; RESP 12–18; TEMP 36.4–37; O2SAT 95–98; BMI 17.0
--- NOTE | 2024-05-28 11:25 | EKG12_ITS ---
Test Reason : CP Blood Pressure : / mmHG Vent. Rate : 071 BPM Atrial Rate : 071 BPM P-R Int : 200 ms QRS Dur : 082 ms QT Int : 422 ms P-R-T Axes : 043 079 091 degrees QTc Int : 458 ms Sinus rhythm with frequent Premature ventricular complexes Low voltage QRS Nonspecific T wave abnormality Abnormal ECG Confirmed by LUÍS HORNER, TRU ([id number]), book editor JORDAN BEDOLLA ([id number]) on 05/31/2024 9:31:03 AM Referred By: MARLA/FRANK Confirmed By:INDRA STALEY MD
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
[2024-05-28 11:38] LABS: Absolute Lymphocyte Count 1.62 X10^3/uL (0.83-4.51); Basophil# 0.07 X10^3/uL; Basophil% 0.8 % (0-1); Eosinophil# 0.29 X10^3/uL; Eosinophils% 3.4 % (0-5); Hematocrit 44.6 % (37-47); Hemoglobin 14.6 g/dL (12.0-15.0); Lymphocyte # 1.62 X10^3/ul (0.83-4.51); Lymphocyte % 18.8 % (19-41); Mean Corp Hgb Conc 32.7 g/dL (32-36); Mean Corpuscular Hgb 28.1 pg (27.0-32.0); Mean Corpuscular Volume 85.9 fL (81-99); Monocyte# 0.61 X10^3/uL; Monocyte% 7.1 % (0-10); NRBC Flagged by Analyzer 0 % (0-5); Neutrophil % 69.3 % (47-70); Platelet Count 233 K/mm3 (150-450); RBC Distribution Width CV 14.2 % (11.6-14.6); RBC Distribution Width SD 43.8 fl (35.1-43.9); Red Blood Count 5.19 M/mm3 (4.2-5.4); White Blood Count 8.6 K/mm3 (4.4-11.0)
[2024-05-28 12:00] LABS: Anion Gap 5 (5-15); BUN 16 mg/dL (7-18); BUN/Creat Ratio 22.2 RATIO (10-20); Calcium,Total 9.6 mg/dL (8.5-10.1); Chloride 105 mmol/L (98-107); Creatinine, Serum 0.72 mg/dL (0.55-1.02); EST Glomerular Filtration Rate 88 mL/min (>60); Est Glom Filt Rate - Afr Amer 106 mL/min (>60); Estimated Creatinine Clearance 56.27 ml/min; Glucose 200 mg/dL (74-106); Potassium 3.8 mmol/L (3.5-5.1); Sodium Level 139 mmol/L (136-145); Troponin-I HS (w/2H Reflex) 4 pg/mL (3.0-54.0)
--- NOTE | 2024-05-28 12:15 | RAD_ITS ---
EXAM: XR CHEST, 1 VIEW CLINICAL INDICATION: Chest pain. TECHNIQUE: Frontal view of the chest. COMPARISON: 11/27/2023. FINDINGS: LUNGS AND PLEURAL SPACES: Unremarkable. No consolidation or edema. No pneumothorax. No effusion. HEART: Unremarkable. Cardiac silhouette not enlarged. MEDIASTINUM: Central airways and mediastinal contour are unremarkable. BONES/JOINTS: Unremarkable. No acute fracture. SOFT TISSUES: Unremarkable. RAD/Chest 1 View (Portable) IMPRESSION: No radiographic evidence of acute cardiopulmonary disease and unchanged. Electronically Signed: Rufino Magana MD at 12:28 EDT ,
[2024-05-28 13:33] LABS: Reflex Troponin-HS? (from REC) Y
[2024-05-28 14:20] LABS: Troponin-I HS 4 pg/mL (3.0-54.0)
== END 2024-05-28 15:22 | disposition home or self-care (01) ==
PROVIDERS: Emergency Provider Emergency Medicine; PCP Family Medicine; Visit Provider Emergency Medicine
DX: K52.9 Noninfective gastroenteritis and colitis, unspecified (principal); E11.9 Type 2 diabetes mellitus without complications; R06.02 Shortness of breath; E78.00 Pure hypercholesterolemia, unspecified; I10 Essential (primary) hypertension; K21.9 Gastro-esophageal reflux disease without esophagitis; M54.9 Dorsalgia, unspecified; I49.3 Ventricular premature depolarization; R07.89 Other chest pain; Z82.49 Family history of ischemic heart disease and other diseases of the circulatory system
CPT/HCPCS: 71045; 80048; 84484; 85025; 93005; 99283

== ENCOUNTER 2024-12-21 12:02 | Day surgery (SDC) | payer MEDICARE, MEDICAID, SELFPAY ==
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
[2024-12-21] VITALS (7 sets, daily range): BP systolic 124–152; BP diastolic 72–77; PULSE 66–73; RESP 14–16; TEMP 36.1–36.4; O2SAT 97–98; BMI 35.8
[2024-12-21 12:53] LABS: Bedside Glucose 110 mg/dL (74-106)
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
--- NOTE | 2024-12-21 13:45 | EGD_PTH ---
PATIENT: EDGAR MURILLO LOC: EN U#:[id number] AGE/SX: 59/F ROOM: RE12/21/[address]: Dr. Josias Benavides DO : 1965 BED: DIS: 12/21/2024 SPEC #: [id number] RECD: 12/21/24 15:11 STATUS: REE REFelipe #: [id number] ELROY: 12/21/24 13:[address]: Josias Benavides DEPT: SURGICAL PATHOLOGY RECD BY: Arcelia Álvarez ENTERED: 12/22/24 07:44 SP TYPE: EGD BIOPSY YADY DR: Dr. Twin Piper MD Tissues: A - Gastric mucous membrane B - Duodenum, NOS Procedures: Immunohistochemical Stains Surgery Specimen Level IV HEADER OPERATION: EGD with biopsy PRE-OP DIAGNOSIS: Chronic nausea, irritable bowel syndrome, gastroesophageal reflux disease TISSUE SUBMITTED: A- Gastric body biopsy, B- Duodenum biopsy MICROSCOPIC DIAGNOSIS a. Stomach, body, biopsy: * Oxyntic mucosa with mild chronic inflammation. * IHC is negative for H pylori organisms. b. Duodenum, biopsy: * Normal villous architecture with Paul gland hyperplasia. * Negative for increased intraepithelial lymphocytes. MICROSCOPIC DESCRIPTION Slides are reviewed. These tests were developed and their performance characteristics determined by [facility]. They may not have been cleared or approved by the U.[place]. Food and Drug Administration. The FDA has determined that such clearance or approval is not necessary. The above immunohistochemical/dualISH markers are ordered and reviewed by the Pathologist. GROSS DESCRIPTION A. Received in fixative is one container labeled with the patient's name and designated Gastric body biopsy. The specimen consists of multiple irregular fragments of light bhakta soft tissue that in aggregate measure 1.3 x 0.5 x 0.1 cm. The specimen is totally submitted in one cassette. B. Received in fixative is one container labeled with the patient's name and designated Duodenum biopsy. The specimen consists of two irregular fragments of light bhakta soft tissue that in aggregate measure 1.1 x 0.3 x 0.1 cm. The specimen is totally submitted in one cassette. MS/mr 12/22/2024 CPT:[id number]
--- NOTE | 2024-12-21 13:53 | OP.EGD_ITS ---
Patient Name: Keturah Burch Procedure Date: 12/21/2024 1:19 PM Date of : 1965 Age: 59 Procedure: Upper GI endoscopy Indications: Epigastric abdominal pain Providers: Josias Benavides DO Referring MD: Twin Piper MD Medicines: Monitored Anesthesia Care Patient Profile: This is a 59 year old female. Refer to note in patient chart for documentation of history and physical. Patient has symptoms of chronic epigastric abdominal pain, chronic dyspepsia and chronic nausea. Complications: No immediate complications. Procedure: Pre-Anesthesia Assessment: - Prior to the procedure, a History and Physical was performed, and patient medications and allergies were reviewed. The patient is competent. The risks and benefits of the procedure and the sedation options and risks were discussed with the patient. All questions were answered and informed consent was obtained. Patient identification and proposed procedure were verified in the pre-procedure area. Mental Status Examination: alert and oriented. Airway Examination: normal oropharyngeal airway and neck mobility. Respiratory Examination: clear to auscultation. CV Examination: normal. Prophylactic Antibiotics: The patient does not require prophylactic antibiotics. Prior Anticoagulants: The patient has taken no anticoagulant or antiplatelet agents except for NSAID medication. ASA Grade Assessment: II - A patient with mild systemic disease. After reviewing the risks and benefits, the patient was deemed in satisfactory condition to undergo the procedure. The anesthesia plan was to use monitored anesthesia care (MAC). Immediately prior to administration of medications, the patient was re-assessed for adequacy to receive sedatives. The heart rate, respiratory rate, oxygen saturations, blood pressure, adequacy of pulmonary ventilation, and response to care were monitored throughout the procedure. The physical status of the patient was re-assessed after the procedure. After obtaining informed consent, the endoscope was passed under direct vision. Throughout the procedure, the patient's blood pressure, pulse, and oxygen saturations were monitored continuously. The Endoscope was introduced through the mouth, and advanced to the second part of duodenum. The upper GI endoscopy was accomplished without difficulty. The patient tolerated the procedure well. Scope In: 1:36:44 PM Scope Out: 1:42:03 PM Total Procedure Duration Time 0 hours 5 minutes 19 seconds Findings: The examined esophagus was normal. Suspect gastroparesis due to absence of peristalsis and patient symptoms. Biopsies were taken with a cold forceps for histology. Verification of patient identification for the specimen was done. Estimated blood loss was minimal. Biopsies were taken with a cold forceps for Helicobacter pylori testing. Verification of patient identification for the specimen was done. Estimated blood loss was minimal. Patchy mild inflammation characterized by erythema was found in the duodenal bulb. Biopsies were taken with a cold forceps for histology. Verification of patient identification for the specimen was done. Estimated blood loss was minimal. Impression: - Normal esophagus. - Gastroparesis. Biopsied. - Duodenitis. Biopsied. Recommendation: - Discharge patient to home. - Resume previous diet. - Continue present medications. Procedure Code(s): --- Professional --- 48945, Esophagogastroduodenoscopy, flexible, transoral; with biopsy, single or multiple CPT copyright 2021 [employer]. All rights reserved. The codes documented in this report are preliminary and upon outpatient coder review may be revised to meet current compliance requirements. Josias Benavides DO 12/21/2024 1:52:35 PM This report has been signed electronically. Number of Addenda: 0 Note Initiated On: 12/21/2024 1:19 PM
--- NOTE | 2024-12-21 13:53 | OP.CCLET_ITS ---
12/21/2024 Twin Piper MD Re : Upper GI endoscopy procedure for Keturah Burch Dear Dr. Piper This procedure was performed on Saturday, December 21, 2024. My impressions and recommendations are as follows: Impressions : - Normal esophagus. - Gastroparesis. Biopsied. - Duodenitis. Biopsied. Recommendations : - Discharge patient to home. - Resume previous diet. - Continue present medications. My findings are described in the full procedure note, which is enclosed. If I can be of further assistance, please feel free to contact me at . Sincerely, Josias Benavides, 12/21/2024 1:52:35 PM This report has been signed electronically.
--- NOTE | 2024-12-21 13:53 | PCM.POST.ANE ---
Anesthesia: Postop Eval I Current Vital Signs Temperature: 97 F Pulse Rate: 73 Blood Pressure: 124/72 Respiratory Rate: 14 Pulse Ox: 98 Oxygen Delivery Method: Room Air Assessment Airway patent: Yes Spontaneous unlabored respirations: Yes Mental status: Awake nausea: No Vomiting: No Anesthesia Complication: No Fluid Hydration Crystalloid volume administer (ml): 10 Total IV fluid infused: 10 Progress Note Anesthesia document: Postop Eval 1 completed: Yes
--- NOTE | 2024-12-21 15:03 | POSTOPAN2_ITS ---
Anesthesia Postop Eval I Sum Postop Eval Completion status Anesthesia document: Postop Eval 1 completed: Yes Anesthesia Postop Eval I Summary Anesthesia Postop Eval I Summary: Anesthesia Postop Eval I: Assessment Summary Airway patent Yes 12/21/24 13:54 [employer]PERATIONS [email or web address] Spontaneous unlabored Yes 12/21/24 13:54 [employer]ODIESEL OPERATIONS MANAGER.HBARR respirations Mental status Awake 12/21/24 13:54 BIODIESEL OPERATIONS MANAGER.HBARR nausea No 12/21/24 13:54 BIODIESEL OPERATIONS MANAGER.[email or web address] Vomiting No 12/21/24 13:54 BIODIESEL OPERATIONS MANAGER.[email or web address] Anesthesia Postop Eval I: Fluid Summary Crystalloid volume administer 10 12/21/24 13:54 BIODIESEL OPERATIONS MANAGER.HBARR (ml) Colloids volume administered ( ml) Blood Product volume administered (ml) Total IV fluid infused 10 12/21/24 13:54 BIODIESEL OPERATIONS MANAGER.HBARR Anesthesia Postop Eval I: Summary Notes Anesthesia Complication No 12/21/24 13:54 BIODIESEL OPERATIONS MANAGER.[email or web address] Anesthesia Complication Comment: Post-operative progress note Anesthesia: Postop Eval II Evaluation Mental status: Awake Pain Level: 0 nausea: No Vomiting: No
--- NOTE | 2024-12-21 15:03 | PCM.POSTANE2 ---
Anesthesia Postop Eval I Sum Postop Eval Completion status Anesthesia document: Postop Eval 1 completed: Yes Anesthesia Postop Eval I Summary Anesthesia Postop Eval I Summary: Anesthesia Postop Eval I: Assessment Summary Airway patent Yes 12/21/24 13:54 [employer] [email or web address] [email or web address] Spontaneous unlabored Yes 12/21/24 13:54 LIFE SKILLS [email or web address] respirations Mental status Awake 12/21/24 13:54 [employer] SKILLS TRAINER.[email or web address] nausea No 12/21/24 13:54 LIFE [email or web address] TRAINER.[email or web address] Vomiting No 12/21/24 13:54 LIFE [email or web address] Anesthesia Postop Eval I: Fluid Summary Crystalloid volume administer 10 12/21/24 13:54 [employer] [email or web address] (ml) Colloids volume administered ( ml) Blood Product volume administered (ml) Total IV fluid infused 10 12/21/24 13:54 [employer] [email or web address] Anesthesia Postop Eval I: Summary Notes Anesthesia Complication No 12/21/24 13:54 [employer] [email or web address] Anesthesia Complication Comment: Post-operative progress note Anesthesia: Postop Eval II Evaluation Mental status: Awake Pain Level: 0 nausea: No Vomiting: No
== END 2024-12-21 14:38 | disposition home or self-care (01) ==
LOC: EN 12:05 → AC 12:06
PROVIDERS: PCP Family Medicine; Referring Provider Family Medicine; Visit Provider Internal Medicine Gastroenterology
PROC: 0DJ08ZZ Inspection of Upper Intestinal Tract, Via Natural or Artificial Opening Endoscopic (ICD-10-PCS; CPT 43235; principal; 2024-12-21 13:40)
DX: E11.43 Type 2 diabetes mellitus with diabetic autonomic (poly)neuropathy (principal); K31.84 Gastroparesis; Z80.0 Family history of malignant neoplasm of digestive organs; I10 Essential (primary) hypertension; K21.9 Gastro-esophageal reflux disease without esophagitis; K58.0 Irritable bowel syndrome with diarrhea; K29.80 Duodenitis without bleeding; E78.00 Pure hypercholesterolemia, unspecified; R11.0 Nausea; Z90.49 Acquired absence of other specified parts of digestive tract; R10.13 Epigastric pain; R10.30 Lower abdominal pain, unspecified; Z79.899 Other long term (current) drug therapy; Z90.710 Acquired absence of both cervix and uterus; Z90.721 Acquired absence of ovaries, unilateral; K31.89 Other diseases of stomach and duodenum
CPT/HCPCS: 43239; 82962; 88305; 88342; A4216

== ENCOUNTER → 2025-01-21 | Outpatient (CLI) | payer MEDICARE, MEDICAID, SELFPAY ==
--- NOTE | 2025-01-21 11:15 | NM_ITS ---
PROCEDURE: GASTRIC EMPTYING STUDY 01/21/2025 REASON FOR EXAM: GASTROPARESIS COMPARISON: None. TECHNIQUE: The patient ingested a standard meal of 1.2 mCi of technetium labeled sulfur colloid and oatmeal and water. postprandially. Anterior and posterior planar images of the upper abdomen were obtained for 1 minute immediately following the meal at 1h, 2h and 4h if more than 10% of the activity persisted within the stomach. Regions of interest were drawn, and a geometric mean was used to calculate a [id number]. RADIOPHARMACEUTICAL: 1.2 mCi of technetium labeled sulfur colloid. FINDINGS: Percent activity remaining in stomach: 1 hour 91% % (normal 37-90%) NM/Gastric Emptying Study IMPRESSION: Normal gastric emptying study. Reading Location: [place] [id number]
== END | disposition home or self-care (01) ==
LOC: NM 11:08
PROVIDERS: PCP Family Medicine; Referring Provider Student in an Organized Health Care Education/Training Program; Visit Provider Student in an Organized Health Care Education/Training Program
DX: K31.84 Gastroparesis (principal)
CPT/HCPCS: 78264; A9541

== ENCOUNTER → 2025-01-27 | Outpatient (CLI) | payer MEDICARE, MEDICAID, SELFPAY ==
[2025-01-30 09:07] LABS: Calprotectin, Stool 11 ug/g (0-120)
== END | disposition home or self-care (01) ==
LOC: LABSPEC 12:06
PROVIDERS: PCP Family Medicine; Referring Provider Student in an Organized Health Care Education/Training Program; Visit Provider Student in an Organized Health Care Education/Training Program
DX: R19.5 Other fecal abnormalities (principal); K58.9 Irritable bowel syndrome, unspecified
CPT/HCPCS: 83993; 87177; 87209; 87329; 87493

== ENCOUNTER → 2025-03-15 | Outpatient (CLI) | payer MEDICARE, MEDICAID, SELFPAY ==
--- NOTE | 2025-03-15 15:50 | VDLE_ITS ---
Reason For Study Reason For Study: PAIN Procedure LEFT This is a venous duplex using B-mode, color flow and GSV is normal. spectral Doppler. CFV is compressible, spontaneous, phasic, competent, Exam performed in department. and demonstrates normal augmentation. A preliminary report was called and/or faxed to . FV is compressible, spontaneous, phasic, competent Feliz @ [phone] @ 4:15 pm. and demonstrates normal augmentation. POP V is compressible, spontaneous, phasic, competent and demonstrates normal augmentation. T/P Trunk is compressible. PTV is compressible. LT PerV is compressible. GASTROCNEMIUS V & SSV ARE COMPRESSIBLE. VL/Venous Duplex US, Unilateral Interpretation Summary Deep veins of the left lower extremity are patent and compressible segmentally. There is no evidence of left lower extremity deep vein thrombosis. The left great saphenous vein appears patent an d compressible segmentally. Ordering Physician: Twin Piper Referring Physician: Twin Piper Performed By: Layla Mandujano, EDWIN, RVT
== END | disposition home or self-care (01) ==
LOC: CVS 15:34
PROVIDERS: PCP Family Medicine; Referring Provider Family Medicine; Visit Provider Family Medicine
DX: M79.662 Pain in left lower leg (principal); M79.89 Other specified soft tissue disorders
CPT/HCPCS: 93971

== ENCOUNTER 2025-04-15 15:10 | Emergency (ER) | payer MEDICARE, MEDICAID, SELFPAY ==
[2025-04-15 15:12] VITALS: BP 154/66; PULSE 38; RESP 18; TEMP 37; O2SAT 97; BMI 35.4
--- NOTE | 2025-04-15 15:16 | RAD_ITS ---
PROCEDURE: CHEST PA AND LATERAL 04/15/2025 REASON FOR EXAM: CHEST PAIN TECHNIQUE: CHEST PA AND LATERAL COMPARISON: Chest x-ray of 05/28/2024 RAD/Chest PA and Lateral IMPRESSION: Minimal degenerative changes of the thoracic spine are noted. No acute osseous changes seen. Lungs appear clear throughout. No pleural effusion or pneumothorax is seen. The cardiomediastinal silhouette is within the normal range. No evidence of acute cardiopulmonary disease. Reading Location: [place] [id number]
[2025-04-15 15:20] VITALS: PULSE 75; RESP 12; O2SAT 97
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
[2025-04-15 15:46] LABS: Absolute Lymphocyte Count 1.59 X10^3/uL (0.83-4.51); Basophil# 0.05 X10^3/uL; Basophil% 0.6 % (0-1); Eosinophil# 0.27 X10^3/uL; Eosinophils% 3.2 % (0-5); Hemoglobin 14.4 g/dL (12.0-15.0); Lymphocyte # 1.59 X10^3/ul (0.83-4.51); Lymphocyte % 18.6 % (19-41); Mean Corp Hgb Conc 32.7 g/dL (32-36); Mean Corpuscular Hgb 27.6 pg (27.0-32.0); Mean Corpuscular Volume 84.5 fL (81-99); Mean Platelet Vol. 10.4 fl (6.2-12.0); Monocyte# 0.57 X10^3/uL; Monocyte% 6.7 % (0-10); NRBC Flagged by Analyzer 0 % (0-5); Neutrophil # 6.04 X10^3/uL (2.7-7.7); Neutrophil % 70.5 % (47-70); Platelet Count 236 K/mm3 (150-450); RBC Distribution Width CV 13.2 % (11.6-14.6); RBC Distribution Width SD 40.4 fl (35.1-43.9); Red Blood Count 5.21 M/mm3 (4.2-5.4); White Blood Count 8.6 K/mm3 (4.4-11.0)
[2025-04-15 16:10] VITALS: BP 148/64; PULSE 76; RESP 16; O2SAT 95
[2025-04-15 16:13] LABS: Anion Gap 11 (5-15); BUN 19 mg/dL (4-19); BUN/Creat Ratio 20.6 RATIO (10-20); Calcium,Total 9.4 mg/dL (7.6-11.0); Carbon Dioxide 25.5 mmol/L (21.0-32.0); Chloride 104 mmol/L (98-108); Creatinine, Serum 0.93 mg/dL (0.70-1.20); EST Glomerular Filtration Rate 70 (>60); Estimated Creatinine Clearance 66.27 ml/min (50-250); Glucose 239 mg/dL (70-99); Potassium 3.9 mmol/L (3.3-5.1); Sodium Level 141 mmol/L (133-145); Troponin T High Sensitivity < 6 ng/L (<=14)
[2025-04-15 17:00] VITALS: BP 165/70; PULSE 71; RESP 16; O2SAT 99
[2025-04-15 18:00] VITALS: BP 165/74; PULSE 78; RESP 14; TEMP 36.8; O2SAT 97
[2025-04-15 18:06] LABS: Troponin T High Sens 2 HR < 6 ng/L (<=14)
== END 2025-04-15 18:28 | disposition home or self-care (01) ==
PROVIDERS: Emergency Provider Emergency Medicine; PCP Family Medicine; Visit Provider Emergency Medicine
DX: R07.89 Other chest pain (principal); R06.09 Other forms of dyspnea; I10 Essential (primary) hypertension; E78.00 Pure hypercholesterolemia, unspecified; Z79.899 Other long term (current) drug therapy; Z82.49 Family history of ischemic heart disease and other diseases of the circulatory system
CPT/HCPCS: 71046; 80048; 84484; 85025; 93005; 99284; A4216

== ENCOUNTER → 2025-06-29 | Outpatient (CLI) | payer MEDICARE, MEDICAID, SELFPAY ==
--- NOTE | 2025-06-29 05:59 | ECHOCS_ITS ---
Reason For Study Reason For Study: CHEST PAIN Procedure This was a 2D Doppler, Color Flow transthoracic echocardiogram. The study was technically difficult. Due to body habitus & ARRHYTHMIA. Contrast injection was performed. Exam performed in department. Left Ventricle Normal size and thickness. The left ventricular ejection fraction is 65 %. Diastolic function is indeterminate. Right Ventricle Normal right ventricle. Atria The left atrium is mildly enlarged. Normal right atrium. Mitral Valve Mild mitral annular calcification. Trivial mitral valve insufficiency. Tricuspid Valve Trivial tricuspid valve insufficiency. Unable to estimate RV systolic pressure due to insufficient tricuspid regurgitant envelope. Aortic Valve Trisinus/trileaflet aortic valve. Pulmonic Valve The pulmonic valve is not well visualized. Great Vessels Normal sized aortic root. Pericardium/Pleural No pericardial effusion. Medication Diluted definity 3.0ml given slow IV push to enhance endocardial definition. MMode/2D Measurements & Calculations LVIDd: 5.3 cm IVSd: 0.97 cm Ao root diam: 3.1 cm LVIDs: 3.5 cm LVPWd: 0.96 cm RVDd: 3.1 cm FS: 34.0 % asc Aorta Diam: 3.5 cm LAV(MOD-bp): 72.2 ml LVAd ap4: 35.5 cm2 LAV(MOD-bp) Indexed: 38.4 ml/m2 LVLd ap4: 8.2 cm LAV(MOD-sp2): 63.4 ml EDV(MOD-sp4): 125.2 ml LAV(MOD-sp4): 73.6 ml EDV(sp4-el): 130.0 ml LVAs ap4: 15.4 cm2 LVLs ap4: 6.5 cm ESV(MOD-sp4): 31.0 ml ESV(sp4-el): 30.9 ml EF(MOD-sp4): 75.3 % EF(sp4-el): 76.3 % LVAd ap2: 32.1 cm2 SV(MOD-sp4): 94.3 ml SV(MOD-sp2): 71.8 ml LVLd ap2: 8.5 cm SI(MOD-sp4): 50.1 ml/m2 SI(MOD-sp2): 38.1 ml/m2 EDV(MOD-sp2): 99.5 ml EDV(sp2-el): 103.1 ml LVAs ap2: 15.0 cm2 LVLs ap2: 6.8 cm ESV(MOD-sp2): 27.7 ml ESV(sp2-el): 28.3 ml EF(MOD-sp2): 72.2 % SV(sp4-el): 99.2 ml LA dimension(2D): 4.3 cm LA A4 area: 23.4 cm2 TAPSE: 2.4 cm Time Measurements MV dec time: 0.21 sec Doppler Measurements & Calculations MV E max rajat: 105.9 cm/sec Lat Peak E' Rajat: 7.2 cm/sec Med Peak E' Rajat: 8.3 cm/sec MV A max rajat: 108.8 cm/sec E/E' lat: 14.7 E/E' med: 12.8 MV E/A: 0.97 MV V2 max: 131.6 cm/sec MV P1/2t max rajat: 117.6 cm/sec Ao V2 max: 143.0 cm/sec MV max P.9 mmHg MV P1/2t: 67.8 msec Ao max P.2 mmHg MV V2 mean: 82.5 cm/sec MV dec slope: 507.5 cm/sec2 Ao V2 mean: 99.3 cm/sec MV mean P.1 mmHg Ao mean P.4 mmHg MV V2 VTI: 39.7 cm MVA(P1/2t): 3.2 cm2 Ao V2 VTI: 32.2 cm AV (velocity ratio): 1.0 LV V1 max: 125.3 cm/sec PA V2 max: 92.6 cm/sec LV V1 max P.3 mmHg PA V2 mean: 73.7 cm/sec LV V1 mean P.9 mmHg LV V1 mean: 94.4 cm/sec LV V1 VTI: 32.8 cm ECHO/Echo Complete W/ Contrast Interpretation Summary The study was technically difficult. The left ventricular ejection fraction is 65 %. Diastolic function is indeterminate. The left atrium is mildly enlarged. Mild mitral annular calcification. Ordering Physician: Hugh Latif Referring Physician: Twin Piper Performed By: Layla Mandujano RDCS, RVT
--- OUTSIDE RECORDS SUMMARY | 2025-06-29 06:04 | XMS RPT_ITS | CCD ---
Author Organization [facility] Team Providers Care Talent Development Manager Name Role Phone Twin Barrera MD Primary Care Provider TWIN BARRERA Referring Unavailable TWIN BARRERA Primary Care Unavailable TWIN BARRERA Referring Unavailable TWIN BARRERA Primary Care Unavailable LEO BARRETO Admitting Unavailable LEO BARRETO Attending Unavailable TWIN BARRERA Primary Care Unavailable Twin Barrera MD Primary Care Provider RICHIE JOHNSON DR Attending Unavailable RICHIE JOHNSON DR Primary Care Unavailable RICHIE JOHNSON DR Admitting Unavailable Twin Barrera MD Primary Care Provider Twin Barrera MD Primary Care Provider Coni MCLAUGHLIN.Kerir GOLD Unavailable Evonne Reyes PA-C Unavailable Dr. Twin Barrera MD Primary Care Provider Dr. Twin Barrera MD Referring Provider Dr. Josias Benavides DO Attending Provider Dr. Josias Benavides DO Other Provider Renetta Hernandez Attending Provider Renetta Hernandez Referring Provider Dr. Twin Barrera MD Attending Provider Dr. Yunior Gutierres MD Attending Provider Dr. Wes Calabrese MD Emergency Provider Coni MCLAUGHLIN.LABOR STANDARDS DIRECTORKerri Unavailable Evonne Reyes PA-C Unavailable [phone] KERRI MARCH Referring Unavailable FELIZ, TWIN A Primary Care Unavailable Feliz HORNER, Dr. Murcia Primary Care Provider [phone] Dr. Twin Barrera MD Referring Provider Renetta Hernandez Attending Provider [phone] Dr. Wes Calabrese MD Attending Provider Dr. Hugh Latif MD Attending Provider KERRI MARCH Attending Unavailable FELIZ, TWIN A Primary Care Unavailable FELIZ, TWIN A Referring Unavailable FELIZ, TWIN A Primary Care Unavailable FELIZ, TWIN A Attending Unavailable FELIZ, TWIN A Primary Care Unavailable EVONNE REYES Referring Unavailable FELIZ, TWIN A Primary Care Unavailable FELIZ, TWIN A Attending Unavailable FELIZ, TWIN A Primary Care Unavailable FELIZ, TWIN A Referring Unavailable FELIZ, TWIN A Primary Care Unavailable FELIZ, TWIN A Referring Unavailable FELIZ, TWNI A Primary Care Unavailable COOPERRIDER II, MADAI H Attending Unavailabl e COOPERRIDER II, MADAI H Referring Unavailabl e FELIZ, TWIN A Primary Care Unavailable FELIZ, TWIN A Attending Unavailable FELIZ, TWIN A Primary Care Unavailable KERRI MARCH Attending Unavailable FELIZ, TWIN A Primary Care Unavailable EVONNE REYES Attending Unavailable FELIZ, TWIN A Primary Care Unavailable EVONNE REYES Referring Unavailable FELIZ, TWIN A Primary Care Unavailable FELIZ, TWIN A Referring Unavailable FELIZ, TWIN A Primary Care Unavailable FELIZ, TWIN A Attending Unavailable FELIZ, TWIN A Primary Care Unavailable FELIZ, TWIN A Referring Unavailable FELIZ, TWIN A Primary Care Unavailable FELIZ, TWIN A Referring Unavailable FELIZ, TWIN A Primary Care Unavailable Renetta Goldstein Referring Unavailable Renetta Goldstein Attending Unavailable Feliz, Twin Primary Care Unavailable Renetta Goldstein Referring Unavailable Renetta Goldstein Attending Unavailable Feliz, Twin Primary Care Unavailable Feliz, Twin Primary Care Unavailable Wes Calabrese Attending Unavailable Josias Benavides Attending Unavailable Feliz, Twin Primary Care Unavailable FelizTwin gary Referring Unavailable FelizTwin gary Referring Unavailable FelizTwin gary Attending Unavailable Feliz, Twin Primary Care Unavailable Josias Benavides Attending Unavailable FriendJosias Consulting Unavailable Feliz, Twin Primary Care Unavailable Feliz, Twin Referring Unavailable Feliz, Twin Referring Unavailable Yunior Gutierres Attending Unavailable Feliz, Twin Primary Care Unavailable Feliz, Twin Referring Unavailable Renetta Goldstein Attending Unavailable Feliz, Twin Primary Care Unavailable Feliz, Twin Primary Care Unavailable Hugh Latif Attending Unavailable Feliz, Twin Referring Unavailable Renetta Goldstein Attending Unavailable Feliz, Twin Primary Care Unavailable Feliz, Twin Referring Unavailable Renetta Goldstein Attending Unavailable Feliz, Twin Primary Care Unavailable Feliz, Twin Referring Unavailable FriendJosias Attending Unavailable Feliz, Twin Primary Care Unavailable Kerri March Referring Unavailable Kerri March Attending Unavailable Feliz, Twin Primary Care Unavailable Feliz, Twin Primary Care Unavailable Hugh Latif Referring Unavailable Hugh Latif Attending Unavailable Allergies Allergy Classification Reported Allergen(s) Allergy Type Date of Onset Reaction(s) Facility Acetaminophen / HYDROcodone (1 source) Acetaminophen / HYDROcodone Drug Allergy 04-25-20 14 GI Upset, Itching [facility] Anticholinergics (1 source) Scopolamine Drug Allergy 03-10-20 23 Rash [facility] Cephalosporins (antibiotic) (1 source) Cephalexin Drug Allergy 03-22-[address] [facility] Corticosteroids (1 source) prednisoLONE Drug Allergy 12-10-19 23 Intolerance [facility] Latex (2 sources) Latex Substance Allergy 06-28-[address] [facility] Macrolides (antibiotic) (1 source) Erythromycin Drug Allergy 06-27-20 05 GI Upset [facility] metFORMIN (1 source) metFORMIN Drug Allergy 12-15-19 21 Diarrhea [facility] Opioid Agonists (2 sources) Codeine Drug Allergy 06-27-20 05 Mental Status Change, Itching [facility] Serotonin Reuptake Inhibitors (SSRIs) (2 sources) PARoxetine Drug Allergy 07-25-20 05 Rash [facility] venlafaxine (1 source) [facility]ine [facility] ([facility] sources) Codeine; Translations: [CODEINE] Drug Allergy 06-27-20 05 Mental Status Change, Itching [facility] (20 sources) Erythromycin Drug Allergy 06-27-20 05 GI Upset [facility] (20 sources) HYDROcodone; Translations: [HYDROCODONE BITARTRATE] Drug Allergy 12-04-19 21 Itching [facility] Work Phone: (20 sources) Latex; Translations: [LATEX] Allergy to substance 06-28-[address] [facility] (20 sources) PARoxetine; Translations: [PAROXETINE HCL] Drug Allergy 07-25-20 05 Rash [facility] (20 sources) Acetaminophen / HYDROcodone; Translations: [HYDROCODONE-ACET AMINOPHEN] Drug Allergy 04-25-20 14 GI Upset, Itching [facility] (20 sources) Cephalexin; Translations: [CEPHALEXIN] Drug Allergy 03-22-[address] [facility] Work Phone: [phone] (20 sources) metFORMIN; Translations: [METFORMIN] Drug Allergy 12-15-19 Diarrhea [facility] Work Phone: [phone] (20 sources) PARoxetine; Translations: [PAROXETINE] Drug Allergy 12-04-19 21 Rash [facility] Work Phone: (20 sources) venlafaxine; Translations: [VENLAFAXINE HCL] Drug Allergy 07-25-[address] [facility] (20 sources) prednisoLONE; Translations: [PREDNISOLONE] Drug Allergy 12-10-19 Intolerance [facility] Work Phone: (3 sources) Erythromycin; Translations: [ERYTHROMYCIN] Drug Allergy 06-27-20 05 [facility] Other [place] [facility] (20 sources) Scopolamine; Translations: [SCOPOLAMINE] Drug Allergy 03-10-20 23 Rash [facility] Work Phone: (6 sources) venlafaxine Drug Allergy 12-22-[address] [facility] (4 sources) DULoxetine; Translations: [DULOXETINE] Drug Allergy 06-14-20 25 Vomiting [facility] (1 source) Codeine Drug Allergy 06-01-20 25 [facility] (1 source) Erythromycin Drug Allergy 06-01-20 25 [facility] (1 source) Latex Drug allergy (disorder) 06-01-20 25 [facility] (1 source) metFORMIN Drug Allergy 06-01-20 25 [facility] (1 source) Scopolamine Drug Allergy 06-01-20 [facility] (1 source) venlafaxine Drug Allergy 06-01-20 [facility] Rep[facility] Medications Current Medications Medication Drug Class(es) Dates Sig (Normalized) Sig (Original) acyclovir 400 mg oral tablet (20 sources) Herpesvirus Nucleoside Analog DNA Polymerase Inhibitor, Herpes Simplex Virus Nucleoside Analog DNA Polymerase Inhibitor, Herpes Zoster Virus Nucleoside Analog DNA Polymerase Inhibitor Start: 02-07-2016 End: 11-03-2024 take 1 tablet by mouth twice daily acyclovir (ZOVIRAX) 400 mg tablet Take 1 tablet by mouth two times a day. 60 tablet 5 11/03/2024 Active Start: 02-07-2016 take 1 tablet by vero th once daily Acyclovir 400 MG tablet Active 400 mg PO DAILY February 07, 2016 12:00am Comment on above: Take 1 tablet by vero th twice daily. [id number] 200 actuat albuterol 0.09 mg/actuat metered dose inhaler (20 sources) beta2-Adrenergic Agonist Start: 05-05-2024 Albuterol Sulfate 90 mcg/actuation HFA aerosol inhaler Active 2 NMA INHALATION EVERY 6 HOURS as needed for shortness of breath or wheezing May 05, 2024 12:00am Start: 11-18-2023 End: 05-05-2025 take 2 puff(s) by inhalation every four hours as needed for wheezing albuterol HFA (PROVENTIL HFA, VENTOLIN HFA) 90 mcg/actuation inhaler Inhale 2 puffs as instructed every 4 hours as needed for wheezing/shortness of breath. 1 each 2 05/05/2025 Active Comment on above: Inhale 2 Puffs as in structed every 4 hours as needed for wheezing/shortness of breath. amoxicillin 875 mg oral tablet (4 sources) Penicillin-class Antibacterial Start: 04-19-20 End: 04-26-20 take 1 tablet by mouth twice daily amoxicillin (AMOXIL) 875 mg tablet Indications: Acute otitis media, bilateral Take 1 tablet by mouth two times a day for 7 days. 14 tablet 04/19/2025 04/26/2025 Active amoxicillin 875 mg / clavulanate 125 mg oral tablet (4 sources) Penicillin-class Antibacterial Start: 06-30-20 End: 07-10-20 take 1 tablet by mouth twice daily amoxicillin-clavul anate potassium (AUGMENTIN) 875-125 mg per tablet Take 1 tablet by mouth two times a day for 10 days. 20 tablet 06/30/2024 07/10/2024 Active Start: 11-28-2023 End: 12-08-2023 take 1 tablet by mouth twice daily amoxicillin-clavulanate potassium (AUGMENTIN) 875-125 mg per tablet Take 1 tablet by mouth two times a day for 10 days. 20 tablet 0 11/28/2023 12/08/2023 Active Comment on above: Take 1 tablet by vero two times a day for 10 days. ascorbic acid 1000 mg oral tablet (20 sources) Vitamin C Start: 11-29-2020 take 1 tablet by mouth every other day Ascorbic Acid (Vitamin C) 1,000 MG tablet Active 1000 mg PO EVERY OTHER DAY November 29, 2020 1:00am Start: 11-29-2020 take 1 tablet by mouth once da lala Ascorbic Acid (Vitamin C) 1,000 MG tablet Active 1000 mg PO DAILY November 29, 2020 1:00am ascorbic acid (V ITAMIN C ORAL) Take by mouth. Active ascorbic acid (V ITAMIN C ORAL) Take by mouth. 0 Active Comment on above: Take by mouth. atorvastatin 80 mg oral tablet (20 sources) HMG-CoA Reductase Inhibitor Start: take 1 tablet by mouth once daily atorvastatin (LIPITOR) 80 mg tablet Indications: Mixed hyperlipidemia Take 1 tablet by mouth once daily. 90 tablet 1 05/05/2025 Active Start: 10-07-2021 End: 04-21-2024 atorvastatin (LIPITOR) 20 mg tablet Take with your 40 mg tab for a total of 60 mg a day. 90 tablet 1 04/25/2022 04/21/2024 Discontinued (Discontinued by Patient) Start: 10-05-2021 End: 05-05-2025 take 1 tablet by mouth once daily Atorvastatin 40 mg tablet Active 40 mg PO DAILY April 15, 2025 12:00am Start: 05-28-2016 End: 04-15-2025 take 1 tablet by mouth at bedtime Atorvastatin 10 MG tablet Discontinued 10 mg PO AT BEDTIME May 28, 2016 12:00am April 15, 2025 4:32pm Comment on above: Take 1 tablet by vero th once daily. Take with your 40 mg tab for a total of 60 mg a day. Take 1 tablet by vero th once daily. Take with 20mg for total dose of 60mg daily. B-complex with vitamin C (VITAMIN B COMPLEX-C ORAL) (20 sources) B-complex with v itamin C (VITAMIN B COMPLEX-C ORAL) Take by mouth. Active B-complex with v itamin C (VITAMIN B COMPLEX-C ORAL) Take by mouth. 0 Active Comment on above: Take by mouth. benoxinate hydrochloride 4 mg/ml / fluorescein sodium 3 mg/ml ophthalmic solution (2 sources) Diagnostic Dye Start: 05-04-2025 End: 05-05-2025 fluorescein-benoxinat e 0.3-0.4 % 1 drop (FLURESS) Start: 05-04-2025 End: 05-05-2025 1 drop, BOTH EYES, DIRECT ED, Starting on Fri05/04/25 at 1400, Until Fri05/05/25 at 0159, Administer for applanation tonometry. In the event of a Fluress shortage, administer [place]-Fluor 1 drop into both eyes as directed for applanation tonometry Blood-Glucose Meter monitori ng kit (2 sources) Start: 11-03-2024 End: 11-04-2024 Blood-Glucose Meter monitori ng kit Glucose Meter of Choice - Kit - Dx: Type 2 DM - Controlled E11.9 no insulin. 1 Each 11/03/2024 11/04/2024 Active Start: 04-26-2022 End: 04-26-2022 Blood-Glucose Meter monitori ng kit Glucose Meter of Choice - Kit - Dx: DM E 11.9 Insulin: NO 1 Each 0 04/26/2022 04/26/2022 Comment on above: Glucose Meter of Cho ice - Kit - Dx: DM E 11.9 Insulin: NO carbamide peroxide 65 mg/ml otic solution (1 source) Start: 06-19-20 End: 06-24-20 carbamide peroxide (DEBROX) 6.5 % otic solution Indications: Impacted cerumen of left ear Use 5 Drops in the left ear twice daily for 5 days. 15 mL 0 06/19/2022 06/24/2022 Active Comment on above: Use 5 Drops in the l eft ear twice daily for 5 days. cetirizine hydrochloride 10 mg oral tablet (20 sources) Histamine-1 Receptor Antagonist Start: 02-07-20 16 End: 11-03-19 take 1 tablet by mouth once daily as needed cetirizine (ZYRTEC) 10 mg tablet Take 1 tablet by mouth once daily. prn 11/03/2024 Active Comment on above: Take 1 tablet by vero once daily. cholecalciferol 0.025 mg oral tablet (6 sources) Vitamin D Start: 12-16-19 take 1 tablet by mouth once daily Cholecalciferol (Vitamin D3) (Vitamin D3) 25 mcg (1,000 unit) tablet Active 25 ug PO DAILY December 16, 2024 1:00am Colestipol (14 sources) Bile Acid Sequestrant Start: 06-01-20 Colestipol 1 gram tablet Active 1 g PO daily June 01, 2025 12:00am Start: 01-26-2025 End: 04-15-2025 take 1 tablet by mouth once daily colestipol (COLESTID) 1 gram tablet Take 1 tablet by mouth once daily. 03/25/2025 Active cyanocobalamin, vitamin B-12 , (VITAMIN B12 ORAL) (20 sources) cyanocobalamin, vitamin B-12, (VITAMIN B12 ORAL) Take by mouth. Active cyanocobalamin, vitamin B-12, (VITAMIN B12 ORAL) Take by mouth. 0 Active Comment on above: Take by mouth. Diltiazem 2% / Lidocaine 5% Ointment (Compound) [Diltiazem 2%/Lidocaine 5% Ointment (Compound)] (Diltiazem 2%/Lidocaine 5% ) ointment (3 sources) Start: 03-29-2025 Diltiazem 2% / Lidocaine 5% Ointment (Compound) [Diltiazem 2%/Lidocaine 5% Ointment (Compound)] (Diltiazem 2%/Lidocaine 5% ) ointment Active 0 .Route 1 0 March 29, 2025 12:00am Apply to anus twice daily as needed for hemorrhoids Start: 03-29-2025 Diltiazem 2% / Lidocaine 5% Ointment (Compound) [Diltiazem 2%/Lidocaine 5% Ointment (Compound)] (Diltiazem 2%/Lidocaine 5% ) ointment Active 0 .Route 1 March 29, 2025 12:00am Apply to anus twice daily as needed for hemorrhoids ergocalciferol, vitamin D2, (VITAMIN D2 ORAL) (20 sources) ergocalciferol, vitamin D2, (VITAMIN D2 ORAL) Take by mouth. Active ergocalciferol, vitamin D2, (VITAMIN D2 ORAL) Take by mouth. 0 Active Comment on above: Take by mouth. escitalopram 10 mg oral tablet (1 source) Serotonin Reuptake Inhibitor Start: 5 take 1 tablet by mouth once daily escitalopram oxalate (LEXAPRO) 10 mg tablet Indications: Moderate episode of recurrent major depressive disorder (HCC) , Generalized anxiety disorder Take 1 tablet by mouth once daily. 60 tablet 06/14/2025 Active fenofibrate 145 mg oral tablet (20 sources) Peroxisome Proliferator Receptor alpha Agonist Start: 5 take 1 tablet by mouth once daily Fenofibrate 120 mg tablet Active 120 mg PO DAILY December 16, 2024 1:00am Start: 05-28-2016 End: 05-05-2025 take 1 tablet by mouth once daily fenofibrate nanocrystallized (TRICOR) 145 mg tablet Indications: Mixed hyperlipidemia Take 1 tablet by mouth once daily. 90 tablet 1 05/05/2025 Active Comment on above: Take 1 tablet by vero th once daily. fluticasone propionate 0.05 mg/actuat metered dose nasal spray (20 sources) Corticosteroid Start: End: 4 take 2 spray(s) by mouth once daily as needed fluticasone (FLONASE) 50 mcg/actuation nasal spray Indications: Non-seasonal allergic rhinitis due to other allergic trigger Use 2 Sprays in each nostril once daily. Rinse mouth after use. Using prn 1 Each 5 11/11/2023 Active Comment on above: Use 2 Sprays in each nostril once daily. Rinse mouth after use. Using prn Ginkgo Biloba (11 sources) Start: 1 take 120 mg by mouth once daily Ginkgo Biloba Active 120 MG PO DAILY November 29, 2020 11:23am Start: 11-29-2020 End: 05-05-2024 take 1 tablet by mouth once daily Ginkgo Biloba 120 MG tablet Discontinued 120 mg PO DAILY November 29, 2020 1:00am May 05, 2024 3:16pm Start: 11-29-2020 take 120 mg by mouth once edgardo y Ginkgo Biloba Active 120 MG PO DAILY November 29, 2020 12:00am Start: 11-29-2020 take 120 mg by mouth once edgardo y Ginkgo Biloba Active 120 MG PO DAILY November 29, 2020 1:00am iv contrast (will be provide d with radiology test) (4 sources) Start: 04-19-2025 End: 04-20-2025 iv contrast (will be provide d with radiology test) Indications: Chest pain, unspecified type , SOB (shortness of breath) CT Chest PE -Inject, intravenously, once for 1 dose.No IV access, insert saline lock prior to the beginning of sedation, infusion, injection of imaging exam. Discontinue saline lock post exam. If Pt. has a central line or IVAD, may access for administration according to line specific nursing protocol. Once exam is complete flush line and de-access according to line specific nursing protocol in the CT contrast administration guidelines link. 1 each 04/19/2025 04/20/2025 Active Start: 02-06-2023 End: 02-07-2023 iv contrast (will be provide d with radiology test) Indications: RUQ pain , Chronic cholecystitis , Left lower quadrant abdominal pain , Nausea CT ABD/PEL -Inject, intravenously, once for 1 dose.No IV access, insert saline lock prior to the beginning of sedation, infusion, injection of imaging exam. Discontinue saline lock post exam. If Pt. has a central line or IVAD, may access for administration according to line specific nursing protocol. Once exam is complete flush line and de-access according to line specific nursing protocol in the CT contrast administration guidelines link. 1 Each 0 02/06/2023 02/07/2023 Comment on above: CT ABD/PEL -Inject, intravenously, once for 1 dose.No IV access, insert saline lock prior to the beginning of sedation, infusion, injection of imaging exam. Discontinue saline lock post exam. If Pt. has a central line or IVAD, may access for administration according to line specific nursing protocol. Once exam is complete flush line and de-access according to line specific nursing protocol in the CT contrast administration guidelines link. L.acid/L.casei/B.bif/B.lo n/FOS (PROBIOTIC BLEND ORAL) (20 sources) L.acid/L.casei/B .bif/B.l on/FOS (PROBIOTIC BLEND ORAL) Take by mouth. Active L.acid/L.casei/B .bif/B.lorne/FOS (PROBIOTIC BLEND ORAL) Take by mouth. 0 Active Comment on above: Take by mouth. levoFLOXacin 500 mg oral tablet (1 source) Quinolone Antimicrobial Start: 08-05-20 End: 08-12-20 take 1 tablet by mouth once daily levoFLOXacin (LEVAQUIN) 500 mg tablet Take 1 tablet by mouth once daily for 7 days. 7 tablet 08/05/2024 08/12/2024 Active lisinopril 40 mg oral tablet (20 sources) Angiotensin Converting Enzyme Inhibitor Start: 10-03-20 End: 12-23-19 take 1 tablet by mouth once daily lisinopril (ZESTRIL) 40 mg tablet Take 1 tablet by mouth once daily. 90 tablet 2 12/22/2024 Active Start: 10-05-2021 End: 10-03-2022 take 1 tablet by mouth once daily lisinopril (ZESTRIL, PRINIVIL) 20 mg tablet Take 1 tablet by mouth once daily. 90 tablet 1 04/11/2022 08/02/2022 Discontinued Start: 03-31-2019 End: 04-15-2025 take 2 tablets by mouth at bedtime Lisinopril 10 MG tablet Discontinued 20 mg PO AT BEDTIME March 31, 2019 12:00am April 15, 2025 4:32pm Start: 03-31-2019 take 20 mg by mouth at bedtime Lisinopril Active 20 MG PO AT BEDTIME March 30, 2019 11:00pm Comment on above: Take 1 tablet by vero th once daily. MEDICAL SUPPLY (20 sources) Start: 11-28-2023 MEDICAL SUPPLY Air purifier, Dx: R05.1, R06.02 and Z77.22 1 Each 11/28/2023 Active Start: 11-28-2023 MEDICAL SUPPLY Air purifier, Dx: R05.1, R06.02 and Z77.22 1 Each 0 11/28/2023 Active Comment on above: Air purifier, Dx: R0 5.1, R06.02 and Z77.22 melatonin 5 mg oral tablet (2 sources) Start: 2024 take 1 tablet by mouth at bedtime Melatonin 5 mg tablet Active 5 mg PO AT BEDTIME April 15, 2025 12:00am SLEEP methylPREDNISolone (4 sources) Corticosteroid Start: 2023 End: 2023 methylPREDNISolone (MEDROL, REGINO,) 4 mg Dose-Pack Follow dosing instructions, take with food. 21 tablet 0 04/21/2024 04/27/2024 Active MULTIVIT &MINERALS/FERROUS FUM (MULTI VITAMIN ORAL) (20 sources) MULTIVIT &MINERALS/FERROUS FUM (MULTI VITAMIN ORAL) Take by mouth once daily. Active MULTIVIT &MINERA LS/FERROUS FUM (MULTI VITAMIN ORAL) Take by mouth once daily. 0 Active Comment on above: Take by mouth once d aily. Multivitamin (Daily Multi-Vitamin) tablet (2 sources) Start: 04-15-2025 Multivitamin (Daily Multi-Vitamin) tablet Active 1 {tbl} PO DAILY April 15, 2025 12:00am Multivitamin With Folic Acid (Thera) 1 TABLET tablet (11 sources) Start: 09-17-2013 take 1 tablet by mouth once daily Multivitamin With Folic Acid (Thera) 1 TABLET tablet Active 1 TABLET PO DAILY September 17, 2013 4:09pm Start: 09-17-2013 End: 05-28-2024 take 1 tablet by mouth once daily Multivitamin With Folic Acid (Thera) 1 TABLET tablet Discontinued 1 {tbl} PO DAILY September 17, 2013 1:00am May 28, 2024 11:11am Start: 09-17-2013 take 1 tablet by vero th once daily Multivitamin With Folic Acid (Thera) 1 TABLET tablet Active 1 TABLET PO DAILY September 17, 2013 12:00am Start: 09-17-2013 take 1 tablet by vero th once daily Multivitamin With Folic Acid (Thera) 1 TABLET tablet Active 1 TABLET PO DAILY September 17, 2013 1:00am multivitamin with minerals ( HAIR,SKIN AND NAILS ORAL) (20 sources) multivitamin wit h minerals (HAIR,SKIN AND NAILS ORAL) Take by mouth. Active multivitamin wit h minerals (HAIR,SKIN AND NAILS ORAL) Take by mouth. 0 Active Comment on above: Take by mouth. ofloxacin 3 mg/ml otic solution (5 sources) Quinolone Antimicrobial Start: 08-02-2022 End: 08-09-2022 ofloxacin (FLOXIN) 0.3 % otic solution Indications: Acute otitis externa of left ear, unspecified type Use 10 Drops in both ears once daily for 7 days. 4 mL 0 08/02/2022 08/09/2022 Active Start: 06-25-2022 End: 07-02-2022 ofloxacin (FLOXIN) 0.3 % jorge a c solution Indications: Irritation of external ear canal, left Use 10 Drops in both ears once daily for 7 days. 4 mL 0 06/25/2022 07/02/2022 Active Comment on above: Use 10 Drops in both ears once daily for 7 days. Martin 1-Osi-Ukw-Fish Oil (Martin-3) 350 mg-235 mg- 90 mg-597 mg capsule,delayed release(DR/EC) (6 sources) Start: 12-16-19 25 Martin 6-Xee-Fgd-Fish Oil (Martin-3) 350 mg-235 mg- 90 mg-597 mg capsule,delayed release(DR/EC) Active 1 NMA PO DAILY December 16, 2024 1:00am pioglitazone 45 mg oral tablet (20 sources) Peroxisome Proliferator Receptor alpha Agonist, Peroxisome Proliferator Receptor gamma Agonist, Thiazolidinedione Start: 05-05-20 25 take 1 tablet by mouth once daily pioglitazone (ACTOS) 45 mg tablet Take 1 tablet by mouth once daily. 90 tablet 1 05/05/2025 Active Start: 11-06-2024 End: 05-05-2025 take 1 tablet by mouth once daily pioglitazone (ACTOS) 30 mg tablet Take 1 tablet by mouth once daily. 90 tablet 1 11/06/2024 05/05/2025 Discontinued Start: 10-05-2021 End: 11-03-2024 take 1 tablet by mouth once daily Pioglitazone 45 mg tablet Discontinued 45 mg PO DAILY January 22, 2022 12:00am May 05, 2024 3:16pm Comment on above: Take 1 tablet by vero th once daily. Take 1 tablet by vero th once daily. Patient taking differently. Patient takes 1 pill every other day. polyethylene glycol 3350 [id number] mg / potassium chloride 2970 mg / sodium bicarbonate 6740 mg / sodium chloride 5860 mg / sodium sulfate 64505 mg powder for oral solution (2 sources) Osmotic Laxative Start: 07-25-2022 End: 07-25-2022 peg 3350-Electrolytes (GOLYTELY) 236-22.74-6.74 -5.86 gram suspension Take 4,000 mL by mouth one time only for 1 dose. 1 Each 0 07/25/2022 07/25/2022 Active Start: 05-29-2022 End: 05-29-2022 peg 3350-Electrolytes (GOLYT GENTRY) 236-22.74-6.74 -5.86 gram suspension Indications: Colon cancer screening Take 4,000 mL by mouth one time only for 1 dose. Refer to printed prep instructions from your provider. 4000 mL 0 05/29/2022 05/29/2022 Comment on above: Take 4,000 mL by vero th one time only for 1 dose. Refer to printed prep instructions from your provider. Take 4,000 mL by vero th one time only for 1 dose. propranolol hydrochloride 10 mg oral tablet (7 sources) beta-Adrenergic Shannon Start: 2024 take 1 tablet by mouth once daily propranolol (INDERAL) 10 mg tablet Take 1 tablet by mouth once daily. 30 tablet 5 05/05/2025 Active pseudoephedrine hydrochloride 30 mg oral tablet (2 sources) alpha-Adrenergic Agonist Start: 2024 take 1 tablet by mouth every six hours as needed for congestion Pseudoephedrine Hcl (Sudafed) 30 mg tablet Active 30 mg PO EVERY 6 HOURS as needed for nasal congestion April 15, 2025 12:00am tropicamide 10 mg/ml ophthalmic solution (2 sources) Anticholinergic Start: 2024 End: 2024 tropicamide 1 % 1 drop (MYDRIACYL) Start: 05-04-2025 End: 05-05-2025 1 drop, BOTH EYES, DIRECT ED, Starting on Fri05/04/25 at 1400, Until Fri05/05/25 at 0159, Administer for dilation ubidecarenone 100 mg oral capsule (6 sources) Start: 05-05-2024 Coenzyme Q10 ( Coq-10) 100 mg capsule Active 100 mg PO DAILY May 05, 2024 12:00am ubidecarenone (COQ-10 ORAL) (20 sources) ubidecarenone (C OQ-10 ORAL) Take by mouth. Active ubidecarenone (C OQ-10 ORAL) Take by mouth. 0 Active Comment on above: Take by mouth. vancomycin 125 mg oral capsule (2 sources) Glycopeptide Antibacterial Start: 2 End: 2 take 1 capsule by mouth four times daily vancomycin (VANCOCIN) 125 mg capsule Take 1 capsule by mouth four times daily for 10 days. For Tx of C. Diff 40 capsule 0 04/29/2022 05/09/2022 Active Comment on above: Take 1 capsule by [facility] four times daily for 10 days. For Tx of C. Diff VITAMIN A ORAL (20 sources) VITAMIN A ORAL T jose luis by mouth. Active VITAMIN A ORAL T jose luis by mouth. 0 Active Comment on above: Take by mouth. vitamin A palmitate (2 sources) Start: 04-15-2025 vitamin A palmitate Active 1 {tbl} PO EVERY OTHER DAY April 15, 2025 12:00am vitamin B12 (11 sources) Vitamin B12 Start: 11-29-2020 take 1 tablet by mouth once daily Cyanocobalamin (Vitamin B-12) 500 MCG tablet Active 500 ug PO DAILY@799November 29, 2020 1:00am Start: 11-29-2020 take 500 ug by mouth once daily Cyanocobalamin (Vitamin B-12) Active 500 MCG PO DAILY@0800 November 29, 2020 12:00am Completed/Discontinued Medications Medication Drug Class(es) Dates Sig (Normalized) Sig (Original) acetaminophen 325 mg oral tablet (11 sources) Start: 05-28-2016 End: 05-05-2024 take 1 tablet by mouth every six hours as needed for pain Acetaminophen (Tylenol) 325 MG tablet Discontinued 325 mg PO EVERY 6 HOURS NEEDED as needed for Pain May 28, 2016 12:00am May 05, 2024 3:16pm acetaminophen 325 mg / oxyCODONE hydrochloride 5 mg oral tablet (11 sources) Opioid Agonist Start: 04-04-2020 End: 04-07-2020 Oxycodone-Acetamino phen 1 TABLET tablet Discontinued 1 {tbl} PO EVERY 6 HOURS NEEDED as needed for Pain 10 3 0 April 04, 2020 April 06, 2020 12:00am April 07, 2020 12:02am Hernia Unspecified abdominal hernia without obstruction or gangrene Start: 04-04-2020 End: 04-07-2020 take 1 tablet by mouth every six hours as needed Oxycodone-Acetaminophen Discontinued 1 TABLET PO EVERY 6 HOURS NEEDED 10 3 April 04, 2020 April 06, 2020 11:02pm ALPRAZolam 0.5 mg oral tablet (6 sources) Benzodiazepine Start: 08-24-2024 End: 08-29-2024 take 1 tablet by mouth three times daily Alprazolam 0.5 mg tablet Discontinued 0.5 mg PO THREE TIMES A DAY 15 5 0 August 24, 2024 1:00am August 28, 2024 1:00am August 29, 2024 1:09am baclofen 10 mg oral tablet (12 sources) gamma-Aminobutyric Acid-ergic Agonist Start: 01-10-2016 End: 05-05-2024 take 1 tablet by mouth twice daily Baclofen 10 MG tablet Discontinued 10 mg PO TWICE A DAY February 07, 2016 12:00am May 05, 2024 3:16pm benzonatate 200 mg oral capsule (20 sources) Non-narcotic Antitussive Start: 06-02-2024 End: 12-16-2024 take 1 capsule by mouth three times daily as needed for cough Benzonatate 200 mg capsule Discontinued 200 mg PO THREE TIMES A DAY as needed for cough 30 0 June 02, 2024 10:55am December 16, 2024 2:39pm Start: 11-27-2023 End: 05-28-2024 take 1 capsule by mouth three times daily as needed for cough Benzonatate 200 mg capsule Discontinued 200 mg PO THREE TIMES A DAY as needed for cough 30 0 November 27, 2023 10:39pm May 28, 2024 11:09am Comment on above: Take 1 capsule by [facility] three times a day as needed. 24 hr budesonide 9 mg extended release oral tablet (20 sources) Corticosteroid Start: End: take 1 tablet by mouth once daily Budesonide 9 mg tablet,delayed and ext.release Discontinued 9 mg PO DAILY 30 0 June 02, 2024 10:55am August 27, 2024 2:57pm Start: 05-26-2024 End: 05-28-2024 take 1 tablet by mouth once daily Budesonide 9 mg tablet,delayed and ext.release Discontinued 9 mg PO DAILY 30 May 26, 2024 12:00am May 28, 2024 11:10am buPROPion hydrochloride 100 mg oral tablet (20 sources) Aminoketone Start: 09-03-2022 End: 04-29-2024 take 1 tablet by mouth twice daily buPROPion (WELLBUTRIN) 100 mg tablet Indications: Generalized anxiety disorder Take 1 tablet by mouth twice daily. 60 tablet 5 09/03/2022 03/25/2023 Discontinued Start: 10-05-2021 End: 09-03-2022 take 1.5 tablets by mouth three times daily buPROPion (WELLBUTRIN) 100 mg tablet Indications: Generalized anxiety disorder Take 1.5 tablets by mouth three times daily. 405 tablet 1 10/05/2021 09/03/2022 Discontinued Start: 05-28-2016 End: 05-05-2024 Bupropion Hcl 75 MG tablet Discontinued 100 mg PO THREE TIMES A DAY May 28, 2016 12:00am May 05, 2024 3:16pm Start: 05-28-2016 take 100 mg by mouth three times daily Bupropion Hcl Active 100 MG PO THREE TIMES A DAY May 27, 2016 11:00pm Comment on above: Take 1.5 tablets by mouth three times daily. Take 1 tablet by vero th twice daily. Calcium Carbonate (1 source) calcium carbonat e (CALCIUM 600 ORAL) Take by mouth. 0 Active Comment on above: Take by mouth. ciprofloxacin 500 mg oral tablet (15 sources) Quinolone Antimicrobial Start: End: take 1 tablet by mouth twice daily Ciprofloxacin Hcl (Cipro) 500 mg tablet Discontinued 500 mg PO TWICE A DAY April 08, 2022 12:00am May 28, 2024 11:10am Comment on above: Take by mouth twice daily. cyclobenzaprine hydrochloride 10 mg oral tablet (10 sources) Muscle Relaxant Start: End: take 1 tablet by mouth three times daily as needed for muscle spasms cyclobenzaprine (FLEXERIL) 10 mg tablet Indications: Acute pain of right shoulder Take 1 tablet by mouth three times a day as needed for muscle spasm. 60 tablet 0 02/26/2024 04/29/2024 Discontinued diazePAM 10 mg oral tablet (11 sources) Benzodiazepine Start: End: Diazepam 10 mg tablet Discontinued January 22, 2022 12:00am May 05, 2024 3:16pm Start: 01-22-2022 Diazepam Activ e January 21, 2022 11:00pm dicyclomine hydrochloride 20 mg oral tablet (20 sources) Anticholinergic Start: 06-02-2024 End: 08-27-2024 take 1 tablet by mouth twice daily Dicyclomine 20 mg tablet Discontinued 20 mg PO TWICE A DAY 10 June 02, 2024 10:56am August 27, 2024 2:57pm Start: 08-05-2023 End: 04-29-2024 take 1 capsule by mouth at bedtime dicyclomine (BENTYL) 10 mg capsule Take 1 capsule by mouth before meals and at bedtime. 60 capsule 1 08/05/2023 04/29/2024 Discontinued Start: 04-25-2022 End: 10-31-2022 take 1 capsule by mouth at bedtime dicyclomine (BENTYL) 10 mg capsule Take 1 capsule by mouth before meals and at bedtime. 60 capsule 0 04/25/2022 10/31/2022 Discontinued Start: 04-24-2022 End: 05-28-2024 take 1 tablet by mouth twice daily Dicyclomine 20 mg tablet Discontinued 20 mg PO TWICE A DAY 10 April 24, 2022 12:00am May 28, 2024 11:11am Comment on above: Take 1 capsule by [facility] before meals and at bedtime. DULoxetine 30 mg delayed release oral capsule (17 sources) Serotonin and Norepinephrine Reuptake Inhibitor Start: 05-05-20 End: 06-14-20 take 1 capsule by mouth once daily DULoxetine DR (CYMBALTA) 30 mg capsule Take 1 capsule by mouth once daily. 90 capsule 1 05/05/2025 06/14/2025 Discontinued Start: 06-01-2024 End: 11-03-2024 take 1 capsule by mouth once daily DULoxetine (CYMBALTA) 30 mg capsule Take 1 capsule by mouth once daily. 30 capsule 5 06/01/2024 11/03/2024 Discontinued (Discontinued by Patient) enteric contrast (will be provided with radiology test) (1 source) Start: 02-06-2023 End: 02-07-2023 enteric contrast (will be provided with radiology test) Indications: RUQ pain , Chronic cholecystitis , Left lower quadrant abdominal pain , Nausea For CT ABD/PEL W IVCON Routine order Administer, As Directed One Time Only, via Oral, Rectal, both Oral and Rectal, Enteric Tube, Stoma or Indwelling Catheter, Enteric Contrast as designated per enteric contrast guidelines 1 Each 0 02/06/2023 02/07/2023 Comment on above: For CT ABD/PEL W IVC ON Routine order Administer, As Directed One Time Only, via Oral, Rectal, both Oral and Rectal, Enteric Tube, Stoma or Indwelling Catheter, Enteric Contrast as designated per enteric contrast guidelines etodolac 400 mg oral tablet (7 sources) Nonsteroidal Anti-inflammatory Drug Start: 03-12-2024 End: 04-29-2024 take 1 tablet by mouth twice daily etodolac (LODINE) 400 mg tablet Take 1 tablet by mouth two times a day. 30 tablet 0 03/12/2024 04/29/2024 Discontinued fluticasone / salmeterol (13 sources) Corticosteroid, beta2-Adrenergic Agonist Start: 02-03-2024 End: 04-29-2024 take 1 puff(s) by inhalation twice daily fluticasone-salmet holli (WIXELA INHUB) 250-50 mcg/dose inhaler Inhale 1 Puff as instructed two times a day. 60 Each 5 02/03/2024 04/29/2024 Discontinued (Discontinued by Patient) Start: 02-03-2024 End: 02-21-2025 take 1 puff(s) by inhalation twice daily fluticasone-salmeterol (WIXELA INHUB) 250-50 mcg/dose inhaler Inhale 1 Puff as instructed two times a day. 60 Each 5 02/03/2024 02/21/2025 Active Comment on above: Inhale 1 Puff as ins tructed two times a day. homeopathic drugs (LIVER ORAL) (20 sources) End: take 2 capsules by mouth once daily homeopathic drugs (LIVER ORAL) Take 2 capsules by mouth once daily. 08/05/2024 Discontinued (Discontinued by Patient) take 2 capsules by mouth once da lala homeopathic drugs (LIVER ORAL) Take 2 capsules by mouth once daily. Active take 2 capsules by mouth once da lala homeopathic drugs (LIVER ORAL) Take 2 capsules by mouth once daily. 0 Active Comment on above: Take 2 capsules by [facility] once daily. hydrOXYzine hydrochloride 25 mg oral tablet (18 sources) Antihistamine Start: 04-23-20 End: 08-05-20 24 take 1 tablet by mouth at bedtime Hydroxyzine Hcl 25 mg tablet Discontinued 25 mg PO AT BEDTIME May 05, 2024 12:00am May 28, 2024 11:11am lactobacillus acidophilus 460 mg oral capsule (1 source) Start: 01-19-20 take 1 capsule by mouth once daily Lactobacillus acidophilus (FLORAJEN ACIDOPHILUS) 460 mg (20 billion cell) cap Take 1 capsule by mouth once daily. 30 capsule 0 01/18/2021 Active Comment on above: Take 1 capsule by [facility] once daily. loratadine 10 mg oral tablet (20 sources) Start: 07-02-20 18 End: 04-29-20 24 take 1 tablet by mouth once daily loratadine (CLARITIN) 10 mg tablet Indications: Environmental allergies Take 1 tablet by mouth once daily. 30 tablet 07/02/2018 04/29/2024 Discontinued Comment on above: Take [address] [facility] once daily. magnesium oxide 500 mg oral capsule (11 sources) Start: 11-29-19 End: 05-05-20 24 take 1 capsule by mouth once daily Magnesium Oxide 500 MG capsule Discontinued 500 mg PO DAILY November 29, 2020 1:00am May 05, 2024 3:16pm metroNIDAZOLE 500 mg oral tablet (15 sources) Nitroimidazole Antimicrobial Start: 04-08-20 22 End: 05-28-20 24 take 1 tablet by mouth three times daily Metronidazole 500 mg tablet Discontinued 500 mg PO THREE TIMES A DAY 30 0 April 08, 2022 12:00am May 28, 2024 11:11am Comment on above: Take 500 mg by mouth three times daily. montelukast 10 mg oral tablet (13 sources) Leukotriene Receptor Antagonist Start: 02-03-20 24 End: 02-29-20 25 take 1 tablet by mouth once daily at bedtime montelukast (SINGULAIR) 10 mg tablet Take 1 tablet by mouth daily at bedtime. 30 tablet 5 02/03/2024 04/29/2024 Discontinued Comment on above: Take 1 tablet by vero th daily at bedtime. naproxen 500 mg oral tablet (20 sources) Nonsteroidal Anti-inflammatory Drug Start: 05-28-20 End: 05-05-20 take 1 tablet by mouth twice daily as needed for pain Naproxen 500 MG tablet Discontinued 500 mg PO TWICE DAILY NEEDED as needed for Pain May 28, 2016 12:00am May 05, 2024 3:16pm Comment on above: Take 500 mg by mouth twice daily with meals. omeprazole 20 mg delayed release oral capsule (20 sources) Proton Pump Inhibitor Start: 08-27-20 End: 05-05-20 take 1 capsule by mouth once daily Omeprazole 20 mg capsule,delayed release(DR/EC) Discontinued 20 mg PO daily 30 2 August 27, 2024 1:00am January 26, 2025 2:01pm Start: 10-31-2022 End: 12-12-2022 take 1 capsule by mouth once daily omeprazole (PRILOSEC) 40 mg capsule Take 1 capsule by mouth once daily. 30 capsule 2 10/31/2022 12/12/2022 Discontinued (Side Effects) Comment on above: Take 1 capsule by [facility] once daily. ondansetron 4 mg disintegrating oral tablet (20 sources) Serotonin-3 Receptor Antagonist Start: 11-08-19 End: 08-05-20 take 1 tablet by mouth every six hours as needed ondansetron orally disintegrating (ZOFRAN ODT) 4 mg disintegrating tablet Take 1 tablet by mouth every 6 hours as needed for nausea/vomiting. 30 tablet 04/29/2024 08/05/2024 Discontinued (Course of therapy completed) Start: 04-24-2022 End: 05-28-2024 take 1 tablet by mouth every eight hours Ondansetron 4 mg tablet,disintegrating Discontinued 4 mg PO Q8H 7 0 April 24, 2022 12:00am May 28, 2024 11:11am Comment on above: Take 1 tablet by vero th every 6 hours as needed for nausea/vomiting. polyethylene glycol 3350 [id number] mg powder for oral solution (20 sources) Osmotic Laxative Start: 09-03-20 End: 09-27-20 polyethylene glycol 3350 (MIRALAX, GLYCOLAX) 17 gram/dose powder Take 17 g by mouth once daily. Dissolve dose in 4 - 8 ounces of liquid and take as directed. 300 g 1 09/03/2022 09/27/2024 Discontinued (Discontinued by Patient) Comment on above: Take 17 g by mouth o nce daily. Dissolve dose in 4 - 8 ounces of liquid and take as directed. potassium 99 mg extended release oral tablet (12 sources) Start: 11-29-19 End: 05-05-20 take 1 tablet by mouth once daily as needed Potassium (Otc) (Potassium Otc) 99 MG tablet Discontinued 99 mg PO DAILY as needed for vitamin November 29, 2020 1:00am May 05, 2024 3:17pm POTASSIUM ORAL T jose luis by mouth. 0 Active Comment on above: Take by mouth. predniSONE 50 mg oral tablet (9 sources) Start: 11-27-2023 End: 05-28-2024 take 1 tablet by mouth once daily Prednisone 50 mg tablet Discontinued 50 mg PO DAILY 5 0 November 27, 2023 1:00am May 28, 2024 11:11am Start: 12-08-2022 End: 12-13-2022 take 2 tablets by mouth once daily predniSONE (DELTASONE) 20 mg tablet Indications: ETD (Eustachian tube dysfunction), bilateral Take 2 tablets by mouth once daily for 5 days. 10 tablet 0 12/08/2022 12/10/2022 Discontinued Comment on above: Take 2 tablets by [facility] once daily for 5 days. promethazine hydrochloride 25 mg oral tablet (20 sources) Phenothiazine Start: 04-11-20 End: 09-03-20 take 1 tablet by mouth every six hours as needed promethazine (PHENERGAN) 25 mg tablet Take 1 tablet by mouth every 6 hours as needed. 30 tablet 0 04/11/2022 09/03/2022 Discontinued Comment on above: Take [address] [facility] every 6 hours as needed. sertraline 100 mg oral tablet (20 sources) Serotonin Reuptake Inhibitor Start: 09-03-20 End: 04-29-20 take 1 tablet by mouth once daily sertraline (ZOLOFT) 100 mg tablet Indications: Generalized anxiety disorder , Moderate episode of recurrent major depressive disorder (HCC) Take 1 tablet by mouth once daily. 90 tablet 1 09/03/2022 03/25/2023 Discontinued Start: 05-28-2016 End: 05-05-2024 take 2 tablets by mouth once daily Sertraline 100 MG tablet Discontinued 200 mg PO DAILY May 28, 2016 12:00am May 05, 2024 3:17pm Start: 05-28-2016 take 200 mg by mouth once edgardo y Sertraline Active 200 MG PO DAILY May 27, 2016 11:00pm Comment on above: Take 2 tablets by [facility] once daily. Take 1 tablet by vero th once daily. SITagliptin 100 mg oral tablet (20 sources) Dipeptidyl Peptidase 4 Inhibitor Start: 10-07-20 End: 09-03-20 22 take 1 tablet by mouth once daily SITagliptin (JANUVIA) 100 mg tablet Take 1 tablet by mouth once daily. 90 tablet 1 10/07/2021 09/03/2022 Discontinued Comment on above: Take 1 tablet by vero th once daily. sucralfate 1000 mg oral tablet (6 sources) Aluminum Complex Start: 09-01-20 End: 11-30-19 take 1 tablet by mouth three times daily Sucralfate 1 gram tablet Discontinued 1 g PO THREE TIMES A DAY 270 90 0 September 01, 2024 1:00am November 29, 2024 1:00am November 30, 2024 1:09am 1 ml triamcinolone acetonide 40 mg/ml injection (1 source) Corticosteroid Start: 11-28-19 End: 11-28-19 triamcinolone acetonide 80 mg injection (KeNALog 40) Problems Active Problems Problem Classification Problem Date Documented Da te Episodic/Chronic Administrative/social admission (9 sources) Advance directive discussed with patient; Translations: [Other specified counseling] Onset: 5 05-05-2025 Episodic Allergic reactions (1 source) Contact dermatitis; Translations: [Unspecified contact dermatitis, unspecified cause] 04-21-2024 Episodic Anxiety disorders (20 sources) Generalized anxiety disorder; Translations: [Generalized anxiety disorder] Onset: 5 03-28-2016 Chronic Asthma (1 source) Uncomplicated mild persistent asthma; Translations: [Mild persistent asthma, uncomplicated] 02-03-2024 Chronic Biliary tract disease (2 sources) Biliary dyskinesia; Translations: [Other specified diseases of gallbladder] Episodic Cardiac dysrhythmias (6 sources) Unifocal PVCs; Translations: [Ventricular premature depolarization] 06-05-2024 Chronic Cataract (20 sources) Nuclear senile cataract; Translations: [Age-related nuclear cataract, bilateral] Onset: 0 03-02-2020 Chronic Coronary atherosclerosis and other heart disease (11 sources) Calcification of coronary artery; Translations: [Atherosclerotic heart disease of [place] coronary artery without angina pectoris] Onset: 5 04-20-2025 Chronic Diabetes mellitus with complications (10 sources) Mixed hyperlipidemia due to type 2 diabetes mellitus; Translations: [Type 2 diabetes mellitus with other specified complication] Onset: 5 05-05-2025 Chronic Diabetes mellitus without complication (20 sources) Type 2 diabetes mellitus; Translations: [Type 2 diabetes mellitus without complications] Onset: 6 Chronic Disorders of lipid metabolism (20 sources) Mixed hyperlipidemia; Translations: [Mixed hyperlipidemia] Onset: 6 05-28-2016 Chronic Disorders of teeth and jaw (1 source) Temporomandibular joint disorder; Translations: [Unspecified temporomandibular joint disorder, unspecified side] Episodic Diverticulosis and diverticulitis (20 sources) Diverticulitis of large intestine; Translations: [Diverticulitis of large intestine without perforation or abscess without bleeding] Onset: 2 Chronic Esophageal disorders (20 sources) Gastroesophageal reflux disease; Translations: [Gastro-esophageal reflux disease without esophagitis] Onset: 6 05-28-2016 Chronic Essential hypertension (20 sources) Hypertensive disorder; Translations: [Essential (primary) hypertension] Onset: 5 05-27-2016 Chronic Comment on above: per pt, controlled o n meds Gastritis and duodenitis (2 sources) Viral gastritis; Translations: [Gastritis, unspecified, without bleeding] Episodic Gastrointestinal hemorrhage (1 source) Rectal hemorrhage; Translations: [Hemorrhage of anus and rectum] Episodic Genitourinary symptoms and ill-defined conditions (20 sources) Female stress incontinence; Translations: [Stress incontinence (female) (male)] Onset: 6 02-16-2020 Chronic Genitourinary symptoms and ill-defined conditions (3 sources) Dysuria; Translations: [Dysuria] 12-31-2023 Episodic Glaucoma (20 sources) Suspected bilateral glaucoma; Translations: [Preglaucoma, unspecified, bilateral] Onset: 6 05-27-2016 Chronic Headache; including migraine (20 sources) Migraine without aura, not refractory ; Translations: [Migraine without aura, not intractable, without status migrainosus] Onset: 6 05-28-2016 Chronic Hemorrhoids (1 source) Hemorrhoids; Translations: [Unspecified hemorrhoids] Episodic Immunizations and screening for infectious disease (5 sources) Patient encounter status; Translations: [Encounter for immunization] Onset: 5 Episodic Inflammation; infection of eye (except that caused by tuberculosis or sexually transmitteddisease) (1 source) Allergic conjunctivitis of bilateral eyes; Translations: [Acute atopic conjunctivitis, bilateral] 01-22-2024 Episodic Intestinal obstruction without hernia (10 sources) Intestinal obstruction co-occurrent and due to decreased peristalsis; Translations: [Ileus, unspecified] 04-16-2022 Episodic Joint disorders and dislocations; trauma-related (1 source) Ligamentous laxity of knee; Translations: [Unspecified internal derangement of left knee] 12-31-2023 Chronic Malaise and fatigue (12 sources) Asthenia; Translations: [Weakness] Episodic Mood disorders (20 sources) Recurrent major depressive episodes, moderate ; Translations: [Major depressive disorder, recurrent, moderate] Onset: 6 03-28-2016 Chronic Nonmalignant breast conditions (2 sources) Pain of breast; Translations: [Mastodynia] Episodic Nonspecific chest pain (20 sources) Chest pain; Translations: [Chest pain, unspecified] Onset: 5 12-04-2020 Episodic Osteoarthritis (20 sources) Arthritis of shoulder region joint; Translations: [Primary osteoarthritis, unspecified shoulder] Onset: 5 03-12-2024 Chronic Other and ill-defined heart disease (8 sources) Right atrial enlargement; Translations: [Cardiomegaly] Onset: 5 05-05-2025 Chronic Other and ill-defined heart disease (1 source) Cardiomegaly; Translations: [Enlargement of right atrium] Onset: 5 Chronic Other connective tissue disease (1 source) Pain in right foot; Translations: [Pain in right foot] Episodic Other connective tissue disease (4 sources) Pain in lower limb; Translations: [Other specified disorders of bone, lower leg] 03-15-2025 Episodic Other connective tissue disease (2 sources) Pain of left calf; Translations: [Pain in left lower leg] 03-15-2025 Episodic Other connective tissue disease (2 sources) Swelling of left lower limb; Translations: [Other specified soft tissue disorders] 03-15-2025 Episodic Other disorders of stomach and duodenum (10 sources) Gastroparesis syndrome; Translations: [Gastroparesis] 12-28-2024 Episodic Other ear and sense organ disorders [...] noninfective otitis externa, left ear] Episodic Other eye disorders (1 source) Bilateral vitreous floaters; Translations: [Other vitreous opacities, bilateral] 05-04-2025 Chronic Other eye disorders (1 source) Other vitreous opacities, bilateral; Translations: [Vitreous floaters of both eyes] Onset: 5 Chronic Other eye disorders (1 source) Posterior corneal pigmentations, bilateral; Translations: [Posterior corneal pigmentations] 01-22-2024 Episodic Other eye disorders (8 sources) Dry eyes; Translations: [Dry eye syndrome of bilateral lacrimal glands] Onset: 5 05-05-2025 Episodic Other eye disorders (1 source) Dry eye syndrome of bilateral lacrimal glands; Translations: [Dry eyes] Onset: 5 Episodic Other gastrointestinal disorders (20 sources) Irritable bowel syndrome; Translations: [Irritable bowel syndrome without diarrhea] Onset: 3 06-23-2014 Chronic Other gastrointestinal disorders (1 source) Irritable bowel syndrome without diarrhea; Translations: [Irritable bowel syndrome, unspecified] Onset: 5 Chronic Other gastrointestinal disorders (11 sources) Diarrhea; Translations: [Diarrhea, unspecified] Episodic Other gastrointestinal disorders (1 source) Heartburn; Translations: [Heartburn] 12-11-2022 Episodic Other gastrointestinal disorders (11 sources) Loose stool; Translations: [Other fecal abnormalities] 01-26-2025 Episodic Other liver diseases (20 sources) Steatosis of liver; Translations: [Fatty (change of) liver, not elsewhere classified] Onset: 6 10-16-2021 Chronic Other lower respiratory disease (12 sources) Dyspnea on exertion; Translations: [Dyspnea, unspecified] 12-04-2020 Episodic Other lower respiratory disease (1 source) Cough; Translations: [Acute cough] 11-28-2023 Episodic Other lower respiratory disease (10 sources) Dyspnea; Translations: [Shortness of breath] 11-28-2023 Episodic Other lower respiratory disease (3 sources) Snoring; Translations: [Snoring] 02-03-2024 Episodic Other lower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 recommended to be <100 mg/dL Performed By: #### L IPNF ####[facility] LABCLIA [id number] [address] OF [facility] T CHOL/HDL RATIO NF 5.73 mg/dL High <5.10 [facility] Comment on above: Order Comment: Speci men Type: BLOOD SPECIMENOrdering Facility: [facility] Address: [address] [place] [address] Performed By: #### L IPNF ####[facility] LABCLIA [id number] [place] [address] [place] TRIGLYCERIDES, NF 273 mg/dL High <150 [facility] Comment on above: Order Comment: Speci men Type: BLOOD SPECIMENOrdering Facility: [facility] Address: [address] [place] [address] Result Comment: <150 mg/dL, Normal 150-199 mg/dL, Borderline high 200-499 mg/dL, High >499 mg/dL, Very high Performed By: #### L IPNF ####[facility] LABCLIA [id number] [place] [address] [place] VLDL CHOLESTEROL, NF 44 mg/dL High <30 [facility] Comment on above: Order Comment: Speci men Type: BLOOD SPECIMENOrdering Facility: [facility] Address: [address] [place] [address] Performed By: #### L IPNF ####[facility] LABCLIA [id number] [place] [address] [place] Urinalysis complete panel (U )on 05-02-2025 Bacteria LM.HPF (Urine sed) [#/Area] Negative Normal Negative [facility] Comment on above: Order Comment: Speci men Type: URINE SPECIMENOrdering Facility: [facility] Address: [address] [place] [address] Performed By: #### 2 4356-8 ####[facility] LABCLIA [id number] [place] [address] [place] Bilirubin Ql (U) Negative Normal Negative [facility] Comment on above: Order Comment: Speci men Type: URINE SPECIMENOrdering Facility: [facility] Address: [address] [place] [id number] Performed By: #### 2 4356-8 ####[facility] LABCLIA [id number] [address] [place] [address] [place] Clarity (Unsp spec) Clear Normal Clear [facility] Comment on above: Order Comment: Speci men Type: URINE SPECIMENOrdering Facility: [facility] Address: [address] [place] [address] Performed By: #### 2 4356-8 ####[facility] LABCLIA [id number] [address], [facility]95 [place] Color (U) Yellow Normal Yellow [facility] Comment on above: Order Comment: Speci men Type: URINE SPECIMENOrdering Facility: [facility] Address: [address] [place] [address] Performed By: #### 2 4356-8 ####[facility] LABCLIA [id number] [address], [facility]95 [place] Epithelial cells LM.HPF (Urine sed) [#/Area] None Seen Normal [facility] Comment on above: Order Comment: Speci men Type: URINE SPECIMENOrdering Facility: [facility] Address: [address] [place] [address] Performed By: #### 2 4356-8 ####[facility] LABCLIA [id number] [place] [id number] [place] Glucose Test strip (U) [Mass/Vol] Negative Normal Negative [facility] Comment on above: Order Comment: Speci men Type: URINE SPECIMENOrdering Facility: [facility] Address: [address] [place] [address] Performed By: #### 2 4356-8 ####[facility] LABCLIA [id number] [address] [place] [address] [place] Hemoglobin Ql (U) Negative Normal Negative [facility] Comment on above: Order Comment: Speci men Type: URINE SPECIMENOrdering Facility: [facility] Address: [address] [place] [address] Performed By: #### 2 4356-8 ####[facility] LABCLIA [id number] [address], [place] [address] [place] Hyaline casts (Urine sed) [#/Area] 0 /[LPF] Normal 0 /LPF [facility] Comment on above: Order Comment: Speci men Type: URINE SPECIMENOrdering Facility: [facility] Address: [address] [place] [address] Performed By: #### 2 4356-8 ####[facility] LABCLIA [id number] [address], [place] [address] [place] Ketones Ql (U) Negative Normal Negative [facility] Comment on above: Order Comment: Speci men Type: URINE SPECIMENOrdering Facility: [facility] Address: [address] [place] [address] Performed By: #### 2 4356-8 ####[facility] LABCLIA [id number] [address], [place] [address] [place] Leukocyte esterase Test strip Ql (U) Negative Normal Negative [facility] Comment on above: Order Comment: Speci men Type: URINE SPECIMENOrdering Facility: [facility] Address: [address] [place] [address] Performed By: #### 2 4356-8 ####[facility] LABCLIA [id number] [address] [place] [address] [place] Nitrite Ql (U) Negative Normal Negative [facility] Comment on above: Order Comment: Speci men Type: URINE SPECIMENOrdering Facility: [facility] Address: [address] [place] [address] Performed By: #### 2 4356-8 ####[facility] LABCLIA [id number] [address], [facility]95 [place] pH (U) 7.5 [pH] Normal <8.5 [facility] Comment on above: Order Comment: Speci men Type: URINE SPECIMENOrdering Facility: [facility] Address: [address] [place] [address] Performed By: #### 2 4356-8 ####[facility] LABIA [id number] [place] [address] [place] Protein (U) [Mass/Vol] Negative Normal Negative Cl [facility] Comment on above: Order Comment: Speci men Type: URINE SPECIMENOrdering Facility: [facility] Address: [address] [place] [address] Performed By: #### 2 4356-8 ####[facility] LABIA [id number] [place] [address] [place] RBC LM.HPF (Urine sed) [#/Area] 0-2 /HPF Normal 0-2 /HPF [facility] Comment on above: Order Comment: Speci men Type: URINE SPECIMENOrdering Facility: [facility] Address: [address] [place] [address] Performed By: #### 2 4356-8 ####[facility] [id number] [place] [address] [place] Specific gravity (U) [Rel density] 1.012 Normal 1.005-1.030 [facility] Comment on above: Order Comment: Speci men Type: URINE SPECIMENOrdering Facility: [facility] Address: [address] [place] [address] Performed By: #### 2 4356-8 ####[facility] LABIA [id number] [place] [address] [place] Urobilinogen Ql (U) 0.2 EU/dL Normal 0.2-1.0 EU/dL [facility] Comment on above: Order Comment: Speci men Type: URINE SPECIMENOrdering Facility: [facility] Address: [address] [place] [address] Performed By: #### 2 4356-8 ####[facility] LABCLIA [id number] [place] [address] [place] WBC LM.HPF (Urine sed) [#/Area] 0-5 /HPF Normal 0-5 /HPF [facility] Comment on above: Order Comment: Speci men Type: URINE SPECIMENOrdering Facility: [facility] Address: [address] [place] [address] Performed By: #### 2 4356-8 ####[facility] LABCLIA [id number] [address] [place] CNOVon 04-19-2025 CNOV Office Visit (SUSHILA ) EDGAR BURCH ([id number]) 1965 F Date Time Provider Department 04/19/25 10:40 AM KERRI MARCH During your visit today, we recorded the following information about you: Pulse Blood pressure Weight 76/minute 116/75 87.5 kg Kerri March APRN.[facility] 04/19/2025 10:54 AM Signed Chief Complaint Patient presents with: ER F/U HPI Edgar Burch is a 59 year old female who presents here today for Above Complaints. Patient presents for ER f/u. Patient called on 04/15 and triage nurse recommended ER for chest pain, tightness, Shortness of Breath, dizziness, nausea and blurred vision. Happens intermittently and not related to activity. Patient went to [facility] and completed ER workup. Patient was advised that they wanted to admit her overnight for stress test and echo in am but patient refused as she did not feel it was warranted. Continues to have CP and Shortness of Breath. Negative xray and troponin's at [facility], EKG showed NSR with no ectopy. Patient has hx DM II and HTN and was hypertensive at the ER. Also reports ear pain and drainage, right worse than left, blurry vision, and nausea with abdominal pain. Was given antidiarrheal in ER but pain continues. Past medical history, appointments, medications, allergies reviewed. Previous Medical History PAST MEDICAL HISTORY Diagnosis Date Abnormal NCS (nerve conduction studies) 05/15/2014 Abnormal sensation of leg, right 05/15/2014 Allergic rhinitis, cause unspecified 06/27/2005 Anisometropia 01/30/2016 Arthritis Arthritis knees Arthritis of both knees 03/15/2025 XR: 02/2025, Rt>Lt Astigmatism, regular 01/30/2016 Cataract Cervicalgia 02/14/2014 Chronic pain of both knees 04/07/2023 Constipation 02/24/2015 Essential hypertension 07/19/2015 Fatty liver [...] of left eye 01/30/2016 Sebaceous cyst 08/08/2015 Senile nuclear cataract, bilateral 03/02/2020 Shingles outbreak 09/21/2013 Thoracic or lumbosacral neuritis or radiculitis, unspecified 05/18/2014 Trigger little finger of right hand 08/02/2014 Trigger middle finger of left hand 07/31/2017 Added automatically from request for surgery [id number] Trigger middle finger of right hand 08/02/2014 [...] 3+LVL 05/20/2015 LAPAROSCOPIC CHOLECYSTECTOMY 03/03/2023 LAPS ABD PRTMANDOMENTUM DX W/WO SPEC BR/WA SPX 10/20/2000 Laparoscopy NEUROPLASTY AND/TRANSPOS MEDIAN NRV CARPAL TUNNE 10/20/2003 Carpal tunnel decomp right OOPHORECTOMY PARTIAL/TOTAL UNI/BI 09/08/2008 has one ovary left REM LESION TRUNK,ARM,LEG 0.6 -1.0CM 07/26/2015 Exc mid back david cyst REMOVAL GALLBLADDER TONSILLECTOMY HX TONSILLECTOMY PRIMARY/SECONDARY Tonsillectomy TOTAL ABDOMINAL HYSTERECT W/WO RMVL TUBE OVARY 10/20/2002 uterus only- ovaries intact VAGINAL HYSTERECTOMY Family History FAMILY HISTORY Problem Relation Age of Onset Diabetes Mother Emphysema Mother Hypertension Moth (more content not included)... Normal [facility] CTA CHEST (NON GATED) W IVCO N PEon 04-19-2025 CTA CHEST (NON GATED) W IVCON PE * * *Final Report* * * DATE OF EXAM: Apr 19 2025 5:17PM LD 0564 - CTA CHEST (NON GATED) W IVCON PE / PROCEDURE REASON: multiple diagnoses * * * * Physician Interpretation * * * * EXAMINATION: CHEST CTA (NON GATED) WITH CONTRAST (PULMONARY EMBOLISM PROTOCOL) Clinical History: Chest pain and shortness of breath Technique: Spiral CT acquisition of the chest from the thoracic inlet to the upper abdomen following IV contrast. Axial 1 and 3 mm thick slices plus coronal and sagittal reformatted images. MQ: CTCP_5 Contrast: 100 mL Omnipaque [address] Radiation dose: Integrated Dose-length product (DLP) for this visit = 625.13 mGy*cm CT Dose Reduction Employed: Automated exposure control(AEC) and iterative recon CTA: Post-processed images (Maximum intensity Projection (MIP), Volume-rendered (VR), or Surface shaded display images (SSD) were created, reviewed and archived. Comparison: No relevant prior studies available. RESULT: Limitations: None. Evaluation for thromboembolic disease: - Right heart chambers: No thromboembolic disease. - Main pulmonary arteries: No thromboembolic disease. - Lobar pulmonary arteries: No thromboembolic disease. - Segmental pulmonary arteries: No thromboembolic disease. - Subsegmental pulmonary arteries: No thromboembolic disease. - Additional pulmonary artery findings: The main pulmonary artery is normal in caliber. Lines, tubes, and devices: None. Lung parenchyma and airways: No consolidation. No suspicious pulmonary nodule. The central airways are patent. Pleural space: No pleural effusion. No pleural thickening. No pneumothorax Lower neck, lymph nodes, and mediastinum: The imaged thyroid gland is normal. No lymphadenopathy in the supraclavicular, axillary, mediastinal, or hilar regions. Heart, pericardium, and thoracic vessels: The thoracic aorta is normal in caliber. The left atrial cardiac chambers enlarged in size. Right side coronary artery calcifications. No pericardial effusion or thickening. Bones and soft tissues: No destructive bone lesion. Chest wall is unremarkable. Upper abdomen: No acute abnormality in the imaged upper abdomen. Redemonstration anterior splenic cyst Localizer images: IMPRESSION: No CT evidence of pulmonary embolism. No acute inflammatory infiltrates The left atrial cardiac chambers enlarged in size. Right side coronary artery calcifications. Painter And Decorator: MCKAY Transcribe Date/Time: Apr 19 2025 5:45P Dictated by : ANABELLE RICO MD This examination was interpreted and the report reviewed and electronically signed by: ANABELLE RICO MD on Apr 19 2025 5:52PM EST [id number] Normal [facility] CTA Pulmonary arteries for p ulmonary embolus W contrast Rodolfo 04-19-2025 IMPRESSION: No CT evidence of pulmonary embolism. No acute inflammatory infiltrates The left atrial cardiac chambers enlarged in size. Right side coronary artery calcifications. Painter And Decorator: MCKAY Transcribe Date/Time: Apr 19 2025 5:45P Dictated by : ANABELLE RICO MD This examination was interpreted and the report reviewed and electronically signed by: ANABELLE RICO MD on Apr 19 2025 5:52PM EST [facility]IOLOGY [facility]NGO * * *Final Report* * * DATE OF EXAM: Apr 19 2025 5:17PM [facility] 0564 - CTA CHEST (NON GATED) W IVCON PE / PROCEDURE REASON: multiple diagnoses * * * * Physician Interpretation * * * * EXAMINATION: CHEST CTA (NON GATED) WITH CONTRAST (PULMONARY EMBOLISM PROTOCOL) Clinical History: Chest pain and shortness of breath Technique: Spiral CT acquisition of the chest from the thoracic inlet to the upper abdomen following IV contrast. Axial 1 and 3 mm thick slices plus coronal and sagittal reformatted images. MQ: CTCP_5 Contrast: 100 mL Omnipaque [address] Radiation dose: Integrated Dose-length product (DLP) for this visit = 625.13 mGy*cm CT Dose Reduction Employed: Automated exposure control(AEC) and iterative recon CTA: Post-processed images (Maximum intensity Projection (MIP), Volume-rendered (VR), or Surface shaded display images (SSD) were created, reviewed and archived. Comparison: No relevant prior studies available. RESULT: Limitations: None. Evaluation for thromboembolic disease: - Right heart chambers: No thromboembolic disease. - Main pulmonary arteries: No thromboembolic disease. - Lobar pulmonary arteries: No thromboembolic disease. - Segmental pulmonary arteries: No thromboembolic disease. - Subsegmental pulmonary arteries: No thromboembolic disease. - Additional pulmonary artery findings: The main pulmonary artery is normal in caliber. Lines, tubes, and devices: None. Lung parenchyma and airways: No consolidation. No suspicious pulmonary nodule. The central airways are patent. Pleural space: No pleural effusion. No pleural thickening. No pneumothorax Lower neck, lymph nodes, and mediastinum: The imaged thyroid gland is normal. No lymphadenopathy in the supraclavicular, axillary, mediastinal, or hilar regions. Heart, pericardium, and thoracic vessels: The thoracic aorta is normal in caliber. The left atrial cardiac chambers enlarged in size. Right side coronary artery calcifications. No pericardial effusion or thickening. Bones and soft tissues: No destructive bone lesion. Chest wall is unremarkable. Upper abdomen: No acute abnormality in the imaged upper abdomen. Redemonstration anterior splenic cyst Localizer images: [facility] Provider, [facility] [place] - 04/19/2025 * * *Final Report* * * DATE OF EXAM: Apr 19 2025 5:17PM [facility] 0564 - CTA CHEST (NON GATED) W IVCON PE / PROCEDURE REASON: multiple diagnoses * * * * Physician Interpretation * * * * EXAMINATION: CHEST CTA (NON GATED) WITH CONTRAST (PULMONARY EMBOLISM PROTOCOL) Clinical History: Chest pain and shortness of breath Technique: Spiral CT acquisition of the chest from the thoracic inlet to the upper abdomen following IV contrast. Axial 1 and 3 mm thick slices plus coronal and sagittal reformatted images. MQ: CTCP_5 Contrast: 100 mL Omnipaque [address] Radiation dose: Integrated Dose-length product (DLP) for this visit = 625.13 mGy*cm CT Dose Reduction Employed: Automated exposure control(AEC) and iterative recon CTA: Post-processed images (Maximum intensity Projection (MIP), Volume-rendered (VR), or Surface shaded display images (SSD) were created, reviewed and archived. Comparison: No relevant prior studies available. RESULT: Limitations: None. Evaluation for thromboembolic disease: - Right heart chambers: No thromboembolic disease. - Main pulmonary arteries: No thromboembolic disease. - Lobar pulmonary arteries: No thromboembolic disease. - Segmental pulmonary arteries: No thromboembolic disease. - Subsegmental pulmonary arteries: No thromboembolic disease. - Additional pulmonary artery findings: The main pulmonary artery is normal in caliber. Lines, tubes, and devices: None. Lung parenchyma and airways: No consolidation. No suspicious pulmonary nodule. The central airways are patent. Pleural space: No pleural effusion. No pleural thickening. No pneumothorax Lower neck, lymph nodes, and mediastinum: The imaged thyroid gland is normal. No lymphadenopathy in the supraclavicular, axillary, mediastinal, or hilar regions. Heart, pericardium, and thoracic vessels: The thoracic aorta is normal in caliber. The left atrial cardiac chambers enlarged in size. Right side coronary artery calcifications. No pericardial effusion or thickening. Bones and soft tissues: No destructive bone lesion. Chest wall is unremarkable. Upper abdomen: No acute abnormality in the imaged upper abdomen. Redemonstration anterior splenic cyst Localizer images: IMPRESSION IMPRESSION: No CT evidence of pulmonary embolism. No acute inflammatory infiltrates The left atrial cardiac chambers enlarged in size. Right side coronary artery calcifications. Painter And Decorator: PSCB Transcribe Date/Time: Apr 19 2025 5:45P Dictated by : ANABELLE RICO MD This examination was interpreted and the report reviewed and electronically signed by: ANABELLE RICO MD on Apr 19 2025 5:52PM EST [facility] Radiology Study observation [facility]narrative) [facility] Pulmonary arteries for p ulmonary embolus W contrast IVOrdered By: Ccf Provider on 04-19-2025 [facility] Comprehensive metabolic 2000 panelon 04-19-2025 Albumin [Mass/Vol] 4.5 g/dL Normal 3.9-4.9 [facility] Comment on above: Order Comment: Speci men Type: BLOOD SPECIMENOrdering Facility: [facility] Address: [address] [place] [address] Performed By: #### 2 4323-8 ####[facility] [id number] [place] [address] [place] ALP [Catalytic activity/Vol] 53 U/L Normal 34-123 [facility] Comment on above: Order Comment: Speci men Type: BLOOD SPECIMENOrdering Facility: [facility] Address: [address] [place] [address] Performed By: #### 2 4323-8 ####[facility] [id number] [place] [address] [place] ALT [Catalytic activity/Vol] 12 U/L Normal 7-38 [facility] Comment on above: Order Comment: Speci men Type: BLOOD SPECIMENOrdering Facility: [facility] Address: [address] [place] [address] Performed By: #### 2 4323-8 ####[facility] [id number] [place] [address] [place] Anion gap [Moles/Vol] 12 mmol/L Normal 8-15 [facility] Comment on above: Order Comment: Speci men Type: BLOOD SPECIMENOrdering Facility: [facility] Address: [address] [place] [address] Performed By: #### 2 4323-8 ####[facility] ALEXANDERWRADHALIA [id number] [place] [address] [place] AST [Catalytic activity/Vol] 11 U/L Low 13-35 [facility] Comment on above: Order Comment: Speci men Type: BLOOD SPECIMENOrdering Facility: [facility] Address: [address] [place] [address] Performed By: #### 2 4323-8 ####[facility]PITALRADHAL[facility] [id number] [place] [address] [place] Bilirubin [Mass/Vol] 0.3 mg/dL Normal 0.2-1.3 [facility] Comment on above: Order Comment: Speci men Type: BLOOD SPECIMENOrdering Facility: [facility] Address: [address] [place] [address] Performed By: #### 2 4323-8 ####[facility] ALEXANDERWRADHALIA [id number] [place] [address] [place] Calcium [Mass/Vol] 10.1 mg/dL Normal 8.5-10.2 [facility] Comment on above: Order Comment: Speci men Type: BLOOD SPECIMENOrdering Facility: [facility] Address: [address] [place] [address] Performed By: #### 2 4323-8 ####[facility] [id number] [place] [address] [place] Chloride [Moles/Vol] 105 mmol/L Normal 98-107 [facility] Comment on above: Order Comment: Speci men Type: BLOOD SPECIMENOrdering Facility: [facility] Address: [address] [place] [address] Performed By: #### 2 4323-8 ####[facility] [id number] [place] [address] [place] CO2 [Moles/Vol] 25 mmol/L Normal 22-30 [facility] Comment on above: Order Comment: Speci men Type: BLOOD SPECIMENOrdering Facility: [facility] Address: [address] [place] [address] Performed By: #### 2 4323-8 ####[facility] [id number] [place] [address] [place] Creatinine [Mass/Vol] 0.80 mg/dL Normal 0.58-0.96 [facility] Comment on above: Order Comment: Speci men Type: BLOOD SPECIMENOrdering Facility: [facility] Address: [address] [place] [address] Performed By: #### 2 4323-8 ####[facility] [id number] [address] OF [facility] Creatinine and Glomerular filtration rate.predicted panel (S/P/Bld) 84 mL/min/1.73m??? Normal >=60 [facility] Comment on above: Order Comment: Speci men Type: BLOOD SPECIMENOrdering Facility: [facility] Address: [address] [place] [address] Result Comment: Shreya mated Glomerular Filtration Rate (eGFR) is calculated using the 2020 CKD-EPI creatinine equation. This equation utilizes serum creatinine, sex, and age as parameters. The creatinine assay has traceable calibration to isotope dilution-mass spectrometry. Refer to KDIGO guidelines for clinical interpretation. In patients with unstable renal function, e.g. those with acute kidney injury, the eGFR may not accurately reflect actual GFR. Performed By: #### 2 4323-8 ####[facility]WNCL[facility] [id number] [place] [address] [place] Glucose [Mass/Vol] 164 mg/dL High 74-99 [facility] Comment on above: Order Comment: Speci men Type: BLOOD SPECIMENOrdering Facility: [facility] Address: [address] [place], [place] [id number] Result Comment: The [place] Diabetes Association (ADA) provides guidance for cutoff values for fasting glucose and random glucose. The ADA defines fasting as no caloric intake for at least 8 hours. Fasting plasma glucose results between 100 to 125 mg/dL indicate increased risk for diabetes (prediabetes). Fasting plasma glucose results greater than or equal to 126 mg/dL meet the criteria for diagnosis of diabetes. In the absence of unequivocal hyperglycemia, results should be confirmed by repeat testing. In a patient with classic symptoms of hyperglycemia or hyperglycemic crisis, random plasma glucose results greater than or equal to 200 mg/dL meet the criteria for diagnosis of diabetes. Reference: Standards of Medical Care in Diabetes 2016, [place] Diabetes Association. Diabetes Care. 2016.39(Suppl 1). Performed By: #### 2 4323-8 ####[facility]ITALNCLIA [id number] [place] [address] [place] Potassium [Moles/Vol] 4.1 mmol/L Normal 3.7-5.1 [facility] Comment on above: Order Comment: Speci men Type: BLOOD SPECIMENOrdering Facility: [facility] Address: [address] [place] [address] Performed By: #### 2 4323-8 ####[facility]ITALNCLIA [id number] [place] [address] [place] Protein [Mass/Vol] 6.5 g/dL Normal 6.3-8.0 [facility] Comment on above: Order Comment: Speci men Type: BLOOD SPECIMENOrdering Facility: [facility] Address: [address] [place] [address] Performed By: #### 2 4323-8 ####[facility] MILLTOWNCLIA [id number] [place] [address] [place] Sodium [Moles/Vol] 142 mmol/L Normal 136-144 [facility] Comment on above: Order Comment: Speci men Type: BLOOD SPECIMENOrdering Facility: [facility] Address: [address] [place] [address] Performed By: #### 2 4323-8 ####[facility] JOBYWRADHALIA [id number] [place] [address] [place] Urea nitrogen [Mass/Vol] 21 mg/dL Normal 7-21 [facility] Comment on above: Order Comment: Speci men Type: BLOOD SPECIMENOrdering Facility: [facility] Address: [address] [place] [address] Performed By: #### 2 4323-8 ####[facility] JOBYWRADHALIA [id number] [place] [address] [place] Absolute lymphocyte countOrd ered By: Wes Calabrese on 04-15-2025 Lymphocytes Auto (Unsp spec) [#/Vol] 1.59 10*3/uL 0.83-4.51 [facility] Absolute neutrophil countOrd ered By: Wes Calabrese on 04-15-2025 Neutrophils (Bld) [#/Vol] 6.0 10*3/uL 2.0-7.7 [facility] Anion gap in Serum or Plasma Ordered By: Wes Calabrese on 04-15-2025 Anion gap [Moles/Vol] 11 mmol/L 5-15 [facility] Automated lymphocyte count a s percentage of total leukocytesOrdered By: Wes Calabrese on 04-15-2025 Lymphocytes/100 WBC Auto (Unsp spec) 18.6 % Low 19-41 [facility] BUN/creatinine ratioOrdered By: Wes Calabrese on 04-15-2025 Urea nitrogen/Creatinine [Mass ratio] 20.6 mg/mg High 10-20 [facility] Basic Metabolic Profile (BMP )on 04-15-2025 BUN/CRE 20.6 RATIO High 10-20 [facility] Comment on above: Performed By: #### L 501.4021, L100.0100, L500.2500 #### [facility] [address] [place], [address] Calcium [Mass/Vol] 9.4 mg/dL Normal 7.6-11.0 [facility] Comment on above: Performed By: #### L 501.4021, L100.0100, L500.2500 #### [facility] [address] [place], [address] Chloride [Moles/Vol] 104 mmol/L Normal 98-108 [facility] Comment on above: Performed By: #### L 501.4021, L100.0100, L500.2500 #### [facility]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 Interpretation * * * * EXAM TITLE: XR KNEE 4V AP/PA BOTH+LAT/MONTSERRAT RT EXAM DATE/TIME: 09/25/2023 4:32 PM COMPARISON: None. CLINICAL INDICATION/HISTORY: Acute knee pain. TECHNIQUE: AP/PA, lateral and sunrise views of the right knee are presented. FINDINGS: No fractures or subluxations are noted. Tiny marginal bony spur seen along the posterior aspect of the patella. A few accessory bones versus loose bodies seen. The joint spaces are well preserved. There is trace/small joint effusion. The mineralization of the bones is normal. There is no significant soft tissue swelling. IMPRESSION IMPRESSION: Findings are suggestive of mild degenerative changes in the right knee. Painter And Decorator: PSCB Transcribe Date/Time: Sep 29 2023 12:25P Dictated by : FÁTIMA ALDRIDGE MD This examination was interpreted and the report reviewed and electronically signed by: FÁTIMA ALDRIDGE MD on Sep 29 2023 12:28PM EST [facility] XR Knee - right 4 ViewsOrder ed By: Ccf Provider on 09-29-2023 [facility] CBC W Auto Differential pane l (Bld)on 09-25-2023 Basophils (Bld) [#/Vol] 0.07 10*3/uL <0.11 k/uL [facility] Basophils/100 WBC (Bld) 0.9 % [facility] Differential cell count method Nom (Bld) Auto [facility] Eosinophils (Bld) [#/Vol] 0.38 10*3/uL <0.46 k/uL [facility] Eosinophils/100 WBC (Bld) 4.6 % [facility] Erythrocyte distribution width (RBC) [Ratio] 13.4 % 11.5 - 15.0 % [facility] Hematocrit (Bld) [Volume fraction] 48.2 % High 36.0 - 46.0 % [facility] Hemoglobin (Bld) [Mass/Vol] 15.1 g/dL 11.5 - 15.5 g/dL [facility] Immature granulocytes (Bld) [#/Vol] <0.10 k/uL [facility] Immature granulocytes/100 WBC (Bld) 0.2 % [facility] Lymphocytes (Bld) [#/Vol] 2.17 10*3/uL 1.00 - 4.00 k/uL [facility] Lymphocytes/100 WBC (Bld) 26.4 % [facility] MCH (RBC) [Entitic mass] 27.4 pg 26. 0 - 34.0 pg [facility] MCHC (RBC) [Mass/Vol] 31.3 g/dL 30.5 - 36.0 g/dL [facility] MCV (RBC) [Entitic vol] 87.3 fL 80.0 - 100.0 fL [facility] Monocytes (Bld) [#/Vol] 0.65 10*3/uL <0.87 k/uL [facility] [facility] Monocytes/100 WBC (Bld) 7.9 % [facility] Neutrophils (Bld) [#/Vol] 4.93 10*3/uL 1.45 - 7.50 k/uL [facility] Neutrophils/100 WBC (Bld) 60.0 % [facility] Nucleated RBC (Bld) [#/Vol] <0.01 k/uL [facility] Nucleated RBC/100 WBC (Bld) [Ratio] 0.0 /100 WBC [facility] Platelet mean volume (Bld) [Entitic vol] 10.6 fL 9.0 - 12.7 fL [facility] Platelets (Bld) [#/Vol] 255 10*3/uL 150 - 400 k/uL [facility] RBC (Bld) [#/Vol] 5.52 10*6/uL High 3.90 - 5.2 0 m/uL [facility] WBC (Bld) [#/Vol] 8.22 10*3/uL 3.70 - 11. 00 k/uL [facility] XR Knee - right 4 Viewson Radiology Study observation (narrative) [facility] XR Sacrum and Coccyx 3 Views on 04-09-2023 IMPRESSION: No fracture identified. Painter And Decorator: PSCB Transcribe Date/Time: Apr 09 2023 9:03A Dictated by : MERLYN LOTT MD This examination was interpreted and the report reviewed and electronically signed by: MERLYN LOTT MD on Apr 09 2023 9:04AM [facility] DIVISION OF RADIOLOGY * * *Final Report* * * DATE OF EXAM: Apr 07 2023 10:32AM WOX 5246 - XR SACRUM/COCCYX 3V AP/LAT / PROCEDURE REASON: Tail bone pain * * * * Physician Interpretation * * * * HISTORY: Pt was using a pole as a lever and it broke loose stricking her in that tailbone x 3 days ago.. Tail bone pain . TECHNIQUE: XR SACRUM/COCCYX 3V AP/LAT Laterality: NOT APPLICABLE Number of different views (projections): 3 COMPARISON: None RESULT: Satisfactory alignment. No acute fracture is identified in the sacrum or coccyx. The SI joints appear normal. Bilateral hips are maintained. DIVISION OF RADIOLOGY Provider, [facility] - 04/09/2023 * * *Final Report* * * DATE OF EXAM: Apr 07 2023 10:32AM WOX 5246 - XR SACRUM/COCCYX 3V AP/LAT / PROCEDURE REASON: Tail bone pain * * * * Physician Interpretation * * * * HISTORY: Pt was using a pole as a lever and it broke loose stricking her in that tailbone x 3 days ago.. Tail bone pain . TECHNIQUE: XR SACRUM/COCCYX 3V AP/LAT Laterality: NOT APPLICABLE Number of different views (projections): 3 COMPARISON: None RESULT: Satisfactory alignment. No acute fracture is identified in the sacrum or coccyx. The SI joints appear normal. Bilateral hips are maintained. IMPRESSION IMPRESSION: No fracture identified. Painter And Decorator: PSCB Transcribe Date/Time: Apr 09 2023 9:03A Dictated by : MERLYN LOTT MD This examination was interpreted and the report reviewed and electronically signed by: MERLYN LOTT MD on Apr 09 2023 9:04AM EST [facility] XR Sacrum and Coccyx 3 Views Ordered By: [facility] Provider on 04-09-2023 [facility] XR Sacrum and Coccyx 3 Views on 04-07-2023 Radiology Study observation (narrative) [facility] XR Knee - left 4 Viewson IMPRESSION: NO ACUTE BONY ABNORMALITY. NO ARTHROPATHY. Painter And Decorator: MCKAY Transcribe Date/Time: Mar 28 2023 3:32P Dictated by : BINH BENOIT MD This examination was interpreted and the report reviewed and electronically signed by: BINH BENOIT MD on Mar 28 2023 3:34PM [facility] DIVISION OF RADIOLOGY * * *Final Report* * * DATE [...] joint maintained. No joint effusion. No fracture. DIVISION OF RADIOLOGY Provider, [facility] - 03/28/2023 * * *Final Report* * * DATE [...] joint maintained. No joint effusion. No fracture. IMPRESSION IMPRESSION: NO ACUTE BONY ABNORMALITY. NO ARTHROPATHY. Painter And Decorator: MCKAY Transcribe Date/Time: Mar 28 2023 3:32P Dictated by : BINH BENOIT MD This examination was interpreted and the report reviewed and electronically signed by: BINH BENOIT MD on Mar 28 2023 3:34PM EST [facility] XR Knee - left 4 ViewsOrdere d By: Ccf Provider on 03-28-2023 [facility] XR Knee - left 4 Viewson Radiology Study observation (narrative) [facility] ANES POSTPROC EVALon 023 ANES POSTPROC EVAL HNO ID: [id number] Author: Trice Zuniga MD Service: Anesthesiology Author Type: Anesthesiologist Type: Anesthesia Postprocedure Evaluation Filed: 03/03/2023 8:43 AM Note Text: POST ANESTHESIA EVALUATION NOTE : 1965 Procedure Summary Date: 03/03/23 Room / Location: [place] [address] / [place] Anesthesia Start: 730 Anesthesia Stop: 841 Procedure: LAPAROSCOPIC CHOLECYSTECTOMY (Abdomen) Diagnosis: RUQ pain (RUQ pain [R10.11]) Surgeons: Leo Barreto MD Responsible Provider: Trice Zuniga MD Anesthesia Type: general ASA Status: 3 Anesthesia Type: general Airway Type: ETT Last Vitals Vitals Value Taken Time BP 03/03/23 0842 Temp 03/03/23 0842 Pulse 03/03/23 0842 Resp 03/03/23 0842 SpO2 03/03/23 0842 Post Anesthesia Patient Status Patient Evaluation: PACU. PACU/ICU Patient Condition: stable. Anticipated Disposition: phase 2 then home. Neurological Status: sleepy but arousable. Pulmonary Status: breathing comfortably on room air Airway Control: returned to baseline unsupported. Cardiovascular Status: stable. Pain Management: clinically adequate - multimodal analgesia pain management approach Postoperative Hydration: acceptable. Intraoperative Events: no significant anesthesia events Post Operative Nausea/Vomiting Status: no significant post operative nausea or vomiting Recommendation: continue current plan of care. Anesthesia Observations No Documentation SIGNATURE: Trice Zuniga MD PATIENT NAME: Edgar Burch DATE: March 03, 2023 TIME: 8:42 AM CSN: [id number] [facility] ANES PRE-OPon 03-03-2023 ANES PRE-OP HNO ID: [id number] Author: Trice Zuniga MD Service: Anesthesiology Author Type: Anesthesiologist Type: Anesthesia Preprocedure Evaluation Filed: 03/03/2023 7:11 AM Note Text: ANESTHESIOLOGY DAY OF SURGERY NOTE : 1965 Procedure Information Date/Time: 03/03/23729 Procedure: LAPAROSCOPIC CHOLECYSTECTOMY [place]: [place] Surgeons: Leo Barreto MD Estimated body mass index is 36.76 kg/m? as calculated from the following: Height as of this encounter: 157.5 cm (5' 2). Weight as of this encounter: 91.2 kg (201 lb). Most recent hematocrit and potassium results: Hematocrit 42.6 02/04/2022 Potassium 4.0 11/08/2022 Relevant Problems CARDIO (+) Essential hypertension (+) Migraine without aura and without status migrainosus, not intractable ENDO (+) Type 2 diabetes mellitus without complication, without long-term current use of insulin (HCC) GI (+) Gastroesophageal reflux disease without esophagitis -RENAL (+) Fatty liver NEURO-PSYCH (+) Migraine without aura and without status migrainosus, not intractable I - PHYSICAL EVALUATION AIRWAY Patient intubated: No. Tracheostomy tube not present Mallampati: II. TM distance: >3 FB. Neck ROM: full ROM without neurological symptoms. Mouth opening: adequate. Short neck: yes. Thick neck: no Jacob present: no Microretrognathia/Micro nagthia/Recessed Chin: No DENTAL Dental findings: edentulous. Additional exam findings: yes. CARDIOVASCULAR Rhythm: regular Rate: normal PULMONARY Breath sounds clear to auscultation. ABDOMINAL Obese: obesity present. II - ANESTHESIA PLAN ASA Score: 3 Anesthetic Plan: general Airway type: ETT The patient is not a current smoker. NPO Status: adequate Beta Shannon Monitoring Plan Monitoring plan: Standard ASA. Post Procedure Analgesic Plan Postoperative analgesic plan: parenteral or oral opioids and multimodal analgesia. Informed Consent Anesthetic risks, benefits, alternatives, personnel and consent discussed: yes. Patient / Responsible Democrat agrees to proceed: yes Patient / Surrogate agrees to blood products: yes DNR status not reviewed with patient and/or family prior to surgery. Significant changes in the patient condition since the History and Physical, not otherwise documented in primary service progress note: no. Potential Anesthesia issues that may suggest increased risk of complications or contraindication to planned procedure: none. Vitals Value Taken Time BP 171/96 03/03/23704 Pulse 63 03/03/23704 Resp 18 03/03/23704 Temp 36.2 ?C (97.2 ?F) 03/03/23704 SpO2 97 % 03/03/23704 Facility-Administered Medications as of 03/03/2023 Medication Dose Route Frequency - lidocaine (PF) 10 mg/mL (1 %) 1-2 mg injection (XYLOCAINE) 0.1-0.2 mL INTRADERMAL PRN - lactated ringers iv infusion 5-30 mL/hr INTRAVENOUS CONTINUOUS - NaCl 0.9% iv flush bag 20 mL INTRAVENOUS PRN - vancomycin iv piggyback 1 g in D5W 200 mL (VANCOCIN) 1 g INTRAVENOUS Pre-Op Once - acetaminophen 1,000 mg tab(s) (TYLENOL) 1,000 mg ORAL Pre-Op Once - famotidine 20 mg tab(s) (PEPCID) 20 mg ORAL Pre-Op Once - promethazine 12.5 mg tab(s) (PHENERGAN) 12.5 mg ORAL Pre-Op Once - scopolamine 1 mg over 3 days 1 Patch (TRANSDERM-SCOP) 1 Patch TRANSDERMAL q 72 HR And - [START ON 03/06/2023] scopolamine - REMOVE PATCH OTHER q 72 HR And - scopolamine - VERIFY patch OTHER q 8 H Outpatient Medications as of 03/03/2023 Medication Sig - acyclovir (ZOVIRAX) 400 mg tablet Take 1 tablet by mouth twice daily. - pioglitazone (ACTOS) 45 mg tablet Take 1 tablet by mouth once daily. - fluticasone (FLONASE) 50 mcg/actuation nasal spray Use 2 Sprays in each nostril once daily. Rinse mouth after use. Using prn - loratadine (CLARITIN) 10 mg tablet Take 1 tablet by mouth once daily. (Patient taking differently: Take 10 mg by mouth once daily. prn) - MULTIVIT ANDMINERALS/FERROUS FUM (MULTI VITAMIN ORAL) Take by mouth once daily. - homeopathic drugs (LIVER ORAL) Take 2 capsules by mouth once daily. - ondansetron orally disintegrating (ZOFRAN ODT) 4 mg disintegrating tablet Take 1 tablet by mouth every 6 hours as needed for nausea/vomiting. - lisinopril (ZESTRIL, PRINIVIL) 40 mg tablet Take 1 tablet by mouth once daily. - atorvastatin (LIPITOR) 40 mg tablet Take 1 tablet by mouth once daily. Take with 20mg for total dose of 60mg daily. - sertraline (ZOLOFT) 100 mg tablet Take 1 tablet by mouth once daily. - buPROPion (WELLBUTRIN) 100 mg tablet Take 1 tablet by mouth twice daily. - polyethylene glycol 3350 (MIRALAX, GLYCOLAX) 17 gram/dose powder Take 17 g by mouth once daily. Dissolve dose in 4 - 8 ounces of liquid and take as directed. - L.acid/L.casei/B.bif/B. lorne/FOS (PROBIOTIC BLEND ORAL) Take by mouth. - atorvastatin (LIPITOR) 20 mg tablet Take with your 40 mg tab for a total of 60 mg a day. - blood sugar diagnostic (BLOOD GLUCOSE TEST) te (more content not included)... Normal [facility] HISTORY PHYSICALon 3 HISTORY PHYSICAL HNO ID: [id number] Author: Leo Barreto MD Service: General Surgery Author Type: Physician Type: HANDP Filed: 03/03/2023 6:56 AM Note Text: HISTORY AND PHYSICAL Edgar Burch 1965 REFERRING PHYSICIAN: Jessica Lal APRN.CNP CHIEF COMPLAINT: Consult (RUQ pain) HPI: The patient is a 57 year old female presents with chronic upper abdominal pain. HIDA scan (01/09/2023) did reveals biliary dyskinesia with an EF of 19% Patient had presented to [facility] ED for pain in the past - Jun 2022. She notes chronic epigastric and upper abdominal pain. Also with nausea. She states that the pain is a cramping pain, sometimes sharp and is always present. She denies fevers. She denies weight loss SIGNIFICANT MEDICAL PROBLEMS: PAST MEDICAL HISTORY PAST MEDICAL HISTORY Diagnosis Date Abnormal NCS [...] 07/31/2017 Added automatically from request for surgery [id number] Trigger middle finger of right hand 08/02/2014 Trigger ring finger of right hand 08/02/2014 Type 2 diabetes mellitus without complication, without long-term current use of insulin ([facility]) 05/28/2016 OPERATIONS: PAST SURGICAL HISTORY PAST SURGICAL HISTORY Procedure Laterality Date ABDOMINAL SURGERY HX DELIVERY ONLY 91,93,85 x3 COLONOSCOPY 08/07/2022 repeat in 10 years. COLONOSCOPY FLX DX W/COLLJ SPEC WHEN PFRMD 05/19/2012 Normal colonoscopy EGD W/O BRSH SPEC VARICIES INJ 12/11/2022 ENTEROLSS FRING INTSTINAL ADHESION SPX 09/08/2008 pelvic adhesions- mesh placed HEART CATHETERIZATION 05/29/2016 normal INJECTION PARAVER FACET JT/NERVE LMBR/SAC 3+LVL 05/20/2015 LAPS ABD PRTMANDOMENTUM DX W/WO SPEC BR/WA SPX 10/20/2000 Laparoscopy NEUROPLASTY AND/TRANSPOS MEDIAN NRV CARPAL TUNNE 10/20/2003 Carpal tunnel decomp right OOPHORECTOMY PARTIAL/TOTAL UNI/BI 09/08/2008 has one ovary left REM LESION TRUNK,ARM,LEG 0.6 -1.0CM 07/26/2015 Exc mid back david cyst TONSILLECTOMY HX TONSILLECTOMY PRIMARY/SECONDARY Tonsillectomy TOTAL ABDOMINAL HYSTERECT W/WO RMVL TUBE OVARY 10/20/2002 uterus only- ovaries intact VAGINAL HYSTERECTOMY CURRENT MEDICATIONS: CURRENT MEDICATIONS Current Outpatient Medications Medication Sig Dispense Refill [...] mg tablet Take 1 tablet by mouth tw (more content not included)... Normal [facility] OPERATIVE NOon 03-03-2023 OPERATIVE NO HNO ID: [id number] Author: Leo Barreto MD Service: General Surgery Author Type: Physician Type: Operative Report Filed: 03/03/2023 8:36 AM Note Text: OPERATIVE/PROCEDURE REPORT LOG ID: [id number] SURGERY/PROCEDURE DATE: 03/03/2023 INCISION/PROCEDURE START TIME: 7:52 AM INCISION CLOSE/PROCEDURE END TIME: 8:31 AM SURGEON(S)/PROCEDURALIS T(S) AND LIVING SKILLS ADVISOR(S): Surgeon(s) and Role: * Leo Barreto MD - Primary Physician Clothing Examiner: Sybil Medina PA-C SURGERY/PROCEDURE(S): Laparoscopic cholecystectomy ANESTHESIA: General SURGERY/PROCEDURE DETAILS: Patient was brought into the operating room. Placed in the supine position. Under excellent general anesthetic the abdomen was sterilely prepped and draped in usual fashion. Local was injected infraumbilically. Dissection was carried down to the fascia. Fascia was grasped with a Reza. Varies needle was placed in the abdomen. The abdomen was insufflated to 15 torr. A 10/12 trocar was placed in the abdomen. In doing this it was obvious that I went in through through the omentum I was able to get through into the abdominal area. I look into the upper abdomen without adhesions. A subxiphoid #5 trocars placed, inferior to this another #5 trocars placed, laterally a #5 trocars placed. All these were placed under direct visualization without injury to underlying structures. I went back down and looked at the umbilical area there was some adhesions I took these down I had a little bleeding from the omentum which I controlled with a ligature device. I then placed the patient in the head up and rotated to the left position I grabbed the fundus the gallbladder and retracted in a cephalad direction infundibulum was grasped and retracted laterally I dissected out the cystic duct placed hemoclips proximally and distally and I ligated the duct. Identified the cystic artery placed hemoclips proximally and distally and ligated the artery. I deliver the gallbladder from the gallbladder bed with use of electrocautery had no spillage of bile. Placed in a specimen bag and delivered it through the umbilical port without difficulty. Reinflated the abdomen reinspected down near the umbilical area I took down more adhesions with the LigaSure just to make sure that there were no other bleeding areas I did not see any I reinspected the liver bed good pneumostasis was noted. I removed the trocars under direct visualization good was stasis was noted. I closed the fascia the umbilical port with a [id number] stitch of Vicryl. Skin incisions were closed with septic and the stitches of 4-0 Monocryl. Steri-Strips were applied. Sterile dressings were applied. And the patient tolerated the procedure well. Sybil Medina PA-C was my bus assistant. She assisted with retraction, visualization and performed skin closure. No additional surgeons or qualified residents were available. PRE-OP/PRE-PROCEDURE DIAGNOSIS: Biliary dyskinesia, right upper quadrant abdominal pain POST-OP/POST-PROCEDURE DIAGNOSIS: Same as Preop ESTIMATED BLOOD LOSS: < 50 mls SPECIMENS: Gallbladder IMPLANTABLE DEVICES: NONE DRAINS: None COMPLICATIONS: None CLOSURE TECHNIQUE: Primary PARTICIPATION IN SURGERY/PROCEDURE: I/primary surgeon/proceduralist performed the procedure with assistance. SIGNATURE: Leo Barreto III, MD PATIENT NAME: Edgar Burch DATE: March 03, 2023 TIME: 8:32 AM Normal [facility] SURGICAL PATHOLOGYon 023 CASE REPORT Normal [facility] Comment on above: Order Comment: Gabriela patel Type: TISSUE SPECIMEN Ordering Facility: [facility] Address: [address] [place], [place] [id number] Result Comment: [facility] Pathology Report Case: [id number] Authorizing Provider: Leo Barreto MD Collected: 03/03/2023 08:03 AM Ordering Location: [facility] Surgery Received: 03/03/2023 11:01 AM Pathologist: Sharon Natarajan MD Specimen: [id number] Performed By: #### S #### [facility] CLIA [id number] [address] [facility] [address] [place] CLINICAL HISTORY Normal [facility] Comment on above: Order Comment: Speci men Type: TISSUE SPECIMEN Ordering Facility: [facility] Address: [address] [place], [place] [id number] Result Comment: Pre- op diagnosis: RUQ pain [R10.11] Performed By: #### S #### [facility] CLIA [id number] [address] [place] [address] FINAL DIAGNOSIS Normal [facility] Comment on above: Order Comment: Speci men Type: TISSUE SPECIMEN Ordering Facility: [facility] Address: [address] [place] [address] Result Comment: A. G allbladder, cholecystectomy: - Chronic cholecystitis with cholesterolosis. Performed By: #### S #### [facility] CLIA [id number] [address] [place] [address] FINAL PERFORMING LAB [facility] Comment on above: Order Comment: Speci men Type: TISSUE SPECIMEN Ordering Facility: [facility] Address: [address] [place] [address] Result Comment: Diag nostic interpretation performed at [facility], [address] [place] [address] CLIA# [id number] Stud Driver: Сергей Marshall M.D. Performed By: #### S #### [facility] CLIA [id number] [address] [place] [address] GROSS DESCRIPTION A. GALLBLADDER Normal [facility] Comment on above: Order Comment: Speci men Type: TISSUE SPECIMEN Ordering Facility: [facility] Address: [address] [place] [address] Result Comment: Rece ived in formalin, labeled gallbladder is a gallbladder measuring 7.7 x 4.3 x 3.3 cm. The serosal aspect is bhakta-parker and glistening. A defect is not present. The lumen contains green mucoid bile. The wall of the gallbladder averages 0.1 cm in thickness. Calculi are not present. A calculus is not impacted in the cystic duct. The mucosa is bile-stained, velvety with longitudinally oriented yellow streaks, most prominent at the summit of mucosal ridges. Scale Operator sections are submitted in cassette A1. AKA March 03, 2023 2:45 PM Gross examination performed at [facility], [address] [place] [address], [place] [address] Performed By: #### S #### [facility] CLIA [id number] [address] [facility] [place] [id number] [id number] [facility] CNPTerri 02-25-2023 CNPN Telephone (PREANME) EDGAR BURCH ([id number]) 1965 F Date Time Provider Department 02/25/23 LEO BARRETO During your visit today, we recorded the following information about you: Bertha Quiroz RN 02/25/2023 2:50 PM Signed PATIENT PREOPERATIVE INSTRUCTIONS Dr. Dejan Barreto has scheduled you for your procedure on 03/03/2023 at this surgery center: [facility]: [phone] (Surgery timeline-expect a call Friday for Friday arrival time) [facility] [address] [facility] [address]. Please read below carefully for your personalized [...] Procedures: - YOU MUST HAVE A RESPONSIBLE CARDIOLOGY COORDINATOR TAKE YOU HOME. A HEALTH MANAGER OR CUSTOMER PROGRAM SPECIALIST or UBER or LYFT CANNOT BE MADE A RESPONSIBLE CARDIOLOGY COORDINATOR unless accompanied by family or friend. - [...] Advance Directive, please fax a copy to [phone] or email to [email or web address] for it to be added to your chart. If you do not have an Advance Directive, you can find the appropriate form and more information at [email or web address]. We recommend that you complete the Advance Directive form found on the website and bring it with you the day of your surgery. It can be witnessed and scanned into your chart that day. Thank you for choosing the [facility] for your healthcare. Bertha Quiroz RN Allergies As of Date: 02/25/2023 Noted Allergy Reaction CODEINE 06/27/2005 1 - Mental Status Change 9 - Itching EFFEXOR (VENLAFAXINE HCL) 07/25/2005 4 - Hives HYDROCODONE BITARTRATE 12/04/2020 9 - Itching KEFLEX (CEPHALEXIN) 03/22/2019 4 - Hives LATEX 12/04/2020 4 - Hives PAROXETINE 12/04/2020 2 - Rash PAXIL (PAROXETINE HCL) 07/25/2005 2 - Rash PREDNISOLONE 12/10/2022 5 - Intolerance ERYTHROMYCIN 06/27/2005 8 - GI Upset LATEX 06/28/2005 4 - Hives Comments: jluis (more content not included)... Normal [facility] CT ABD/PEL W IVCONon 023 [facility] SURGICAL PATHOLOGYon 023 Case Report Surgical Pathology Report Case: [id number] Authorizing Provider: Celina Solis MD Collected: 12/11/2022 01:46 PM Ordering Location: Ambulatory Surgery Received: 12/11/2022 04:15 PM Pathologist: Leo De La Fuente MD Specimens: A) - ANTRUM (STOMACH) BIOPSY, Antral bx for H/H B) - ESOPHAGOGASTRIC JUNCTION BIOPSY [facility] FINAL DIAGNOSIS A. Stomach, biopsy: - Mild reactive gastropathy; no Helicobacter organisms. B. Gastroesophageal junction, biopsy: - Gastric-type mucosa with no significant pathologic abnormality. - Squamous mucosa with mild reactive changes. [facility] Gross Description A. ANTRUM (STOMACH) BIOPSY Received in formalin are two pieces of bhakta-brown, soft tissue aggregating to 0.6 x 0.3 x 0.2 cm. Totally submitted in one cassette. B. ESOPHAGOGASTRIC JUNCTION BIOPSY Received in formalin is one piece of bhakta-white, soft tissue measuring 0.4 x 0.4 x 0.2 cm. Totally submitted in one cassette. KK December 12, 2022 1:34 AM Gross examination performed at [facility], [address] [place] [address] [facility] Performing Lab Diagnostic interpretation performed at [facility], [address] [place] [id number] CLIA# [id number] Stud Driver: Сергей Marshall M.D. [facility] GLUCOSE, BLOOD (POC)on 12-11 Glucose [Mass/Vol] 117 mg/dL Abnormal 74 - 99 mg/dL [facility] No Panel Informationon 12-11 [facility] No Panel Informationon 11-14 [facility] XR Abdomen Supine and Uprigh ton 11-11-2022 IMPRESSION: Nonobstructive bowel gas pattern. Painter And Decorator: MCKAY Transcribe Date/Time: Nov 11 2022 2:42P Dictated by : FÁTIMA ALDRIDGE MD This examination was interpreted and the report reviewed and electronically signed by: FÁTIMA ALDRIDGE MD on Nov 11 2022 2:45PM [facility] DIVISION OF RADIOLOGY * * *Final Report* * * DATE OF EXAM: Nov 08 2022 1:25PM WOX 5289 - XR ABDOMEN 1V SUPINE / PROCEDURE REASON: Viral gastritis * * * * Physician Interpretation * * * * EXAM TITLE: XR ABDOMEN 1V SUPINE EXAM DATE/TIME: 11/08/2022 1:25 PM COMPARISON: None. CLINICAL INDICATION/HISTORY: Nausea. TECHNIQUE: AP views of the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 8.9 10*3/uL 4.4-11.0 [facility] Work Phone: Basophil percentage 0 SEEN /hpf 0-5 [facility] Work Phone: Bilirubin Test strip Ql (U)o n 04-08-2022 Bilirubin Ql (U) Negative Negative [facility] Work Phone: Blood erythrocytes count (nu mber/volume)on 04-08-2022 RBC (Bld) [#/Vol] 5.01 10*6/uL [facility].2[facility] Work Phone: Blood hemoglobin measurement (mass/volume)on 04-08-2022 Hemoglobin (Bld) [Mass/Vol] 13.6 g/dL 12.0-15.0 [facility] Work Phone: Blood lymphocytes/100 leukoc yteson 04-08-2022 Lymphocytes/100 WBC (Bld) 21.1 % 19-41 [facility] Work Phone: [phone] Blood monocytes/100 leukocyt eson 04-08-2022 Monocytes/100 WBC (Bld) 6.7 % 0-10 [facility] Work Phone: Blood platelet mean volumeon 04-08-2022 Platelet mean volume (Bld) [Entitic vol] 9.7 fL 6.2-12.0 [facility] Work Phone: Determination of erythrocyte mean corpuscular volume (MCV)on 04-08-2022 MCV (RBC) [Entitic vol] 84.8 fL 81-99 [facility] Work Phone: Direct bilirubinon 2 Bilirubin.direct [Mass/Vol] 0.11 mg/dL 0.00-0.30 [facility] Work Phone: Hematocrit Auto (Bld) [Volum e fraction]on 04-08-2022 Hematocrit (Bld) [Volume fraction] 42.5 % 37-47 [facility] Work Phone: Ketones Test strip Ql (U)on 04-08-2022 Ketones Ql (U) Negative Negative [facility] Work Phone: Laboratory - Chemistry and C hemistry - challengeon 04-08-2022 ALP [Catalytic activity/Vol] 94 U/L 45-117 [facility] Work Phone: ALT [Catalytic activity/Vol] 29 U/L 13-56 [facility] Work Phone: CO2 [Moles/Vol] 29.0 mmol/L 21.0-32.0 [facility] Work Phone: Globulin (S) [Mass/Vol] 3.3 g/dL 2.2-4.2 [facility] Work Phone: Urea nitrogen/Creatinine [Mass ratio] 22.6 mg/mg 10-20 [facility] Work Phone: Laboratory - Hematology and Cell countson 04-08-2022 Erythrocyte distribution width (RBC) [Entitic vol] 41.1 fL 35.1-43.9 [facility] Work Phone: Erythrocyte distribution width (RBC) [Ratio] 13.3 % 11.6-14.6 [facility] Work Phone: Immature granulocytes/100 WBC (Bld) 0.300 % 0.0-0.9 [facility] Work Phone: Comment on above: IG% - Immature Granu locytes (promyelocytes, myelocytes and metamyelocytes) > 1% indicates that a LEFT SHIFT is Present. MCH (RBC) [Entitic mass] 27.1 pg 27.0-32.0 [facility] Work Phone: Nucleated RBC/100 WBC (Bld) [Ratio] 0 % 0-5 [facility] Work Phone: MCHC Auto (RBC) [Mass/Vol]on 04-08-2022 MCHC (RBC) [Mass/Vol] 32.0 g/dL 32-36 [facility] Work Phone: Magnesium ammonium phosphate crystal detectionon 04-08-2022 Triple phosphate crystals LM Ql (Urine sed) 4+ /hpf [facility] Work Phone: Mucus LM Ql (Urine sed)on Mucus Ql (Urine sed) 0 SEEN /hpf [facility] Work Phone: Nitrite Test strip Ql (U)on 04-08-2022 Nitrite Ql (U) Negative Negative [facility] Work Phone: No Panel Informationon 04-08 Estimated Creatinine Clearance Calc 74.38 ml/min [facility] Work Phone: Estimated GFR (MDRD) Amer 118 mL/min >60 [facility] Work Phone: Comment on above: GFR Calc Estimated GFR (MDRD) Non-Af Amer 97 mL/min >60 [facility] Work Phone: Comment on above: Non- GFR Calc Urine Transitional Epithelial Cells 0-5 SEEN /hpf 0-5 [facility] Work Phone: Platelets bldon 04-08-2022 Platelets (Bld) [#/Vol] 239 10*3/uL 150-450 [facility] Work Phone: Protein Test strip Ql (U)on 04-08-2022 Protein Ql (U) Negative Negative [facility] Work Phone: Serum or plasma albumin ector urement (mass/volume)on 04-08-2022 Albumin [Mass/Vol] 3.9 g/dL 3.2-5.0 [facility] Work Phone: Serum or plasma albumin/glob ulin mass ratioon 04-08-2022 Albumin/Globulin [Mass ratio] 1.2 {ratio} 0.9-2.4 [facility] Work Phone: Serum or plasma calcium ector urement (mass/volume)on 04-08-2022 Calcium [Mass/Vol] 9.4 mg/dL 8.5-10.1 [facility] Work Phone: Serum or plasma creatinine m easurement (mass/volume)on 04-08-2022 Creatinine [Mass/Vol] 0.66 mg/dL 0.55-1.02 [facility] Work Phone: Comment on above: The validity of the calculated GFR & GFRAA in patients over 70 years has not been determined. Clinical correlation is essential. Serum or plasma urea nitroge n measurement (mass/volume)on 04-08-2022 Urea nitrogen [Mass/Vol] 15 mg/dL 7-18 [facility] Work Phone: Squamous epithelial cells de tection in urine sediment by light microscopyon 04-08-2022 Epithelial cells.squamous LM Ql (Urine sed) 0 SEEN /hpf 5-10 [facility] Work Phone: Thin prep Papanicolaou smear with manual screeningon 04-08-2022 Thin prep Papanicolaou smear with manual screening 12 U/L 15-37 [facility] Work Phone: Thin prep Papanicolaou smear with manual screening 4 5-15 [facility] Work Phone: Urine blood detectionon 03-21 RBC Ql (U) Negative Negative [facility] Work Phone: RBC Ql (U) 0 SEEN /hpf 0-5 [facility] Work Phone: Urine clarityon 04-08-2022 Clarity (U) Clear Clear [facility] Work Phone: Urine color determinationon 04-08-2022 Color (U) Yellow Yellow [facility] Work Phone: Urine glucose detectionon Glucose Ql (U) Normal mg/dl Normal [facility] Work Phone: Urine leukocyte esterase det ection by dipstickon 04-08-2022 Leukocyte esterase Test strip Ql (U) Negative Negative [facility] Work Phone: Urine pHon 04-08-2022 pH (U) 5.0 [pH] 5.0 - 8.0 [facility] Work Phone: Urine sediment bacteria coun t by microscopy (number/high power field)on 04-08-2022 Bacteria LM.HPF (Urine sed) [#/Area] 1 /[HPF] None Seen [facility] Work Phone: Urine specific gravity measu rementon 04-08-2022 Specific gravity (U) [Rel density] 1.025 1.002-1.030 [facility] Work Phone: Urobilinogen Auto test strip Ql (U)on 04-08-2022 Urobilinogen Ql (U) Normal mg/dl Normal [facility] Work Phone: Absolute lymphocyte counton 01-22-2022 Lymphocytes Auto (Unsp spec) [#/Vol] 1.68 10*3/uL 0.83-4.51 [facility] Work Phone: Basophil percentageon 2021 Basophil percentage 0 SEEN /hpf 0-5 [facility] Work Phone: Basophils/100 WBC (Bld) 0.7 % 0-1 [facility] Work Phone: Chloride [Moles/Vol] 107 mmol/L 98-107 [facility] Work Phone: Eosinophils/100 WBC (Bld) 4.3 % 0-5 [facility] Work Phone: Glucose [Mass/Vol] 153 mg/dL 74-106 [facility] Work Phone: Comment on above: Fasting Glucose resu lt greater than or equal to 126 mg/dL suggests DIABETES MELLITUS per A.D.A. criteria. Neutrophils (Bld) [#/Vol] 4.7 10*3/uL 2.0-7.7 [facility] Work Phone: Neutrophils/100 WBC (Bld) 64.4 % 47-70 [facility] Work Phone: [phone] Potassium [Moles/Vol] 3.9 mmol/L 3.5-5.1 [facility] Work Phone: Sodium [Moles/Vol] 139 mmol/L 136-145 [facility] Work Phone: WBC (Bld) [#/Vol] 7.3 10*3/uL 4.4-11.0 [facility] Work Phone: Bilirubin Test strip Ql (U)o n 01-22-2022 Bilirubin Ql (U) Negative Negative [facility] Work Phone: Blood erythrocytes count (nu mber/volume)on 01-22-2022 RBC (Bld) [#/Vol] 4.84 10*6/uL 4.2-[facility] Work Phone: Blood hemoglobin measurement (mass/volume)on 01-22-2022 Hemoglobin (Bld) [Mass/Vol] 13.3 g/dL 12.0-15.0 [facility] Work Phone: Blood lymphocytes/100 leukoc yteson 01-22-2022 Lymphocytes/100 WBC (Bld) 23.0 % 19-41 [facility] Work Phone: Blood monocytes/100 leukocyt eson 01-22-2022 Monocytes/100 WBC (Bld) 7.1 % 0-10 [facility] Work Phone: Blood platelet mean volumeon 01-22-2022 Platelet mean volume (Bld) [Entitic vol] 9.2 fL 6.2-12.0 [facility] Work Phone: Determination of erythrocyte mean corpuscular volume (MCV)on 01-22-2022 MCV (RBC) [Entitic vol] 83.3 fL 81-99 [facility] Work Phone: Hematocrit Auto (Bld) [Volum e fraction]on 01-22-2022 Hematocrit (Bld) [Volume fraction] 40.3 % 37-47 [facility] Work Phone: Ketones Test strip Ql (U)on 01-22-2022 Ketones Ql (U) Negative Negative [facility] Work Phone: Laboratory - Chemistry and C hemistry - challengeon 01-22-2022 CO2 [Moles/Vol] 28.0 mmol/L 21.0-32.0 [facility] Work Phone: Urea nitrogen/Creatinine [Mass ratio] 20.0 mg/mg 10-20 [facility] Work Phone: Laboratory - Hematology and Cell countson 01-22-2022 Erythrocyte distribution width (RBC) [Entitic vol] 40.7 fL 35.1-43.9 [facility] Work Phone: Erythrocyte distribution width (RBC) [Ratio] 13.3 % 11.6-14.6 [facility] Work Phone: Immature granulocytes/100 WBC (Bld) 0.500 % 0.0-0.9 [facility] Work Phone: Comment on above: IG% - Immature Granu locytes (promyelocytes, myelocytes and metamyelocytes) > 1% indicates that a LEFT SHIFT is Present. MCH (RBC) [Entitic mass] 27.5 pg 27.0-32.0 [facility] Work Phone: Nucleated RBC/100 WBC (Bld) [Ratio] 0 % 0-5 [facility] Work Phone: MCHC Auto (RBC) [Mass/Vol]on 01-22-2022 MCHC (RBC) [Mass/Vol] 33.0 g/dL 32-36 [facility] Work Phone: Mucus LM Ql (Urine sed)on Mucus Ql (Urine sed) 0 SEEN /hpf [facility] Work Phone: Nitrite Test strip Ql (U)on 01-22-2022 Nitrite Ql (U) Negative Negative [facility] Work Phone: No Panel Informationon 01-22 Estimated Creatinine Clearance Calc 65.45 ml/min [facility] Work Phone: Estimated GFR (MDRD) Amer 102 mL/min >60 [facility] Work Phone: Comment on above: GFR Calc Estimated GFR (MDRD) Non-Af Amer 85 mL/min >60 [facility] Work Phone: Comment on above: Non- GFR Calc Platelets bldon 01-22-2022 Platelets (Bld) [#/Vol] 244 10*3/uL 150-450 [facility] Work Phone: Protein Test strip Ql (U)on 01-22-2022 Protein Ql (U) Negative Negative [facility] Work Phone: Serum or plasma calcium ector urement (mass/volume)on 01-22-2022 Calcium [Mass/Vol] 9.2 mg/dL 8.5-10.1 [facility] Work Phone: Serum or plasma creatinine m easurement (mass/volume)on 01-22-2022 Creatinine [Mass/Vol] 0.75 mg/dL 0.55-1.02 [facility] Work Phone: Comment on above: The validity of the calculated GFR & GFRAA in patients over 70 years has not been determined. Clinical correlation is essential. Serum or plasma urea nitroge n measurement (mass/volume)on 01-22-2022 Urea nitrogen [Mass/Vol] 15 mg/dL 7-18 [facility] Work Phone: Squamous epithelial cells de tection in urine sediment by light microscopyon 01-22-2022 Epithelial cells.squamous LM Ql (Urine sed) 0 SEEN /hpf 5-10 [facility] Work Phone: Thin prep Papanicolaou smear with manual screeningon 01-22-2022 Thin prep Papanicolaou smear with manual screening 4 5-15 [facility] Work Phone: Urine blood detectionon 04-0 RBC Ql (U) Negative Negative [facility] Work Phone: RBC Ql (U) 0 SEEN /hpf 0-5 [facility] Work Phone: Urine clarityon 01-22-2022 Clarity (U) Clear Clear [facility] Work Phone: Urine color determinationon 01-22-2022 Color (U) Yellow Yellow [facility] Work Phone: Urine glucose detectionon Glucose Ql (U) Normal mg/dl Normal [facility] Work Phone: Urine leukocyte esterase det ection by dipstickon 01-22-2022 Leukocyte esterase Test strip Ql (U) Negative Negative [facility] Work Phone: Urine pHon 01-22-2022 pH (U) 5.0 [pH] 5.0 - 8.0 [facility] Work Phone: Urine sediment bacteria coun t by microscopy (number/high power field)on 01-22-2022 Bacteria LM.HPF (Urine sed) [#/Area] 0 /[HPF] None Seen [facility] Work Phone: Urine specific gravity measu rementon 01-22-2022 Specific gravity (U) [Rel density] 1.025 1.002-1.030 [facility] Work Phone: Urobilinogen Auto test strip Ql (U)on 01-22-2022 Urobilinogen Ql (U) Normal mg/dl Normal [facility] Work Phone: OCT MACULA CIRRUS OU (BOTH E YES) [facility] Vital Signs Date Time Vital Sign Value Performing Clinician Facility 06-14-2025 10:01-0400 Body mass index (BMI) [Ratio] 35.32 kg/m2 Kerri March APRN.[employer]OR [employer] DIRECTOR Work Phone: [facility] 06-14-2025 10:01-0400 Body weight 89 kg Kerri March APRN.[employer] DIRECTOR Work Phone: [facility] 06-14-2025 10:01-0400 Diastolic blood pressure 72 mm[Hg] Kerri March APRN.[employer] DIRECTOR Work Phone: [facility] 06-14-2025 10:01-0400 Heart rate 76 /min Kerri March APRN.[employer] DIRECT[employer] Work Phone: [facility] 06-14-2025 10:01-0400 Systolic blood pressure 114 mm[Hg] Kerri March INSPECTOR CASING.[employer]AR[employer] DIRECTOR Work Phone: [facility] 06-01-2025 11:14-0400 Body height 157.[address] Twin Barrera MD Work Phone: [facility] 06-01-2025 11:14-0400 Body mass index (BMI) [Ratio] 35.1 kg/m2 Dr. Twin Barrera MD Work Phone: 6(835)[phone] [address] 06-01-2025 11:14-0400 Body weight 87.[address] Twin Barrera MD Work Phone: 6(797)717-544967 [place] [address] 06-01-2025 11:14-0400 Diastolic blood pressure 80 mm[Hg] Dr. Twin Barrera MD Work Phone: 7(232)935-423467 [place] [address] 06-01-2025 11:14-0400 Heart rate 72 /min Dr. Twin Barrera MD Work Phone: 8(181)779-943367 [place] [address] 06-01-2025 11:14-0400 Respiratory rate 18 /min Dr. Twin Barrera MD Work Phone: [facility] 06-01-2025 11:14-0400 SaO2% (BldA) [Mass fraction] 94 % Dr. Twin Barrera MD Work Phone: [facility] 06-01-2025 11:14-0400 Systolic blood pressure 127 mm[Hg] Dr. Twin Barrera MD Work Phone: [facility] 05-05-2025 11:43-0400 Body height 158.8 cm Twin Barrera MD Work Phone: [facility] 05-05-2025 11:43-0400 Body mass index (BMI) [Ratio] 34.67 kg/m2 Twin Barrera MD Work Phone: [facility] 05-05-2025 11:43-0400 Body weight 87.36 kg Twin Barrera MD Work Phone: [facility] 05-05-2025 11:43-0400 Diastolic blood pressure 74 mm[Hg] Twin Barrera MD Work Phone: [facility] 05-05-2025 11:43-0400 Heart rate 52 /min Twin Barrera MD Work Phone: [facility] 05-05-2025 11:43-0400 Respiratory rate 18 /min Twin Barrera MD Work Phone: [facility] 05-05-2025 11:43-0400 Systolic blood pressure 142 mm[Hg] Twin Barrera MD Work Phone: [facility] 04-19-2025 10:00-0400 Body mass index (BMI) [Ratio] 35.3 kg/m2 Kerri March APRN.[employer] DIRECTOR Work Phone: [facility] 04-19-2025 10:00-0400 Body weight 87.54 kg Kerri March APRN.[employer] DIRECTOR Work Phone: [facility] 04-19-2025 10:00-0400 Diastolic blood pressure 75 mm[Hg] Kerri March APRN.[employer] DIRECTOR Work Phone: [facility] 04-19-2025 10:00-0400 Heart rate 76 /min Kerri March APRN.[employer] DIRECTOR Work Phone: [facility] 04-19-2025 10:00-0400 SaO2% (BldA) [Mass fraction] 97 % Kerri March APRN.[employer] DIRECTOR Work Phone: [facility] 04-19-2025 10:00-0400 Systolic blood pressure 116 mm[Hg] Kerri March APRN.[employer] DIRECTOR Work Phone: [facility] 04-15-2025 18:00-0400 Body temperature 98.2 [degF] Dr. Twin Barrera MD Work Phone: 4(675)482-277167 [place] [address] 04-15-2025 18:00-0400 Diastolic blood pressure 74 mm[Hg] Dr. Twin Barrera MD Work Phone: 5(199)875-081784 [place] [address] 04-15-2025 18:00-0400 Heart rate 78 /min Dr. Twin Barrera MD Work Phone: 3(317)082-599284 [place] [address] 04-15-2025 18:00-0400 Respiratory rate 14 /min Dr. Twin Barrera MD Work Phone: 8(015)971-566584 [place] [address] 04-15-2025 18:00-0400 SaO2% (BldA) [Mass fraction] 97 % Dr. Twin Barrera MD Work Phone: 2(620)982-198184 [place] [address] 04-15-2025 18:00-0400 Systolic blood pressure 165 mm[Hg] Dr. Twin Barrera MD Work Phone: 3(021)397-247784 [place] [address] 04-15-2025 15:12-0400 Body height 157.[address] Twin Barrera MD Work Phone: 8(237)181-767284 [place] [address] 04-15-2025 15:12-0400 Body mass index (BMI) [Ratio] 35.4 kg/m2 Dr. Twin Barrera MD Work Phone: 5(009)746-871884 [place] [address] 04-15-2025 15:12-0400 Body weight 87.[address] Twin Barrera MD Work Phone: 6(529)118-559884 [place] [address] 03-15-2025 13:31-0400 Body mass index (BMI) [Ratio] 35.48 kg/m2 Twin Barrera MD Work Phone: [facility] 03-15-2025 13:31-0400 Body weight 88 kg Twin Barrera MD Work Phone: [facility] 03-15-2025 13:31-0400 Diastolic blood pressure 74 mm[Hg] Twin Barrera MD Work Phone: [facility] 03-15-2025 13:31-0400 Heart rate 56 /min Twin Barrera MD Work Phone: [facility] 03-15-2025 13:31-0400 Respiratory rate 16 /min Twin Barrera MD Work Phone: [facility] 03-15-2025 13:31-0400 Systolic blood pressure 148 mm[Hg] Twin Barrera MD Work Phone: [facility] 12-21-2024 13:55-0500 Body temperature 97.5 [degF] Dr. Twin Barrera MD Work Phone: [facility] 12-21-2024 13:55-0500 Diastolic blood pressure 77 mm[Hg] Dr. Twin Barrera MD Work Phone: [facility] 12-21-2024 13:55-0500 Heart rate 66 /min Dr. Twin Barrera MD Work Phone: [facility] 12-21-2024 13:55-0500 Respiratory rate 16 /min Dr. Twin Barrera MD Work Phone: [facility] 12-21-2024 13:55-0500 SaO2% (BldA) [Mass fraction] 98 % Dr. Twin Barrera MD Work Phone: [facility] 12-21-2024 13:55-0500 Systolic blood pressure 144 mm[Hg] Dr. Twin Barrera MD Work Phone: [facility] 12-21-2024 12:26-0500 Body height 157.[address] Twin Barrera MD Work Phone: [facility] 12-21-2024 12:26-0500 Body mass index (BMI) [Ratio] 35.8 kg/m2 Dr. Twin Barrera MD Work Phone: [facility] 12-21-2024 12:26-0500 Body weight 88.[address] Twin Barrera MD Work Phone: 7(273)998-628767 [place] [address] 11-03-2024 14:03-0500 Body mass index (BMI) [Ratio] 36.4 kg/m2 Twin Barrera MD Work Phone: [facility] 11-03-2024 14:03-0500 Body weight 90.27 kg Twin Barrera MD Work Phone: [facility] 11-03-2024 14:03-0500 Diastolic blood pressure 80 mm[Hg] Twin Barrera MD Work Phone: [facility] 11-03-2024 14:03-0500 Heart rate 80 /min Twin Barrera MD Work Phone: [facility] 11-03-2024 14:03-0500 Respiratory rate 16 /min Twin Barrera MD Work Phone: [facility] 11-03-2024 14:03-0500 Systolic blood pressure 120 mm[Hg] Twin Barrera MD Work Phone: [facility] 08-05-2024 10:53-0400 Body height 157.5 cm Twin Barrera MD Work Phone: [facility] 08-05-2024 10:53-0400 Body mass index (BMI) [Ratio] 36.61 kg/m2 Twin Barrera MD Work Phone: [facility] 08-05-2024 10:53-0400 Body temperature 98.29 [degF] Twin Barrera MD Work Phone: [facility] 08-05-2024 10:53-0400 Body weight 90.8 kg Twin Barrera MD Work Phone: [facility] 08-05-2024 10:53-0400 Diastolic blood pressure 67 mm[Hg] Twin Barrera MD Work Phone: [facility] 08-05-2024 10:53-0400 Heart rate 93 /min Twin Barrera MD Work Phone: [facility] 08-05-2024 10:53-0400 SaO2% (BldA) [Mass fraction] 97 % Twin Barrera MD Work Phone: [facility] 08-05-2024 10:53-0400 Systolic blood pressure 108 mm[Hg] Twin Barrera MD Work Phone: [facility] 06-30-2024 13:32-0400 Body mass index (BMI) [Ratio] 36.34 kg/m2 Evonne Reyes PA-C Work Phone: [facility] 06-30-2024 13:32-0400 Body temperature 97.81 [degF] Evonne Reyes PA-C Work Phone: [facility] 06-30-2024 13:32-0400 Body weight 90.72 kg Evonne Reyes PA-C Work Phone: [facility] 06-30-2024 13:32-0400 Diastolic blood pressure 63 mm[Hg] Evonne Reyes PA-C Work Phone: [facility] 06-30-2024 13:32-0400 Heart rate 68 /min Evonne Reyes PA-C Work Phone: [facility] 06-30-2024 13:32-0400 Respiratory rate 16 /min Evonne Reyes PA-C Work Phone: [facility] 06-30-2024 13:32-0400 SaO2% (BldA) [Mass fraction] 97 % Evonne Reyes PA-C Work Phone: [facility] 06-30-2024 13:32-0400 Systolic blood pressure 125 mm[Hg] Evonne Reyes PA-C Work Phone: [facility] 06-01-2024 10:14-0400 Diastolic blood pressure 70 mm[Hg] Evonne Reyes PA-C Work Phone: [facility] Comment on above: bp recheck with machine 06-01-2024 10:14-0400 Heart rate 76 /min Evonne Reyes PA-C Work Phone: [facility] 06-01-2024 10:14-0400 Systolic blood pressure 116 mm[Hg] Evonne Reyes PA-C Work Phone: [facility] Comment on above: bp recheck with machine 06-01-2024 09:48-0400 Body mass index (BMI) [Ratio] 36.65 kg/m2 Evonne Reyes PA-C Work Phone: [facility] 06-01-2024 09:48-0400 Body temperature 98.2 [degF] Evonne Reyes PA-C Work Phone: [facility] 06-01-2024 09:48-0400 Body weight 91.5 kg Evonne Reyes PA-C Work Phone: [facility] 06-01-2024 09:48-0400 Respiratory rate 18 /min Evonne Reyes PA-C Work Phone: [facility] 06-01-2024 09:48-0400 SaO2% (BldA) [Mass fraction] 97 % Evonne Reyes PA-C Work Phone: [facility] 04-29-2024 15:43-0400 Diastolic blood pressure 82 mm[Hg] Evonne Reyes PA-C Work Phone: [facility] 04-29-2024 15:43-0400 Heart rate 77 /min Evonne Reyes PA-C Work Phone: [facility] 04-29-2024 15:43-0400 Systolic blood pressure 139 mm[Hg] Evonne Reyes PA-C Work Phone: [facility] 04-29-2024 14:37-0400 Body height 158 cm Evonne Reyes PA-C Work Phone: [facility] 04-29-2024 14:37-0400 Body mass index (BMI) [Ratio] 36.16 kg/m2 Evonne Reyes PA-C Work Phone: [facility] 04-29-2024 14:37-0400 Body temperature 98.01 [degF] Evonne Reyes PA-C Work Phone: [facility] 04-29-2024 14:37-0400 Body weight 90.27 kg Evonne Reyes PA-C Work Phone: [facility] 04-29-2024 14:37-0400 Respiratory rate 18 /min Evonne Reyes PA-C Work Phone: [facility] 04-29-2024 14:37-0400 SaO2% (BldA) [Mass fraction] 95 % Evonne Reyes PA-C Work Phone: [facility] 04-21-2024 13:11-0400 Body mass index (BMI) [Ratio] 36.11 kg/m2 Evonne Reyes PA-C Work Phone: [facility] 04-21-2024 13:11-0400 Body temperature 98.2 [degF] Evonne Reyes PA-C Work Phone: [facility] 04-21-2024 13:11-0400 Body weight 89.81 kg Evonne Reyes PA-C Work Phone: [facility] 04-21-2024 13:11-0400 Diastolic blood pressure 96 mm[Hg] Evonne Reyes PA-C Work Phone: [facility] 04-21-2024 13:11-0400 Heart rate 68 /min Evonne Reyes PA-C Work Phone: [facility] 04-21-2024 13:11-0400 Respiratory rate 18 /min Evonneольга Reyes PA-C Work Phone: [facility] 04-21-2024 13:11-0400 SaO2% (BldA) [Mass fraction] 97 % Evonne Reyes PA-C Work Phone: [facility] 04-21-2024 13:11-0400 Systolic blood pressure 146 mm[Hg] Evonne Reyes PA-C Work Phone: [facility] 02-26-2024 13:19-0400 Body mass index (BMI) [Ratio] 36.66 kg/m2 Kerri March APRN.LABOR STANDARDS DIRECTOR Work Phone: [facility] 02-26-2024 13:190400 Body weight 91.17 kg Kerri Knoble INSPECTOR CASING.LABOR STANDARDS DIRECTOR Work Phone: [facility] 02-26-2024 13:19-0400 Diastolic blood pressure 74 mm[Hg] Kerri March APRN.LABOR STANDARDS DIRECTOR Work Phone: [facility] 02-26-2024 13:19-0400 Heart rate 71 /min Kerri March APRN.LABOR STANDARDS DIRECTOR Work Phone: [facility] 02-26-2024 13:19-0400 Respiratory rate 16 /min Kerri March APRN.LABOR STANDARDS DIRECTOR Work Phone: [facility] 02-26-2024 13:19-0400 Systolic blood pressure 151 mm[Hg] Kerri March INSPECTOR [employer]ING.LABOR STANDARDS DIRECTOR Work Phone: [facility] 02-05-2024 14:33-0400 Body temperature 98.29 [degF] Levi Mackenzie MD Work Phone: [facility] 02-05-2024 14:33-0400 Body weight 91.2 kg Levi Mackenzie MD Work Phone: [facility] 02-05-2024 14:33-0400 Diastolic blood pressure 84 mm[Hg] Levi Mackenzie MD Work Phone: [facility] 02-05-2024 14:33-0400 Heart rate 75 /min Levi Mackenzie MD Work Phone: [facility] 02-05-2024 14:33-0400 Respiratory rate 18 /min Levi Mackenzie MD Work Phone: [facility] 02-05-2024 14:33-0400 SaO2% (BldA) [Mass fraction] 96 % Levi Mackenzie MD Work Phone: [facility] 02-05-2024 14:33-0400 Systolic blood pressure 151 mm[Hg] Levi Mackenzie MD Work Phone: [facility] 02-03-2024 13:16-0400 Body height 157.7 cm Minerva Ochoa MD Work Phone: [facility] 02-03-2024 13:16-0400 Body weight 92 kg Minerva Ochoa MD Work Phone: [facility] 02-03-2024 13:16-0400 Diastolic blood pressure 85 mm[Hg] Minerva Ochoa MD Work Phone: [facility] 02-03-2024 13:16-0400 Heart rate 70 /min Minerva Ochoa MD Work Phone: [facility] 02-03-2024 13:16-0400 SaO2% (BldA) [Mass fraction] 96 % Minerva Ochoa MD Work Phone: [facility] 02-03-2024 13:16-0400 Systolic blood pressure 133 mm[Hg] Minerva Ochoa MD Work Phone: [facility] 12-31-2023 16:16-0400 Body weight 90.72 kg Twin Barrera MD Work Phone: [facility] 12-31-2023 16:16-0400 Diastolic blood pressure 90 mm[Hg] Twin Barrera MD Work Phone: [facility] 12-31-2023 16:16-0400 Heart rate 76 /min Twin Barrera MD Work Phone: [facility] 12-31-2023 16:16-0400 Respiratory rate 16 /min Twin Barrera MD Work Phone: [facility] 12-31-2023 16:16-0400 Systolic blood pressure 132 mm[Hg] Twin Barrera MD Work Phone: [facility] 11-28-2023 09:08-0500 Body weight 89.36 kg Twin Barrera MD Work Phone: [facility] 11-28-2023 09:08-0500 Diastolic blood pressure 76 mm[Hg] Twin Barrera MD Work Phone: [facility] 11-28-2023 09:08-0500 Heart rate 82 /min Twin Barrera MD Work Phone: [facility] 11-28-2023 09:08-0500 Respiratory rate 16 /min Twin Barrera MD Work Phone: [facility] 11-28-2023 09:08-0500 SaO2% (BldA) [Mass fraction] 95 % Twin Barrera MD Work Phone: [facility] 11-28-2023 09:08-0500 Systolic blood pressure 148 mm[Hg] Twin Barrera MD Work Phone: [facility] 11-27-2023 21:55-0500 Body temperature 97.9 [degF] [facility] 11-27-2023 21:55-0500 Diastolic blood pressure 67 mm[Hg] [facility] 11-27-2023 21:55-0500 Heart rate 87 /min [facility] 11-27-2023 21:55-0500 Respiratory rate 18 /min [facility] 11-27-2023 21:55-0500 SaO2% (BldA) [Mass fraction] 94 % [facility] 11-27-2023 21:55-0500 Systolic blood pressure 130 mm[Hg] [facility] 11-27-2023 19:10-0500 Body mass index (BMI) [Ratio] 37 kg/m2 [facility] 11-27-2023 19:10-0500 Body weight 91.8 kg [facility] 11-27-2023 18:54-0500 Body height 157.48 cm [facility] 09-25-2023 15:42-0500 Body weight 87.54 kg Kerri March APRN.LABOR STANDARDS DIRECTOR Work Phone: [facility] 09-25-2023 15:42-0500 Diastolic blood pressure 76 mm[Hg] Kerri March APRN.LABOR STANDARDS DIRECTOR Work Phone: [facility] 09-25-2023 15:42-0500 Heart rate 72 /min Kerri March APRN.LABOR STANDARDS DIRECTOR Work Phone: [facility] 09-25-2023 15:42-0500 Respiratory rate 16 /min Kerri March APRN.LABOR STANDARDS DIRECTOR Work Phone: [facility] 09-25-2023 15:42-0500 Systolic blood pressure 132 mm[Hg] Kerri March INSPECTOR CASING.LABOR STANDARDS DIRECTOR Work Phone: [facility] 08-07-2023 12:07-0400 Body temperature 97.81 [degF] Twin Whitesherman INSPECTOR CASING.LABOR STANDARDS DIRECTOR Work Phone: [facility] 08-07-2023 12:07-0400 Body weight 89.09 kg Twin Whitesherman INSPECTOR CASING.LABOR STANDARDS DIRECTOR Work Phone: [facility] 08-07-2023 12:07-0400 Diastolic blood pressure 95 mm[Hg] Twin Pendlebury INSPECTOR CASING.LABOR STANDARDS DIRECTOR Work Phone: [facility] 08-07-2023 12:07-0400 Heart rate 63 /min Twin Pendfatoubury INSPECTOR CASING.LABOR STANDARDS DIRECTOR Work Phone: [facility] 08-07-2023 12:07-0400 Respiratory rate 18 /min Twin Whitesherman INSPECTOR CASING.LABOR STANDARDS DIRECTOR Work Phone: [facility] 08-07-2023 12:07-0400 SaO2% (BldA) [Mass fraction] 95 % Twin Whitesherman INSPECTOR CASING.LABOR STANDARDS DIRECTOR Work Phone: [facility] 08-07-2023 12:07-0400 Systolic blood pressure 166 mm[Hg] Twin Whitesherman INSPECTOR CASING.LABOR STANDARDS DIRECTOR Work Phone: [facility] 08-05-2023 13:07-0400 Body temperature 97.9 [degF] Leo Barreto MD Work Phone: [facility] 08-05-2023 13:07-0400 Body weight 88.91 kg Leo Barreto MD Work Phone: [facility] 08-05-2023 13:07-0400 Heart rate 66 /min Leo Barreto MD Work Phone: [facility] 08-05-2023 13:07-0400 SaO2% (BldA) [Mass fraction] 98 % Leo Barreto MD Work Phone: [facility] 04-07-2023 10:09-0400 Diastolic blood pressure 78 mm[Hg] Twin Barrera MD Work Phone: [facility] 04-07-2023 10:09-0400 Systolic blood pressure 128 mm[Hg] Twin Barrera MD Work Phone: [facility] 04-07-2023 09:54-0400 Body weight 90.27 kg Twin Barrera MD Work Phone: [facility] 04-07-2023 09:54-0400 Heart rate 72 /min Twin Barrera MD Work Phone: [facility] 04-07-2023 09:54-0400 Respiratory rate 18 /min Twin Barrera MD Work Phone: [facility] 03-31-2023 15:03-0400 Body weight 89.36 kg Twin Barrera MD Work Phone: [facility] 03-31-2023 15:03-0400 Diastolic blood pressure 96 mm[Hg] Twin Barrera MD Work Phone: [facility] 03-31-2023 15:03-0400 Heart rate 84 /min Twin Barrera MD Work Phone: [facility] 03-31-2023 15:03-0400 Respiratory rate 16 /min Twin Barrera MD Work Phone: [facility] 03-31-2023 15:03-0400 Systolic blood pressure 140 mm[Hg] Twin Barrera MD Work Phone: [facility] 03-25-2023 12:04-0400 Body height 158 cm Evonne Reyes PA-C Work Phone: [facility] 03-25-2023 12:04-0400 Body temperature 98.01 [degF] Evonne Reyes PA-C Work Phone: [facility] 03-25-2023 12:04-0400 Body weight 91.63 kg Evonne Reyes PA-C Work Phone: [facility] 03-25-2023 12:04-0400 Diastolic blood pressure 94 mm[Hg] Evonne Reyes PA-C Work Phone: [facility] 03-25-2023 12:04-0400 Heart rate 73 /min Evonne Reyes PA-C Work Phone: [facility] 03-25-2023 12:04-0400 Respiratory rate 18 /min Evonne Reyes PA-C Work Phone: [facility] 03-25-2023 12:04-0400 Systolic blood pressure 128 mm[Hg] Evonne Reyes PA-C Work Phone: [facility] 02-18-2023 11:23-0400 Diastolic blood pressure 88 mm[Hg] Leo Barreto MD Work Phone: [facility] 02-18-2023 11:23-0400 Systolic blood pressure 148 mm[Hg] Leo Barreto MD Work Phone: [facility] 02-18-2023 10:48-0400 Body height 157.5 cm Leo Barreto MD Work Phone: [facility] 02-18-2023 10:48-0400 Body temperature 97.39 [degF] Leo Barreto MD Work Phone: [facility] 02-18-2023 10:48-0400 Body weight 91.26 kg Leo Barreto MD Work Phone: [facility] 02-18-2023 10:48-0400 Heart rate 71 /min Leo Barreto MD Work Phone: [facility] 02-18-2023 10:48-0400 SaO2% (BldA) [Mass fraction] 99 % Leo Barreto MD Work Phone: [facility] 01-14-2023 10:35-0400 Body height 157.5 cm Celina Solis MD Work Phone: [facility] 01-14-2023 10:35-0400 Body temperature 96.69 [degF] Celina Solis MD Work Phone: [facility] 01-14-2023 10:35-0400 Body weight 91.17 kg Celina Solis MD Work Phone: [facility] 01-14-2023 10:35-0400 Diastolic blood pressure 82 mm[Hg] Celina Solis MD Work Phone: [facility] 01-14-2023 10:35-0400 Heart rate 77 /min Celina Solis MD Work Phone: [facility] 01-14-2023 10:35-0400 SaO2% (BldA) [Mass fraction] 97 % Celina Solis MD Work Phone: [facility] 01-14-2023 10:35-0400 Systolic blood pressure 126 mm[Hg] Celina Solis MD Work Phone: [facility] 12-24-2022 13:41-0500 Body height 157.5 cm Monisha Notus PA-C Work Phone: [facility] 12-24-2022 13:41-0500 Body temperature 97.2 [degF] Monisha Notus PA-C Work Phone: [facility] 12-24-2022 13:41-0500 Body weight 92.17 kg Monisha Diane PA-C Work Phone: [facility] 12-24-2022 13:41-0500 Diastolic blood pressure 78 mm[Hg] Monisha Notus PA-C Work Phone: [facility] 12-24-2022 13:41-0500 Heart rate 78 /min Monisha Diane PA-C Work Phone: [facility] 12-24-2022 13:41-0500 SaO2% (BldA) [Mass fraction] 97 % Monisha Notus PA-C Work Phone: [facility] 12-24-2022 13:41-0500 Systolic blood pressure 130 mm[Hg] Monisha Notus PA-C Work Phone: [facility] 12-11-2022 14:17-0500 Diastolic blood pressure 74 mm[Hg] Celina Solis MD Work Phone: [facility] 12-11-2022 14:17-0500 Heart rate 69 /min Celina Solis MD Work Phone: [facility] 12-11-2022 14:17-0500 SaO2% (BldA) [Mass fraction] 93 % Celina Solis MD Work Phone: [facility] 12-11-2022 14:17-0500 Systolic blood pressure 144 mm[Hg] Celina Solis MD Work Phone: [facility] 12-11-2022 13:57-0500 Respiratory rate 16 /min Celina Solis MD Work Phone: [facility] 12-11-2022 12:29-0500 Body temperature 97.5 [degF] Celina Solis MD Work Phone: [facility] 12-11-2022 12:29-0500 Body weight 92.1 kg Celina Solis MD Work Phone: [facility] 12-08-2022 13:57-0500 Body temperature 98.4 [degF] Paul Raji INSPECTOR CASING.LABOR STANDARDS DIRECTOR Work Phone: [facility] 12-08-2022 13:57-0500 Body weight 91.63 kg Paul Raji INSPECTOR CASING.LABOR STANDARDS DIRECTOR Work Phone: [facility] 12-08-2022 13:57-0500 Diastolic blood pressure 70 mm[Hg] Paul Raji INSPECTOR CASING.LABOR STANDARDS DIRECTOR Work Phone: [facility] 12-08-2022 13:57-0500 Heart rate 68 /min Paul Raji INSPECTOR CASING.LABOR STANDARDS DIRECTOR Work Phone: [facility] 12-08-2022 13:57-0500 Respiratory rate 16 /min Paul Raji INSPECTOR CASING.LABOR STANDARDS DIRECTOR Work Phone: [facility] 12-08-2022 13:57-0500 SaO2% (BldA) [Mass fraction] 98 % Paul Raji INSPECTOR CASING.LABOR STANDARDS DIRECTOR Work Phone: [facility] 02-19-2023 13:57-0500 Systolic blood pressure 110 mm[Hg] Paul Alegria APRN.LABOR STANDARDS DIRECTOR Work Phone: [facility] 11-14-2022 09:56-0500 Body height 157.5 cm Celina Solis MD Work Phone: [facility] 11-14-2022 09:56-0500 Body temperature 97.7 [degF] Celina Solis MD Work Phone: [facility] 11-14-2022 09:56-0500 Body weight 92.08 kg Celina Solis MD Work Phone: [facility] 11-14-2022 09:56-0500 Diastolic blood pressure 66 mm[Hg] Celina Solis MD Work Phone: [facility] 11-14-2022 09:56-0500 Heart rate 83 /min Celina Solis MD Work Phone: [facility] 11-14-2022 09:56-0500 SaO2% (BldA) [Mass fraction] 96 % Celina Solis MD Work Phone: [facility] 11-14-2022 09:56-0500 Systolic blood pressure 118 mm[Hg] Celina Solis MD Work Phone: [facility] 11-08-2022 12:54-0500 Body temperature 99.19 [degF] Kerri March INSPECTOR CASING.LABOR STANDARDS DIRECTOR Work Phone: [facility] 11-08-2022 12:54-0500 Body weight 91.17 kg Kerri March APRN.LABOR STANDARDS DIRECTOR Work Phone: [facility] 11-08-2022 12:54-0500 Diastolic blood pressure 78 mm[Hg] Kerri March APRN.LABOR STANDARDS DIRECTOR Work Phone: [facility] 11-08-2022 12:54-0500 Heart rate 74 /min Kerri March APRN.LABOR STANDARDS DIRECTOR Work Phone: [facility] 11-08-2022 12:54-0500 Respiratory rate 14 /min Kerri March APRN.LABOR STANDARDS DIRECTOR Work Phone: [facility] 11-08-2022 12:54-0500 Systolic blood pressure 124 mm[Hg] Kerri March APRN.CNP Work Phone: [facility] 10-31-2022 12:49-0500 Body temperature 99 [degF] Evonne Reyes PA-C Work Phone: [facility] 10-31-2022 12:49-0500 Body weight 91.35 kg Evonne Reyes PA-C Work Phone: [facility] 10-31-2022 12:49-0500 Diastolic blood pressure 68 mm[Hg] Evonne Reyes PA-C Work Phone: [facility] 10-31-2022 12:49-0500 Heart rate 83 /min Evonne Reyes PA-C Work Phone: [facility] 10-31-2022 12:49-0500 Respiratory rate 16 /min Evonne Reyes PA-C Work Phone: [facility] 10-31-2022 12:49-0500 SaO2% (BldA) [Mass fraction] 97 % Evonne Reyes PA-C Work Phone: [facility] 10-31-2022 12:49-0500 Systolic blood pressure 130 mm[Hg] Evonne Reyes PA-C Work Phone: [facility] 10-03-2022 12:50-0500 Diastolic blood pressure 82 mm[Hg] Mi Nurse Work Phone: [facility] 10-03-2022 12:50-0500 Heart rate 72 /min Mi Nurse Work Phone: [facility] 10-03-2022 12:50-0500 Systolic blood pressure 151 mm[Hg] Mi Nurse Work Phone: [facility] 09-03-2022 14:20-0500 Diastolic blood pressure 83 mm[Hg] Evonne Reyes PA-C Work Phone: [facility] 09-03-2022 14:20-0500 Heart rate 75 /min Evonne Reyes PA-C Work Phone: [facility] 09-03-2022 14:20-0500 Systolic blood pressure 145 mm[Hg] Evonne Reyes PA-C Work Phone: [facility] 09-03-2022 13:37-0500 Body temperature 97.9 [degF] Evonne Reyes PA-C Work Phone: [facility] 09-03-2022 13:37-0500 Body weight 90.27 kg Evonne Reyes PA-C Work Phone: [facility] 09-03-2022 13:37-0500 Respiratory rate 18 /min Evonne Reyes PA-C Work Phone: [facility] 08-28-2022 15:14-0500 Body temperature 98.4 [degF] Twin Gillespie INSPECTOR CASING.LABOR STANDARDS DIRECTOR Work Phone: [facility] 08-28-2022 15:14-0500 Body weight 90.27 kg Twin Gillespie INSPECTOR CASING.LABOR STANDARDS DIRECTOR Work Phone: [facility] 08-28-2022 15:14-0500 Diastolic blood pressure 72 mm[Hg] Twin Gillespie INSPECTOR CASING.LABOR STANDARDS DIRECTOR Work Phone: [facility] 08-28-2022 15:14-0500 Heart rate 74 /min Twin Gillespie INSPECTOR CASING.LABOR STANDARDS DIRECTOR Work Phone: [facility] 08-28-2022 15:14-0500 Respiratory rate 16 /min Twin Gillespie INSPECTOR CASING.LABOR STANDARDS DIRECTOR Work Phone: [facility] 08-28-2022 15:14-0500 SaO2% (BldA) [Mass fraction] 97 % Twin Gillespie INSPECTOR CASING.LABOR STANDARDS DIRECTOR Work Phone: [facility] 08-28-2022 15:14-0500 Systolic blood pressure 124 mm[Hg] Twin Gillespie INSPECTOR CASING.LABOR STANDARDS DIRECTOR Work Phone: [facility] 08-07-2022 09:01-0400 Diastolic blood pressure 83 mm[Hg] Celina Solis MD Work Phone: [facility] 08-07-2022 09:01-0400 Heart rate 73 /min Celina Solis MD Work Phone: [facility] 08-07-2022 09:01-0400 Respiratory rate 16 /min Celina Solis MD Work Phone: [facility] 08-07-2022 09:01-0400 SaO2% (BldA) [Mass fraction] 96 % Celina Solis MD Work Phone: [facility] 08-07-2022 09:01-0400 Systolic blood pressure 140 mm[Hg] Celina Solis MD Work Phone: [facility] 08-07-2022 07:52-0400 Body temperature 97.2 [degF] Celina Solis MD Work Phone: [facility] 08-02-2022 12:46-0400 Body weight 89.81 kg Twin Barrera MD Work Phone: [facility] 08-02-2022 12:46-0400 Diastolic blood pressure 96 mm[Hg] Twin Barrera MD Work Phone: [facility] 08-02-2022 12:46-0400 Heart rate 86 /min Twin Barrera MD Work Phone: [facility] 08-02-2022 12:46-0400 Respiratory rate 16 /min Twin Barrera MD Work Phone: [facility] 08-02-2022 12:46-0400 Systolic blood pressure 142 mm[Hg] Twin Barrera MD Work Phone: [facility] 07-18-2022 18:28-0400 Diastolic blood pressure 88 mm[Hg] [facility] Work Phone: 07-18-2022 18:28-0400 Heart rate 71 /min [facility] Work Phone: 07-18-2022 18:28-0400 Respiratory rate 18 /min [facility] Work Phone: 07-18-2022 18:28-0400 SaO2% (BldA) [Mass fraction] 97 % [facility] Work Phone: 07-18-2022 18:28-0400 Systolic blood pressure 176 mm[Hg] [facility] Work Phone: 07-18-2022 16:04-0400 Body height 157.48 cm [facility] Work Phone: 07-18-2022 16:04-0400 Body mass index (BMI) [Ratio] 36.6 kg/m2 [facility] Work Phone: 07-18-2022 16:04-0400 Body temperature 97.6 [degF] [facility] Work Phone: 07-18-2022 16:04-0400 Body weight 90.9 kg [facility] Work Phone: 07-18-2022 15:01-0400 Body weight 90.72 kg Twin Barrera MD Work Phone: [facility] 07-18-2022 15:01-0400 Diastolic blood pressure 90 mm[Hg] Twin Barrera MD Work Phone: [facility] 07-18-2022 15:01-0400 Heart rate 78 /min Twin Barrera MD Work Phone: [facility] 07-18-2022 15:01-0400 Respiratory rate 16 /min Twin Barrera MD Work Phone: [facility] 07-18-2022 15:01-0400 Systolic blood pressure 140 mm[Hg] Twin Barrera MD Work Phone: [facility] 06-25-2022 09:57-0400 Body temperature 97.3 [degF] Paul Alegria APRN.LABOR STANDARDS DIRECTOR Work Phone: [facility] 06-25-2022 09:57-0400 Body weight 91.72 kg Paul Alegria APRN.LABOR STANDARDS DIRECTOR Work Phone: [facility] 06-25-2022 09:57-0400 Diastolic blood pressure 84 mm[Hg] Paul Raji INSPECTOR CASING.LABOR STANDARDS DIRECTOR Work Phone: [facility] 06-25-2022 09:57-0400 Heart rate 77 /min Paul Raji INSPECTOR CASING.LABOR STANDARDS DIRECTOR Work Phone: [facility] 06-25-2022 09:57-0400 Respiratory rate 18 /min Paul Raji INSPECTOR CASING.LABOR STANDARDS DIRECTOR Work Phone: [facility] 06-25-2022 09:57-0400 SaO2% (BldA) [Mass fraction] 98 % Paul Raji INSPECTOR CASING.LABOR STANDARDS DIRECTOR Work Phone: [facility] 06-25-2022 09:57-0400 Systolic blood pressure 138 mm[Hg] Paul Raji INSPECTOR CASING.LABOR STANDARDS DIRECTOR Work Phone: [facility] 06-19-2022 08:24-0400 Body weight 90.27 kg Torrie Chapman INSPECTOR CASING.LABOR STANDARDS DIRECTOR Work Phone: [facility] 06-19-2022 08:24-0400 Diastolic blood pressure 76 mm[Hg] Torrie Patelhof INSPECTOR CASING.LABOR STANDARDS DIRECTOR Work Phone: [facility] 06-19-2022 08:24-0400 Heart rate 73 /min Torrie Patelhof INSPECTOR CASING.LABOR STANDARDS DIRECTOR Work Phone: [facility] 06-19-2022 08:24-0400 Respiratory rate 16 /min Torrie Lugof INSPECTOR CASING.LABOR STANDARDS DIRECTOR Work Phone: [facility] 06-19-2022 08:24-0400 SaO2% (BldA) [Mass fraction] 96 % Torrie Patelhof INSPECTOR CASING.LABOR STANDARDS DIRECTOR Work Phone: [facility] 06-19-2022 08:24-0400 Systolic blood pressure 130 mm[Hg] Torrie Tannhof INSPECTOR CASING.LABOR STANDARDS DIRECTOR Work Phone: [facility] 05-29-2022 12:33-0400 Body height 157.5 cm Celina Solis MD Work Phone: [facility] 05-29-2022 12:33-0400 Body temperature 97.11 [degF] Celina Solis MD Work Phone: [facility] 05-29-2022 12:33-0400 Body weight 89.81 kg Celina Solis MD Work Phone: [facility] 05-29-2022 12:33-0400 Diastolic blood pressure 86 mm[Hg] Celina Solis MD Work Phone: [facility] 05-29-2022 12:33-0400 Heart rate 64 /min Celina Solis MD Work Phone: [facility] 05-29-2022 12:33-0400 SaO2% (BldA) [Mass fraction] 95 % Celina Solis MD Work Phone: [facility] 05-29-2022 12:33-0400 Systolic blood pressure 148 mm[Hg] Celina Solis MD Work Phone: [facility] 04-24-2022 13:09-0400 Respiratory rate 16 /min [facility] Work Phone: 04-24-2022 12:01-0400 Diastolic blood pressure 90 mm[Hg] [facility] Work Phone: 04-24-2022 12:01-0400 Heart rate 66 /min [facility] Work Phone: 04-24-2022 12:01-0400 SaO2% (BldA) [Mass fraction] 97 % [facility] Work Phone: 04-24-2022 12:01-0400 Systolic blood pressure 153 mm[Hg] [facility] Work Phone: 04-24-2022 10:32-0400 Body temperature 96.6 [degF] [facility] Work Phone: 04-24-2022 10:30-0400 Body height 157.48 cm [facility] Work Phone: 04-24-2022 10:30-0400 Body mass index (BMI) [Ratio] 37.1 kg/m2 [facility] Work Phone: 04-24-2022 10:30-0400 Body weight 92.07 kg [facility] Work Phone: 04-11-2022 13:24-0400 Body temperature 98.29 [degF] Evonne Reyes PA-C Work Phone: [facility] 04-11-2022 13:24-0400 Body weight 91.17 kg Evonne Reyes PA-C Work Phone: [facility] 04-11-2022 13:24-0400 Diastolic blood pressure 82 mm[Hg] Evonne Reyes PA-C Work Phone: [facility] 04-11-2022 13:24-0400 Heart rate 68 /min Evonne Reyes PA-C Work Phone: [facility] 04-11-2022 13:24-0400 Respiratory rate 18 /min Evonne Reyes PA-C Work Phone: [facility] 04-11-2022 13:24-0400 Systolic blood pressure 132 mm[Hg] Evonne Reyes PA-C Work Phone: [facility] 04-08-2022 18:05-0400 Diastolic blood pressure 88 mm[Hg] [facility] Work Phone: 04-08-2022 18:05-0400 Heart rate 69 /min [facility] Work Phone: 04-08-2022 18:05-0400 Respiratory rate 18 /min [facility] Work Phone: 04-08-2022 18:05-0400 SaO2% (BldA) [Mass fraction] 98 % [facility] Work Phone: 04-08-2022 18:05-0400 Systolic blood pressure 167 mm[Hg] [facility] Work Phone: 04-08-2022 14:02-0400 Body height 157.48 cm [facility] Work Phone: 04-08-2022 14:02-0400 Body mass index (BMI) [Ratio] 36.2 kg/m2 [facility] Work Phone: 04-08-2022 14:02-0400 Body temperature 96.4 [degF] [facility] Work Phone: 04-08-2022 14:02-0400 Body weight 89.81 kg [facility] Work Phone: 01-22-2022 17:12-0400 Diastolic blood pressure 82 mm[Hg] [facility] Work Phone: 01-22-2022 17:12-0400 Heart rate 66 /min [facility] Work Phone: 01-22-2022 17:12-0400 Respiratory rate 16 /min [facility] Work Phone: 01-22-2022 17:12-0400 SaO2% (BldA) [Mass fraction] 97 % [facility] Work Phone: 01-22-2022 17:12-0400 Systolic blood pressure 172 mm[Hg] [facility] Work Phone: 01-22-2022 14:53-0400 Body height 157.48 cm [facility] Work Phone: 01-22-2022 14:53-0400 Body mass index (BMI) [Ratio] 38.1 kg/m2 [facility] Work Phone: 01-22-2022 14:53-0400 Body temperature 96.8 [degF] [facility] Work Phone: 01-22-2022 14:53-0400 Body weight 94.6 kg [facility] Work Phone: 01-22-2022 14:16-0400 Body temperature 98.91 [degF] Jeremías Christine MD Work Phone: [facility] 01-22-2022 14:16-0400 Body weight 92.53 kg Jeremías Christine MD Work Phone: [facility] 01-22-2022 14:16-0400 Diastolic blood pressure 90 mm[Hg] Jeremías Christine MD Work Phone: [facility] 01-22-2022 14:16-0400 Heart rate 70 /min Jeremías Christine MD Work Phone: [facility] 01-22-2022 14:16-0400 Respiratory rate 16 /min Jeremías Christine MD Work Phone: [facility] 01-22-2022 14:16-0400 SaO2% (BldA) [Mass fraction] 98 % Jeremías Christine MD Work Phone: [facility] 01-22-2022 14:16-0400 Systolic blood pressure 160 mm[Hg] Jeremías Christine MD Work Phone: [facility] Encounters Encounter Date Encounter Type Care Provider Facility Start: 06-29-2025 ambulatory Twin Barrera Facility :[facility] Start: 06-17-2025 End: 06-21-2025 ambulatory TWIN BARRERA Facility:[facility] Start: 06-14-2025 End: 06-14-2025 Patient encounter procedure Kerri March APRN.CNP Work Phone: [facility] Comment on above: Moderate episode of recurrent major depressive disorder (HCC) (Primary Dx); Generalized anxiety disorder Start: 06-14-2025 End: 06-14-2025 ambulatory KERRI MARCH Facility:[facility] Start: 06-08-2025 ambulatory Kerri March Facilit y:[facility] Start: 06-06-2025 End: 06-15-2025 Telephone encounter Twin Barrera MD Work Phone: [facility] Comment on above: Referral Request Start: 06-01-2025 End: 06-01-2025 Chart abstracting Twin Barrera MD Work Phone: [facility] Comment on above: Abstract (Cardiology OV note - [facility]) Start: 06-01-2025 End: 06-01-[address] Hugh Latif MD -[facility] Work Phone: Start: 06-01-2025 End: 06-01-[address] Twin Barrera MD Work Phone: -[facility] Start: 05-18-2025 End: 05-18-2025 Telephone encounter Twin Barrera MD Work Phone: [facility] [place] Comment on above: Patient Request Start: 05-16-2025 End: 06-22-2025 Chart abstracting [facility] Work Phone: Neurology Start: 05-09-2025 End: 05-09-2025 Telephone encounter Twin Barrera MD Work Phone: Family [facility] [place] Start: 05-05-2025 End: 05-05-2025 Patient encounter procedure Twin Barrera MD Work Phone: [facility] [place] Comment on above: Medicare annual well ness visit, subsequent (Primary Dx); 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); Type 2 diabetes mellitus without complication, without long-term current use of insulin (HCC); Essential hypertension; Coronary artery calcification seen on CT scan; Mixed hyperlipidemia; Enlargement of right atrium; Gastroesophageal reflux disease without esophagitis; Migraine without aura and without status migrainosus, not intractable; Moderate episode of recurrent major depressive disorder (HCC); Generalized anxiety disorder; Obesity, Class I, BMI 30-34.9; SOB (shortness of breath); Chronic low back pain, unspecified back pain laterality, unspecified whether sciatica present; Dry eyes; Advance directive discussed with patient; Urge incontinence; Snores; Hypersomnolence; Need for vaccination Start: 05-05-2025 End: 05-05-2025 ambulatory TWIN BARRERA Facility:[facility] Start: 05-04-2025 End: 05-04-2025 Patient encounter procedure Madai Morton OD Work Phone: Optometry Comment on above: Type 2 diabetes keren itus without retinopathy (HCC) (Primary Dx); Senile nuclear cataract, bilateral; Vitreous floaters of both eyes; Refractive amblyopia of left eye; Hyperopia of both eyes; Regular astigmatism of both eyes; Presbyopia Start: 05-04-2025 End: 05-04-2025 ambulatory MADAI MORTON II Facility:[facility] Start: 05-02-2025 End: 05-02-2025 ambulatory TWIN BARRERA Facility:[facility] Start: 04-20-2025 End: 04-20-2025 Follow-up encounter Kerri March APRN.LABOR STANDARDS DIRECTOR Work Phone: [facility] [place] Start: 04-19-2025 ambulatory KERRI MARCH Facilit y:[facility] Start: 04-19-2025 End: 04-19-2025 Subsequent hospital visit by physician [facility] Work Phone: [facility] Comment on above: Chest pain, unspecif ied type [R07.9] Start: 04-19-2025 End: 04-21-2025 Follow-up encounter Twin Barrera MD Work Phone: [facility] [place] Comment on above: Results Start: 04-19-2025 End: 04-19-2025 ambulatory TWIN BARRERA Facility:[facility] Start: 04-19-2025 End: 04-19-2025 Patient encounter procedure Kerri March APRN.LABOR STANDARDS DIRECTOR Work Phone: [facility] [place] Comment on above: Chest pain, unspecif ied type (Primary Dx); SOB (shortness of breath); Mixed hyperlipidemia; Type 2 diabetes mellitus without complication, without long-term current use of insulin (HCC); Acute otitis media, bilateral Start: 04-19-2025 End: 04-19-2025 ambulatory KERRI MARCH Facility:[facility] Start: 04-15-2025 End: 04-15-2025 Emergency department patient visit Dr. Twin Barrera MD Work Phone: -Emergency Department Work Phone: Start: 04-15-2025 End: 04-15-2025 ambulatory Twin Barrera MD Work Phone: [facility] [place] Comment on above: Chest Pain Start: 04-15-2025 End: 04-18-2025 Telephone encounter Breanne Wagoner MD Work Phone: Internal Medicine [place] Comment on above: Appointment Start: 03-29-2025 End: 03-29-2025 Patient encounter procedure Renetta BECKFORD -[facility] Work Phone: Start: 03-29-2025 End: 03-29-[address] Twin Barrera MD Work Phone: [facility] Work Phone: Start: 03-17-2025 End: 03-17-2025 Telephone encounter Twin Barrera MD Work Phone: Family [facility] [place] Comment on above: Results Start: 03-15-2025 Non-patient / Non-visit Dr. Yunior solis MD -[facility] Start: 03-15-2025 End: 03-15-2025 Subsequent hospital visit by physician X[facility] [place] Work Phone: Radiology Comment on above: Acute pain of both k nees [M25.561, M25.562] Start: 03-15-2025 End: 03-15-2025 E-mail encounter from caregiver Evonne Reyes PA-C Work Phone: Family [facility] [place] Start: 03-15-2025 End: 03-16-2025 Follow-up encounter Twin Barrera MD Work Phone: Family [facility] [place] Comment on above: Results Start: 03-15-2025 End: 03-15-2025 Patient encounter procedure Evonne Reyes PA-C Work Phone: [facility] [place] Comment on above: Appointment Request Acute pain of both k nees (Primary Dx); Pain in fibula; Pain of left calf; Left leg swelling Start: 03-15-2025 End: 03-15-2025 ambulatory Twin Barrera MD Work Phone: [facility] [place] Comment on above: Musculoskeletal Prob papi; leg swelling Start: 03-15-2025 End: 03-15-2025 ambulatory Twin Barrera Facility:[facility] Start: 03-04-2025 End: 03-04-2025 ambulatory Twin Barrera MD Work Phone: [facility] Comment on above: Headache Start: 03-04-2025 End: 03-04-2025 Follow-up encounter Kerri March APRN.CNP Work Phone: [facility] Start: 03-03-2025 ambulatory TWIN Rivasi ty:[facility] Start: 03-03-2025 End: 03-03-2025 Subsequent hospital visit by physician Screen Mammo [facility] M[facility] Start: 02-16-2025 End: 02-16-2025 Chart abstracting Aditya Torre MA [facility] [place] Comment on above: Results (Outside Fac ilty /) Start: 02-01-2025 End: 02-01-2025 Chart abstracting Aditya Torre MA Family [facility] [place] Comment on above: Results (Outside lab s ) Start: 01-27-2025 End: 01-27-[address] Twin Barrera MD Work Phone: [facility] Work Phone: Start: 01-27-2025 End: 01-27-2025 Patient encounter procedure Renetta BECKFORD -Laboratory, Specimen Work Phone: Start: 01-26-2025 End: 01-26-2025 Chart abstracting Aditya Torre MA [facility] [place] Comment on above: Procedure (Outside f acility - gastric emptying /) Start: 01-26-2025 End: 01-26-2025 Patient encounter procedure Renetta BECKFORD -[facility] Work Phone: Start: 01-26-2025 End: 01-27-2025 ambulatory Renetta Goldstein Facility:[facility] Start: 01-25-2025 End: 02-25-2025 ambulatory Twin Barrera MD Work Phone: [facility] Start: 01-21-2025 End: 01-21-[address] Twin Barrera MD Work Phone: [facility] Work Phone: Start: 01-21-2025 End: 01-21-2025 Patient encounter procedure Renetta BECKFORD -Nuclear Medicine, [facility] Work Phone: Start: 01-21-2025 End: 01-21-2025 ambulatory Renetta Goldstein Facility:[facility] Start: 12-27-2024 End: 12-27-2024 Chart abstracting Aditya Torre MA [facility] Comment on above: Consult (GI/LABS/EGD - outside provider /) Start: 12-22-2024 End: 12-22-2024 Refill Twin Barrera MD Work Phone: [facility] Comment on above: Refill Request Start: 12-21-2024 ambulatory [facility] Facility [facility] Start: 12-21-2024 Non-patient / Non-visit Josias Crewsrey selena DO -[facility] Start: 12-21-2024 End: 12-21-2024 Admission to same day surgery center Josiascaro Benavides DO -Endoscopy Work Phone: Start: 12-21-2024 End: 12-21-2024 ambulatory [facility] Facility:[facility] Start: 11-08-2024 End: 11-08-2024 Telephone encounter Twin Barrera MD Work Phone: [facility] [place] Comment on above: side effects? Start: 11-05-2024 End: 11-18-2024 Telephone encounter Twin Barrera MD Work Phone: [facility] [place] Comment on above: Results Start: 11-03-2024 End: 11-03-2024 ambulatory TWIN BARRERA Facility:[facility] Start: 11-03-2024 End: 11-03-2024 Patient encounter procedure Twin Barrera MD Work Phone: [facility] [place] Comment on above: Essential hypertensi on (Primary Dx); Encounter for immunization; Mixed hyperlipidemia; Type 2 diabetes mellitus without complication, without long-term current use of insulin (HCC); Gastroesophageal reflux disease without esophagitis; Migraine without aura and without status migrainosus, not intractable; Moderate episode of recurrent major depressive disorder (HCC); Generalized anxiety disorder; Fatty liver; Herpes; Splitting of nail; Hair loss Start: 11-03-2024 End: 11-03-2024 ambulatory EVONNE REYES Facility:[facility] Start: 10-11-2024 ambulatory Josias Benavides Facility :[facility] Start: 09-27-2024 End: 09-27-2024 Telephone encounter Twin Barrera MD Work Phone: [facility] Comment on above: Medication Question Start: 09-07-2024 End: 09-07-2024 Telephone encounter Twin Barrera MD Work Phone: [facility] Comment on above: Letter Request Start: 09-06-2024 End: 09-06-2024 ambulatory Twin Barrera MD Work Phone: [facility] Comment on above: Allied Health Visit (Medication Adherence Outreach/) Start: 08-27-2024 End: 08-27-2024 ambulatory Renetta Freedsapphire Facility:[facility] Start: 08-05-2024 End: 08-05-2024 Patient encounter procedure Twin Barrera MD Work Phone: [facility] Comment on above: Upper respiratory tr act infection, unspecified type (Primary Dx) Start: 08-05-2024 End: 08-05-2024 ambulatory TWIN BARRERA Facility:[facility] Start: 07-14-2024 End: 07-14-2024 Telephone encounter Evonne Reyes PA-C Work Phone: [facility] Comment on above: Results Start: 07-13-2024 End: 07-13-2024 ambulatory EVONNE REYES Facility:[facility] Start: 07-05-2024 End: 07-05-2024 Orders Only Evonne Reyes PA-C Work Phone: [facility] Start: 06-30-2024 End: 06-30-2024 ambulatory EVONNE REYES Facility:[facility] Start: 06-30-2024 End: 06-30-2024 Patient encounter procedure Evonne Reyes PA-C Work Phone: [facility] Comment on above: Moderate episode of recurrent major depressive disorder (HCC) (Primary Dx); Generalized anxiety disorder; Essential hypertension; Acute otitis media, right Start: 06-01-2024 Chart abstracting Twin colón MD Work Phone: [facility] [place] Comment on above: Outside [id number] Ordered Start: 06-01-2024 End: 06-01-2024 Patient encounter procedure Evonne Reyes PA-C Work Phone: [facility] [place] Comment on above: Chest pain, unspecif ied type (Primary Dx); SOB (shortness of breath); Generalized anxiety disorder; Moderate episode of recurrent major depressive disorder (HCC); Essential hypertension Start: 05-28-2024 Chart abstracting Twin colón MD Work Phone: [facility] [place] [facility] Comment on above: Outside [id number]-VNF Ordered Start: 05-24-2024 Chart abstracting Aditya Torre MA [facility] [place] Comment on above: Consult (DERM ) Start: 05-03-2024 Telephone encounter Evonne elkins PA-C Work Phone: [facility] [place] Comment on above: Results Start: 04-29-2024 End: 04-29-2024 Patient encounter procedure Evonne Reyes PA-C Work Phone: [facility] [place] Comment on above: Medicare annual well ness visit, subsequent (Primary Dx); Microscopic hematuria; Chronic nausea; Rash; Fatty liver; Migraine without aura and without status migrainosus, not intractable; Essential hypertension; Mixed hyperlipidemia; Gastroesophageal reflux disease without esophagitis; Type 2 diabetes mellitus without complication, without long-term current use of insulin (HCC) Start: 04-26-2024 End: 04-26-2024 OT/PT/Speech Visit Jadon Light PT Work Phone: [place] [facility] Comment on above: Cervicalgia; Rotator cuff disorder, right Start: 04-23-2024 ambulatory Evonne MCKEONC Work Phone: [facility] [place] Comment on above: Rash on stomach Start: 04-23-2024 Telephone encounter Evonne elkins PA-C Work Phone: [facility] [place] Comment on above: Patient Update Start: 04-21-2024 End: 04-21-2024 Patient encounter procedure Evonne Reyes PA-C Work Phone: [facility] Comment on above: Contact dermatitis, unspecified contact dermatitis type, unspecified trigger (Primary Dx); Mixed hyperlipidemia; Migraine without aura and without status migrainosus, not intractable; Essential hypertension; Type 2 diabetes mellitus without complication, without long-term current use of insulin ([facility]) Start: 04-02-2024 End: 04-02-2024 Patient encounter procedure Jeremias Rosario DO Work Phone: [facility] Comment on above: Cervicalgia (Primary Dx); Rotator cuff disorder, right Start: 03-12-2024 End: 03-12-2024 Patient encounter procedure Jeremias Rosario DO Work Phone: [facility] Comment on above: Rotator cuff disorde r, right (Primary Dx); Shoulder arthritis Start: 03-12-2024 End: 03-12-2024 Subsequent hospital visit by physician [facility] [place] Ariza Work Phone: Radiology Comment on above: Right shoulder pain, unspecified chronicity [M25.511] Start: 03-10-2024 Orders Only Humble Vines MD Work Phone: Orthopaedics Comment on above: Right shoulder pain, unspecified chronicity (Primary Dx) Start: 02-26-2024 End: 02-26-2024 Patient encounter procedure Kerri March APRN.CNP Work Phone: [facility] Comment on above: Acute pain of right knee (Primary Dx); Acute pain of right shoulder Start: 02-25-2024 ambulatory Twin gary MD Work Phone: Internal Medicine [facility] [place] Start: 02-05-2024 End: 02-05-2024 Subsequent hospital visit by physician [facility] [place] Work Phone: Radiology Comment on above: Acute pain of left k nee [M25.562] Start: 02-05-2024 End: 02-05-2024 Patient encounter procedure Levi Mackenzie MD Work Phone: [facility] Comment on above: Acute pain of left k nee (Primary Dx) Start: 02-03-2024 End: 02-03-2024 [facility] Work [facility]: [facility] Comment on above: Spirometry Start: 02-03-2024 End: 02-03-2024 Patient encounter procedure Pulm [facility] Lab [facility] Work Phone: [facility] Comment on above: Mild persistent asth ma without complication (Primary Dx); SOB (shortness of breath); Allergic rhinitis, unspecified seasonality, unspecified trigger; LARRY (obstructive sleep apnea); Snoring Start: 01-22-2024 End: 01-22-2024 Patient encounter procedure Madai Morton OD Work Phone: Optometry Comment on above: Type 2 diabetes keren itus without retinopathy (HCC) (Primary Dx); Senile nuclear cataract, bilateral; Refractive amblyopia of left eye; Posterior corneal pigmentation of both eyes; Presbyopia; Regular astigmatism of both eyes; Hyperopia of both eyes; Allergic conjunctivitis, bilateral Start: 01-06-2024 End: 01-06-2024 ambulatory RICHIE JOHNSON [facility] Start: 12-31-2023 End: 12-31-2023 Patient encounter procedure Twin Barrera MD Work Phone: [facility] [place] Comment on above: Left medial knee calderon n (Primary Dx); Knee ligamentous laxity, left; Dysuria Start: 12-02-2023 Orders Only Elli squires MD Work Phone: Pulmonary Medicine Comment on above: SOB (shortness of br eath) (Primary Dx) Start: 11-28-2023 Chart abstracting Twin colón MD Work Phone: [facility] [place] Comment on above: ER Discharge Summary (Imaging/) Start: 11-28-2023 End: 11-28-2023 Patient encounter procedure Twin Barrera MD Work Phone: [facility] [place] Comment on above: Acute non-recurrent maxillary sinusitis (Primary Dx); Acute cough; SOB (shortness of breath); Exposure to cigarette smoke Start: 11-27-2023 End: 11-27-2023 Emergency department patient visit [facility]gency Department Work Phone: Start: 11-27-2023 Telephone encounter Kerri toledo APRN.LABOR STANDARDS DIRECTOR Work Phone: [facility] Comment on above: Patient Update Start: 09-29-2023 Telephone encounter Kerri toledo APRN.LABOR STANDARDS DIRECTOR Work Phone: [facility] Comment on above: Results Start: 09-25-2023 End: 09-25-2023 Patient encounter procedure Kerri March APRN.LABOR STANDARDS DIRECTOR Work Phone: [facility] Comment on above: Encounter for immuni zation (Primary Dx); Type 2 diabetes mellitus without complication, without long-term current use of insulin (HCC); Mixed hyperlipidemia; Gastroesophageal reflux disease without esophagitis; Essential hypertension; Moderate episode of recurrent major depressive disorder (HCC); Migraine without aura and without status migrainosus, not intractable; Generalized anxiety disorder; Fatty liver; Non morbid obesity due to excess calories; Female stress incontinence; Irritable bowel syndrome with both constipation and diarrhea; Acute pain of right knee Start: 09-25-2023 End: 09-25-2023 Subsequent hospital visit by physician Xr [facility] Work Phone: Radiology Comment on above: Acute pain of right knee [M25.561] Start: 09-22-2023 Refill Twin gary MD Work Phone: [facility] Comment on above: Refill Request Start: 09-15-2023 ambulatory Koki Chan RN [facility] Comment on above: ACJarett ALBERTS RN ( Medication Adherence review completed per request of payer) Start: 08-07-2023 End: 08-07-2023 Office outpatient visit 15 minutes Twin Gillespie APRN.LABOR STANDARDS DIRECTOR Work Phone: [facility] Comment on above: ETD (Eustachian tube dysfunction), bilateral (Primary Dx); URI, acute Start: 08-05-2023 End: 08-05-2023 Patient encounter procedure Leo Barreto MD Work Phone: General Surgery Comment on above: Nausea (Primary Dx); Irritable bowel syndrome with both constipation and diarrhea Start: 06-19-2023 ambulatory Twin gary MD Work Phone: [facility] [employer] Comment on above: Allied Health Visit (Medication Adherence Outreach) Start: 04-09-2023 Telephone encounter Evonne elkins PA-C Work Phone: [facility] [place] Comment on above: Results Start: 04-07-2023 End: 04-07-2023 Patient encounter procedure Twin Barrera MD Work Phone: [facility] [place] Comment on above: Essential hypertensi on (Primary Dx); Chronic pain of both knees; Tail bone pain Start: 04-07-2023 End: 04-07-2023 Subsequent hospital visit by physician [facility] [place] Work Phone: Radiology Comment on above: Tail bone pain [M53. 3] Start: 03-31-2023 End: 03-31-2023 Patient encounter procedure Twin Barrera MD Work Phone: [facility] [place] Comment on above: Patient left without being seen (Primary Dx) Start: 03-27-2023 Telephone encounter Evonne elkins PA-C Work Phone: [facility] [place] Comment on above: Results Start: 03-26-2023 End: 03-26-2023 Subsequent hospital visit by physician [facility] [place] Work Phone: Radiology Comment on above: Chronic pain of left knee [M25.562, G89.29] Start: 03-25-2023 End: 03-25-2023 Patient encounter procedure Evonne Reyes PA-C Work Phone: [facility] [place] Comment on above: Medicare annual well ness visit, subsequent (Primary Dx); Mixed hyperlipidemia; Generalized anxiety disorder; Moderate episode of recurrent major depressive disorder (HCC); Essential hypertension; Type 2 diabetes mellitus without complication, without long-term current use of insulin (HCC); Migraine without aura and without status migrainosus, not intractable; Gastroesophageal reflux disease without esophagitis; Fatty liver; Encounter for screening mammogram for breast cancer; Chronic pain of left knee Start: 03-19-2023 Telephone encounter Leo kent MD Work Phone: General Surgery Comment on above: Appointment Start: 03-03-2023 End: 03-03-2023 ambulatory LEO BARRETO Facility:[facility] Start: 02-25-2023 Telephone encounter Leo kent MD Work Phone: Pre Anesthesia Comment on above: Preparations For Lenora maryann Start: 02-18-2023 End: 02-18-2023 Patient encounter procedure Leo Barreto MD Work Phone: General Surgery Comment on above: Biliary dyskinesia ( Primary Dx); Generalized abdominal pain Start: 02-08-2023 Telephone encounter Chata Lai APRN.CNP Work Phone: Family [facility] [place] Comment on above: Results Start: 02-06-2023 End: 02-06-2023 Subsequent hospital visit by physician [facility] (I-Stat) Work Phone: Cat Scan Comment on above: RUQ pain [R10.11] Start: 02-05-2023 Telephone encounter Twin Barrera MD Work Phone: [facility] Comment on above: Diarrhea Start: 01-14-2023 E-mail encounter fro m caregiver Celina Solis MD Work Phone: [facility] [place] Start: 01-14-2023 End: 01-14-2023 Patient encounter procedure Celina Solis MD Work Phone: Pre Anesthesia Comment on above: PACC APPOINTMENT Abnormal biliary HID A scan (Primary Dx); Epigastric abdominal pain Start: 01-14-2023 Telephone encounter Celina Wilhelm MD Work Phone: General Surgery Comment on above: 01/30/2023 LAP KESHAV CONTRERAS ; 03/03/2023 lap keshav contreras Start: 01-10-2023 Telephone encounter Monisha aden PA-C Work Phone: General Surgery Comment on above: Results Start: 12-24-2022 End: 12-24-2022 Patient encounter procedure Monisha Contreras PA-C Work Phone: General Surgery Comment on above: Pain of upper abdome n (Primary Dx); Nausea Start: 12-11-2022 End: 12-11-2022 Subsequent hospital visit by physician Celina Solis MD Work Phone: Ambulatory Surgery Comment on above: Epigastric abdominal pain [R10.13] Start: 12-10-2022 Telephone encounter Paul medina APRN.LABOR STANDARDS DIRECTOR Work Phone: [facility] Comment on above: Medication Problem Start: 12-08-2022 End: 12-08-2022 Patient encounter procedure Paul Alegria APRN.LABOR STANDARDS DIRECTOR Work Phone: [facility] Comment on above: URI, acute (Primary Dx); ETD (Eustachian tube dysfunction), bilateral Start: 11-15-2022 Telephone encounter Evonne elkins PA-C Work Phone: [facility] Comment on above: Results Start: 11-14-2022 Telephone encounter Celina Wilhelm MD Work Phone: General Surgery Comment on above: 12/11/2022 Egd asc'; Results Start: 11-14-2022 End: 11-14-2022 Patient encounter procedure Celina Solis MD Work Phone: General Surgery Comment on above: Generalized abdomina l pain; Epigastric abdominal pain Start: 11-14-2022 End: 11-14-2022 Subsequent hospital visit by physician [facility] Work Phone: Radiology Comment on above: Generalized abdomina l pain [R10.84] Start: 11-11-2022 Telephone encounter Kerri toledo APRN.LABOR STANDARDS DIRECTOR Work Phone: [facility] Comment on above: Results; Patient Upd ate Results Start: 11-08-2022 End: 11-08-2022 Subsequent hospital visit by physician [facility] Work Phone: Radiology Comment on above: Viral gastritis [K29 .70] Start: 11-08-2022 End: 11-08-2022 Patient encounter procedure Kerri March APRN.LABOR STANDARDS DIRECTOR Work Phone: [facility] [place] Comment on above: Viral gastritis (Lubna maxwell Dx); RUQ pain Start: 11-07-2022 Telephone encounter Twin Barrera MD Work Phone: [facility] Comment on above: Patient Update Start: 10-31-2022 End: 10-31-2022 Patient encounter procedure Evonne Reyes PA-C Work Phone: [facility] Comment on above: Essential hypertensi on (Primary Dx); Generalized abdominal pain Start: 10-24-2022 ambulatory Heidy Wang back grinderStudio 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 Management Comment on above: ALL ALBERTS RN ( Chart review for ED utilization completed at request of payer.) Start: 10-03-2022 End: 10-03-2022 Nursing evaluation of patient and report Mi Nurse Work Phone: [facility] Comment on above: Essential hypertensi on (Primary Dx) Start: 09-05-2022 Telephone encounter Eovnne elkins PA-C Work Phone: [facility] [place] Comment on above: Results Start: 09-03-2022 End: 09-03-2022 Patient encounter procedure Evonne Reyes PA-C Work Phone: [facility] [place] Comment on above: Essential hypertensi on (Primary Dx); Mixed hyperlipidemia; Type 2 diabetes mellitus without complication, without long-term current use of insulin (HCC); Gastroesophageal reflux disease without esophagitis; Moderate episode of recurrent major depressive disorder (HCC); Generalized anxiety disorder; Skin lesion Start: 08-28-2022 End: 08-28-2022 Patient encounter procedure Twin Gillespie APRN.LABOR STANDARDS DIRECTOR Work Phone: [facility] Comment on above: TMJ dysfunction (Lubna maxwell Dx) Start: 08-07-2022 End: 08-07-2022 Subsequent hospital visit by physician Celina Solis MD Work Phone: Ambulatory Surgery Comment on above: Colon cancer screeni ng [Z12.11] Start: 08-05-2022 Telephone encounter Twin Barrera MD Work Phone: [facility] [place] Comment on above: Results Start: 08-02-2022 End: 08-02-2022 Subsequent hospital visit by physician [facility] [place] [facility] Work Phone: Radiology Comment on above: Left wrist pain [M25 .532] Start: 08-02-2022 End: 08-02-2022 Patient encounter procedure Twin Barrera MD Work Phone: [facility] Comment on above: Acute otitis externa of left ear, unspecified type (Primary Dx); Foot pain, right; Left wrist pain; Encounter for immunization Start: 07-25-2022 Orders Only Celina luna MD Work Phone: LD PROVIDER ADULT Start: 07-18-2022 End: 07-18-2022 [facility] Start: 07-18-2022 End: 07-18-2022 Patient encounter procedure Twin Barrera MD Work Phone: [facility] Comment on above: RLQ abdominal pain ( Primary Dx); Diverticulosis Start: 07-17-2022 Telephone encounter Twin Barrera MD Work Phone: [facility] Comment on above: Diverticulitis Start: 06-25-2022 End: 06-25-2022 Patient encounter procedure Paul Alegria APRN.LABOR STANDARDS DIRECTOR Work Phone: [facility] Comment on above: Irritation of hoister al ear canal, left (Primary Dx) Start: 06-19-2022 End: 06-19-2022 Patient encounter procedure Torrie Chapman APRN.LABOR STANDARDS DIRECTOR Work Phone: [facility] Comment on above: Generalized abdomina l pain (Primary Dx); Diarrhea, unspecified type; Hemorrhoids, unspecified hemorrhoid type; Rectal bleeding; Impacted cerumen of left ear Start: 06-12-2022 Telephone encounter Evonne elkins PA-C Work Phone: [facility] Comment on above: Results Start: 06-12-2022 End: 06-12-2022 Subsequent hospital visit by physician [facility] Comment on above: Breast pain, right [ N64.4] Start: 06-10-2022 Telephone encounter Twin Barrera MD Work Phone: [facility] [place] Comment on above: Results; colonoscopy clearance Start: 06-07-2022 ambulatory TWIN ABRRERA Facilshelly ty:[facility] Start: 06-07-2022 ambulatory TWIN Josue ty:[facility] Start: 06-07-2022 End: 06-07-2022 Subsequent hospital visit by physician [facility] Work Phone: Molecular Imaging Comment on above: Atypical chest pain [R07.89] Start: 06-06-2022 Telephone encounter Alexandrea England RN Cardiology Lab Comment on above: Reminder Call Start: 06-05-2022 Telephone encounter Twin Barrera MD Work Phone: Mammogram Comment on above: Orders Start: 05-29-2022 End: 05-29-2022 Patient encounter procedure Celina Solis MD Work Phone: General Surgery Comment on above: Family history of co lorne cancer in father (Primary Dx); Colon cancer screening Start: 05-06-2022 Telephone encounter Twin Barrera MD Work Phone: [facility] [place] Comment on above: Patient Update Start: 04-29-2022 Telephone encounter Twin Barrera MD Work Phone: [facility] [place] Comment on above: Patient Update; Resu lts Start: 04-25-2022 Chart abstracting Evonne hamilton PA-C Work Phone: [facility] [place] Comment on above: ER Summary Start: 04-25-2022 Telephone encounter Twin Barrera MD Work Phone: [facility] [place] Comment on above: Order for glucometer Start: 04-24-2022 End: 04-24-2022 Emergency department patient visit [facility] Start: 04-23-2022 Telephone encounter Evonne elkins PA-C Work Phone: [facility] [place] Comment on above: Patient Question Start: 04-17-2022 ambulatory Twin gary MD Work Phone: Internal Medicine [place] Start: 04-11-2022 ambulatory Twin gary MD Work Phone: [facility] Start: 04-11-2022 Follow-up encounter Twin Barrera MD Work Phone: [facility] Comment on above: ED Follow-up Start: 04-11-2022 Telephone encounter Twin Barrera MD Work Phone: [facility] Comment on above: ED Follow-up Start: 04-11-2022 End: 04-11-2022 Patient encounter procedure Evonne Reyes PA-C Work Phone: [facility] Comment on above: Diverticulitis (Prim andra Dx); Nausea Start: 04-08-2022 End: 04-08-2022 [facility] Start: 04-05-2022 ambulatory Twin gary MD Work Phone: [facility] Comment on above: Diarrhea Start: 02-05-2022 Telephone encounter Twin Barrera MD Work Phone: [facility] Comment on above: Results Start: 02-04-2022 Patient encounter procedure Twin Barrera MD Work Phone: [facility] Work Phone: Start: 01-22-2022 End: 01-22-2022 [facility] Start: 01-22-2022 End: 01-22-2022 Patient encounter procedure Jeremías Christine MD Work Phone: [facility] Comment on above: Facial swelling (Lubna maxwell Dx); Type 2 diabetes mellitus without complication, without long-term current use of insulin (HCC); Malaise Start: 05-27-2016 Patient encounter status Rm Christine MD Work Phone: [facility] Work Phone: Procedures Date Procedure Procedure Detail Performing Clinician Start: 04-19-2025 Ct angiography chest w/contrast/noncontrast Kerri March APRN.CNP Work Phone: Start: 04-15-[address] Regino Barrera MD Work Phone: Start: 04-15-2025 X-ray of chest, PA and lateral views Dr. Twin Barrera MD Work Phone: Start: 03-15-2025 Radiologic examination tibia & fibula 2 views Twin Barrera MD Work Phone: Start: 01-27-[address] Wes Barrera MD Work Phone: Start: 01-27-2025 End: 01-27-[address]ardia [address] antigen assay Dr[address] Adina Barrera MD Work Phone: Start: 01-27-[address] Twin Barrera MD Work Phone: Start: 01-27-2025 Ova OR parasites identification Dr. Wes Barrera MD Work Phone: Start: 01-27-2025 Ova&parasites direct smears concentration & id Dr. Twin Barrera MD Work Phone: Start: 01-21-[address] empt[address] study Dr[address] Twin Barrera MD Work Phone: Start: 02-05-2024 Radiologic exam knee complete 4/more views Levi Mackenzie MD Work Phone: Start: 02-03-2024 Brncdilat rspse spmtry pre&post-brncdilat admn Elli Swift MD Work Phone: Start: 01-22-2024 Computerized ophthalmic imaging retina Madai Morton OD Work Phone: Start: 11-27-2023 Plain chest X-ray Start: 11-27-2023 SARS-CoV-2, Influenza & RSV (PCR) Start: 09-25-2023 Radiologic exam knee complete 4/more views Kerri March APRN.CNP Work Phone: Start: 09-25-2023 INFLUENZA VACCINE, AGE 6 MO - 64 YR, QUADRIVALENT (AFLURIA, FLULAVAL, FLUZONE) Kerri March APRN.LABOR STANDARDS DIRECTOR Work Phone: Start: 04-07-2023 Radex sacrum & coccyx minimum 2 views Twin Barrera MD Work Phone: Start: 03-26-2023 Radiologic exam knee complete 4/more views Evonne Reyes PA-C Work Phone: Start: 02-06-2023 Ct abdomen & pelvis w/contrast material Jessica Lal INSPECTOR CASING.LABOR STANDARDS DIRECTOR Work Phone: Start: 12-11-2022 Level iv surg pathology gross&microscopic exam Celina Solis MD Work Phone: Start: 12-11-2022 Esophagogastroduodenoscopy transoral diagnostic Celina Solis MD Work Phone: Start: 12-11-2022 Gluc bld gluc mntr dev cleared fda spec home use Celina Solis MD Work Phone: Start: 11-14-2022 End: 11-14-2022 Us abdominal real time w/image limited Evonne Reyes PA-C Work Phone: Start: 11-08-2022 Radiologic exam abdomen 1 view Kerri March APRN.LABOR STANDARDS DIRECTOR Work Phone: Start: 08-07-2022 Colonoscopy flx dx w/collj spec when pfrmd Celina Solis MD Work Phone: Start: 08-07-2022 Colonoscopy Celina Solis MD Work Phone: Start: 08-02-2022 INFLUENZA VACCINE QUADRIVALENT 6 MO - 64 YRS IM Twin Barrera MD Work Phone: Start: 07-18-2022 Computed tomography of abdomen and pelvis with contrast Start: 06-12-2022 End: 06-12-2022 Digital breast tomosynthesis bilateral Twin Barrera MD Work Phone: Start: 06-07-2022 Non-HEU TC-99M add-on/dose Twin kennedy MD Work Phone: Start: 04-24-2022 CT of abdomen and pelvis without contrast Start: 04-08-2022 Computed tomography of abdomen and pelvis with intravenous contrast Start: 07-14-2019 Mammography Jeremías Christine MD Work Phone: Start: 05-19-2012 Colonoscopy Jeremías Christine MD Work Phone: Plan of Treatment Date Care Activity Detail Author Start: 2039 RSV Vaccine (1 - 1-dose 75+ series) RSV Vaccine (1 - 1-dose 75+ series) [facility] Start: 08-07-2032 Colonoscopy COLONOSCOPY [facility] Start: 08-07-2032 COLORECTAL CANCER SCREENING COLORECTAL CANCER SCREENING [facility] Start: 08-07-2032 Screening for malignant neoplasm of colon [facility] Start: 05-18-2032 Urine microalbumin profile [facility] Start: 2029 PNEUMOCOCCAL (3 - PPSV23 if available, else PCV20) PNEUMOCOCCAL (3 - PPSV23 if available, else PCV20) [facility] Start: 2029 PNEUMOCOCCAL (3 - PPSV23 or PCV20) PNEUMOCOCCAL (3 - PPSV23 or PCV20) [facility] Start: 2029 Pneumococcal vaccination [facility] Start: 06-08-2029 Urine microalbumin profile DTAP,TDAP,TD (3 - Td or Tdap) [facility] Start: 08-07-2027 Colonoscopy COLONOSCOPY [facility] Start: 08-07-2027 COLORECTAL CANCER SCREENING COLORECTAL CANCER SCREENING [facility] Start: 06-14-2026 Annual PCP Team Chronic Disease Visit Annual PCP Team Chronic Disease Visit [facility] Start: 05-10-2026 End: 05-10-2026 Patient encounter procedure 05/10/2026 1:00 PM EDT Office Visit [facility] [address] [place] [address] Madai Morton II, OD [address] [place] [address] Eye Exam - Diabetic [employer] / [place] Medicaid [facility] Comment on above: Eye Exam - Di[place] [employer] [place] Start: 05-05-2026 Annual PCP Team Chronic Disease Visit Annual PCP Team Chronic Disease Visit [facility] Start: 05-05-2026 Diabetic foot examination Diabetic Foot Exam [facility] Start: 05-04-2026 Glaucoma screening Dilated Retinal Exam [facility] Start: 05-02-2026 Hepatitis B screening Urine Albumin:Creatinine Ratio [facility] Start: 05-02-2026 Hepatitis B surface antibody level LDL Cholesterol [facility] Start: 04-19-2026 Annual PCP Team Chronic Disease Visit Annual PCP Team Chronic Disease Visit [facility] Start: 03-15-2026 Annual PCP Team Chronic Disease Visit Annual PCP Team Chronic Disease Visit [facility] Start: 03-03-2026 Screening for malignant neoplasm of breast Mammogram Screening [facility] Start: 11-07-2025 End: 11-07-2025 Patient encounter procedure 11/07/2025 12:00 PM EST Office Visit Family [facility] [address] [place], [place] [phone] Kerri March APRN.[facility] [address] [place] [address] 6 mo f/u [facility] Comment on above: 6 mo f/u Start: 11-03-2025 Annual PCP Team Chronic Disease Visit Annual PCP Team Chronic Disease Visit [facility] Start: 11-03-2025 Hepatitis B screening Urine Albumin:Creatinine Ratio [facility] Start: 11-03-2025 Hepatitis B surface antibody level LDL Cholesterol [facility] Start: 11-03-2025 Shingrix Vaccine (1 of 2) Shingrix Vaccine (1 of 2) [facility] Comment on above: Postponed from 2014 (Insurance Cov erage) Start: 11-02-2025 Hemoglobin A1c measurement HbA1C [facility] Start: 10-21-2025 End: 01-20-2026 Hemoglobin A1c in Blood HEMOGLOBIN A1C Lab Routine 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) Type 2 diabetes mellitus without complication, without long-term current use of insulin (HCC) Expected: 10/21/2025, Expires: 01/20/2026 [facility] Comment on above: Expected: 10/21/2025, Expires: Start: 08-05-2025 Annual PCP Team Chronic Disease Visit Annual PCP Team Chronic Disease Visit [facility] Start: 08-05-2025 BP Controlled (<130/80) BP Controlled (<130/80) [facility] Start: 08-01-2025 End: 08-01-2025 Patient encounter procedure 08/01/2025 10:40 AM EDT Office Visit [facility] [address] [place], [place] [id number] Kerri March APRN.LABOR STANDARDS DIRECTOR [address] [place], [place] [phone] depression follow up [facility] Comment on above: depression follow up Start: 07-12-2025 End: 07-12-2025 Patient encounter procedure 07/12/2025 1:20 PM EDT Office Visit Urology [address] [phone] Ana Ross APRN.LABOR STANDARDS DIRECTOR [address] [place], [place] [id number] Urge incontinence Urology Comment on above: Urge incontinence Start: 06-30-2025 Annual PCP Team Chronic Disease Visit Annual PCP Team Chronic Disease Visit [facility] Start: 06-30-2025 BP Controlled (<130/80) BP Controlled (<130/80) [facility] Start: 06-21-2025 End: 06-21-2025 Patient encounter procedure 06/21/2025 2:00 PM EDT Office Visit Neurology [address] [place] [address] [facility] Comment on above: Hsat Start: 06-20-2025 Influenza vaccination Influenza Vaccine (#1) [facility] Start: 06-06-2025 End: 06-06-2025 Patient encounter procedure 06/06/2025 1:50 PM EDT Office Visit Cardiology [address] [place], [place] [id number] Dx: Chest pain, unspecified type [R07.9]; SOB (shortness of breath) [R06.02] Cardiology Comment on above: Dx: Chest pain, unspecified type [R07.9] ; SOB (shortness of breath) [R06.02] Start: 06-01-2025 Annual PCP Team Chronic Disease Visit Annual PCP Team Chronic Disease Visit [facility] Start: 06-01-2025 BP Controlled (<130/80) BP Controlled (<130/80) [facility] Start: 06-01-2025 End: 06-01-2025 Patient encounter procedure 06/01/2025 1:20 PM EDT Office Visit Family [facility] [place] [address] [place], [place] [phone] Evonne Reyes PA-C [address] [place] [address] 4 wk f/u HTN/TRINIDAD Family [facility] Comment on above: 4 wk f/u HTN/TRINIDAD Start: 05-30-2025 End: 05-30-2025 Patient encounter procedure 05/30/2025 1:50 PM EDT Office Visit Cardiology [address] [place], [place] [id number] Dx: Chest pain, unspecified type [R07.9]; SOB (shortness of breath) [R06.02] Cardiology Comment on above: Dx: Chest pain, unspecified type [R07.9] ; SOB (shortness of breath) [R06.02] Start: 05-19-2025 End: 05-19-2025 Patient encounter procedure Neurology Comment on above: Essential hypertension [I10]; Obesity, C lass I, BMI 30-34.9 [E66.811]; Hypersomnolence [G47.10]; Snores [R06.83] LVM to confirm addre ss 05-18-25 Start: 05-09-2025 End: 05-09-2025 ambulatory 05/09/2025 12:30 PM EDT Procedure PULM LAB [facility] [address] [place] [address] Wstr, Pulm Lab [facility] [address] [place] [address] SOB (shortness of breath) [R06.02] [facility] Comment on above: SOB (shortness of breath) [R06.02] Start: 05-05-2025 End: 08-04-2025 Hepatic function 2000 panel - Serum or Plasma HEPATIC FUNCTION PNL Lab Routine 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) Type 2 diabetes mellitus without complication, without long-term current use of insulin (HCC) Essential hypertension Mixed hyperlipidemia Expected: 05/05/2025, Expires: 08/04/2025 [facility] Comment on above: Expected: 05/05/2025, Expires: Start: 05-05-2025 End: 08-04-2025 LIPID PANEL, NONFASTING LIPID PANEL, NONFASTING Lab Routine 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) Type 2 diabetes mellitus without complication, without long-term current use of insulin (HCC) Essential hypertension Mixed hyperlipidemia Expected: 05/05/2025, Expires: 08/04/2025 [facility] Comment on above: Expected: 05/05/2025, Expires: Start: 05-05-2025 End: 05-05-2025 Patient encounter procedure [facility] [place] Comment on above: Physical Start: 05-03-2025 Hemoglobin A1c measurement HbA1C [facility] Start: 04-29-2025 Annual PCP Team Chronic Disease Visit Annual PCP Team Chronic Disease Visit [facility] Start: 04-29-2025 Diabetic foot examination Diabetic Foot Exam [facility] Start: 04-21-2025 Annual PCP Team Chronic Disease Visit Annual PCP Team Chronic Disease Visit [facility] Start: 04-21-2025 Hepatitis B screening Urine Albumin:Creatinine Ratio [facility] Start: 04-21-2025 Hepatitis B surface antibody level LDL Cholesterol [facility] Start: 04-19-2025 End: 04-19-2025 Patient encounter procedure 04/19/2025 10:40 AM EDT Office Visit [facility] [address] [place] [address] Kerri aMrch APRN.LABOR STANDARDS DIRECTOR [address] [place] [address] [facility] ER f/u, Pt left the ER during a cardiac workup. ER called to get her in with PCP. See TE 04/18/25. [facility] [place] Comment on above: [facility] ER f/u, Pt left the ER during a card iac workup. ER called to get her in with PCP. See TE 04/18/25. Start: 04-15-2025 [facility] Start: 04-15-2025 End: 04-15-2025 [facility] Start: 04-15-2025 End: 07-15-2025 CBC W Auto Differential panel - Blood COMPLETE BLOOD COUNT AND DIFFERENTIAL Lab Routine Type 2 diabetes mellitus without complication, without long-term current use of insulin (HCC) Expected: 04/15/2025, Expires: 07/15/2025 [facility] Comment on above: Expected: 04/15/2025, Expires: Start: 04-15-2025 End: 07-15-2025 Comprehensive metabolic 2000 panel - Serum or Plasma COMPREHENSIVE METABOLIC PANEL Lab Routine Essential hypertension Mixed hyperlipidemia Type 2 diabetes mellitus without complication, without long-term current use of insulin (HCC) Expected: 04/15/2025, Expires: 07/15/2025 [facility] Comment on above: Expected: 04/15/2025, Expires: Start: 04-15-2025 End: 07-15-2025 Hemoglobin A1c in Blood HEMOGLOBIN A1C Lab Routine Type 2 diabetes mellitus without complication, without long-term current use of insulin (HCC) Expected: 04/15/2025, Expires: 07/15/2025 [facility] Comment on above: Expected: 04/15/2025, Expires: Start: 04-15-2025 End: 07-15-2025 LIPID PANEL, NONFASTING LIPID PANEL, NONFASTING Lab Routine Essential hypertension Mixed hyperlipidemia Type 2 diabetes mellitus without complication, without long-term current use of insulin (HCC) Expected: 04/15/2025, Expires: 07/15/2025 [facility] Comment on above: Expected: 04/15/2025, Expires: Start: 04-15-2025 End: 07-15-2025 Microalbumin/Creatinine [Mass Ratio] in Urine ALBUMIN/CREATININE RATIO, URINE Lab Routine Type 2 diabetes mellitus without complication, without long-term current use of insulin (HCC) Expected: 04/15/2025, Expires: 07/15/2025 [facility] Work Phone: Comment on above: Expected: 04/15/2025, Expires: Start: 04-15-2025 End: 07-15-2025 Urinalysis complete panel - Urine URINALYSIS, WITH MICROSCOPIC Lab Routine Essential hypertension Mixed hyperlipidemia Type 2 diabetes mellitus without complication, without long-term current use of insulin (HCC) Expected: 04/15/2025, Expires: 07/15/2025 [facility] Comment on above: Expected: 04/15/2025, Expires: Start: 02-25-2025 Annual PCP Team Chronic Disease Visit Annual PCP Team Chronic Disease Visit [facility] Start: 02-25-2025 End: 02-25-2025 Patient encounter procedure 02/25/2025 10:50 AM EDT Appointment [facility]amm[facility] [address] [facility] [place] [address] BULL SCREENING W JESSICA Mammogram Comment on above: BULL SCREENING W JESSICA Start: 01-27-2025 Giardia Antigen (LEILA) Giardia Antigen (LEILA) [facility] Start: 01-27-2025 Ova and Parasites Ova and Parasites [facility] Start: 01-27-2025 [facility] Start: 01-21-2025 Glaucoma screening Dilated Retinal Exam [facility] Start: 12-30-2024 Annual PCP Team Chronic Disease Visit Annual PCP Team Chronic Disease Visit [facility] Start: 12-21-2024 Egd transoral biopsy single/multiple EGD BIOPSY SINGLE/MULTIPLE [facility] Start: 12-21-2024 Patient discharge [facility] Start: 11-28-2024 Annual PCP Team Chronic Disease Visit Annual PCP Team Chronic Disease Visit [facility] Start: 11-03-2024 End: 11-03-2024 Patient encounter procedure 11/03/2024 2:20 PM EST Office Visit [facility] [place] [address] [place] [address] Twin Barrera MD [address] [facility] [place] [address] 6 month f/u [facility] [place] Comment on above: 6 month f/u Start: 11-03-2024 End: 02-02-2025 Thyrotropin [Units/volume] in Serum or Plasma THYROID STIMULATING HORMONE Lab Routine Hair loss Expected: 11/03/2024, Expires: 02/02/2025 [facility] Comment on above: Expected: 11/03/2024, Expires: Start: 10-30-2024 End: 01-29-2025 CBC W Auto Differential panel - Blood COMPLETE BLOOD COUNT AND DIFFERENTIAL Lab Routine Type 2 diabetes mellitus without complication, without long-term current use of insulin (HCC) Expected: 10/30/2024, Expires: 01/29/2025 [facility] Comment on above: Expected: 10/30/2024, Expires: Start: 10-30-2024 End: 01-29-2025 Comprehensive metabolic 2000 panel - Serum or Plasma COMPREHENSIVE METABOLIC PANEL Lab Routine Type 2 diabetes mellitus without complication, without long-term current use of insulin (HCC) Expected: 10/30/2024, Expires: 01/29/2025 [facility] Comment on above: Expected: 10/30/2024, Expires: Start: 10-30-2024 End: 01-29-2025 Hemoglobin A1c in Blood HEMOGLOBIN A1C Lab Routine Type 2 diabetes mellitus without complication, without long-term current use of insulin (HCC) Expected: 10/30/2024, Expires: 01/29/2025 [facility] Comment on above: Expected: 10/30/2024, Expires: Start: 10-30-2024 End: 01-29-2025 LIPID PANEL, NONFASTING LIPID PANEL, NONFASTING Lab Routine Mixed hyperlipidemia Expected: 10/30/2024, Expires: 01/29/2025 [facility] Comment on above: Expected: 10/30/2024, Expires: Start: 10-30-2024 End: 01-29-2025 Microalbumin/Creatinine [Mass Ratio] in Urine ALBUMIN/CREATININE RATIO, URINE Lab Routine Type 2 diabetes mellitus without complication, without long-term current use of insulin (HCC) Expected: 10/30/2024, Expires: 01/29/2025 [facility] Comment on above: Expected: 10/30/2024, Expires: Start: 10-30-2024 End: 01-29-2025 Urinalysis complete panel - Urine URINALYSIS, WITH MICROSCOPIC Lab Routine Type 2 diabetes mellitus without complication, without long-term current use of insulin (HCC) Expected: 10/30/2024, Expires: 01/29/2025 [facility] Comment on above: Expected: 10/30/2024, Expires: Start: 10-22-2024 Hemoglobin A1c measurement HbA1C [facility] Start: 10-20-2024 Medicare Advantage Annual Wellness Visit Medicare Advantage Annual Wellness Visit [facility] Start: 09-25-2024 Annual PCP Team Chronic Disease Visit Annual PCP Team Chronic Disease Visit [facility] Start: 09-25-2024 Hepatitis B surface antibody level LDL Cholesterol [facility] Start: 07-13-2024 End: 07-13-2024 Patient encounter procedure 07/13/2024 11:20 AM EDT Office Visit Cardiology [address] [place], [place] [id number] SOB (shortness of breath) [R06.02] Cardiology Comment on above: SOB (shortness of breath) [R06.02] Start: 06-30-2024 End: 06-30-2024 Patient encounter procedure 06/30/2024 1:40 PM EDT Office Visit [facility] [place] [address] [place] [address] Evonne Reyes PA-C [address] [facility] [place] [address] 4 week recheck depression and bp [facility] [place] Comment on above: 4 week recheck depression and bp Start: 06-25-2024 Glaucoma screening Dilated Retinal Exam [facility] Start: 06-25-2024 Hepatitis C antibody, confirmatory test Dilated Retinal Exam [facility] Start: 06-20-2024 Covid-19 Vaccine () Covid-19 Vaccine () [facility] Start: 06-20-2024 Covid-19 Vaccine () Covid-19 Vaccine () [facility] Start: 06-20-2024 Influenza vaccination Influ[facility] Vaccine (#[facility]) [facility] Start: 06-11-2024 End: 06-11-2024 OT/PT/Speech Visit 06/11/2024 2:15 PM EDT OT/PT/Speech Visit [facility] [address] [place] [address] Jadon Light, PT [address] [place] [address] Dx: Cervicalgia [M54.2 (ICD-10-CM)]; Rotator cuff disorder, right [M67.911 (ICD-10-CM)] [facility] Comment on above: Dx: Cervicalgia [M54.2 (ICD-10-CM)]; Rot ator cuff disorder, right [M67.911 (ICD-10-CM)] Start: 06-04-2024 End: 06-04-2024 OT/PT/Speech Visit 06/04/2024 1:15 PM EDT OT/PT/Speech Visit [facility] [address] [address] Odalis Cordova, [employer] PARAP[employer]OFESSIONAL [address] [place] [address] Dx: Cervicalgia [M54.2 (ICD-10-CM)]; Rotator cuff disorder, right [M67.911 (ICD-10-CM)] [facility] Comment on above: Dx: Cervicalgia [M54.2 (ICD-10-CM)]; Rot ator cuff disorder, right [M67.911 (ICD-10-CM)] Start: 05-28-2024 End: 05-28-2024 OT/PT/Speech Visit 05/28/2024 1:15 PM EDT OT/PT/Speech Visit [facility] [address] [place] [address] Odalis Cordova, [employer] PAR[employer]ESSION[employer] [address] [place] [address] Dx: Cervicalgia [M54.2 (ICD-10-CM)]; Rotator cuff disorder, right [M67.911 (ICD-10-CM)] [facility] Comment on above: Dx: Cervicalgia [M54.2 (ICD-10-CM)]; Rot ator cuff disorder, right [M67.911 (ICD-10-CM)] Start: 05-28-2024 End: 05-28-2024 Patient encounter procedure 05/28/2024 11:40 AM EDT Office Visit [facility] [address] [place], [place] [id number] Evonne Reyes PA-C [address] [place], [place] [phone] bp recheck [facility] Comment on above: bp recheck Start: 05-21-2024 End: 05-21-2024 OT/PT/Speech Visit 05/21/2024 11:00 AM EDT OT/PT/Speech Visit [facility] [address] [place], [place] [phone] Odalis Cordova, [employer] [address] [place], [place] [phone] Dx: Cervicalgia [M54.2 (ICD-10-CM)]; Rotator cuff disorder, right [M67.911 (ICD-10-CM)] [facility] Comment on above: Dx: Cervicalgia [M54.2 (ICD-10-CM)]; Rot ator cuff disorder, right [M67.911 (ICD-10-CM)] Start: 05-19-2024 ANNUAL PCP TEAM CHRONIC DISEASE VISIT ANNUAL PCP TEAM CHRONIC DISEASE VISIT [facility] Start: 05-14-2024 End: 05-14-2024 OT/PT/Speech Visit 05/14/2024 3:00 PM EDT OT/PT/Speech Visit [facility] [address] [place], [place] [phone] Jadon Light, PT [address] [facility] [place], [place] [address] Dx: Cervicalgia [M54.2 (ICD-10-CM)]; Rotator cuff disorder, right [M67.911 (ICD-10-CM)] [facility] Comment on above: Dx: Cervicalgia [M54.2 (ICD-10-CM)]; Rot ator cuff disorder, right [M67.911 (ICD-10-CM)] Start: 05-10-2024 End: 08-09-2024 Urinalysis complete panel - Urine URINALYSIS, WITH MICROSCOPIC Lab Routine Microscopic hematuria Expected: 05/10/2024, Expires: 08/09/2024 [facility] Work Phone: Comment on above: Expected: 05/10/2024, Expires: 4 Start: 04-29-2024 End: 04-29-2024 Patient encounter procedure 04/29/2024 3:00 PM EDT Office Visit [facility] [place] [address] [place], [place] [phone] Evonne Reyes PA-C [address] [place], [place] [address] Medicare Wellness [facility] Comment on above: Medicare Wellness Start: 04-29-2024 End: 07-29-2024 Bacteria identified in Urine by Culture [facility] Work Phone: Comment on above: Expected: 04/29/2024, Expires: 4 Start: 04-26-2024 End: 04-26-2024 ambulatory 04/26/2024 10:00 AM EDT OT/PT/Speech Visit [facility] [address] [place] [address] Jadon Light, PT [address] [place], [place] [phone] evaluate and treat, modalities and dry needling as indicated [facility] Comment on above: evaluate and treat, modalities and dry n eedling as indicated Start: 04-21-2024 End: 07-21-2024 Comprehensive metabolic 2000 panel - Serum or Plasma [facility] Comment on above: Expected: 04/21/2024, Expires: 4 Start: 04-21-2024 End: 07-21-2024 Hemoglobin A1c in Blood [facility] Work Phone: Comment on above: Expected: 04/21/2024, Expires: Start: 04-21-2024 End: 07-21-2024 LIPID PANEL, NONFASTING [facility] Comment on above: Expected: 04/21/2024, Expires: Start: 04-21-2024 End: 07-21-2024 Microalbumin/Creatinine [Mass Ratio] in Urine [facility] Comment on above: Expected: 04/21/2024, Expires: Start: 04-21-2024 End: 07-21-2024 Urinalysis complete panel - Urine [facility] Comment on above: Expected: 04/21/2024, Expires: Start: 04-07-2024 ANNUAL PCP TEAM CHRONIC DISEASE VISIT ANNUAL PCP TEAM CHRONIC DISEASE VISIT [facility] Start: 04-07-2024 BP CONTROLLED (<130/80) BP CONTROLLED (<130/80) [facility] Start: 04-02-2024 End: 04-02-2024 Patient encounter procedure 04/02/2024 2:00 PM EDT Office Visit [facility] [place] [address] [place] [address] Jeremias Rosario, V, DO [address] [place] [address] consult - R shoulder pain [facility] [place] Comment on above: consult - R shoulder pain Start: 03-31-2024 ANNUAL PCP TEAM CHRONIC DISEASE VISIT ANNUAL PCP TEAM CHRONIC DISEASE VISIT [facility] Start: 03-26-2024 Hemoglobin A1c measurement HbA1C [facility] Start: 03-26-2024 Hepatitis B screening URINE ALBUMIN:CREATININE RATIO [facility] Start: 03-26-2024 Hepatitis B surface antibody level LDL CHOLESTEROL [facility] Start: 03-25-2024 3 comp foot exam completed DIABETIC FOOT EXAM [facility] Start: 03-25-2024 ANNUAL PCP TEAM CHRONIC DISEASE VISIT ANNUAL PCP TEAM CHRONIC DISEASE VISIT [facility] Start: 03-25-2024 Diabetic foot examination Diabetic Foot Exam [facility] Start: 03-16-2024 End: 03-16-2024 Follow-up encounter 03/16/2024 2:30 PM EDT [facility] [address] [address] Irena Salcedo APRN.[employer]OR STANDARDS DIRECTOR [address] [address] 6-8 wk follow up Pulmonary Medicine Comment on above: 6-8 wk follow up Start: 03-12-2024 End: 03-12-2024 Patient encounter procedure 03/12/2024 2:30 PM EDT Office Visit [facility] [place] [address] [place] [address] Jeremias Rosario V, DO [address] [place] [address] consult - R shoulder pain [facility] [place] Comment on above: consult - R shoulder pain Start: 02-07-2024 ANNUAL PCP TEAM CHRONIC DISEASE VISIT ANNUAL PCP TEAM CHRONIC DISEASE VISIT [facility] Start: 02-07-2024 COVID-19 VACCINE (3 - Booster for Pfizer series) COVID-19 VACCINE (3 - Booster for Pfizer series) [facility] Comment on above: Postponed from 09/25/2021 (Declined at t his time) Start: 02-07-2024 COVID-19 VACCINE (3 - Pfizer series) COVID-19 VACCINE (3 - Pfizer series) [facility] Comment on above: Postponed from 09/25/2021 (Declined at t his time) Start: 02-07-2024 HEPATITIS B (1 of 3 - 3-dose series) HEPATITIS B (1 of 3 - 3-dose series) [facility] Comment on above: Postponed from 1964 (Declined at t his time) Start: 02-07-2024 Hepatitis B Vaccine (1 of 3 - 3-dose series) Hepatitis B Vaccine (1 of 3 - 3-dose series) [facility] Comment on above: Postponed from 1964 (Declined at t his time) Start: 02-07-2024 SHINGRIX VACCINE (1 of 2) SHINGRIX VACCINE (1 of 2) [facility] Comment on above: Postponed from 2014 (Declined at t his time) Start: 12-12-2023 ANNUAL PCP TEAM CHRONIC DISEASE VISIT ANNUAL PCP TEAM CHRONIC DISEASE VISIT [facility] Start: 12-12-2023 BP CONTROLLED (<130/80) BP CONTROLLED (<130/80) [facility] Start: 12-08-2023 BP CONTROLLED (<130/80) BP CONTROLLED (<130/80) [facility] Start: 11-27-2023 [facility] Start: 11-27-2023 [facility] Start: 11-14-2023 BP CONTROLLED (<130/80) BP CONTROLLED (<130/80) [facility] Start: 11-08-2023 ANNUAL PCP TEAM CHRONIC DISEASE VISIT ANNUAL PCP TEAM CHRONIC DISEASE VISIT [facility] Start: 11-08-2023 BP CONTROLLED (<130/80) BP CONTROLLED (<130/80) [facility] Start: 10-31-2023 ANNUAL PCP TEAM CHRONIC DISEASE VISIT ANNUAL PCP TEAM CHRONIC DISEASE VISIT [facility] Start: 09-25-2023 End: 12-25-2023 Comprehensive metabolic 2000 panel - Serum or Plasma [facility] Work Phone: Comment on above: Expected: 09/25/2023, Expires: 4 Start: 09-25-2023 End: 12-25-2023 Hemoglobin A1c in Blood [facility] Work Phone: Comment on above: Expected: 09/25/2023, Expires: 4 Start: 09-25-2023 Hemoglobin A1c/Hemoglobin.total in Blood HBA1C [facility] Start: 09-25-2023 End: 12-25-2023 LIPID PANEL, NONFASTING [facility] Work Phone: Comment on above: Expected: 09/25/2023, Expires: 4 Start: 09-04-2023 Hepatitis B surface antibody level LDL CHOLESTEROL [facility] Start: 09-03-2023 ANNUAL PCP TEAM CHRONIC DISEASE VISIT ANNUAL PCP TEAM CHRONIC DISEASE VISIT [facility] Start: 08-28-2023 BP CONTROLLED (<130/80) BP CONTROLLED (<130/80) [facility] Start: 08-02-2023 ANNUAL PCP TEAM CHRONIC DISEASE VISIT ANNUAL PCP TEAM CHRONIC DISEASE VISIT [facility] Start: 07-18-2023 ANNUAL PCP TEAM CHRONIC DISEASE VISIT ANNUAL PCP TEAM CHRONIC DISEASE VISIT [facility] Start: 06-20-2023 Covid-19 Vaccine ( season) Covid-19 Vaccine () [facility] Start: 06-20-2023 Influenza vaccination [facility] Start: 06-19-2023 ANNUAL PCP TEAM CHRONIC DISEASE VISIT ANNUAL PCP TEAM CHRONIC DISEASE VISIT [facility] Start: 06-12-2023 Mammography [facility] Start: 06-12-2023 Screening for malignant neoplasm of breast Mammogram Screening [facility] Start: 04-25-2023 ANNUAL PCP TEAM CHRONIC DISEASE VISIT ANNUAL PCP TEAM CHRONIC DISEASE VISIT [facility] Start: 04-11-2023 ANNUAL PCP TEAM CHRONIC DISEASE VISIT ANNUAL PCP TEAM CHRONIC DISEASE VISIT [facility] Start: 03-25-2023 End: 05-25-2023 ALBUMIN/CREAT RATIO RND UR ALBUMIN/CREAT RATIO RND UR Lab Routine Type 2 diabetes mellitus without complication, without long-term current use of insulin (HCC) Expected: 03/25/2023, Expires: 05/25/2023 [facility] Work Phone: Comment on above: Expected: 03/25/2023, Expires: 3 Start: 03-25-2023 End: 05-25-2023 CBC W Auto Differential panel - Blood CBC + DIFF Lab Routine Essential hypertension Type 2 diabetes mellitus without complication, without long-term current use of insulin (HCC) Expected: 03/25/2023, Expires: 05/25/2023 [facility] Work Phone: Comment on above: Expected: 03/25/2023, Expires: 3 Start: 03-25-2023 End: 05-25-2023 Comprehensive metabolic 2000 panel - Serum or Plasma COMP METABOLIC PANEL Lab Routine Essential hypertension Type 2 diabetes mellitus without complication, without long-term current use of insulin (HCC) Expected: 03/25/2023, Expires: 05/25/2023 [facility] Work Phone: Comment on above: Expected: 03/25/2023, Expires: 3 Start: 03-25-2023 End: 05-25-2023 Hemoglobin A1c in Blood HGB A1C Lab Routine Type 2 diabetes mellitus without complication, without long-term current use of insulin (HCC) Expected: 03/25/2023, Expires: 05/25/2023 [facility] Work Phone: Comment on above: Expected: 03/25/2023, Expires: 3 Start: 03-25-2023 End: 05-25-2023 LIPID PANEL, NONFASTING LIPID PANEL, NONFASTING Lab Routine Mixed hyperlipidemia Expected: 03/25/2023, Expires: 05/25/2023 [facility] Work Phone: Comment on above: Expected: 03/25/2023, Expires: 3 Start: 03-25-2023 End: 05-25-2023 Urinalysis complete panel - Urine URINALYSIS, WITH MICROSCOPIC Lab Routine Essential hypertension Type 2 diabetes mellitus without complication, without long-term current use of insulin (HCC) Expected: 03/25/2023, Expires: 05/25/2023 [facility] Work Phone: Comment on above: Expected: 03/25/2023, Expires: 3 Start: 03-04-2023 Hemoglobin A1c/Hemoglobin.total in Blood HBA1C [facility] Start: 02-25-2023 Pneumococcal Vaccine: 50+ (3 of 3 - PCV20 or PCV21) Pneumococcal Vaccine: 50+ (3 of 3 - PCV20 or PCV21) [facility] Start: 02-04-2023 3 comp foot exam completed DIABETIC FOOT EXAM [facility] Start: 02-04-2023 ANNUAL PCP TEAM CHRONIC DISEASE VISIT ANNUAL PCP TEAM CHRONIC DISEASE VISIT [facility] Start: 02-04-2023 BP CONTROLLED (<130/80) BP CONTROLLED (<130/80) [facility] Start: 02-04-2023 Hepatitis B screening URINE ALBUMIN:CREATININE RATIO [facility] Start: 02-04-2023 Hepatitis B surface antibody level LDL CHOLESTEROL [facility] Start: 02-04-2023 SHINGRIX VACCINE (1 of 2) SHINGRIX VACCINE (1 of 2) [facility] Comment on above: Postponed from 2014 (Insurance Cov erage) Start: 01-22-2023 ANNUAL PCP TEAM CHRONIC DISEASE VISIT ANNUAL PCP TEAM CHRONIC DISEASE VISIT [facility] Start: 12-03-2022 Hepatitis C antibody, confirmatory test DILATED RETINAL EXAM [facility] Start: 11-07-2022 End: 01-07-2023 Amylase [Enzymatic activity/volume] in Serum or Plasma AMYLASE BLD Lab Routine Generalized abdominal pain Expected: 11/07/2022, Expires: 01/07/2023 [facility] Work Phone: Comment on above: Expected: 11/07/2022, Expires: 3 Start: 11-07-2022 End: 01-07-2023 Comprehensive metabolic 2000 panel - Serum or Plasma COMP METABOLIC PANEL Lab Routine Generalized abdominal pain Expected: 11/07/2022, Expires: 01/07/2023 [facility] Work Phone: Comment on above: Expected: 11/07/2022, Expires: 3 Start: 11-07-2022 End: 01-07-2023 Lipase [Enzymatic activity/volume] in Serum or Plasma LIPASE BLD Lab Routine Generalized abdominal pain Expected: 11/07/2022, Expires: 01/07/2023 [facility] Work Phone: Comment on above: Expected: 11/07/2022, Expires: 3 Start: 10-05-2022 BP CONTROLLED (<130/80) BP CONTROLLED (<130/80) [facility] Start: 10-05-2022 Hepatitis B surface antibody level LDL CHOLESTEROL [facility] Start: 09-03-2022 End: 11-03-2022 Comprehensive metabolic 2000 panel - Serum or Plasma COMP METABOLIC PANEL Lab Routine Type 2 diabetes mellitus without complication, without long-term current use of insulin (HCC) Gastroesophageal reflux disease without esophagitis Expected: 09/03/2022, Expires: 11/03/2022 [facility] Work Phone: Comment on above: Expected: 09/03/2022, Expires: 3 Start: 09-03-2022 End: 11-03-2022 Hemoglobin A1c in Blood HGB A1C Lab Routine Type 2 diabetes mellitus without complication, without long-term current use of insulin (HCC) Expected: 09/03/2022, Expires: 11/03/2022 [facility] Work Phone: Comment on above: Expected: 09/03/2022, Expires: 3 Start: 09-03-2022 End: 11-03-2022 LIPID PANEL, NONFASTING LIPID PANEL, NONFASTING Lab Routine Mixed hyperlipidemia Expected: 09/03/2022, Expires: 11/03/2022 [facility] Work Phone: Comment on above: Expected: 09/03/2022, Expires: 3 Start: 08-06-2022 Hemoglobin A1c/Hemoglobin.total in Blood HBA1C [facility] Start: 06-23-2022 Hepatitis B screening URINE ALBUMIN:CREATININE RATIO [facility] Start: 06-20-2022 Influenza vaccination INFLUENZA (#1) [facility] Start: 06-04-2022 3 comp foot exam completed DIABETIC FOOT EXAM [facility] Start: 04-05-2022 Hemoglobin A1c/Hemoglobin.total in Blood HBA1C [facility] Start: 12-29-2021 COVID-19 VACCINE (3 - Booster for Pfizer series) COVID-19 VACCINE (3 - Booster for Pfizer series) [facility] Start: 09-25-2021 COVID-19 VACCINE (3 - Booster for Pfizer series) COVID-19 VACCINE (3 - Booster for Pfizer series) [facility] Start: 07-14-2020 Mammography MAMMOGRAM [facility] Start: 05-19-2017 Colonoscopy COLONOSCOPY [facility] Start: 05-19-2017 COLORECTAL CANCER SCREENING COLORECTAL CANCER SCREENING [facility] Start: 04-14-2015 FECAL OCCULT BLOOD FECAL OCCULT BLOOD [facility] Start: 04-14-2015 Screening for malignant neoplasm of colon Fecal Occult Blood [facility] Start: 2014 SHINGRIX VACCINE (1 of 2) SHINGRIX VACCINE (1 of 2) [facility] Start: 2009 COLOGUARD (FIT-DNA) COLOGUARD (FIT-DNA) [facility] Start: [address] COLONOGRAPHY [facility] Start: 2009 Screening for malignant neoplasm of colon [facility] Start: 2009 SIGMOIDOSCOPY SIGMOIDOSCOPY [facility] Start: 1983 HEPATITIS B (1 of 3 - Risk 3-dose series) HEPATITIS B (1 of 3 - Risk 3-dose series) [facility] Start: 1964 HEPATITIS B (1 of 3 - 3-dose series) HEPATITIS B (1 of 3 - 3-dose series) [facility] Clostridioides diffi cile toxin genes [Presence] in Stool by LILLIAN with probe detection C. DIFFICILE PCR Lab Routine Diarrhea, unspecified type Ordered: 06/19/2022 [facility] Work Phone: Comment on above: Ordered: 06/19/2022 End: 03-26-2025 DBT Breast - bilateral screening BULL SCREENING W JESSICA Radiology Routine 1 Occurrences starting 02/25/2024 until 03/26/2025 [facility] Work Phone: Comment on above: 1 Occurrences starting 02/25/2024 until 03/26/2025 End: 02-24-2026 DBT Breast - bilateral screening BULL SCREENING W JESSICA Radiology Routine Encounter for screening mammogram for breast cancer 1 Occurrences starting 01/25/2025 until 02/24/2026 [facility] Work Phone: Comment on above: 1 Occurrences starting 01/25/2025 until 02/24/2026 DBT Breast - bilater al screening BULL SCREENING W JESSICA Radiology Routine 03/03/2025 12:47 PM EDT [facility] Work Phone: End: 07-05-2023 Diagnostic mammography computer-aided detcj bi BULL DIAGNOSTIC BILAT Radiology Routine Breast pain 1 Occurrences starting 06/05/2022 until 07/05/2023 [facility] Work Phone: Comment on above: 1 Occurrences starting 06/05/2022 until 07/05/2023 End: 06-12-2022 Diagnostic mammography computer-aided detcj uni BULL DIAGNOSTIC LT Radiology Routine Breast pain, right 1 Occurrences starting 06/12/2022 until 06/12/2022 [facility] Work Phone: Comment on above: 1 Occurrences starting 06/12/2022 until 06/12/2022 End: 06-01-2025 Echocardiography ECHO Cardiology Routine SOB (shortness of breath) Chest pain, unspecified type 1 Occurrences starting 06/01/2024 until 06/01/2025 [facility] Work Phone: Comment on above: 1 Occurrences starting 06/01/2024 until 06/01/2025 ENTERIC BACTERIAL PA KRISTY BY PCR ENTERIC BACTERIAL PANEL BY PCR Lab Routine Diarrhea, unspecified type Ordered: 06/19/2022 [facility] Work Phone: Comment on above: Ordered: 06/19/2022 Evaluation of diagno stic study results [facility] Giardia lamblia anti gen assay [facility] End: 01-23-2024 Hepatobil syst imag inc gb w/pharma intervenj NM HEPATOBILIARY W EF AND/OR RX Radiology Routine Nausea 1 Occurrences starting 12/24/2022 until 01/23/2024 [facility] Work Phone: Comment on above: 1 Occurrences starting 12/24/2022 until 01/23/2024 End: 02-02-2025 HOME SLEEP APNEA TEST (HSAT) HOME SLEEP APNEA TEST (HSAT) Procedures Routine LARRY (obstructive sleep apnea) 1 Occurrences starting 02/03/2024 until 02/02/2025 [facility] Work Phone: Comment on above: 1 Occurrences starting 02/03/2024 until 02/02/2025 End: 05-05-2026 HOME SLEEP APNEA TEST (HSAT) HOME SLEEP APNEA TEST (HSAT) Procedures Routine Essential hypertension Obesity, Class I, BMI 30-34.9 Hypersomnolence Snores 1 Occurrences starting 05/05/2025 until 05/05/2026 [facility] Comment on above: 1 Occurrences starting 05/05/2025 until 05/05/2026 Influenza virus A an d B RNA and SARS-CoV-2 (COVID-19) N gene panel - Respiratory specimen by LILLIAN with probe detection COVID WITH FLUA+B, ROUTINE Microbiology Routine Viral gastritis Ordered: 11/08/2022 [facility] Work Phone: Comment on above: Ordered: 11/08/2022 End: 04-23-2024 BULL SCREENING BULL SCREENING Radiology Routine Encounter for screening mammogram for breast cancer 1 Occurrences starting 03/25/2023 until 04/23/2024 [facility] Work Phone: Comment on above: 1 Occurrences starting 03/25/2023 until 04/23/2024 End: 03-04-2025 NITRIC OXIDE, EXHALED NITRIC OXIDE, EXHALED PFT Routine SOB (shortness of breath) 1 Occurrences starting 02/03/2024 until 03/04/2025 [facility] Work Phone: Comment on above: 1 Occurrences starting 02/03/2024 until 03/04/2025 NM CARDIAC PERF STRESS/PHARM NM CARDIAC PERF STRESS/PHARM Radiology Routine Atypical chest pain SOB (shortness of breath) 06/07/2022 11:15 AM EDT [facility] Work Phone: NM Heart Views W str ess and W radionuclide IV [facility] Ova OR parasites identification [facility] Patient Education [facility] Work Phone: Patient referral [facility] Work Phone: End: 05-06-2024 Radex sacrum & coccyx minimum 2 views XR SACRUM/COCCYX 3V AP/LAT Radiology Routine Tail bone pain 1 Occurrences starting 04/07/2023 until 05/06/2024 [facility] Work Phone: Comment on above: 1 Occurrences starting 04/07/2023 until 05/06/2024 Radex sacrum & coccy x minimum 2 views XR SACRUM/COCCYX 3V AP/LAT Radiology Routine Tail bone pain 04/07/2023 10:32 AM EDT [facility] Work Phone: End: 05-17-2023 Screening mammography bi 2-view breast inc cad BULL SCREENING Radiology Routine Encounter for screening mammogram for breast cancer 1 Occurrences starting 04/17/2022 until 05/17/2023 [facility] Work Phone: Comment on above: 1 Occurrences starting 04/17/2022 until 05/17/2023 End: 06-04-2026 SPIROMETRY - BASELINE AND POST DILATOR SPIROMETRY - BASELINE AND POST DILATOR PFT Routine SOB (shortness of breath) 1 Occurrences starting 05/05/2025 until 06/04/2026 [facility] Work Phone: Comment on above: 1 Occurrences starting 05/05/2025 until 06/04/2026 End: 12-31-2024 SPIROMETRY WITH DILATOR IF OBSTRUCTED SPIROMETRY WITH DILATOR IF OBSTRUCTED PFT Routine SOB (shortness of breath) 1 Occurrences starting 12/03/2023 until 12/31/2024 [facility] Work Phone: Comment on above: 1 Occurrences starting 12/03/2023 until 12/31/2024 End: 04-19-2026 STRESS ECHO DOBUTAMINE STRESS ECHO DOBUTAMINE Cardiology Routine Chest pain, unspecified type SOB (shortness of breath) 1 Occurrences starting 04/19/2025 until 04/19/2026 [facility] Work Phone: Comment on above: 1 Occurrences starting 04/19/2025 until 04/19/2026 End: 12-07-2023 Us abdominal real time w/image limited US ABD RT UPPER QUADRANT Radiology Routine Generalized abdominal pain 1 Occurrences starting 11/07/2022 until 12/07/2023 [facility] Work Phone: Comment on above: 1 Occurrences starting 11/07/2022 until 12/07/2023 End: 07-05-2023 Us breast uni real time with image limited [facility] Work Phone: Comment on above: 1 Occurrences starting 06/05/2022 until 07/05/2023 US Heart [facility] End: 04-14-2026 US Lower extremity vein - left US DVT LOWER LEFT Radiology STAT Pain of left calf Left leg swelling 1 Occurrences starting 03/15/2025 until 04/14/2026 [facility] Work Phone: Comment on above: 1 Occurrences starting 03/15/2025 until 04/14/2026 End: 12-08-2023 XR ABDOMEN 1V SUPINE XR ABDOMEN 1V SUPINE Radiology Routine Viral gastritis 1 Occurrences starting 11/08/2022 until 12/08/2023 [facility] Work Phone: Comment on above: 1 Occurrences starting 11/08/2022 until 12/08/2023 XR ABDOMEN 1V SUPINE XR ABDOMEN 1V SUPINE Radiology Routine Viral gastritis 11/08/2022 1:36 PM EST [facility] Work Phone: End: 04-23-2024 XR KNEE GENERAL 4V AP BOTH/PA BOTH/LAT/MERC LEFT XR KNEE GENERAL 4V AP BOTH/PA BOTH/LAT/MERC LEFT Radiology Routine Chronic pain of left knee 1 Occurrences starting 03/25/2023 until 04/23/2024 [facility] Work Phone: Comment on above: 1 Occurrences starting 03/25/2023 until 04/23/2024 End: 10-24-2024 XR KNEE GENERAL 4V AP BOTH/PA BOTH/LAT/MERC RIGHT XR KNEE GENERAL 4V AP BOTH/PA BOTH/LAT/MERC RIGHT Radiology Routine Acute pain of right knee 1 Occurrences starting 09/25/2023 until 10/24/2024 [facility] Work Phone: Comment on above: 1 Occurrences starting 09/25/2023 until 10/24/2024 XR KNEE GENERAL 4V A P BOTH/PA BOTH/LAT/MERC RIGHT XR KNEE GENERAL 4V AP BOTH/PA BOTH/LAT/MERC RIGHT Radiology Routine Acute pain of right knee 09/25/2023 4:32 PM EST [facility] Work Phone: End: 04-09-2025 XR Shoulder - right 3 Views XR SHOULDER GENERAL 3V OR MORE AP/TRUE AP/OTHER RIGHT Radiology Routine Right shoulder pain, unspecified chronicity 1 Occurrences starting 03/10/2024 until 04/09/2025 [facility] Work Phone: Comment on above: 1 Occurrences starting 03/10/2024 until 04/09/2025 XR Shoulder - right 3 Views XR SHOULDER GENERAL 3V OR MORE AP/TRUE AP/OTHER RIGHT Radiology Routine Right shoulder pain, unspecified chronicity 03/12/2024 2:25 PM EDT [facility] Work Phone: End: 08-02-2022 XR WRIST GENERAL 3V PA/LAT/OBL LEFT [facility] Work Phone: Comment on above: 1 Occurrences starting 08/02/2022 until 08/02/2022 End: 09-01-2023 XR WRIST GENERAL 3V PA/LAT/OBL LEFT XR WRIST GENERAL 3V PA/LAT/OBL LEFT Radiology Routine Left wrist pain 1 Occurrences starting 08/02/2022 until 09/01/2023 [facility] Work Phone: Comment on above: 1 Occurrences starting 08/02/2022 until 09/01/2023 [facility] Immunizations Immunization Date Immunization Notes Care Provider [facility] 05-05-2025 pneumococcal conjuga te (PCV20) vaccine, 20 valent (PREVNAR 20) Twin Barrera MD Work Phone: [facility] 05-05-2025 pneumococcal Conjuga te, unspecified formulation Twin Barrera MD Work Phone: [facility] 11-03-2024 influenza, seasonal, injectable Twin Barrera MD Work Phone: [facility] 11-03-2024 influenza virus vacc ine, unspecified formulation Kerri March APRN.LABOR STANDARDS DIRECTOR Work Phone: [facility] 09-25-2023 influenza, injectabl e, quadrivalent, contains preservative Kerri March APRN.LABOR STANDARDS DIRECTOR Work Phone: [facility] 09-25-2023 influenza virus vacc ine, unspecified formulation Evonne Reyes PA-C Work Phone: [facility] 08-02-2022 influenza, injectabl e, quadrivalent, contains preservative [employer]r [employer] Work Phone: [facility] 08-02-2022 influenza virus vacc ine, unspecified formulation Leo aBrreto MD Work Phone: [facility] 05-18-2022 tetanus toxoid, redu prosper diphtheria toxoid, and acellular pertussis vaccine, adsorbed Evonne Reyes PA-C Work Phone: [facility] 10-05-2021 influenza, injectabl e, quadrivalent, contains preservative Jeremías Christine MD Work Phone: [facility] 07-31-2021 COVID-19 vaccine, ag e 12+ yr (PFIZER-BIONTECH - PURPLE TOP) Jeremías Christine MD Work Phone: [facility] 06-18-2021 COVID-19 vaccine, ag e 12+ yr (PFIZER-BIONTECH - PURPLE TOP) Jeremías Christine MD Work Phone: [facility] Work Phone: 09-02-2019 influenza, injectabl e, quadrivalent, contains preservative Jeremías Christine MD Work Phone: [facility] 06-08-2019 tetanus toxoid, redu prosper diphtheria toxoid, and acellular pertussis vaccine, adsorbed Jeremías Christine MD Work Phone: [facility] 02-25-2018 pneumococcal conjuga te vaccine, 13 valent Jeremías Christine MD Work Phone: [facility] 08-11-2017 influenza, injectabl e, quadrivalent, contains preservative Jeremías Christine MD Work Phone: [facility] 10-24-2016 influenza, injectabl e, quadrivalent, contains preservative Jeremías Christine MD Work Phone: [facility] 10-24-2016 pneumococcal polysaccharide vaccine, 23 valent Jeremías Christine MD Work Phone: [facility] 06-02-2012 tetanus toxoid, redu prosper diphtheria toxoid, and acellular pertussis vaccine, adsorbed Jeremías Christine MD Work Phone: [facility] Payers Date Payer Category Payer Medicare (Managed Care) 1.2. [id number] 2024 Unknown [id number] 2024 Self-pay [id number] 2021 Medicare AETNA MEDICARE A ETNA MEDICARE ASSURE HMO D SNP [id number] 2021-Present [phone] [address] [place] [address] Medicare [id number] 2021 Private Health Insurance [id number] 2020 Medicare [id number] 2019 Private Health Insurance [employer] [address] [id number] [place] [address] [id number] 07-20-2019 Unknown [id number] 10-20-2017 Medicaid [id number] 10-20-2017 Medicaid [id number] 09-19-2016 Medicare [id number] 1965 Unknown [id number]. 651 Private Health Insurance [id number] Unknown [id number]. 462 Unknown [id number]. 462 Unknown [id number] 2.16.840.1.075437.3.579.2. 462 Unknown [id number] 2.16.840.1.611513.3.579.2. 462 Unknown [id number] 2.16.840.1.106026.3.579.2. 462 Unknown [id number] 2.16.840.1.001855.3.579.2. 462 Unknown [id number] 2.16.840.1.662899.3.579.2. 462 Unknown [id number] 2.16.840.1.947370.3.579.2. 462 Unknown [id number] 2.16.840.1.143786.3.579.2. 462 Unknown [id number] 2.16.840.1.832635.3.579.2. 462 Unknown [id number] 2.16.840.1.511564.3.579.2. 462 Unknown [id number] 2.16.840.1.450607.3.579.2. 462 Unknown [id number] 2.16.840.1.075377.3.579.2. 462 Unknown [id number]. 462 Social History Date Type Detail Facility Start: 01-22-2022 End: 11-27-2023 Tobacco smoking status NHIS Unknown if ever smoked [facility] Start: 05-28-2016 Rare [facility] Start: 05-28-2016 None [facility] Start: 05-28-2016 With Family;- [facility] Start: 11-29-2020 Non-smoker [facility] Start: 1965 Sex Assigned At Female [facility] Start: 08-03-2011 End: 02-03-2024 Tobacco smoking status NHIS Never smoked tobacco [facility] Work Phone: Start: 12-03-2021 End: 05-05-2025 Alcohol intake Current drinker of alcohol (finding) [facility] Start: 03-02-2020 History SDOH Alcohol Comment 1 times a month [facility] Start: 1965 Sex Assigned At Not on file [facility] Start: 01-12-2022 End: 09-03-2022 Exposure to SARS-CoV-2 (event) Not sure [facility] Start: 08-03-2011 End: 02-03-2024 Tobacco use and exposure Smokeless tobacco non-user [facility] Work Phone: Start: 10-31-2022 History SDOH Alcohol Frequency 2 [facility] Start: 10-31-2022 History SDOH Alcohol Std Drinks 1 [facility] Start: 10-31-2022 History SDOH Social Connections Phone 5 [facility] Start: 10-31-2022 History SDOH Social Connections Meetings 98 [facility] Start: 10-31-2022 History SDOH Social Connections Living 4 [facility] Start: 10-31-2022 History SDOH Financial 3 [facility] Start: 10-31-2022 End: 03-10-2023 History of Social function [facility] Start: 10-31-2022 End: 03-10-2023 Social connection and isolation [facility] Do you belong to any clubs or organizations such as yarsani groups, unions, fraternal or athletic groups, or school groups? No [facility] Start: 09-20-2012 How often do you att end meetings of the clubs or organizations you belong to? Patient refused [facility] Are you now , , , , never or living with a partner? [facility] How often to you hav e a drink containing alcohol? Monthly or less [facility] How many standard drinks containing alcohol do you have on a typical day? 1 or 2 [facility] How often do you hav e 6 or more drinks on 1 occasion? Never [facility] How hard is it for y ou to pay for the very basics like food, housing, medical care, and heating Somewhat hard [facility] Do you feel stress - tense, restless, nervous, or anxious, or unable to sleep at night because your mind is troubled all the time - these days [OSQ] Only a little [facility] (I/We) worried wheth er (my/our) food would run out before (I/we) got money to buy more. DK or Refused [facility] Start: 05-22-2022 Gender identity Identifies as female gender (finding) [facility] Start: 05-22-2022 Sexual orientation Heterosexual (vidhya emery) [facility] History of tobacco use Passive smoker [facility] Start: 01-26-2025 End: 02-01-2025 Sex Female (finding) [facility] NEGATED: Highlighted row Not [facility] Medical Equipment Procedure Code Equipment Code Equipment Origin al Text Equipment Identifier Dates Test blood sugar(s) 1 times daily. Dx: Type 2 DM - Controlled E11.9 Insulin: No [id number], [id number], [id number], [id number], [id number] Start: 09-02-2019 End: 11-03-2024 Comment on above: Test blood sugar(s) 1 times daily. Dx: Type 2 DM - Controlled E11.9 Insulin: No Goals Date Patient Goal Desired Activity /State Personal health goal Functional Status Date Assessment Result Facility 05-05-2025 Total score [AUDIT-C] 1 05/05/20 11:35 AM Rush Jones MA [facility] 05-24-2015 Are you deaf, or do you have serious difficulty hearing No 05/24/2015 1:14 PM Codi Galarza LPN No [facility] 05-24-2015 Are you blind, or do you have serious difficulty seeing, even when wearing glasses No 05/24/2015 1:14 PM EDT Codi Damon LPN No [facility] 05-24-2015 Do you have serious difficulty walking or climbing stairs Yes 05/24/2015 1:14 PM EDT Codi Damon LPN Yes [facility] 05-24-2015 Do you have difficul ty dressing or bathing No 05/24/2015 1:14 PM EDT Codi Damon LPN No [facility] 05-24-2015 Because of a physica l, mental, or emotional condition, do you have difficulty doing errands alone such as visiting a physician's office or shopping No 05/24/2015 1:14 PM EDT Codi Damon LPN No [facility] Mental Status Date Assessment Result Facility 04-15-2025 Cognitive function Level Of Cons ciousness Awake;Alert;Appropriate;Fol lows Commands [facility] Work Phone: 12-21-2024 Cognitive function Voice/Name [facility] Work Phone: 01-22-2022 Cognitive function Level Of Cons ciousness Awake;Alert;Appropriate;Fol lows Commands [facility] Work Phone: 05-24-2015 Because of a physica l, mental, or emotional condition, do you have serious difficulty concentrating, remembering, or making decisions No 05/24/2015 1:14 PM EDT Codi Damon LPN No [facility] Clinical Notes 01-11-2009 to 06-22-2025 Max Singer - 06/22/2025 9:47 AM Jodi Rios - 06/17/2025 2:45 PM He Anguiano PA-C - 05/17/2025 11:20 AM Max Doran - 05/16/2025 12:43 PM EDTPatient Instructions Note Date & Type Note Facility 06-22-2025 Note HNO ID: [id number] Author: ?, ?, ? Service: ? Author Type: ? Type: Progress Notes Filed: 06/22/2025 09:47 Note Text: Sleep Study Check-In Documentation Date: June 22, 2025 Name: Edgar Burch Comments: HST was returned in working order without all sleep questionnaires Patient was not reached. A voicemail was left with patient to call back to complete questionnaires. Max Enmanuel [facility] 06-22-2025 History of Presen t illness Narrative Sleep Study Check-In Documentation Date: June 22, 2025 Name: Edgar Burch Comments: HST was returned in working order without all sleep questionnaires Patient was not reached. A voicemail was left with patient to call back to complete questionnaires. Max Singer Nomad # [id number] , date shipped out 06-17-25 Fed ex only Tracking mailout: [id number] Tracking return: [phone] [id number] SENT EARLY May 17, 2025 Standing PSG Orders signed in the last 90 days None Future PSG Orders signed in the last 90 days Ordered Auth. provider HOME SLEEP APNEA TEST (HSAT) [[id number]] 05/05/25 Twin Barrera MD Assoc. diagnoses: Essential hypertension [I10], Obesity, Class I, BMI 30-34.9 [E66.811], Hypersomnolence [G47.10], Snores [R06.83] Q: Indications: A: Obstructive sleep apnea Q: STOP-BANG conditions - Select All That Apply: A: AGE > 50 A2: high blood PRESSURE A3: SNORING that is loud or disruptive A4: TIREDNESS, fatigue or sleepiness during the day Q: Current use of supplemental oxygen during sleep period?: A: No All Prior Sleep Studies (past 365 days) 05/05/2025 12:37 Sleep Studies HOME SLEEP APNEA TEST (HSAT) HOME SLEEP APNEA TEST (HSAT) Order Status: Ordered, Future Expires: 05/05/26 BMI Readings from Last 2 Encounters: 05/05/25 : 34.67 kg/m 04/19/25 : 35.30 kg/m PAST MEDICAL HISTORY Diagnosis Date Abnormal NCS (nerve conduction studies) 05/15/2014 Abnormal sensation of leg, right 05/15/2014 Advance directive discussed with patient 05/05/2025 Discussed 04/2025: documents given Allergic rhinitis, cause unspecified 06/27/2005 Anisometropia 01/30/2016 Arthritis Arthritis knees Arthritis of both knees 03/15/2025 XR: 02/2025, Rt>Lt Astigmatism, regular 01/30/2016 Cataract Cervicalgia 02/14/2014 Chronic pain of both knees 04/07/2023 Constipation 02/24/2015 Coronary artery calcification seen on CT scan 05/05/2025 Seeing Cardio: Dr. 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) 05/05/2025 Essential hypertension 07/19/2015 Fatty liver 06/17/2016 US: [...] morbid obesity due to excess calories 06/05/2016 Obesity, Class I, BMI 30-34.9 06/05/2016 Other disorder of coccyx 02/14/2014 Pain in joint, shoulder region 02/14/2014 PERITONEAL ADHESNS POST OP/INFEC 09/14/2008 PMH - PAST MEDICAL HISTORY OF 1990 gestational diabetes Presbyopia 01/30/2016 Radicular leg pain 05/15/2014 Refractive amblyopia of left eye 01/30/2016 Sebaceous cyst 08/08/2015 Senile nuclear cataract, bilateral 03/02/2020 Shingles outbreak 09/21/2013 Thoracic or lumbosacral neuritis or radiculitis, unspecified 05/18/2014 Trigger little finger of right hand 08/02/2014 Trigger middle finger of left hand 07/31/2017 Added automatically from request for surgery [id number] Trigger middle finger of right hand 08/02/2014 Trigger ring finger of right hand 08/02/2014 Type 2 diabetes mellitus without complication, without long-term current use of insulin (HCC) 05/28/2016 Urge incontinence 05/05/2025 The medical record was reviewed to determine if the proposed sleep study conforms to the AASM Practice Parameters for the Indications for Polysomnography and Related Procedures, or if the sleep study is indicated for other reasons. Indications for study: LARRY suspected without comorbid medical or sleep disorders Sleep study to be performed: Home Sleep Apnea Test (HSAT) Special instructions: None-follow laboratory protocol Viki Ernandez Tech - Sleep Medicine Staff Note: I have read the above protocol, edited as needed, and agree to the plan. He Truong PA-C 3:34 PM, 05/18/2025 May 16, 2025 An order has been received for Home Sleep Apnea Test (HSAT) from Dr. Barrera, checo Kunz. [facility] Staff. Visit prep complete. Comments :No The sleep study is scheduled for 05/19/25. Insurance: Payor: AET MEDICARE / Plan: AETNA MEDICARE ASSURE HMO D SNP / Product Type: Medicare / Payer/Plan Subscr Sex Relation Sub. Ins. ID Effective Group Num 1. AETNA MEDICAR* EDGAR BURCH 1965 Female Self [id number] 01/18/25 [id number] 2. MEDICAID [place] -* EDGAR BURCH 1965 Female Self [id number] 10/20/17 [address] Max Singer documented in this encounter [facility] 06-17-2025 Note HNO ID: [id number] Author: ?, ?, ? Service: ? Author Type: ? Type: Progress Notes Filed: 06/22/2025 09:47 Note Text: Nomad # [id number] , date shipped out 06-17-25 Fed ex only Tracking mailout: [phone] [id number] Tracking return: [phone] SENT EARLY [facility] 06-15-2025 Telephone encounter Note New referral entered and in process per pre-access. Rush Ahmadi MA [facility] 06-15-2025 Miscellaneous Notes New referral entered and in process per pre-access. Rush Ahmadi MA Updated referral in computer, selected outgoing and [facility]. Faxed updated referral. Rush Ahmadi MA Zuleyka from [facility] precert department is calling due to patient has been scheduled at [facility] for stress echo but the referral was not sent to on our end to Victoria to get this approved. Please create referral and send to Victoria at [facility]. documented in this encounter [facility] 06-14-2025 Telephone encounter Note Updated referral in computer, selected outgoing and [facility]. Faxed updated referral. Rush Ahmadi MA [facility] 06-14-2025 Instructions Kerri March APRN.LABOR STANDARDS DIRECTOR - 06/14/2025 10:17 AM EDT [facility] [place] [facility] - Insurance Therapy/Counseling [facility] [address] [place] [address] [facility] [address] [place] [address] [employer] [id number] [address] [facility] [address] [place] [address] [facility] [address] [place] [address] [employer] [address] [address] [employer] [address] [place] [address] [facility] [place] [address] [place] [address] documented in this encounter [facility] 06-14-2025 Note HNO ID: [id number] Author: KERRI MARCH APRN.ALLA Service: ? Author Type: Nurse Practitioner Type: Progress Notes Filed: 06/14/2025 10:23 Note Text: Chief Complaint Patient presents with: Depression HPI Edgar Burch is a 59 year old female who presents here today for Above Complaints. Patient presents for follow up regarding depression medication. Patient was prescribed cymbalta in April, took 1 dose and vomited and did not take any more. Past medical history, appointments, medications, allergies reviewed. Previous Medical History PAST MEDICAL HISTORY Diagnosis Date Abnormal NCS (nerve conduction studies) 05/15/2014 Abnormal sensation of leg, right 05/15/2014 Advance directive discussed with patient 05/05/2025 Discussed 04/2025: documents given Allergic rhinitis, cause unspecified 06/27/2005 Anisometropia 01/30/2016 Arthritis Arthritis knees Arthritis of both knees 03/15/2025 XR: 02/2025, Rt>Lt Astigmatism, regular 01/30/2016 Cataract Cervicalgia 02/14/2014 Chronic pain of both knees 04/07/2023 Constipation 02/24/2015 Coronary artery calcification seen on CT scan 05/05/2025 Seeing Cardio: Dr. 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) 05/05/2025 Essential hypertension 07/19/2015 Fatty liver 06/17/2016 US: [...] morbid obesity due to excess calories 06/05/2016 Obesity, Class I, BMI 30-34.9 06/05/2016 Other disorder of coccyx 02/14/2014 Pain in joint, shoulder region 02/14/2014 PERITONEAL ADHESNS POST OP/INFEC 09/14/2008 PMH - PAST MEDICAL HISTORY OF 1990 gestational diabetes Presbyopia 01/30/2016 Radicular leg pain 05/15/2014 Refractive amblyopia of left eye 01/30/2016 Sebaceous cyst 08/08/2015 Senile nuclear cataract, bilateral 03/02/2020 Shingles outbreak 09/21/2013 Thoracic or lumbosacral neuritis or radiculitis, unspecified 05/18/2014 Trigger little finger of right hand 08/02/2014 Trigger middle finger of left hand 07/31/2017 Added automatically from request for surgery [id number] Trigger middle finger of right hand 08/02/2014 Trigger ring finger of right hand 08/02/2014 Type 2 diabetes mellitus without complication, without long-term current use of insulin (HCC) 05/28/2016 Urge incontinence 05/05/2025 Previous Surgical History PAST SURGICAL HISTORY Procedure [...] 3+LVL 05/20/2015 LAPAROSCOPIC CHOLECYSTECTOMY 03/03/2023 LAPS ABD PRTMANDOMENTUM DX W/WO SPEC BR/WA SPX 10/20/2000 Laparoscopy NEUROPLASTY AND/TRANSPOS MEDIAN NRV CARPAL TUNNE 10/20/2003 Carpal tunnel decomp right OOPHORECTOMY PARTIAL/TOTAL UNI/BI 09/08/2008 has one ovary left REM LESION TRUNK,ARM,LEG 0.6 -1.0CM 07/26/2015 Exc mid back david cyst REMOVAL GALLBLADDER TONSILLECTOMY HX TONSILLECTOMY PRIMARY/SECONDARY Tonsillectomy TOTAL ABDOMINAL HYSTERECT W/WO RMVL TUBE [...] rash and skin discoloration, swelling Erythromycin GI Up (more content not included)... [facility] 06-14-2025 History of Presen t illness Narrative Images from the original note were not included. Chief Complaint Patient presents with: Depression HPI Edgar Burch is a 59 year old female who presents here today for Above Complaints. Patient presents for follow up regarding depression medication. Patient was prescribed cymbalta in April, took 1 dose and vomited and did not take any more. Past medical history, appointments, medications, allergies reviewed. Previous Medical History PAST MEDICAL HISTORY Diagnosis Date Abnormal NCS (nerve conduction studies) 05/15/2014 Abnormal sensation of leg, right 05/15/2014 Advance directive discussed with patient 05/05/2025 Discussed 04/2025: documents given Allergic rhinitis, cause unspecified 06/27/2005 Anisometropia 01/30/2016 Arthritis Arthritis knees Arthritis of both knees 03/15/2025 XR: 02/2025, Rt>Lt Astigmatism, regular 01/30/2016 Cataract Cervicalgia 02/14/2014 Chronic pain of both knees 04/07/2023 Constipation 02/24/2015 Coronary artery calcification seen on CT scan 05/05/2025 Seeing Cardio: Dr. 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) 05/05/2025 Essential hypertension 07/19/2015 Fatty liver 06/17/2016 US: [...] morbid obesity due to excess calories 06/05/2016 Obesity, Class I, BMI 30-34.9 06/05/2016 Other disorder of coccyx 02/14/2014 Pain in joint, shoulder region 02/14/2014 PERITONEAL ADHESNS POST OP/INFEC 09/14/2008 PMH - PAST MEDICAL HISTORY OF 1990 gestational diabetes Presbyopia 01/30/2016 Radicular leg pain 05/15/2014 Refractive amblyopia of left eye 01/30/2016 Sebaceous cyst 08/08/2015 Senile nuclear cataract, bilateral 03/02/2020 Shingles outbreak 09/21/2013 Thoracic or lumbosacral neuritis or radiculitis, unspecified 05/18/2014 Trigger little finger of right hand 08/02/2014 Trigger middle finger of left hand 07/31/2017 Added automatically from request for surgery [id number] Trigger middle finger of right hand 08/02/2014 Trigger ring finger of right hand 08/02/2014 Type 2 diabetes mellitus without complication, without long-term current use of insulin (HCC) 05/28/2016 Urge incontinence 05/05/2025 Previous Surgical History PAST SURGICAL HISTORY Procedure Laterality Date ABDOMINAL SURGERY HX DELIVERY ONLY 91,93,85 x3 COLONOSCOPY 08/07/2022 repeat in 10 years. COLONOSCOPY FLX DX W/COLLJ SPEC WHEN PFRMD 05/19/2012 Normal colonoscopy EGD W/O [facility] SPEC VARICIES INJ 12/11/2022 ENTEROLSS FRING INTSTINAL [...] -1.0CM 07/26/2015 Exc mid back david cyst REMOVAL GALLBLADDER TONSILLECTOMY HX TONSILLECTOMY PRIMARY/SECONDARY <AGE 11 Tonsillectomy [...] on File Prior to Visit Medication Sig albuterol HFA (PROVENTIL HFA, VENTOLIN HFA) 90 mcg/actuation inhaler Inhale 2 puffs as instructed every 4 hours as needed for wheezing/shortness of breath. atorvastatin (LIPITOR) 80 mg tablet Take 1 tablet by mouth once daily. fenofibrate nanocrystallized (TRICOR) 145 mg tablet Take 1 tablet by mouth once daily. pioglitazone (ACTOS) 45 mg tablet Take 1 tablet by mouth once daily. DULoxetine DR (CYMBALTA) 30 mg capsule Take 1 capsule by mouth once daily. propranolol (INDERAL) 10 mg tablet Take 1 tablet by mouth once daily. colestipol (COLESTID) 1 gram tablet Take 1 tablet by mouth once daily. lisinopril (ZESTRIL) 40 mg tablet Take 1 tablet by mouth once daily. acyclovir (ZOVIRAX) 400 mg tablet Take 1 tablet by mouth two times a day. blood sugar diagnostic (BLOOD GLUCOSE TEST) test strip Test blood sugar(s) 1 times daily. Dx: Type 2 DM - Controlled E11.9 Insulin: No cetirizine (ZYRTEC) 10 mg tablet Take 1 tablet by mouth once daily. prn MEDICAL SUPPLY Air purifier, Dx: R05.1, R06.02 and Z77.22 fluticasone (FLONASE) 50 mcg/actuation nasal spray Use 2 Sprays in each nostril once daily. Rinse mouth after use. Using prn B-complex with vitamin C (VITAMIN B COMPLEX-C ORAL) Take by mouth. ergocalciferol, vitamin D2, (VITAMIN D2 ORAL) Take by mouth. VITAMIN A ORAL Take by mouth. cyanocobalamin, vitamin B-12, (VITAMIN B12 ORAL) Take by mouth. ubidecarenone (COQ-10 ORAL) Take by mouth. multivitamin with minerals (HAIR,SKIN AND NAILS ORAL) Take by mouth. L.acid/L.casei/B.bif/B.lorne/FOS (PROBIOTIC BLEND ORAL) Take by mouth. Lancets lancets Test blood sugar(s) 1 times daily. Dx: Type 2 DM - Controlled E11.9 Insulin: No blood sugar diagnostic (BLOOD GLUCOSE TEST) test strip Test blood sugar(s) 1 times daily. Dx: Type 2 DM - Controlled E11.9 Insulin: No Lancets lancets Test blood sugar(s) 1 times daily. Dx: Type 2 DM - Controlled E11.9 Insulin: No ascorbic acid (VITAMIN C ORAL) Take by mouth. MULTIVIT &MINERALS/FERROUS FUM (MULTI VITAMIN ORAL) Take by mouth once daily. No current facility-administered medications on file prior to visit. Social History SOCIAL HISTORY[1] Review of Symptoms REVIEW OF SYSTEMS SEE HPI EXAM: BP 114/72 Pulse 76 Wt 89 kg (196 lb 3.4 oz) BMI 35.32 kg/m General Appearance: Well appearing, alert, in no acute distress, well-hydrated, well nourished. Health Maintenance List Shingrix Vaccine(1 of 2) due on 11/03/2025 Influenza Vaccine(1) due on 06/20/2025 HbA1C due on 11/02/2025 Mammogram Screening due on 03/03/2026 Urine Albumin:Creatinine Ratio due on 05/02/2026 LDL Cholesterol due on 05/02/2026 Dilated Retinal Exam due on 05/04/2026 Diabetic Foot Exam due on 05/05/2026 Annual PCP Team Chronic Disease Visit due on 05/05/2026 DTaP,Tdap,Td Vaccine(4 - Td or Tdap) due on 05/18/2032 Colorectal Cancer Screening due on 08/07/2032 RSV Vaccine(1 - 1-dose 75+ series) due on 2039 Medicare Advantage Annual Wellness Visit Completed Hepatitis C Screening Completed Pneumococcal Vaccine: 50+ Completed Cervical Cancer Screening Discontinued HIV Screening Discontinued Data reviewed PHQ-9 More data exists 10/31/2022 03/25/2023 04/29/2024 05/05/2025 06/14/2025 PHQ-9 Scores Little interest or pleasure in doing things: Several days Several days Several days More than half the days Nearly every day Feeling down, depressed, or hopeless: Several days Several days Several days Several days Nearly every day Trouble falling or staying asleep, or sleeping too much Several days - - Nearly every day More than half the days Feeling tired or having little energy Several days - - Nearly every day Nearly every day Poor appetite or overeating Several days - - Not at all More than half the days Feeling bad about yourself - or that you are a failure or have let yourself or your family down Not at all - - Not at all Not at all Trouble concentrating on things, such as reading the newspaper or watching television Not at all - - Not at all Not at all Moving or speaking so slowly that other people could have noticed. Or the opposite - being so fidgety or restless that you have been moving around a lot more than usual Not at all - - Several days More than half the days Thoughts that you would be better off , or of hurting yourself in some way Not at all - - Not at all Not at all PHQ-9 Score 5 - - 10 15 Details Data saved with a previous flowsheet row definition LYNN-7 06/14/2025 LYNN-7 All Questions Feeling nervous, anxious, or on edge More than half the days Not being able to stop or control worrying Nearly Everyday Worrying too much about different things Nearly Everyday Trouble relaxing More than half the days Being so restless that it is hard to sit still Not at all Becoming easily annoyed or irritable Nearly Everyday Feeling afraid, as if something awful might happen Nearly Everyday LYNN-7 Score 16 ASSESSMENT/PLAN: 1. Moderate episode of recurrent major depressive disorder (HCC) - ICD9: 296.32, ICD10: F33.1 (primary diagnosis) - ESCITALOPRAM 10 MG TABLET 2. Generalized anxiety disorder - ICD9: 300.02, ICD10: F41.1 - ESCITALOPRAM 10 MG TABLET Kerri March APRN.LABOR STANDARDS DIRECTOR [1] Social History Tobacco Use Smoking status: Never Passive exposure: Past Smokeless tobacco: Never Vaping Use Vaping status: Never Used Substance Use Topics Alcohol use: Yes Comment: 1 times a month Drug use: No documented in this encounter [facility] 06-06-2025 Telephone encounter Note Zuleyka from [facility] precert department is calling due to patient has been scheduled at [facility] for stress echo but the referral was not sent to on our end to Victoria to get this approved. Please create referral and send to Victoria at [facility]. [facility] 06-01-2025 Note HNO ID: [id number] Author: RUSH AHMADI MA Service: ? Author Type: Joint Creaser Type: Progress Notes Filed: 06/01/2025 14:48 Note Text: Scan on 06/01/2025 12:05 PM by Provider, External, PA-C: [facility] 06-01-2025 History of Presen t illness Narrative Scan on 06/01/2025 12:05 PM by Provider, External, PA-C: [facility] documented in this encounter [facility] 05-18-2025 Telephone encounter Note Pt requesting that her stress echo test order be faxed to [facility]. Faxed as requested. Naomie Gifford RN [facility] 05-18-2025 Miscellaneous Notes Pt requesting that her stress echo test order be faxed to [facility]. Faxed as requested. Naomie Gifford RN documented in this encounter [facility] 05-17-2025 Note HNO ID: [id number] Author: HE TRUONG PA-C Service: ? Author Type: Physician Clothing Examiner Type: Progress Notes Filed: 06/22/2025 09:47 Note Text: May 17, 2025 Standing PSG Orders signed in the last 90 days None Future PSG Orders signed in the last 90 days Ordered Auth. provider HOME SLEEP APNEA TEST (HSAT) [[id number]] 05/05/25 Twin Barrera MD Assoc. diagnoses: Essential hypertension [I10], Obesity, Class I, BMI 30-34.9 [E66.811], Hypersomnolence [G47.10], Snores [R06.83] Q: Indications: A: Obstructive sleep apnea Q: STOP-BANG conditions - Select All That Apply: A: AGE > 50 A2: high blood PRESSURE A3: SNORING that is loud or disruptive A4: TIREDNESS, fatigue or sleepiness during the day Q: Current use of supplemental oxygen during sleep period?: A: No All Prior Sleep Studies (past 365 days) 05/05/2025 12:37 Sleep Studies HOME SLEEP APNEA TEST (HSAT) HOME SLEEP APNEA TEST (HSAT) Order Status: Ordered, Future Expires: 05/05/26 BMI Readings from Last 2 Encounters: 05/05/25 : 34.67 kg/m? 04/19/25 : 35.30 kg/m? PAST MEDICAL HISTORY Diagnosis Date Abnormal NCS (nerve conduction studies) 05/15/2014 Abnormal sensation of leg, right 05/15/2014 Advance directive discussed with patient 05/05/2025 Discussed 04/2025: documents given Allergic rhinitis, cause unspecified 06/27/2005 Anisometropia 01/30/2016 Arthritis Arthritis knees Arthritis of both knees 03/15/2025 XR: 02/2025, Rt>Lt Astigmatism, regular 01/30/2016 Cataract Cervicalgia 02/14/2014 Chronic pain of both knees 04/07/2023 Constipation 02/24/2015 Coronary artery calcification seen on CT scan 05/05/2025 Seeing Cardio: Dr. 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) 05/05/2025 Essential hypertension 07/19/2015 Fatty liver 06/17/2016 US: [...] morbid obesity due to excess calories 06/05/2016 Obesity, Class I, BMI 30-34.9 06/05/2016 Other disorder of coccyx 02/14/2014 Pain in joint, shoulder region 02/14/2014 PERITONEAL ADHESNS POST OP/INFEC 09/14/2008 PMH - PAST MEDICAL HISTORY OF 1990 gestational diabetes Presbyopia 01/30/2016 Radicular leg pain 05/15/2014 Refractive amblyopia of left eye 01/30/2016 Sebaceous cyst 08/08/2015 Senile nuclear cataract, bilateral 03/02/2020 Shingles outbreak 09/21/2013 Thoracic or lumbosacral neuritis or radiculitis, unspecified 05/18/2014 Trigger little finger of right hand 08/02/2014 Trigger middle finger of left hand 07/31/2017 Added automatically from request for surgery [id number] Trigger middle finger of right hand 08/02/2014 Trigger ring finger of right hand 08/02/2014 Type 2 diabetes mellitus without complication, without long-term current use of insulin (HCC) 05/28/2016 Urge incontinence 05/05/2025 The medical record was reviewed to determine if the proposed sleep study conforms to the [facility] Practice Parameters for the Indications for Polysomnography and Related Procedures, or if the sleep study is indicated for other reasons. Indications for study: LARRY suspected without comorbid medical or sleep disorders Sleep study to be performed: Home Sleep Apnea Test (HSAT) Special instructions: None-follow laboratory protocol Viki Españanikolay Tech - Sleep Medicine Staff Note: I have read the above protocol, edited as needed, and agree to the plan. He Truong PA-C 3:34 PM, 05/18/2025 [facility] 05-16-2025 Note HNO ID: [id number] Author: ?, ?, ? Service: ? Author Type: ? Type: Progress Notes Filed: 06/22/2025 09:47 Note Text: May 16, 2025 An order has been received for Home Sleep Apnea Test (HSAT) from Dr. Barrera, checo Kunz. [facility] Staff. Visit prep complete. Comments :No The sleep study is scheduled for 05/19/25. Insurance: Payor: AETNA MEDICARE / Plan: AETNA MEDICARE ASSURE HMO D SNP / Product Type: Medicare / Payer/Plan Subscr Sex Relation Sub. Ins. ID Effective Group Num 1. AETNA MEDICAR* EDGAR BURCH 1965 Female Self [id number] 01/18/25 [id number] [address] 2. MEDICAID [place] -* EDGAR BURCH 1965 Female Self [id number] 10/20/17 [address] Max Singer [facility] 05-09-2025 Telephone encounter Note Patient calling in to cancel breathing test today as she does not feel she needs it. She states she had one in [place] a couple months ago and during her appt with PCP she was told to do breathing exercises and will continue to do those. Cancelled per patient request. Irena Mendez LPN [facility] 05-09-2025 Miscellaneous Notes Patient calling in to cancel breathing test today as she does not feel she needs it. She states she had one in [place] a couple months ago and during her appt with PCP she was told to do breathing exercises and will continue to do those. Cancelled per patient request. Irena Mendez LPN documented in this encounter [facility] 05-05-2025 Instructions Twin Barrera MD - 05/05/2025 12:42 PM EDT Please get labs done on or after 10/21/2025 prior to your next visit. We discussed your health concerns and care plan: 1. Headaches and Migraines: - I prescribed Propranolol, to be taken once daily, to help prevent your migraines and lower your blood pressure. This has been sent to your pharmacy. - Follow up with Stu in 4 weeks to assess how the medication is working and to check your blood pressure. 2. Depression and Anxiety: - I restarted Duloxetine (Cymbalta) at 30 mg daily to help manage your depression and anxiety. This has been sent to your pharmacy. 3. Diabetes and Cholesterol: - Your A1c has improved to 7.2, but we aim for further improvement. Continue your current diet changes, including reducing carbohydrates and sugars. - I increased your Pioglitazone to 45 mg daily to help further lower your A1c. This has been sent to your pharmacy. - Your triglycerides have improved but remain elevated. I increased your Atorvastatin (Lipitor) to 80 mg daily to better control your cholesterol. This has been sent to your pharmacy. - Continue taking Fenofibrate as prescribed; this has been refilled. 4. Urge Incontinence: - I referred you to Dr. Mcnulty, a urologist, to evaluate and manage your urge incontinence. Their office will contact you to schedule an appointment. 5. Shortness of Breath and Possible Asthma: - I ordered a breathing test to evaluate for adult-onset asthma, which may be contributing to your shortness of breath and chest tightness. The front desk clerk will assist with scheduling this test. 6. Sleep Issues and Possible Sleep Apnea: - I ordered a home sleep study to assess for sleep apnea, which may be causing your poor sleep and fatigue. The front desk clerk will assist with scheduling this test. 7. Vaccination: - You received a pneumonia vaccine today. You may not need another one in the future. 8. Follow-Up Appointments: - Follow up with Stu in 4 weeks to review your response to Propranolol and check your blood pressure. - Schedule a routine follow-up with Kerri in 6 months. After that visit, you will return to see me for your next 6-month check-up. Please let us know if you have any new or worsening symptoms or if you have any questions about your care plan. documented in this encounter [facility] 05-05-2025 Note HNO ID: [id number] Author: TWIN BARRERA MD Service: ? Author Type: Physician Type: Progress Notes Filed: 05/05/2025 13:52 Note Text: Edgar Burch is a 59 year old female here for a Medicare wellness visit. Medicare Health Risk Assessment General Health Fair Exercise: Minutes/Day 60 min Exercise: Days/Week 1 day Alcohol: Daily Use Monthly or less Alcohol: Drinks/Day 1 or 2 Alcohol: 6 or more drinks Never Feel off balance Yes (Some times) Concerns: Teeth/Dentures No (Had all teeht pulled, working on getting dentures) Concerns: Sexual function No Troubled by feelings Anxious; Stressed; Irritable; Angry; Lonely Frequency: Eating healthy diet Nearly every day ADLs requiring help None of the above Safety precautions in home/vehicle No (Has rugs in bathroom and kitchen.) Smoke, vape, chews tobacco No Difficulty hearing No Difficulty seeing No Current Providers Specialists: I have reviewed specialist-related care of the patient in the medical record. Medical/Family history review Reviewed and updated problem list, medical/surgical/family/social history, medications, and allergies. Opioid use review Opioid Medications (last 90 days) No data to display Anxiety/Depression screening PHQ-9 Score: 10 (Moderate Depression) Recommendation: medication management Cognitive screening Mini Cog Score: 5 Cognitive screening reviewed and No further action needed (score 3-5). Mini-Cog Patient asked to remember the following three words: Banana, [place]agu[place] and Chair Visuospatial/Executive Functioning: Clock drawin/2 (Normal clock with all number in correct sequence and position, hands are correct = 2 points, inability or refusal to draw a clock = 0) Three word recall: 3/3 Total score: 5/5 (Total score = word recall score + clock draw score) Functional Observation Was the patient's Timed Up AND Go test unsteady or >= 12 seconds? No Advance Care Planning Patient did not wish or was not able to name a surrogate decision maker or provide an advance care plan Measurements BP 142/74 (BP Site: Left Arm, BP Position: Sitting, BP Cuff Size: Large Adult) Pulse (!) 52 Resp 18 Ht 158.8 cm (5' 2.5) Wt 87.4 kg (192 lb 9.6 oz) BMI 34.67 kg/m? Vision Screening: Follows with optometry/ophthalmology - Seen Dr. Lanza yesterday Assessment/Plan Medicare annual wellness visit, subsequent (Z00.00) - Counseled on healthy diet and regular exercise - Fall avoidance information provided - Personalized prevention plan provided See Below Chief Complaint Patient presents with: Medicare Wellness Exam HPI Edgar Burch is a 59 year old female who presents here today for a medicare wellness and a routine follow up. Patient with hx of DM2, HTN, hyperlipidemia, high trigs, migraines, fatty liver, GERD, coronary calcifications, enlarged right atrium, LYNN, major depression, obesity and those as below. Edgar reports experiencing chest pain, which worsens when she is upset. She describes episodes where it feels like somebody's actually sitting on my chest, and it's hard to breathe. She recalls a recent episode where she woke up at 0100 feeling as if someone was sitting on her chest and covering her nose and mouth, making it difficult to breathe. She did not seek emergency care at that time. She denies associated arm pain during these episodes. Edgar has a history of an enlarged right atrium and a positive calcium CT score, for which she is scheduled to see a manager department next month. She has previously seen this manager department in 2015. She is scheduled for a heart catheterization and other tests. She denies palpitations, but notes that she sometimes feels funny heartbeats when she is very angry. She has been experiencing increased dyspnea, which is exacerbated by heat exposure. She denies hemoptysis. Edgar has a history of a CT scan of the lungs recently, which was reportedly normal. Edgar also reports an increase in the frequency and severity of migraines, occurring once to twice weekly. She describes the migraines as lasting all day and being debilitating. She currently manages them with Aleve, sinus medication, and nasal spray, followed by rest in a dark room. She expresses interest in trying a daily medication to prevent migraines. Edgar reports a worsening of her depression, describing days when she does not want to get out of bed. She has a history of taking duloxetine, which she discontinued in October. She believes the medication helped with her chest pressure and anger management. She has been trying to manage stress with mindfulness techniques but finds them ineffective. She denies current anxiety but notes increased depression. Edgar reports poor sleep quality, despite using an air conditioner and air purifier in her bedroom. She attributes some of her sleep issues to cigarette smoke infiltrating her apartment. S (more content not included)... [facility] 05-05-2025 History of Presen t illness Narrative Images from the original note were not included. Edgar Burch is a 59 year old female here for a Medicare wellness visit. Medicare Health Risk Assessment General Health Fair Exercise: Minutes/Day 60 min Exercise: Days/Week 1 day Alcohol: Daily Use Monthly or less Alcohol: Drinks/Day 1 or 2 Alcohol: 6 or more drinks Never Feel off balance Yes (Some times) Concerns: Teeth/Dentures No (Had all teeht pulled, working on getting dentures) Concerns: Sexual function No Troubled by feelings Anxious; Stressed; Irritable; Angry; Lonely Frequency: Eating healthy diet Nearly every day ADLs requiring help None of the above Safety precautions in home/vehicle No (Has rugs in bathroom and kitchen.) Smoke, vape, chews tobacco No Difficulty hearing No Difficulty seeing No Current Providers Specialists: I have reviewed specialist-related care of the patient in the medical record. Medical/Family history review Reviewed and updated problem list, medical/surgical/family/social history, medications, and allergies. Opioid use review Opioid Medications (last 90 days) No data to display Anxiety/Depression screening PHQ-9 Score: 10 (Moderate Depression) Recommendation: medication management Cognitive screening Mini Cog Score: 5 Cognitive screening reviewed and No further action needed (score 3-5). Mini-Cog Patient asked to remember the following three words: Banana, [place] and Chair Visuospatial/Executive Functioning: Clock drawin/2 (Normal clock with all number in correct sequence and position, hands are correct = 2 points, inability or refusal to draw a clock = 0) Three word recall: 3/3 Total score: 5/5 (Total score = word recall score + clock draw score) Functional Observation Was the patient's Timed Up & Go test unsteady or >= 12 seconds? No Advance Care Planning Patient did not wish or was not able to name a surrogate decision maker or provide an advance care plan Measurements BP 142/74 (BP Site: Left Arm, BP Position: Sitting, BP Cuff Size: Large Adult) Pulse (!) 52 Resp 18 Ht 158.8 cm (5' 2.5) Wt 87.4 kg (192 lb 9.6 oz) BMI 34.67 kg/m Vision Screening: Follows with optometry/ophthalmology - Seen Dr. Lanza yesterday Assessment/Plan Medicare annual wellness visit, subsequent (Z00.00) - Counseled on healthy diet and regular exercise - Fall avoidance information provided - Personalized prevention plan provided See Below Chief Complaint Patient presents with: Medicare Wellness Exam HPI Edgar Burch is a 59 year old female who presents here today for a medicare wellness and a routine follow up. Patient with hx of DM2, HTN, hyperlipidemia, high trigs, migraines, fatty liver, GERD, coronary calcifications, enlarged right atrium, LYNN, major depression, obesity and those as below. Edgar reports experiencing chest pain, which worsens when she is upset. She describes episodes where it feels like somebody's actually sitting on my chest, and it's hard to breathe. She recalls a recent episode where she woke up at 0100 feeling as if someone was sitting on her chest and covering her nose and mouth, making it difficult to breathe. She did not seek emergency care at that time. She denies associated arm pain during these episodes. Edgar has a history of an enlarged right atrium and a positive calcium CT score, for which she is scheduled to see a manager department next month. She has previously seen this manager department in 2015. She is scheduled for a heart catheterization and other tests. She denies palpitations, but notes that she sometimes feels funny heartbeats when she is very angry. She has been experiencing increased dyspnea, which is exacerbated by heat exposure. She denies hemoptysis. Edgar has a history of a CT scan of the lungs recently, which was reportedly normal. Edgar also reports an increase in the frequency and severity of migraines, occurring once to twice weekly. She describes the migraines as lasting all day and being debilitating. She currently manages them with Aleve, sinus medication, and nasal spray, followed by rest in a dark room. She expresses interest in trying a daily medication to prevent migraines. Edgar reports a worsening of her depression, describing days when she does not want to get out of bed. She has a history of taking duloxetine, which she discontinued in October. She believes the medication helped with her chest pressure and anger management. She has been trying to manage stress with mindfulness techniques but finds them ineffective. She denies current anxiety but notes increased depression. Edgar reports poor sleep quality, despite using an air conditioner and air purifier in her bedroom. She attributes some of her sleep issues to cigarette smoke infiltrating her apartment. She also reports snoring, as noted by her daughter, and feels tired most days. She experiences neck pain when sleeping on her side. Edgar reports episodes of foot cramps, describing them as severe enough to curl her toes. She believes she is well-hydrated and takes a multivitamin. She also reports her hands locking up more frequently than usual. She has a history of a fall a couple of months ago, after which she had x-rays of her knees and legs. She has been advised to undergo knee surgery but is postponing it until she moves out of her current apartment. Edgar reports a change in her tolerance to heat, noting that she feels much hotter than she used to when exposed to high temperatures. She also reports episodes of chills and goosebumps, despite a normal body temperature of 98.2 degreeF. She denies recent fevers. Edgar reports a history of a double ear infection a few weeks ago, for which she was treated with antibiotics. She continues to experience ear pain, particularly in the right ear, and describes certain sounds as feeling like an ice pick stabbing in both of my ears. She also reports occasional foggy vision, which was evaluated by an eye doctor and attributed to dry eyes. She denies sudden changes in hearing or vision. Edgar reports a history of thick, clear phlegm and occasional nasal congestion. She also reports lumps in her neck that swell and then subside over a day or two. She denies wheezing. Edgar reports episodes of diarrhea and heartburn, particularly when taking all her vitamins and medications at once. She denies hematochezia. She has been experiencing urge incontinence for about a year, requiring the use of pads for the last three months. She denies hematuria or dysuria. Edgar reports a recent aversion to pasta, which causes nausea. She tries to avoid carbohydrates and drinks water, Crystal Light pink lemonade, and cranberry raspberry juice instead of soda. She has lost 8 pounds since July. Edgar is currently taking atorvastatin 40 mg, fenofibrate, and pioglitazone. She denies symptoms of hypoglycemia, with her blood sugar levels ranging from 100 to 200 mg/dL. She denies syncope, seizures, or tremors. Past medical history, appointments, medications, allergies reviewed. Previous Medical History PAST MEDICAL HISTORY Diagnosis Date Abnormal NCS (nerve conduction studies) 05/15/2014 Abnormal sensation of leg, right 05/15/2014 Advance directive discussed with patient 05/05/2025 Discussed 04/2025: documents given Allergic rhinitis, cause unspecified 06/27/2005 Anisometropia 01/30/2016 Arthritis Arthritis knees Arthritis of both knees 03/15/2025 XR: 02/2025, Rt>Lt Astigmatism, regular 01/30/2016 Cataract Cervicalgia 02/14/2014 Chronic pain of both knees 04/07/2023 Constipation 02/24/2015 Coronary artery calcification seen on CT scan 05/05/2025 Seeing Cardio: Dr. 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) 05/05/2025 Essential hypertension 07/19/2015 Fatty liver 06/17/2016 US: [...] morbid obesity due to excess calories 06/05/2016 Obesity, Class I, BMI 30-34.9 06/05/2016 Other disorder of coccyx 02/14/2014 Pain in joint, shoulder region 02/14/2014 PERITONEAL ADHESNS POST OP/INFEC 09/14/2008 PMH - PAST MEDICAL HISTORY OF 1990 gestational diabetes Presbyopia 01/30/2016 Radicular leg pain 05/15/2014 Refractive amblyopia of left eye 01/30/2016 Sebaceous cyst 08/08/2015 Senile nuclear cataract, bilateral 03/02/2020 Shingles outbreak 09/21/2013 Thoracic or lumbosacral neuritis or radiculitis, unspecified 05/18/2014 Trigger little finger of right hand 08/02/2014 Trigger middle finger of left hand 07/31/2017 Added automatically from request for surgery [id number] Trigger middle finger of right hand 08/02/2014 Trigger ring finger of right hand 08/02/2014 Type 2 diabetes mellitus without complication, without long-term current use of insulin (HCC) 05/28/2016 Urge incontinence 05/05/2025 Previous Surgical History PAST SURGICAL HISTORY Procedure Laterality Date ABDOMINAL SURGERY HX DELIVERY ONLY 91,93,85 x3 COLONOSCOPY 08/07/2022 repeat in 10 years. COLONOSCOPY FLX DX W/COLLJ SPEC WHEN PFRMD 05/19/2012 Normal colonoscopy EGD W/O [facility] SPEC VARICIES INJ 12/11/2022 ENTEROLSS FRING INTSTINAL [...] -1.0CM 07/26/2015 Exc mid back david cyst REMOVAL GALLBLADDER TONSILLECTOMY HX TONSILLECTOMY PRIMARY/SECONDARY <AGE 11 Tonsillectomy [...] on File Prior to Visit Medication Sig colestipol (COLESTID) 1 gram tablet Take 1 tablet by mouth once daily. omeprazole (PRILOSEC) 20 mg capsule Take 1 capsule by mouth once daily. Per Gastro: Dr. Benvaides lisinopril (ZESTRIL) 40 mg tablet Take 1 tablet by mouth once daily. pioglitazone (ACTOS) 30 mg tablet Take 1 tablet by mouth once daily. acyclovir (ZOVIRAX) 400 mg tablet Take 1 tablet by mouth two times a day. atorvastatin (LIPITOR) 40 mg tablet Take 1 tablet by mouth once daily. blood sugar diagnostic (BLOOD GLUCOSE TEST) test strip Test blood sugar(s) 1 times daily. Dx: Type 2 DM - Controlled E11.9 Insulin: No cetirizine (ZYRTEC) 10 mg tablet Take 1 tablet by mouth once daily. prn budesonide 9 mg TaDE Per [facility] MEDICAL SUPPLY Air purifier, Dx: R05.1, R06.02 and Z77.22 albuterol HFA (PROVENTIL HFA, VENTOLIN HFA) 90 mcg/actuation inhaler Inhale 2 Puffs as instructed every 4 hours as needed for wheezing/shortness of breath. fluticasone (FLONASE) 50 mcg/actuation nasal spray Use 2 Sprays in each nostril once daily. Rinse mouth after use. Using prn B-complex with vitamin C (VITAMIN B COMPLEX-C ORAL) Take by mouth. ergocalciferol, vitamin D2, (VITAMIN D2 ORAL) Take by mouth. VITAMIN A ORAL Take by mouth. cyanocobalamin, vitamin B-12, (VITAMIN B12 ORAL) Take by mouth. ubidecarenone (COQ-10 ORAL) Take by mouth. multivitamin with minerals (HAIR,SKIN AND NAILS ORAL) Take by mouth. fenofibrate nanocrystallized (TRICOR) 145 mg tablet Take 1 tablet by mouth once daily. L.acid/L.casei/B.bif/B.lorne/FOS (PROBIOTIC BLEND ORAL) Take by mouth. Lancets lancets Test blood sugar(s) 1 times daily. Dx: Type 2 DM - Controlled E11.9 Insulin: No blood sugar diagnostic (BLOOD GLUCOSE TEST) test strip Test blood sugar(s) 1 times daily. Dx: Type 2 DM - Controlled E11.9 Insulin: No Lancets lancets Test blood sugar(s) 1 times daily. Dx: Type 2 DM - Controlled E11.9 Insulin: No ascorbic acid (VITAMIN C ORAL) Take by mouth. MULTIVIT &MINERALS/FERROUS FUM (MULTI VITAMIN ORAL) Take by mouth once daily. No current facility-administered medications on file prior to visit. Social History Social History Tobacco Use Smoking status: Never Passive exposure: Past Smokeless tobacco: Never Vaping Use Vaping status: Never Used Substance Use Topics Alcohol use: Yes Comment: 1 times a month Drug use: No Review of Symptoms REVIEW OF SYSTEMS GENERAL: No unintentional weight loss, malaise or fevers HEENT: has been getting increased migraines. , No changes in hearing or vision, no nose bleeds or other nasal problems. See HPI NECK: Negative for goiter, pain and significant neck swelling. Feels she has lumps in the back of her head and under her ears. RESPIRATORY: Negative for hemoptysis. In the past month patient has noticed some wheezing and shortness of breath. Has a cough occasionally productive of white sputum. CARDIOVASCULAR: Negative for leg swelling, hypertension, CHF or increased palpitations. Being seen by cardio for eval of chest pain. GI: No nausea, vomiting, or significant diarrhea, No frequent heartburn or reflux symptoms, and no blood : No history of dysuria, frequency. Patient has been having urge incontinence daily. Wearing pads. MUSCULOSKELETAL: Negative for new or changes in her typical joint pain or swelling, back pain or muscle pain SKIN: Negative for rash, and itching. She has noted some red bumps on her skin. PSYCH: See HPI HEMATOLOGY/LYMPHOLOGY: Negative for prolonged bleeding, bruising easily or swollen nodes ENDOCRINE: Negative for cold or heat intolerance, symptoms of low BS's NEURO: No history of syncope, paralysis, seizures or persistent tremors. Snores, feels tired daily. Increased headaches. SEE HPI EXAM: BP 142/74 (BP Site: Left Arm, BP Position: Sitting, BP Cuff Size: Large Adult) Pulse (!) 52 Resp 18 Ht 158.8 cm (5' 2.5) Wt 87.4 kg (192 lb 9.6 oz) BMI 34.67 kg/m Last Wt 05/05/25 : 87.4 kg (192 lb 9.6 oz) 04/19/25 : 87.5 kg (193 lb) 03/15/25 : 88 kg (194 lb) 11/03/24 : 90.3 kg (199 lb) 08/05/24 : 90.8 kg (200 lb 2.8 oz) General Appearance: Well appearing, alert, in no acute distress, well-hydrated, well nourished. and Obese. Skin: Skin color, texture, turgor normal, no suspicious rashes or lesions. Patient advised the red bumps are benign and genetic in nature. Head: Normocephalic, no masses, lesions, tenderness or abnormalities. Eyes: Anicteric sclera. Pupils are equally round and reactive to light. Extraocular movements are intact. . Ears: External ears, TM's normal, canals clear. Nose/Sinuses: Nares normal, septum midline, mucosa normal, [...] clubbing or cyanosis. Good capillary refill. . Musculoskeletal: Muscular strength intact, No joint swelling, deformity, or tenderness. Peripheral Pulses: Normal. Neurologic: Gait normal. Reflexes normal and symmetric. Sensation to light touch and crainal nerves 2-12 intact.. Diabetic Foot Exam: Feet: Shoes and socks removed, no deformities, ulcers, calluses, normal distal pulses, sensitive to 10 gm microfilament, and vibratory exam within normal limits Skin: warm, dry, and no callouses or ulcer Vascular Pulses: Normal SEMMES-TOPHER MONOFILAMENT TESTING Left Foot Right Foot Dorsal Surface Intact Dorsal Surface Intact Plantar Surface Intact Plantar Surface Intact Health Maintenance List Medicare Advantage Annual Wellness Visit due on 10/20/2024 Shingrix Vaccine(1 of 2) due on 11/03/2025 Influenza Vaccine(1) due on 06/20/2025 HbA1C due on 11/02/2025 Mammogram Screening due on 03/03/2026 Urine Albumin:Creatinine Ratio due on 05/02/2026 LDL Cholesterol due on 05/02/2026 Dilated Retinal Exam due on 05/04/2026 Diabetic Foot Exam due on 05/05/2026 Annual PCP Team Chronic Disease Visit due on 05/05/2026 DTaP,Tdap,Td Vaccine(4 - Td or Tdap) due on 05/18/2032 Colorectal Cancer Screening due on 08/07/2032 RSV Vaccine(1 - 1-dose 75+ series) due on 2039 Hepatitis C Screening Completed Pneumococcal Vaccine: 50+ Completed Cervical Cancer Screening Discontinued HIV Screening Discontinued Covid-19 Vaccine Discontinued Data reviewed Latest Ref Rng 11/03/2024 04/19/2025 05/02/2025 WBC 3.70 - 11.00 k/uL 8.65 7.90 RBC 3.90 - 5.20 m/uL 5.17 5.56 (H) Hemoglobin 11.5 - 15.5 g/dL 14.4 15.2 Hematocrit 36.0 - 46.0 % 44.3 48.0 (H) MCV 80.0 - 100.0 fL 85.7 86.3 MCH 26.0 - 34.0 pg 27.9 27.3 MCHC 30.5 - 36.0 g/dL 32.5 31.7 RDW-CV 11.5 - 15.0 % 13.2 13.7 Platelet Count 150 - 400 k/uL 268 272 MPV 9.0 - 12.7 fL 10.7 11.1 Neut% % 69.0 66.7 Abs Neut (ANC) 1.45 - 7.50 k/uL 5.96 5.27 Lymph% % 20.1 20.3 Abs Lymph 1.00 - 4.00 k/uL 1.74 1.60 Gulf% % 5.9 7.2 Abs Gulf <0.87 k/uL 0.51 0.57 Eosin% % 3.9 4.3 Abs Eosin <0.46 k/uL 0.34 0.34 Baso% % 0.8 1.0 Abs Baso <0.11 k/uL 0.07 0.08 Immature Gran % % 0.3 0.5 IMMATURE GRANS (ABS) <0.10 k/uL 0.03 0.04 NRBC /100 WBC 0.0 0.0 Absolute nRBC <0.01 k/uL <0.01 <0.01 DTYPE Auto Auto Color Yellow Yellow Yellow Clarity Clear Clear Clear Glucose, Urine Negative Negative Negative Bilirubin, Urine Negative Negative Negative Ketones, Urine Negative Negative Negative Specific [place], Ur 1.005 - 1.030 1.020 1.012 Hemoglobin/Blood,Ur Negative Negative Negative pH, Urine <8.5 7.0 7.5 Protein, Urine Negative Negative Negative Urobilinogen 0.2-1.0 EU/dL 0.2 EU/dL 0.2 EU/dL Nitrites Negative Negative Negative Leukest Negative Negative Negative WBC, Urine 0-5 /HPF 0-5 /HPF 0-5 /HPF RBC, Urine 0-2 /HPF 0-2 /HPF 0-2 /HPF Bacteria Negative /HPF Negative Negative Epithelial Cells /HPF None Seen None Seen Hyaline Cast 0 /LPF 0 /LPF 0 /LPF Protein, Total 6.3 - 8.0 g/dL 6.9 6.5 Albumin 3.9 - 4.9 g/dL 4.6 4.5 Calcium 8.5 - 10.2 mg/dL 10.1 10.1 Bilirubin, Total 0.2 - 1.3 mg/dL 0.4 0.3 Alkaline Phosphatase 34 - 123 U/L 62 53 AST 13 - 35 U/L 21 11 (L) ALT 7 - 38 U/L 24 12 Glucose 74 - 99 mg/dL 193 (H) 164 (H) BUN 7 - 21 mg/dL 18 21 Creatinine 0.58 - 0.96 mg/dL 0.77 0.80 Sodium 136 - 144 mmol/L 140 142 Potassium 3.7 - 5.1 mmol/L 4.5 4.1 Chloride 98 - 107 mmol/L 102 105 CO2 22 - 30 mmol/L 24 25 Anion Gap 8 - 15 mmol/L 14 12 eGFR >=60 mL/min/1.73m 88 84 Total Cholesterol, Nonfasting <200 mg/dL 202 (H) 172 Triglycerides, Nonfasting <150 mg/dL 343 (H) 273 (H) HDL Cholesterol, Nonfasting >39 mg/dL 28 (L) 30 (L) LDL Cholesterol Calculated, Nonfasting <100 mg/dL 105 (H) 96 Non HDL Cholesterol, Nonfasting <130 mg/dL 174 (H) 142 (H) VLDL Cholesterol, Nonfasting <30 mg/dL 69 (H) 44 (H) Total Chol/HDL Ratio, Nonfasting <5.10 mg/dL 7.21 (H) 5.73 (H) LDL/HDL Ratio, Nonfasting <2.54 mg/dL 3.75 (H) 3.20 (H) Creatinine, Ur Random (UCRR) 20.0 - 300.0 mg/dL 113.2 28.7 Albumin, Urine Random mg/L 21.6 <12.0 Albumin/Creat Ratio 19 -- Hemoglobin A1C 4.3 - 5.6 % 7.5 (H) 7.2 (H) Estimated Average Glucose mg/dL 169 160 TSH 0.270 - 4.200 mIU/L 1.040 Results CTA CHEST (NONGATED) W IVCON PE (Acc#[id number]) (Order [id number]) Patient Info Patient Name Sex Edgar Burch ([id number]) Female 1965 04/19/2025 5:54 PM - Radiology, [place] In Impression IMPRESSION: No CT evidence of pulmonary embolism. No acute inflammatory infiltrates The left atrial cardiac chambers enlarged in size. Right side coronary artery calcifications. Painter And Decorator: PSCB Transcribe Date/Time: Apr 19 2025 5:45P Dictated by : ANABELLE RICO MD This examination was interpreted and the report reviewed and electronically signed by: ANABELLE RICO MD on Apr 19 2025 5:52PM EST Results-Findings * * *Final Report* * * DATE OF EXAM: Apr 19 2025 5:17PM [facility] [id number] - CTA CHEST (NON GATED) W IVCON PE / PROCEDURE REASON: multiple diagnoses * * * * Physician Interpretation * * * * EXAMINATION: CHEST CTA (NON GATED) WITH CONTRAST (PULMONARY EMBOLISM PROTOCOL) Clinical History: Chest pain and shortness of breath Technique: Spiral CT acquisition of the chest from the thoracic inlet to the upper abdomen following IV contrast. Axial 1 and 3 mm thick slices plus coronal and sagittal reformatted images. MQ: CTCP_5 Contrast: 100 mL Omnipaque [address] Radiation dose: Integrated Dose-length product (DLP) for this visit = 625.13 mGy*cm CT Dose Reduction Employed: Automated exposure control(AEC) and iterative recon CTA: Post-processed images (Maximum intensity Projection (MIP), Volume-rendered (VR), or Surface shaded display images (SSD) were created, reviewed and archived. Comparison: No relevant prior studies available. RESULT: Limitations: None. Evaluation for thromboembolic disease: - Right heart chambers: No thromboembolic disease. - Main pulmonary arteries: No thromboembolic disease. - Lobar pulmonary arteries: No thromboembolic disease. - Segmental pulmonary arteries: No thromboembolic disease. - Subsegmental pulmonary arteries: No thromboembolic disease. - Additional pulmonary artery findings: The main pulmonary artery is normal in caliber. Lines, tubes, and devices: None. Lung parenchyma and airways: No consolidation. No suspicious pulmonary nodule. The central airways are patent. Pleural space: No pleural effusion. No pleural thickening. No pneumothorax Lower neck, lymph nodes, and mediastinum: The imaged thyroid gland is normal. No lymphadenopathy in the supraclavicular, axillary, mediastinal, or hilar regions. Heart, pericardium, and thoracic vessels: The thoracic aorta is normal in caliber. The left atrial cardiac chambers enlarged in size. Right side coronary artery calcifications. No pericardial effusion or thickening. Bones and soft tissues: No destructive bone lesion. Chest wall is unremarkable. Upper abdomen: No acute abnormality in the imaged upper abdomen. Redemonstration anterior splenic cyst Localizer images: Assessment and Plan 1. Medicare annual wellness visit, subsequent (Z00.00) Comprehensive evaluation performed. - updated on Prev-20 - pt to continue work on weight loss. 2. 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) (E11.69) Type 2 diabetes mellitus without complication, without long-term current use of insulin (HCC) (E11.9) HbA1c slightly improved at 7.2%. Triglycerides improved to 273 mg/dL from 343 mg/dL. Patient reports dietary modifications, including reduced carbohydrate intake. - Increased pioglitazone to 45 mg daily. - increase lipitor to 80 mg a day. - Continue dietary modifications. 3. Essential hypertension (I10) Blood pressure management suboptimal. - Initiated propranolol 10 mg daily, which may also aid in migraine prophylaxis. 4. Coronary artery calcification seen on CT scan (I25.10) Enlargement of right atrium (I51.7) Patient reports chest pain exacerbated by stress and episodes of dyspnea. Scheduled to see manager department Dr. Hugh Latif next month for further evaluation, including heart catheterization. 5. Mixed hyperlipidemia (E78.2) LDL cholesterol remains elevated at 196 mg/dL. - Increased atorvastatin to 80 mg daily. - Continue fenofibrate. 6. Gastroesophageal reflux disease without esophagitis (K21.9) Experiencing heartburn when taking multiple vitamins and medications simultaneously. managed via diet. 7. Migraine without aura and without status migrainosus, not intractable (G43.009) Increased frequency and severity of migraines, occurring 1-2 times per week. - Initiated propranolol 10 mg daily for migraine prophylaxis. - Follow-up in 4 weeks to assess efficacy. 8. Moderate episode of recurrent major depressive disorder (HCC) (F33.1) Generalized anxiety disorder (F41.1) Increased depressive symptoms, including anhedonia and desire to remain in bed. Anxiety symptoms also noted. - Restarted duloxetine 30 mg daily. 9. Obesity, Class I, BMI 30-34.9 (E66.811) Patient inquires about weight loss options. - discussed [facility]. 10. SOB (shortness of breath) (R06.02) Episodes of dyspnea, particularly in heat and during stress. - Ordered pulmonary function tests to evaluate for adult-onset asthma. 11. Chronic low back pain, unspecified back pain laterality, unspecified whether sciatica present (M54.50) History of chronic low back pain; previously decided against spinal fusion surgery. - had been seeing pain management, Dr. Morris. 12. Dry eyes (H04.123) Intermittent foggy vision; evaluated by mine manager and diagnosed with dry eyes. - Continue using prescribed eye drops. 13. Advance directive discussed with patient (Z71.89) Patient does not have a living will or power of managing attorney for healthcare. - Provided information on setting up advance directives. - packets provided. 14. Urge incontinence (N39.41) Experiencing urge incontinence for approximately one year, with recent use of pads. - Referred to Dr. Mcnulty, urologist, for further evaluation and management. 15. Snores (R06.83) Hypersomnolence (G47.10) Reports snoring and feeling tired most days. - Ordered home sleep study. 16. Need for vaccination (Z23) Due for pneumonia vaccination, Prev-20 - Administered pneumonia vaccine. Requested Prescriptions Signed Prescriptions Disp Refills albuterol HFA (PROVENTIL HFA, VENTOLIN HFA) 90 mcg/actuation inhaler 1 each 2 Sig: Inhale 2 puffs as instructed every 4 hours as needed for wheezing/shortness of breath. atorvastatin (LIPITOR) 80 mg tablet 90 tablet 1 Sig: Take 1 tablet by mouth once daily. fenofibrate nanocrystallized (TRICOR) 145 mg tablet 90 tablet 1 Sig: Take 1 tablet by mouth once daily. pioglitazone (ACTOS) 45 mg tablet 90 tablet 1 Sig: Take 1 tablet by mouth once daily. DULoxetine DR (CYMBALTA) 30 mg capsule 90 capsule 1 Sig: Take 1 capsule by mouth once daily. propranolol (INDERAL) 10 mg tablet 30 tablet 5 Sig: Take 1 tablet by mouth once daily. F/u 4 weeks NTH, migraine recheck F/u 6 months routine check A1c, Lipid and LFT's prior. Twni Barrera MD I spent a total of 61 minutes on the date of the service which included preparing to see the patient, [id number] patient care, completing clinical documentation, performing a medically appropriate examination, counseling and educating the patient/family/caregiver and ordering medications, tests, or procedures. Recording using [employer] software for draft documentation of the visit was discussed with the patient/authorized hospital sales representative; all questions welcomed and answered. Patient/authorized hospital sales representative agreed to proceed documented in this encounter [facility] 05-04-2025 Instructions Madai Morton II, OD - 05/04/2025 1:46 PM EDT Assessment and Plan E11.9 Type 2 diabetes mellitus without retinopathy (HCC) (primary encounter diagnosis) Comment: Examination shows no ocular diabetic complications today. Discussed need for optimal diabetes control to minimize chance of ocular complications. Advise patient to immediately report worsening in status or additional symptoms. Continue yearly dilated eye examinations. H25.13 Senile nuclear cataract, bilateral Comment: Trace cataract in both eyes. Well tolerated at this time. Monitor as instructed. H43.393 Vitreous floaters of both eyes Comment: Vitreal floaters stable both eyes. Retinas flat and intact with no apparent retinal tear or traction. Monitor yearly. 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 H52.03 Hyperopia of both eyes H52.223 Regular astigmatism of both eyes H52.4 Presbyopia Comment: Small increase in glasses power. Update as desired. I have confirmed and edited as necessary the relevant HPI, ophthalmic history, ROS, and the neuro exam findings as obtained by others. I have seen and examined Edgar Burch. I have discussed the case and the management of this patient's care with the Resident/Fellow, if applicable. I also have reviewed and agree with the assessment and plan as stated above and agree with all of its relevant components. documented in this encounter [facility] 05-04-2025 Note HNO ID: [id number] Author: MADAI MORTON II, ANGELA Service: ? Author Type: MACHINERY ENGINEER Type: Progress Notes Filed: 05/04/2025 14:05 Note Text: Assessment and Plan E11.9 Type 2 diabetes mellitus without retinopathy (HCC) (primary encounter diagnosis) Comment: Examination shows no ocular diabetic complications today. Discussed need for optimal diabetes control to minimize chance of ocular complications. Advise patient to immediately report worsening in status or additional symptoms. Continue yearly dilated eye examinations. H25.13 Senile nuclear cataract, bilateral Comment: Trace cataract in both eyes. Well tolerated at this time. Monitor as instructed. H43.393 Vitreous floaters of both eyes Comment: Vitreal floaters stable both eyes. Retinas flat and intact with no apparent retinal tear or traction. Monitor yearly. 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 H52.03 Hyperopia of both eyes H52.223 Regular astigmatism of both eyes H52.4 Presbyopia Comment: Small increase in glasses power. Update as desired. I have confirmed and edited as necessary the relevant HPI, ophthalmic history, ROS, and the neuro exam findings as obtained by others. I have seen and examined Edgarfabian Burch. I have discussed the case and the management of this patient's care with the Resident/Fellow, if applicable. I also have reviewed and agree with the assessment and plan as stated above and agree with all of its relevant components. [facility] 05-04-2025 History of Presen t illness Narrative Assessment and Plan E11.9 Type 2 diabetes mellitus without retinopathy (HCC) (primary encounter diagnosis) Comment: Examination shows no ocular diabetic complications today. Discussed need for optimal diabetes control to minimize chance of ocular complications. Advise patient to immediately report worsening in status or additional symptoms. Continue yearly dilated eye examinations. H25.13 Senile nuclear cataract, bilateral Comment: Trace cataract in both eyes. Well tolerated at this time. Monitor as instructed. H43.393 Vitreous floaters of both eyes Comment: Vitreal floaters stable both eyes. Retinas flat and intact with no apparent retinal tear or traction. Monitor yearly. 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 H52.03 Hyperopia of both eyes H52.223 Regular astigmatism of both eyes H52.4 Presbyopia Comment: Small increase in glasses power. Update as desired. I have confirmed and edited as necessary the relevant HPI, ophthalmic history, ROS, and the neuro exam findings as obtained by others. I have seen and examined Edgar Burch. I have discussed the case and the management of this patient's care with the Resident/Fellow, if applicable. I also have reviewed and agree with the assessment and plan as stated above and agree with all of its relevant components. documented in this encounter [facility] 04-21-2025 Telephone encounter Note Pt read [employer] message today at 8:31 AM. Michell Steele MA [facility] 04-21-2025 Miscellaneous Notes Pt read [employer] message today at 8:31 AM. Michell Steele MA Pt notified of results below from Provider via [employer] Will keep encounter open to make sure message is viewed. Once viewed by pt, will close encounter. If not viewed will call pt to notify of results. Rush Ahmadi MA Let patient know electrolyte panel was ok. documented in this encounter [facility] 04-20-2025 Telephone encounter Note Pt notified of results below from Provider via [employer]. Will keep encounter open to make sure message is viewed. Once viewed by pt, will close encounter. If not viewed will call pt to notify of results. Rush Ahmadi MA [facility] 04-20-2025 Telephone encounter Note Patient notified of results and provider's instructions. Patient verbalizes understanding. Heidy Aggarwal RN [facility] 04-20-2025 Miscellaneous Notes Patient notified of results and provider's instructions. Patient verbalizes understanding. Heidy Aggarwal RN No answer and no VM will try back later Blanca Dixon MA CT shows right artery calcifications and enlarged right atrium. I have placed a referral for her to see cardiology as she is likely going to need a heart catheterization. documented in this encounter [facility] 04-20-2025 Telephone encounter Note No answer and no VM will try back later Blanca Dixon MA [facility] 04-20-[address] shows right artery calcifications and enlarged right atrium. I have placed a referral for her to see cardiology as she is likely going to need a heart catheterization. [facility] 04-19-2025 History of Presen t illness Narrative Radiology Service Progress Note DATE OF SERVICE: April 19, 2025 TIME: 5:20 PM PATIENT IDENTITY VERIFICATION COMPLETED USING TWO (2) STANDARD IDENTIFIERS: Name and Date of confirmed by patient verbally. FALL SCREENING: Has the patient had 2 falls in the last year or 1 fall with injury or currently using an Ambulatory Assistive Device (Walker, Cane, Wheelchair, Crutches, etc.)? No PATIENT GENDER DATA: Assigned female at . status: : No status: NO. PATIENT RELEVANT IMPLANT DATA REVIEWED: Yes PATIENT PRESENTS WITH AN IMPLANTABLE OR ATTACHED TEST TECHNICIAN: No ALLERGIES: Reviewed and unchanged CONTRAST ALLERGY: NO. EXAM: CT -CONTRAST INDUCED NEPHROPATHY RISK FACTORS: Patient age > 60 years CREATININE: Creatinine Date Value Ref Range Status 04/19/2025 0.80 0.58 - 0.96 mg/dL Final 11/03/2024 0.77 0.58 - 0.96 mg/dL Final 04/21/2024 0.73 0.58 - 0.96 mg/dL Final Estimated Glomerular Filtration Rate Date Value Ref Range Status 04/19/2025 84 >=60 mL/min/1.73m Final Comment: Estimated Glomerular Filtration [...] RESULTS: POC done: Yes, See Lab Tab April 19, 2025 TREATMENT: N/A PERIPHERAL IV DATA: Ambulatory: A peripheral IV was started in the Right antecubital site with a Angio cath: 20 gauge. RADIOLOGY DEPARTMENT: CT; Exam(s) Completed: PE Study SIGNATURE: RT Jai(Barbra) PATIENT NAME: Edgar Burch DATE: April 19, 2025 TIME: 5:20 PM documented in this encounter [facility] 04-19-2025 Note HNO ID: [id number] Author: MARICARMEN ASHLEY RT(R) Service: Radiology Author Type: Cereal Popper Type: Progress Notes Filed: 04/19/2025 17:21 Note Text: Radiology Service Progress Note DATE OF SERVICE: April 19, 2025 TIME: 5:20 PM PATIENT IDENTITY VERIFICATION COMPLETED USING TWO (2) STANDARD IDENTIFIERS: Name and Date of confirmed by patient verbally. FALL SCREENING: Has the patient had 2 falls in the last year or 1 fall with injury or currently using an Ambulatory Assistive Device (Walker, Cane, Wheelchair, Crutches, etc.)? No PATIENT GENDER DATA: Assigned female at . status: : No status: NO. PATIENT RELEVANT IMPLANT DATA REVIEWED: Yes PATIENT PRESENTS WITH AN IMPLANTABLE OR ATTACHED TEST TECHNICIAN: No ALLERGIES: Reviewed and unchanged CONTRAST ALLERGY: NO. EXAM: CT -CONTRAST INDUCED NEPHROPATHY RISK FACTORS: Patient age > 60 years CREATININE: Creatinine Date Value Ref Range Status 04/19/2025 0.80 0.58 - 0.96 mg/dL Final 11/03/2024 0.77 0.58 - 0.96 mg/dL Final 04/21/2024 0.73 0.58 - 0.96 mg/dL Final Estimated Glomerular Filtration Rate Date Value Ref Range Status 04/19/2025 84 >=60 mL/min/1.73m? Final Comment: Estimated Glomerular Filtration [...] RESULTS: POC done: Yes, See Lab Tab April 19, 2025 TREATMENT: N/A PERIPHERAL IV DATA: Ambulatory: A peripheral IV was started in the Right antecubital site with a Angio cath: 20 gauge. RADIOLOGY DEPARTMENT: CT; Exam(s) Completed: PE Study SIGNATURE: RT Jai(R) PATIENT NAME: Edgar Burch DATE: April 19, 2025 TIME: 5:20 PM [facility] 04-19-2025 Telephone encounter Note Let patient know electrolyte panel was ok. [facility] 04-19-2025 Note HNO ID: [id number] Author: KERRI MARCH APRN.LABOR STANDARDS DIRECTOR Service: ? Author Type: Nurse Practitioner Type: Progress Notes Filed: 04/19/2025 10:54 Note Text: Chief Complaint Patient presents with: ER F/U HPI Edgar Burch is a 59 year old female who presents here today for Above Complaints. Patient presents for ER f/u. Patient called on 04/15 and triage nurse recommended ER for chest pain, tightness, Shortness of Breath, dizziness, nausea and blurred vision. Happens intermittently and not related to activity. Patient went to [facility] and completed ER workup. Patient was advised that they wanted to admit her overnight for stress test and echo in am but patient refused as she did not feel it was warranted. Continues to have CP and Shortness of Breath. Negative xray and troponin's at [facility], EKG showed NSR with no ectopy. Patient has hx DM II and HTN and was hypertensive at the ER. Also reports ear pain and drainage, right worse than left, blurry vision, and nausea with abdominal pain. Was given antidiarrheal in ER but pain continues. Past medical history, appointments, medications, allergies reviewed. Previous Medical History PAST MEDICAL HISTORY Diagnosis Date Abnormal NCS (nerve conduction studies) 05/15/2014 Abnormal sensation of leg, right 05/15/2014 Allergic rhinitis, cause unspecified 06/27/2005 Anisometropia 01/30/2016 Arthritis Arthritis knees Arthritis of both knees 03/15/2025 XR: 02/2025, Rt>Lt Astigmatism, regular 01/30/2016 Cataract Cervicalgia 02/14/2014 Chronic pain of both knees 04/07/2023 Constipation 02/24/2015 Essential hypertension 07/19/2015 Fatty liver [...] of left eye 01/30/2016 Sebaceous cyst 08/08/2015 Senile nuclear cataract, bilateral 03/02/2020 Shingles outbreak 09/21/2013 Thoracic or lumbosacral neuritis or radiculitis, unspecified 05/18/2014 Trigger little finger of right hand 08/02/2014 Trigger middle finger of left hand 07/31/2017 Added automatically from request for surgery [id number] Trigger middle finger of right hand 08/02/2014 [...] 3+LVL 05/20/2015 LAPAROSCOPIC CHOLECYSTECTOMY 03/03/2023 LAPS ABD PRTMANDOMENTUM DX W/WO SPEC BR/WA SPX 10/20/2000 Laparoscopy NEUROPLASTY AND/TRANSPOS MEDIAN NRV CARPAL TUNNE 10/20/2003 Carpal tunnel decomp right OOPHORECTOMY PARTIAL/TOTAL UNI/BI 09/08/2008 has one ovary left REM LESION TRUNK,ARM,LEG 0.6 -1.0CM 07/26/2015 Exc mid back david cyst REMOVAL GALLBLADDER TONSILLECTOMY HX TONSILLECTOMY PRIMARY/SECONDARY Tonsillectomy TOTAL ABDOMINAL HYSTERECT W/WO RMVL TUBE OVARY 10/20/2002 uterus only- ovaries intact VAGINAL HYSTERECTOMY Family History FAMILY HISTORY Problem Relation Age of Onset Diabetes Mother Emphysema Mother Hypertension Mother Stroke Mother Heart Mother heart attacks Colon Cancer Father Cancer Father lung cancer Diabetes Sister x3 Diabetes Brother x2 Diabetes Daughter Heart Paternal Aunt Patient Allergies ALLERGIES Allergen Reactions (more content not included)... [facility] 04-19-2025 History of Presen t illness Narrative Chief Complaint Patient presents with: ER F/U HPI Edgar Burch is a 59 year old female who presents here today for Above Complaints. Patient presents for ER f/u. Patient called on 04/15 and triage nurse recommended ER for chest pain, tightness, Shortness of Breath, dizziness, nausea and blurred vision. Happens intermittently and not related to activity. Patient went to [facility] and completed ER workup. Patient was advised that they wanted to admit her overnight for stress test and echo in am but patient refused as she did not feel it was warranted. Continues to have CP and Shortness of Breath. Negative xray and troponin's at [facility], EKG showed NSR with no ectopy. Patient has hx DM II and HTN and was hypertensive at the ER. Also reports ear pain and drainage, right worse than left, blurry vision, and nausea with abdominal pain. Was given antidiarrheal in ER but pain continues. Past medical history, appointments, medications, allergies reviewed. Previous Medical History PAST MEDICAL HISTORY Diagnosis Date Abnormal NCS (nerve conduction studies) 05/15/2014 Abnormal sensation of leg, right 05/15/2014 Allergic rhinitis, cause unspecified 06/27/2005 Anisometropia 01/30/2016 Arthritis Arthritis knees Arthritis of both knees 03/15/2025 XR: 02/2025, Rt>Lt Astigmatism, regular 01/30/2016 Cataract Cervicalgia 02/14/2014 Chronic pain of both knees 04/07/2023 Constipation 02/24/2015 Essential hypertension 07/19/2015 Fatty liver [...] of left eye 01/30/2016 Sebaceous cyst 08/08/2015 Senile nuclear cataract, bilateral 03/02/2020 Shingles outbreak 09/21/2013 Thoracic or lumbosacral neuritis or radiculitis, unspecified 05/18/2014 Trigger little finger of right hand 08/02/2014 Trigger middle finger of left hand 07/31/2017 Added automatically from request for surgery [id number] Trigger middle finger of right hand 08/02/2014 Trigger ring finger of right hand 08/02/2014 Type 2 diabetes mellitus without complication, without long-term current use of insulin (HCC) 05/28/2016 Previous Surgical History PAST SURGICAL HISTORY Procedure Laterality Date ABDOMINAL SURGERY HX DELIVERY ONLY 91,93,85 x3 COLONOSCOPY 08/07/2022 repeat in 10 years. COLONOSCOPY FLX DX W/COLLJ SPEC WHEN PFRMD 05/19/2012 Normal colonoscopy EGD W/O [facility] SPEC VARICIES INJ 12/11/2022 ENTEROLSS FRING INTSTINAL [...] -1.0CM 07/26/2015 Exc mid back david cyst REMOVAL GALLBLADDER TONSILLECTOMY HX TONSILLECTOMY PRIMARY/SECONDARY <AGE 11 Tonsillectomy [...] Prior to Visit Medication Sig omeprazole (PRILOSEC) 20 mg capsule Take 1 capsule by mouth once daily. Per Gastro: Dr. Benavides lisinopril (ZESTRIL) 40 mg tablet Take 1 tablet by mouth once daily. pioglitazone (ACTOS) 30 mg tablet Take 1 tablet by mouth once daily. acyclovir (ZOVIRAX) 400 mg tablet Take 1 tablet by mouth two times a day. atorvastatin (LIPITOR) 40 mg tablet Take 1 tablet by mouth once daily. blood sugar diagnostic (BLOOD GLUCOSE TEST) test strip Test blood sugar(s) 1 times daily. Dx: Type 2 DM - Controlled E11.9 Insulin: No cetirizine (ZYRTEC) 10 mg tablet Take 1 tablet by mouth once daily. prn budesonide 9 mg TaDE Per [facility] MEDICAL SUP[employer]Y Air purifier, Dx: R05.1, R06.02 and Z77.22 albuterol HFA (PROVENTIL HFA, VENTOLIN HFA) 90 mcg/actuation inhaler Inhale 2 Puffs as instructed every 4 hours as needed for wheezing/shortness of breath. fluticasone (FLONASE) 50 mcg/actuation nasal spray Use 2 Sprays in each nostril once daily. Rinse mouth after use. Using prn B-complex with vitamin C (VITAMIN B COMPLEX-C ORAL) Take by mouth. ergocalciferol, vitamin D2, (VITAMIN D2 ORAL) Take by mouth. VITAMIN A ORAL Take by mouth. cyanocobalamin, vitamin B-12, (VITAMIN B12 ORAL) Take by mouth. ubidecarenone (COQ-10 ORAL) Take by mouth. multivitamin with minerals (HAIR,SKIN AND NAILS ORAL) Take by mouth. fenofibrate nanocrystallized (TRICOR) 145 mg tablet Take 1 tablet by mouth once daily. L.acid/L.casei/B.bif/B.lorne/FOS (PROBIOTIC BLEND ORAL) Take by mouth. Lancets lancets Test blood sugar(s) 1 times daily. Dx: Type 2 DM - Controlled E11.9 Insulin: No blood sugar diagnostic (BLOOD GLUCOSE TEST) test strip Test blood sugar(s) 1 times daily. Dx: Type 2 DM - Controlled E11.9 Insulin: No Lancets lancets Test blood sugar(s) 1 times daily. Dx: Type 2 DM - Controlled E11.9 Insulin: No ascorbic acid (VITAMIN C ORAL) Take by mouth. MULTIVIT &MINERALS/FERROUS FUM (MULTI VITAMIN ORAL) Take by mouth once daily. No current facility-administered medications on file prior to visit. Social History Social History Tobacco Use Smoking status: Never Passive exposure: Past Smokeless tobacco: Never Vaping Use Vaping status: Never Used Substance Use Topics Alcohol use: Yes Comment: 1 times a month Drug use: No Review of Symptoms REVIEW OF SYSTEMS SEE HPI EXAM: BP 116/75 Pulse 76 Wt 87.5 kg (193 lb) SpO2 97% BMI 35.30 kg/m PHYSICAL EXAMINATION: General appearance: Well appearing, alert, in no acute distress, well-hydrated, well nourished. Ears: Positive findings: R TM: purulent material noted behind TM, erythematous, and bulging, L TM: purulent material noted behind TM, erythematous, and bulging Neck: Positive findings: posterior auricular adenopathy Lungs: Positive findings: rhonchi Shortness of breath: Upon exertion Cough Heart: RRR without murmur, gallop, or rubs. No ectopy Health Maintenance List Pneumococcal Vaccine: 50+(3 of 3 - PCV20 or PCV21) due on 02/25/2023 Medicare Advantage Annual Wellness Visit due on 10/20/2024 Dilated Retinal Exam due on 01/21/2025 Diabetic Foot Exam due on 04/29/2025 Shingrix Vaccine(1 of 2) due on 11/03/2025 HbA1C due on 05/03/2025 Influenza Vaccine(1) due on 06/20/2025 Urine Albumin:Creatinine Ratio due on 11/03/2025 LDL Cholesterol due on 11/03/2025 Mammogram Screening due on 03/03/2026 Annual PCP Team Chronic Disease Visit due on 03/15/2026 DTaP,Tdap,Td Vaccine(4 - Td or Tdap) due on 05/18/2032 Colorectal Cancer Screening due on 08/07/2032 RSV Vaccine(1 - 1-dose 75+ series) due on 2039 Hepatitis C Screening Completed Cervical Cancer Screening Discontinued HIV Screening Discontinued Covid-19 Vaccine Discontinued Data reviewed The 10-year ASCVD risk score (Mary GOODMAN, et al., 2019) is: 10.9% Values used to calculate the score: Age: 59 years Sex: Female Is Non- : No Diabetic: Yes Tobacco smoker: No Systolic Blood Pressure: 116 mmHg Is BP treated: Yes HDL Cholesterol: 28 mg/dL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 RADIOLOGY DEPARTMENT: General X-ray: Exam(s) Completed: Spine X-Ray(s): Sacrum/Coccyx PERIPHERAL IV DATA: Not applicable SIGNED BY: RT Bety(R) April 07, 2023 10:19 AM documented in this encounterLima City Hospital06-19-2023 History of Present illness Narrative* Twin Barrera MD - 04/07/2023 9:43 AM EDT Chief Complaint Patient presents with: Blood Pressure HPI Edgar Burch is a 57 year old female who presents here today for blood pressure/left knee pain Patient was helping her brother last Friday and was sitting on a lever and the pipe she was sittingon come out and hit her in the [...] after getting up from sitting. Pain is underthe knee caps bilaterally. Not aware of any [...] she was going down hill, avoided all thecars, but then annetta broke along with the [...] 07/31/2017 Added automatically from request for surgery [id number] Trigger middle finger of right hand 08/02/2014 [...] IMPRESSION: NO ACUTE BONY ABNORMALITY. NO ARTHROPATHY. Painter And Decorator: PSCB Transcribe Date/Time: Mar 28 2023 3:32P [...] GENERAL 4V AP BOTH/PA BOTH/LAT/MERC LEFT (Order #[id number]) on 03/28/2023 - Order Result History Report [...] AP/LAT Twin Barrera MD documented in this encounterLima City Hospital06-12-2023 History of Present illness Narrative* Twin Barrera MD - 03/31/2023 2:58 PM EDT Patient left without being seen. documented in this encounterLima City Hospital06-08-2023 Miscellaneous Notes* Telephone Encounter - Monisha Barron RN - 03/27/2023 10:40 AM EDT Pt called and is notified of providers results and instructions. Pt voices understanding. Pt put onDr Barrera's schedule for 03/31/23 at 320 pm. Monisha Barron RN * Telephone Encounter - Evonne eRyes PA-C - 03/27/2023 9:13 AM EDT Let patient know that her a1c was 6.7%. this is still at goal. Cholesterol has improved but not quite at goal yet. I would like patient to at least try to take 40mg every day. The rest of her labs are fairly stable. Also patient needs a repeat BP check. Evonne Reyes PA-C documented in this encounterLima City Hospital06-07-2023 History of Present illness Narrative* Claire Diaz RT(R) - 03/26/2023 9:20 AM EDT Radiology Service Progress Note PATIENT NAME: Edgar Burch DATE OF SERVICE: March 26, 2023 TIME: 9:12 AM PATIENT IDENTITY VERIFICATION COMPLETED USING TWO (2) IDENTIFIERS: Name and Date of confirmedby patient verbally. FALL SCREENING: Has the patient had 2 falls in the last year or 1 fall with injury or currently using an Ambulatory Assistive Device (Walker, Cane, Wheelchair, Crutches, etc.)? No PATIENT GENDER DATA: Female. status: : No status: NO. PATIENT RELEVANT IMPLANT DATA REVIEWED: Not Applicable RADIOLOGY DEPARTMENT: General X-ray: Exam(s) Completed: Lower Extremity X- Ray(s): Knee, AP / Lat / Tunne / Merchant Left and Wt. Bearing PERIPHERAL IV DATA: Not applicable SIGNED BY: RT Lisa(R) March 26, 2023 9:12 AM documented in this encounterLima City Hospital06-06-2023 History of Present illness Narrative* Evonne Reyes PA-C - 03/25/2023 12:12 PM EDT Medicare Yearly Visit Medical B eligibilty date [...] she was going down hill, avoided all thecars, but then annetta broke along with the [...] 07/31/2017 Added automatically from request for surgery [id number] Trigger middle finger of right hand 08/02/2014 Trigger ring finger of right hand 08/02/2014 Type 2 diabetes mellitus without complication, without long-term current use of insulin ([facility]) 05/28/2016 PAST SURGICAL HISTORY Procedure Laterality Date ABDOMINAL SURGERY HX DELIVERY ONLY 91,93,85 x3 COLONOSCOPY 08/07/2022 repeat in 10 years. COLONOSCOPY FLX DX W/COLLJ SPEC WHEN PFRMD 05/19/2012 Normal colonoscopy EGD W/O [facility] SPEC VARICIES INJ 12/11/2022 ENTEROLSS FRING INTSTINAL [...] TRUNK,ARM,LEG 0.6 -1.0CM 07/26/2015 Exc mid back advid cyst TONSILLECTOMY HX TONSILLECTOMY PRIMARY/SECONDARY <AGE 12 Tonsillectomy TOTAL ABDOMINAL HYSTERECT W/WO RMVL TUBE OVARY 10/20/2002 uterus only- ovaries intact VAGINAL HYSTERECTOMY ALLERGIES: Codeine, Effexor [Venlafaxine Hcl], Hydrocodone Bitartrate, Keflex [Cephalexin], Latex, Paroxetine,Paxil [Paroxetine Hcl], Prednisolone, Scopolamine, Erythromycin, Latex, Metformin, [...] bars in the bathroom, lack of handrails onthe stairs or have poor lighting? No Hearing Evaluation: normal PHYSICAL EXAM BP 128/94 (BP Site: Right Arm, BP Position: Sitting, BP Cuff Size: Large Adult) Pulse 73 Temp 36.7 C (98 F) Resp 18 Ht 158 cm (5' 2.21) Wt 91.6 kg (202 lb) BMI 36.70 [...] she was going down hill, avoided all thecars, but then annetta broke along with the [...] 07/31/2017 Added automatically from request for surgery [id number] Trigger middle finger of right hand 08/02/2014 [...] F) Resp 18 Ht 158 cm (5' 2.21) Wt 91.6 kg (202 lb) BMI 36.70 kg/m General Appearance: Well appearing, alert, in no acute distress, well-hydrated, well nourished. andObese. Skin: declined gown. No lesion on exposed [...] diet of 1000 mg/day for under 50, 1200- 1500 mg/day for 50+ 2. Mixed hyperlipidemia - [...] LEFT Evonne Reyes PA-C documented in this encounterLima City Hospital05-31-2023 Miscellaneous Notes* Telephone Encounter - Karin Tan LPN - 03/19/2023 12:41 PM EDT Patient called. Verified name and date of . Was datastage consultant with patient when previous note being placed by nurse and did not see. Patient informedof message from Dr. Barreto and transferred to clerical for scheduling appointment. Karin Tan LPN * Telephone Encounter - Kayla Pepe RN - 03/19/2023 12:38 PM EDT Called Edgar. No answer and the voicemail had no identifying information. Left a generic messageto please call the general surgery office. Kayla Pepe RN * Telephone Encounter - Leo Barreto MD - 03/19/2023 12:05 PM EDT have pt f/u with monisha * Telephone Encounter - Karin Tan LPN - 03/19/2023 11:30 AM EDT Patient called. Verified name and date of [...] advise. Karin Tan LPN documented in this encounterLima City Hospital05-15-2023 NoteHNO ID: [id number] Author: Charli lAcocer APRN.ROLL FORMING MACHINE SET UP OPERATOR Service: Anesthesiology Author Type: Nurse Hospital Personnel Director Type: Anesthesia Procedure Notes Filed: 03/03/2023 7:48 AM Note Text: ANESTHESIOLOGY PROCEDURE NOTE Airway General Information Procedure Start Time/Medication Administration: 03/03/2023 7:35 AM Patient location during procedure: OR Patient identity confirmed: arm band Staffing ROLL FORMING MACHINE SET UP OPERATOR: Charli Alcocer APRN.ROLL FORMING MACHINE SET UP OPERATOR Performed by: ROLL FORMING MACHINE SET UP OPERATOR Indications and Patient Condition Indications for airway [...] 1 Airway not difficult SIGNATURE: Charli Alcocer APRN.ROLL FORMING MACHINE SET UP OPERATOR PATIENT NAME: Edgar Burch DATE: March 03, 2023 TIME: 7:47 AM CSN: [id number] ID: [id number] Author: Irena Gordon RN Service: Nursing Author Type: Registered Nurse Type: Nursing Progress Note Filed: 03/03/2023 7:11 AM Note Text: Other: pt ready for OR, call light in Reny osorio called to bedsideHolmes County [facility] [id number] Miscellaneous Notes* Telephone Encounter - Bertha Quiroz RN - 02/25/2023 2:23 PM EDT PATIENT PREOPERATIVE INSTRUCTIONS Dr. Dejan Barreto has scheduled you for your procedure on 03/03/2023 at this [facility] center[facility]: [phone] (Surgery timeline-expect a call Friday for Friday arrival time) -- [address] [address]. Please read below carefully for your personalized [...] Procedures: - YOU MUST HAVE A RESPONSIBLE CARDIOLOGY COORDINATOR TAKE YOU HOME. A HEALTH MANAGER OR CUSTOMER PROGRAM SPECIALIST or UBER or LYFT CANNOT BE MADE A RESPONSIBLE CARDIOLOGY COORDINATOR unless accompanied by family or friend. - We recommend that a responsible person stays with you overnight to take care of you. - You cannot stay in a hotel alone after outpatient surgery. You will not be permitted to have yoursurgery, if you do not have someone to [...] Advance Directive, please fax a copy to [phone] or email to for it to be added to your chart. If you do not have an Advance Directive, you can find the appropriate form and more information at [email or web address]. We recommend that youcomplete the Advance Directive form found on the website and bring it with you the day of your surgery. It can be witnessed and scanned into your chart that day. Thank you for [facility] the [facility] your [facility]. Bertha Quiroz, RN documented in this encounterLima City Hospital05-02-2023 History of Present illness Narrative* Leo Barreto MD - 02/18/2023 1:14 PM EDT HISTORY AND PHYSICAL Edgar Dominguez Marcin 1965 REFERRING PHYSICIAN: Jessica Lal APRN.LABOR STANDARDS DIRECTOR CHIEF COMPLAINT: Consult (RUQ pain) HPI: The patient is a 57 year old female presents with chronic upper abdominal pain. HIDA scan (01/09/2023) did reveals biliary dyskinesia with an EF of 19% Patient had presented to [facility] ED for pain in the past - [...] she was going down hill, avoided all thecars, but then annetta broke along with the [...] 07/31/2017 Added automatically from request for surgery [id number] Trigger middle finger of right hand 08/02/2014 Trigger ring finger of right hand 08/02/2014 Type 2 diabetes mellitus without complication, without long-term current use of insulin (HCC) 05/28/2016 OPERATIONS: PAST SURGICAL HISTORY Procedure Laterality Date ABDOMINAL SURGERY HX DELIVERY ONLY 91,93,85 x3 COLONOSCOPY 08/07/2022 repeat in 10 years. COLONOSCOPY FLX DX W/COLLJ SPEC WHEN PFRMD 05/19/2012 Normal colonoscopy EGD W/O [facility] SPEC VARICIES INJ 12/11/2022 ENTEROLSS FRING INTSTINAL [...] 2 DM - Controlled E11.9 Insulin: No 100Each 11 blood sugar diagnostic (BLOOD GLUCOSE TEST) test strip Test blood sugar(s) 1 times daily. Dx: Type 2 DM - Controlled E11.9 Insulin: No 50 Strip 11 Lancets lancets Test blood sugar(s) 1 times daily. Dx: Type 2 DM - Controlled E11.9 Insulin: No 100Each 11 loratadine (CLARITIN) 10 mg tablet Take [...] entered by the nurse and reviewed by mt Nursing Notes: Ave Mann RN 02/18/2023 10:48 [...] failure, other cardiac issues, denies claudication, denies coldfeet, denies peripheral arterial stent. Respiratory: The patient [...] psychiatric medications, NOTES depression, and denies voices, deniessubstance abuse. Endocrine: The patient denies thyroid disorders, [...] nourished, well hydrated in no acute distress. Thepatient is oriented to time, place, and person. VITALS: Blood pressure 148/88, pulse 71, temperature 36.3 C (97.4 F), height 157.5 cm (5' 2), weight 91.3 kg (201 lb 3.2 oz), SpO2 99 %. Body mass index is 36.8 kg/m . HEENT: Normal cephalic, ataumatic, pupils are equally round, sclera are anicteric, mucous membranesare moist, oropharynx is clear. Neck has no [...] opportunity to ask questions concerning the planned procedure.The patient freely consents to the planned procedure. Planned Procedure: LAPAROSCOPIC CHOLECYSTECTOMY WITHOUT INTRAOPERATIVE CHOLEANGIOGRAM - [id number] Planned antibiotic: Vancomycin 1gm IVPB datastage consultant to OR SCDs needed - Yes Clothing Examiner Needed - Yes Diagnoses: (K82.8) Biliary dyskinesia (primary encounter diagnosis) (R10.84) Generalized abdominal pain My findings have been communicated to Dr. Lal via shared medical record. This note will be forwarded to Dr. Twin Barrera MD. Leo Barreto III, MD documented in this encounterLima City Hospital05-02-2023 Miscellaneous Notes* Telephone Encounter - Alexandria Mccann - 02/18/2023 11:22 AM EDT Patient requested to only follow Dr. Barreto for surgery patient now on for 03/03/[address] Barreto in [place] * Telephone Encounter - Alexandria Mccann - 01/17/2023 10:23 AM EDT Patient called in stating she wishes to cancel lap keshav in [place] with Dr. Solis on 01/30/2023 Patient denied to reschedule and stated she will call if she is ready. Case message sent to [place] to cancel surgery. Alexandria Mccann Airline Attendant * Telephone Encounter - Alexandria Mccann - 01/14/2023 11:06 AM EDT 01/30/2023 LAP KESHAV CONTRERAS documented in this encounterLima City Hospital05-02-2023 Nurse Note* Ave Mann RN - 02/18/2023 10:47 AM EDT REVIEW OF SYSTEMS: General: The patient NOTES [...] failure, other cardiac issues, denies claudication, denies coldfeet, denies peripheral arterial stent. Respiratory: The patient [...] psychiatric medications, NOTES depression, and denies voices, deniessubstance abuse. Endocrine: The patient denies thyroid disorders, [...] [address] Mann RN documented in this encounterLima City Hospital04-27-2023 Miscellaneous Notes* Telephone Encounter - Meghan Davis - 02/13/2023 12:17 PM EDT Pt informed, verbalized understanding. Pt reports she is still having the abd pain, nausea, diarrhea and wants to know how to proceed. Meghan Davis * Telephone Encounter - Koki Pretty LPN - 02/12/2023 1:12 PM EDT Message left to return call. * Telephone Encounter - Chata Bedolla APRN.LABOR STANDARDS DIRECTOR - 02/08/2023 10:05 PM EDT Please let Edgar know that we received the results of her CT scan. Overall, it is stable. Adrenal gland lesion is stable. Low attenuation splenic cyst with very minimal change, is not concerning. It does show diverticulosis, but no diverticulitis. Chata Bedolla APRN.ALLA documented in this encounterLima City Hospital04-20-2023 History of Present illness Narrative* Karin Brandt, RT(R) - 02/06/2023 3:20 PM EDT Radiology Service Progress Note DATE OF SERVICE: [...] creatinine assay has traceable calibration to isotope dilution- mass spectrometry. Refer to KDIGO guidelines for clinical interpretation. In patients with unstable renal function, e.g. those with acute kidney injury, the eGFRmay not accurately reflect actual GFR. eGFR- Date [...] 2023 TIME: 3:53 PM documented in this encounterLima City Hospital04-19-2023 Miscellaneous Notes* Telephone Encounter - Jessica Lal APRN.CNP - 02/05/2023 4:52 PM EDT Noted. Will assess tomorrow. Thank you, Jessica Lal APRN.ALLA * Telephone Encounter - Priscilla Benitez LPN - 02/05/2023 4:26 PM EDT Pt reports she has had diarrhea & [...] avail. Priscilla Benitez LPN documented in this encounterLima City Hospital03-29-2023 History of Present illness Narrative* Celina Solis MD - 01/15/2023 3:31 PM EDT HISTORY AND PHYSICAL Edgar Burch 1965 REFERRING PHYSICIAN: Celina Solis MD CHIEF COMPLAINT: Follow Up (HIDA scan results) HPI: The patient is a 57 year old female presents with chronic upper abdominal pain. HIDA scan (01/09/2023) did reveals biliary dyskinesia with an EF of 19% Patient had presented to [facility] ED for pain in the past - [...] she was going down hill, avoided all thecars, but then annetta broke along with the [...] 07/31/2017 Added automatically from request for surgery [id number] Trigger middle finger of right hand 08/02/2014 Trigger ring finger of right hand 08/02/2014 Type 2 diabetes mellitus without complication, without long-term current use of insulin ([facility]) 05/28/2016 PAST SURGICAL HISTORY Procedure Laterality Date ABDOMINAL SURGERY HX DELIVERY ONLY 91,93,85 x3 COLONOSCOPY 08/07/2022 repeat in 10 years. COLONOSCOPY FLX DX W/COLLJ SPEC WHEN PFRMD 05/19/2012 Normal colonoscopy EGD W/O [facility] SPEC VARICIES INJ 12/11/2022 ENTEROLSS FRING INTSTINAL [...] nourished, well hydrated in no acute distress. Thepatient is oriented to time, place, and person. VITALS: Blood pressure 126/82, pulse 77, temperature (!) 35.9 C (96.7 F), height 157.5 cm (5' 2), weight 91.2 kg (201 lb), SpO2 97 [...] Clinic: The patient will be scheduled at [facility] for laparoscopic cholecystectomy I spent a total of 27 minutes on the date of the service which included preparing to see the patient with review of any pertinent laboratory studies/radiological imaging/medical records from other medical facilities such as [facility], [id number] patient care, obtaining oral medical history from the patient in this encounter, performing a medically appropriate examination, counseling and educating the patient/family/caregiver, and ordering and/or scheduling of medications/tests/procedures, and completing appropriate medical documentation. Celina Solis MD documented in this encounterLima City Hospital03-27-2023 Miscellaneous Notes* Telephone Encounter - Maxwell Wheeler LPN - 01/13/2023 8:59 AM EDT Called and spoke to patient, updated, patient scheduled with Dr Solis tomorrow, 01/14/23. * Telephone Encounter - Monisha Contreras PA-C - 01/13/2023 8:31 AM EDT Please let patient know her gallbladder ejection fraction was decreased, which can be consistent with biliary dyskinesia (gallbladder not jossy/functioning properly). Would recommend having hersee surgeon for consult regarding possible cholecystectomy. * Telephone Encounter - Arlene Ayala RN - 01/10/2023 5:00 PM EDT Patient calling for results of HIDA scan [...] ED. Patient verbalized understanding. documented in this encounterLima City Hospital03-07-2023 Instructions* Patient Instructions* Monisha Contreras PA-C - 12/24/2022 2:36 PM EST -Check HIDA scan -Small, bland meals -If symptoms persist, recommend seeing Gastroenterology The following instructions are important for you related to your office visit today with the [facility] General Surgeons. INSTRUCTIONS FOR GERD WITH [...] epigastric pain, burning, difficulty swallowing or food stickingshould be relayed to your physician. Feeling full early after eating, or black, tarry, foul smelling stools are also worrisome. If you have any difficulties or concerns, you should contact our office immediately. If you note any additional difficulties, questions, or concerns, you should contact our office immediately @ [phone] and ask to be transferred to the General Surgery department. documented in this encounterLima City Hospital03-07-2023 History of Present illness Narrative* Monisha Contreras PA-C - 12/24/2022 2:05 PM EST FOLLOW UP VISIT - ENDOSCOPY NAME: Edgar Burch [facility] NO.: [id number] DATE OF SERVICE: 12/24/2022 : 1965 REFERRING [...] C (97.2 F), height 157.5 cm (5' 2), weight 92.2 kg (203 lb 3.2 oz), SpO2 97 %. General: patient is alert, cooperative, pleasant and in no acute distress On examination, the abdomen is benign. Assessment IMPRESSION: mild gastropathy and irregular z-line, otherwise unremarkable EGD. Neg RUQ ultrasound. ?biliary dyskinesia PLAN: The operative findings and pathology report were reviewed with the patient, and the patient has hadthe opportunity to ask questions and have questions [...] which included preparing to see the patient, [id number] patient care, completing clinical documentation, obtaining and/or reviewing separately obtained history, counseling and educating the patient/family/caregiver, independently interpretin g results (not separately reported), ordering tests, and communicating results to the patient/family/caregiver. Monisha Contreras PA-C documented in this encounterLima City Hospital03-06-2023 Miscellaneous Notes* Telephone Encounter - Ave Mann RN - 12/23/2022 8:56 AM EST Pt called in wanting results of EGD, has seen results on mychart but wants it explained. She has anappointment with LILLIE Mancuso on Friday, I moved her appointment up to tomorrow. She states also sheis having diarrhea and it is now a darker color.Ave Mann RN * Telephone Encounter - Alexandria Mccann - 11/14/2022 10:25 AM EST 12/11/2022 Egd asc documented in this encounterLima City Hospital02-22-2023 Nurse Note* Gayla Alexander RN - 12/11/2022 1:57 PM EST Pt received in PACU. Pt moderately drowsy, but arouses very easily. Denies sore throat, pain or nausea. Abd soft and non distended. Gayla Alexander RN * Serenity Monterroso RN - 12/11/2022 12:00 PM EST Patient has no further complaints at this time. Will continue to monitor. Serenity Monterroso RN * Serenity Monterroso RN - 12/11/2022 11:48 AM EST 1135--Patient complains of lightheadedness and being dizzy. Moved from the waiting area to a reclining position in pre/post area. Vital signs taken and reported to Dr. Solis. Order given for a stat blood glucose. Test performed and results reported to Dr. Solis. No further orders given at this time.Serenity Monterroso RN documented in this encounterLima City Hospital02-22-2023 History and physical note * Celina Solis MD - 12/11/2022 12:30 PM EST UPDATED PROCEDURAL SEDATION HISTORY AND PHYSICAL EXAMINATION SERVICE DATE: 12/11/2022 SERVICE TIME: 13:16 PHYSICAL EXAM MUST BE COMPLETED ON ADMISSION PROCEDURE: EGD, possible biopsies Procedure Indications: heartburn The History and Physical (completed in the past 30 days) has been reviewed and the patient has beenexamined. The contents accurately reflect the patient's condition [...] she was going down hill, avoided all thecars, but then annetta broke along with the [...] 07/31/2017 Added automatically from request for surgery [id number] Trigger middle finger of right hand 08/02/2014 Trigger ring finger of right hand 08/02/2014 Type 2 diabetes mellitus without complication, without long-term current use of insulin ([facility]) 05/28/2016 PAST SURGICAL HISTORY Procedure Laterality Date [...] Brother x2 Diabetes Daughter Heart Paternal Aunt Maxwell Wheeler 11/14/2022 9:51 AM Signed REVIEW OF [...] failure, other cardiac issues, denies claudication, denies coldfeet, denies peripheral arterial stent. Respiratory: The patient [...] psychiatric medications, NOTES depression, and denies voices, deniessubstance abuse. Endocrine: The patient denies thyroid disorders, [...] nourished, well hydrated in no acute distress. Thepatient is oriented to time, place, and person. VITALS: Blood pressure 118/66, pulse 83, temperature 36.5 C (97.7 F), height 157.5 cm (5' 2), weight 92.1 kg (203 lb), SpO2 96 [...] such as liver/spleen, perforation of the GI tract,inability to complete the procedure, complications of anesthesia, etc. - the patient understands. The patient wishes to proceed. I have answered all questions to the patient s satisfaction and the patient has no further questions. Diagnoses: (R10.13) Epigastric abdominal pain (primary encounter diagnosis) (R10.84) Generalized abdominal pain * Celina Solis MD - 12/11/2022 12:30 PM EST Edgar Burch 1965 REFERRING PHYSICIAN: Evonne Reyes [...] she was going down hill, avoided all thecars, but then annetta broke along with the [...] 07/31/2017 Added automatically from request for surgery [id number] Trigger middle finger of right hand 08/02/2014 Trigger ring finger of right hand 08/02/2014 Type 2 diabetes mellitus without complication, without long-term current use of insulin ([facility]) 05/28/2016 PAST SURGICAL HISTORY Procedure Laterality Date [...] Brother x2 Diabetes Daughter Heart Paternal Aunt Maxwell Wheeler 11/14/2022 9:51 AM Signed REVIEW OF [...] failure, other cardiac issues, denies claudication, denies coldfeet, denies peripheral arterial stent. Respiratory: The patient [...] psychiatric medications, NOTES depression, and denies voices, deniessubstance abuse. Endocrine: The patient denies thyroid disorders, [...] nourished, well hydrated in no acute distress. Thepatient is oriented to time, place, and person. VITALS: Blood pressure 118/66, pulse 83, temperature 36.5 C (97.7 F), height 157.5 cm (5' 2), weight 92.1 kg (203 lb), SpO2 96 [...] such as liver/spleen, perforation of the GI tract,inability to complete the procedure, complications of anesthesia, etc. - the patient understands. The patient wishes to proceed. I have answered all questions to the patient s satisfaction and the patient has no further questions. Diagnoses: (R10.13) Epigastric abdominal pain (primary encounter diagnosis) (R10.84) Generalized abdominal pain documented in this encounterLima City Hospital02-21-2023 Miscellaneous Notes* Telephone Encounter - Cheryl Neal LPN - 12/10/2022 11:55 AM EST Pt called back and message below given. She would like you to add this to her allergy list. Cheryl Neal LPN * Telephone Encounter - Shyla Ngo LPN - 12/10/2022 11:05 AM EST Unable to reach patient and mailbox is full-try later.Shyla Ngo LPN * Telephone Encounter - Paul Alegria APRN.ALLA - 12/10/2022 9:47 AM EST Please notify patient. Patient has taken prednisone many times in past without problem. Will put in allergies/intolerancesif she desires. * Telephone Encounter - Cathie Mahoney LPN - 12/10/2022 8:12 AM EST Patient calling said she was in express [...] not want any other medication, she is usingher nasal spray and annita. documented in this encounterLima City Hospital02-19-2023 History of Present illness Narrative* Paul Alegria APRN.ALLA - 12/08/2022 2:55 PM EST Subjective HPI HPI Edgar Burch is a [...] she was going down hill, avoided all thecars, but then annetta broke along with the [...] 07/31/2017 Added automatically from request for surgery [id number] Trigger middle finger of right hand 08/02/2014 Trigger ring finger of right hand 08/02/2014 Type 2 diabetes mellitus without complication, without long-term current use of insulin ([facility]) 05/28/2016 PAST SURGICAL HISTORY Procedure Laterality Date [...] - PREDNISONE 20 MG TABLET Paul Alegria APRN.LABOR STANDARDS DIRECTOR documented in this encounterLima City Hospital02-07-2023 Miscellaneous Notes* Telephone Encounter - Blanca Destiny [facility] - 11/26/2022 10:34 AM EST Unable to reach by phone patient active on [employer]- message sent Blanca Dixon Cma * Telephone Encounter - Blanac Dixon Cma - 11/12/2022 9:22 AM EST No answer and VM full will try back later Blanca Dixon Cma * Telephone Encounter - Kerri March APRN.CNP - 11/11/2022 3:27 PM EST Please let patient know that her abdominal xray did not show any constipation, inflammation or impaction of stool. documented in this encounterLima City Hospital01-27-2023 Miscellaneous Notes* Telephone Encounter - Maryann Vang - 11/15/2022 10:36 AM EST Called PT unable to LVM sent [employer] message asking PT to call office to schedule consult for nutrition. Maryann DAVIES * Telephone Encounter - Evonne Reyes PA-C - 11/15/2022 9:51 AM EST I'll put in consult. Evonne Reyes PA-C * Telephone Encounter - Jarett Camacho RN - 11/15/2022 9:11 AM EST Patient returned call and given provider's message below with verbalized understanding. Patient asking if provider can give her a referral to see a slasher operator? Please phone patient with reply. * Telephone Encounter - Priscilla Benitez LPN - 11/15/2022 8:00 AM EST Attempted to reach pt, mailbox is full so unable to leave a message. Please try again. Priscilla Benitez LPN * Telephone Encounter - Evonne Reyes PA-C - 11/15/2022 7:27 AM EST Let patient know that her US is overall okay. She has fatty liver but that has been known from pastimages. Work on diet and weight loss. Evonne Reyes PA-C documented in this encounterLima City Hospital01-26-2023 History of Present illness Narrative* Celina Solis MD - 11/14/2022 6:44 PM EST Edgar Angelica Burch 1965 REFERRING PHYSICIAN: Evonne [...] she was going down hill, avoided all thecars, but then annetta broke along with the [...] 07/31/2017 Added automatically from request for surgery [id number] Trigger middle finger of right hand 08/02/2014 [...] Brother x2 Diabetes Daughter Heart Paternal Aunt Maxwell Wheeler 11/14/2022 9:51 AM Signed REVIEW OF [...] failure, other cardiac issues, denies claudication, denies coldfeet, denies peripheral arterial stent. Respiratory: The patient [...] psychiatric medications, NOTES depression, and denies voices, deniessubstance abuse. Endocrine: The patient denies thyroid disorders, [...] nourished, well hydrated in no acute distress. Thepatient is oriented to time, place, and person. VITALS: Blood pressure 118/66, pulse 83, temperature 36.5 C (97.7 F), height 157.5 cm (5' 2), weight 92.1 kg (203 lb), SpO2 96 [...] such as liver/spleen, perforation of the GI tract,inability to complete the procedure, complications of anesthesia, etc. - the patient understands. The patient was offered a surgery[facility]procedure at a [facility]. The provider and patient have discussed in detail the risk of exposure to and/or potential harm posed by the COVID-19 viruswith having a surgery/procedure at this time versus the risk of delaying the surgery/procedure. It is not possible to know either the risk of delaying the surgery or procedure or chance of getting aninfection with perfect accuracy, but a joint decision was made between the patient and the providerto proceed at this time with the scheduled [...] Level: 3 - Low Celina Solis MD * Maxwell Wheeler LPN - 11/14/2022 9:50 AM EST Maxwell Wheeler 11/14/2022 9:51 AM Signed REVIEW OF [...] failure, other cardiac issues, denies claudication, denies coldfeet, denies peripheral arterial stent. Respiratory: The patient [...] psychiatric medications, NOTES depression, and denies voices, deniessubstance abuse. Endocrine: The patient denies thyroid disorders, [...] last Mammogram screening? 05/2022 Last Colonoscopy: 2021 Maxwell Wheeler LPN documented [facility] encounter[facility] History of Present illness Narrative* Irena Dunn RDMS - 11/14/2022 9:15 AM EST Radiology Service Progress Note PATIENT NAME: Edgar Burch DATE OF SERVICE: November 14, 2022 TIME: 9:13 AM PATIENT IDENTITY VERIFICATION COMPLETED USING TWO (2) IDENTIFIERS: Name and Date of confirmedby patient verbally. FALL SCREENING: Has the patient [...] 14, 2022 9:13 AM documented in this encounterL[facility]01-23-2023 Miscellaneous Notes* Telephone Encounter - Blanca Dixon Cma - 11/11/2022 9:42 AM EST Images from the original note were not included. Kerri March APRN.LABOR STANDARDS DIRECTOR Wstr Hmua March Pool 14 minutes ago (9:26 AM) DK Please remind patient that this is likely viral and should start to improve in the next 1-3 days. Patient should continue the aleve and if there is no improvement of symptoms by friday be re-evaluated. Patient notified and verbalized understanding Blanca Dixon Cma * Telephone Encounter - Monisha Barron RN - 11/11/2022 8:54 AM EST Pt called and is notified of providers [...] Friday, but nobody even looked in my ears.. Please call and advise. Monisha Barron RN * Telephone Encounter - Kerri March APRN.CNP - 11/11/2022 7:46 AM EST Please let patient know that her flu and covid test are negative. documented in this encounterL[facility]01-20-2023 History of Present illness Narrative* Claire Diaz RT(R) - 11/08/2022 1:30 PM EST Radiology Service Progress Note PATIENT NAME: Edgar Burch DATE OF SERVICE: November 08, 2022 TIME: 1:23 PM PATIENT IDENTITY VERIFICATION COMPLETED USING TWO (2) IDENTIFIERS: Name and Date of confirmedby patient verbally. FALL SCREENING: Has the patient had 2 falls in the last year or 1 fall with injury or currently using an Ambulatory Assistive Device (Walker, Cane, Wheelchair, Crutches, etc.)? No PATIENT GENDER DATA: Female. status: : No status: NO. PATIENT RELEVANT IMPLANT DATA REVIEWED: Not Applicable RADIOLOGY DEPARTMENT: General X-ray: Exam(s) Completed: Abdomen X-Ray: Abdomen PERIPHERAL IV DATA: Not applicable SIGNED BY: RT Lisa(R) November 08, 2022 1:23 PM documented in this encounterLima [facility] Hospital01-20-2023 Instructions* Patient Instructions* Kerri March APRN.CNP - 11/08/2022 1:10 PM EST Complete labs and xray Start zofran Schedule ultrasound and consultation with General surgery Go to ER if experiencing sudden onset abdominal pain, fever not relieved by tylenol or nausea and vomiting that does not improve with medications. documented in this encounterLima [facility] Hospital01-20-2023 History of Present illness Narrative* Kerri March APRN.CNP - 11/08/2022 12:58 PM EST Chief Complaint Patient presents with: Nausea Abdominal [...] extremity numbness 05/15/2014 Lumbago 05/18/[address] Arturo Lumbar disc herniation with radiculopathy 07/25/2014 Medicare [...] she was going down hill, avoided all thecars, but then annetta broke along with the [...] 07/31/2017 Added automatically from request for surgery [id number] Trigger middle finger of right hand 08/02/2014 [...] labs and ultrasound as ordered by Evonne - MOOKID WITH FLUA+B, ROUTINE - ONDANSETRON 4 MG DISINTEGRATING TABLET - XR ABDOMEN 1V SUPINE - Discussed red flag symptoms with patient, verbalized understanding. Kerri March APRN.ALLA documented in this encounterL[facility]01-19-2023 Miscellaneous Notes* Telephone Encounter - Aditya Torre MA - 11/07/2022 2:34 PM EST Patient is still coming in tomorrow. Aditya Torre MA * Telephone Encounter - Evonne Reyes PA-C - 11/07/2022 1:58 PM EST She will need evaluated. She can come to express care today if she would like. Otherwise keep appt tomorrow. * Telephone Encounter - Aditya Torre MA - 11/07/2022 1:02 PM EST Contacted patient and gave her provider update. [...] last time that medication made her sick. Adtiya Torre MA * Telephone Encounter - Evonne Reyes PA-C - 11/07/2022 11:07 AM EST I don't think herpes is the cause of her abdominal symptoms. I'm putting a consult in to set up for possible EGD since they did not do that when she had her colonoscopy. I'm also going to order an US and additional labs for her to do. Can keep appt tomorrow though to discuss. Evonne Reyes PA-C (SHAYY to Artem) * Telephone Encounter - Heidy Aggarwal RN - 11/07/2022 10:52 AM EST Patient calls and states that she has [...] had taken the Prilosec that was prescribed butstates that it made her so sick that she couldn't even drink water. Offered patient an appointment for today, patient declined stating that she really isn't feeling well and that her glands are swollen. Patient did schedule an appointment with Kerri tomorrow afternoon. Please review and advise, Heidy Aggarwal RN documented in this encounterL[facility] Hospital01-12-2023 History of Present illness Narrative* Evonne Reyes PA-C - 10/31/2022 1:07 PM EST Chief Complaint Patient presents with: 4 week [...] she was going down hill, avoided all thecars, but then annetta broke along with the [...] 07/31/2017 Added automatically from request for surgery [id number] Trigger middle finger of right hand 08/02/2014 Trigger ring finger of right hand 08/02/2014 Type 2 diabetes mellitus without complication, without long-term current use of insulin ([facility]) 05/28/2016 Previous Surgical History PAST SURGICAL HISTORY [...] in no acute distress, well-hydrated, well nourished. andObese. Lungs: Lungs clear to auscultation. No wheezing, [...] symptoms. Evonne Reyes PA-C documented in this encounterLima [facility] Hospital01-05-2023 History of Present illness Narrative* Heidy Wang RN - 10/24/2022 11:20 AM EST ACM JOSSY RN Action/FYI: Chart review for ED utilization [...] and date of . Patient Attributed To: E Payer: Shanell ZHAO Reason for review or outreach: Chart Review Chart Review Details: Payer Request Jossy Priority Utilization in past 6 months: (01/2022-06/2022) # Occurrences Date Last Occurrence Hospital Admission 0 N/a Hospital Observation 0 N/a ED 4 07/18/22 SNF / Acute Rehab / LTAC 0 N/a Summary / Findings: As per above Action Taken: Data submitted to Payer Contact made with patient: No, Chart review only. Signature: Heidy Wang RN documented in this encounterL[facility] Hospital12-15-2022 History of Present illness Narrative* Deysi Johnson LPN - 10/03/2022 12:37 PM EST Manual Readin/93 Pulse: 73 BP Usama average: [...] PCP. Deysi Johnson LPN documented in this encounterL[facility] Hospital11-17-2022 Miscellaneous Notes* Telephone Encounter - Evonne Reyes PA-C - 09/05/2022 3:04 PM EST The following approved medication requests have been transmitted electronically. Requested Prescriptions Signed Prescriptions Disp Refills atorvastatin (LIPITOR) 40 mg tablet 90 tablet 1 Sig: Take 1 tablet by mouth once daily. Take with 20mg for total dose of 60mg daily. Authorizing Provider: EVONNE REYES PA-C * Telephone Encounter - Hemal Veras LPN - 09/05/2022 2:56 PM EST Spoke with pt. She is willing to go back on 40 mg along with the 20 mg. Please send to Wilbert Chung. Hemal Veras LPN * Telephone Encounter - Evonne Reyes PA-C - 09/05/2022 2:40 PM EST Patient was supposed to be on 60mg. I she willing to add the 40mg back on? Evonne Reyes PA-C * Telephone Encounter - Monisha Barron RN - 09/05/2022 12:33 PM EST Pt called and is notified of providers results and instructions. Pt voices understanding. Pt statesshe is taking 20 mg of Lipitor. Please leave a voice mail with providers response. Monisha Barron RN * Telephone Encounter - Hemal Veras LPN - 09/05/2022 12:26 PM EST Attempted to contact pt. No answer and vm is full. Sent msg to pt via to contact office for results. Hemal Veras LPN * Telephone Encounter - Evonne Reyes PA-C - 09/05/2022 12:10 PM EST A1c is 6.7% which is okay. No changes for DM management. Cholesterol worsening. Please ask her if she figured out how much atorvastatin she is currently taking. Evonne Reyes PA-C documented in this encounterLima City Hospital11-15-2022 Instructions* Patient Instructions* Evonne Reyes PA-C - 09/03/2022 2:06 PM EST Check which dosage of the atorvastatin you are currently taking. documented in this encounterLima [facility] Hospital11-15-2022 History of Present illness Narrative* Evonne Reyes PA-C - 09/03/2022 1:50 PM EST Chief Complaint Patient presents with: Recheck YU Edgar Burch is a 56 year old [...] she was going down hill, avoided all thecars, but then annetta broke along with the [...] 07/31/2017 Added automatically from request for surgery [id number] Trigger middle finger of right hand 08/02/2014 Trigger ring finger of right hand 08/02/2014 Type 2 diabetes mellitus without complication, without long-term current use of insulin ([facility]) 05/28/2016 Previous Surgical History PAST SURGICAL HISTORY [...] DERMATOLOGY Evonne Reyes PA-C documented in this encounterLima City Hospital11-09-2022 History of Present illness Narrative* Twin Gillespie APRN.LABOR STANDARDS DIRECTOR - 08/28/2022 3:19 PM EST Images from the original note were not [...] Denies any trauma. No otorrhea difficulty hearing. Deniesany fever body aches chills productive cough chest [...] she was going down hill, avoided all thecars, but then annetta broke along with the [...] 07/31/2017 Added automatically from request for surgery [id number] Trigger middle finger of right hand 08/02/2014 [...] diagnosed with TMJ dysfunction. Supportive therapies discussed. Follow- up with PCP 3 to 5 days symptoms are not improving. Patient was educated on supportive therapies. Patient was instructedto immediately proceed to emergency room for any new, worsening, or symptoms lasting longer than anticipated. The patient's clinical presentation is otherwise unremarkable at this time. Based on examand clinical finding, the patient is stable for discharge. Plan of care was discussed with patient.Patient verbalizes understanding and agrees to plan of care. This note was generated using SYLLETA software. It may contain errors in wording, punctuation, or spelling. 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 Serenity Monterroso RN * Serenity Monterroso RN - 08/07/2022 8:44 AM EDT Patient passing flatus. Denies complaints of discomfort. Serenity Monterroso RN * Serenity Monterroso RN - 08/07/2022 8:31 AM EDT Arrived in phase II via cart. Left lateral position. Sedated, but responds to verbal stimuli. Colornormal; skin warm and dry. Respirations wnl and unlabored. Abdomen soft and with + bowel sounds in quads X 4. Patient resting comfortably. Serenity Monterroso RN documented in this encounterLima [facility] Hospital2022 History and physical note * Celina Solis MD - 08/07/2022 8:00 AM EDT UPDATED PROCEDURAL SEDATION HISTORY AND PHYSICAL EXAMINATION SERVICE DATE: 08/07/2022 SERVICE TIME: 7:57 PHYSICAL EXAM MUST BE COMPLETED ON ADMISSION PROCEDURE: colonoscopy possible biopsies Procedure Indications: screening for colon cancer The History and Physical (completed in the past 30 days) has been reviewed and the patient has beenexamined. The contents accurately reflect the patient's condition [...] she was going down hill, avoided all thecars, but then annetta broke along with the [...] 07/31/2017 Added automatically from request for surgery [id number] Trigger middle finger of right hand 08/02/2014 Trigger ring finger of right hand 08/02/2014 Type 2 diabetes mellitus without complication, without long-term current use of insulin ([facility]) 05/28/2016 PAST SURGICAL HISTORY Procedure Laterality Date [...] entered by the nurse and reviewed by mt Nursing Notes: Lainey Garcia 05/29/2022 12:39 PM [...] failure, other cardiac issues, denies claudication, denies coldfeet, denies peripheral arterial stent. Respiratory: The patient [...] psychiatric medications, NOTES depression, and denies voices, deniessubstance abuse. Endocrine: The patient denies thyroid disorders, [...] nourished, well hydrated in no acute distress. Thepatient is oriented to time, place, and person. VITALS: Blood pressure 148/86, pulse 64, temperature 36.2 C (97.1 F), height 157.5 cm (5' 2), weight 89.8 kg (198 lb), SpO2 95 [...] such as liver/spleen, perforation of the GI tract,inability to complete the procedure, complications of anesthesia, etc. - the patient understands. The patient wishes to proceed. I have answered all questions to the patient s satisfaction and the patient has no further questions. Diagnoses: (Z12.11) Colon cancer screening * Celina Solis MD - 08/07/2022 8:00 AM [...] she was going down hill, avoided all thecars, but then annetta broke along with the [...] 07/31/2017 Added automatically from request for surgery [id number] Trigger middle finger of right hand 08/02/2014 [...] and reviewed by me Nursing Notes: Lainey Chavezz 05/29/2022 12:39 PM Signed REVIEW OF SYSTEMS: [...] failure, other cardiac issues, denies claudication, denies coldfeet, denies peripheral arterial stent. Respiratory: The patient [...] psychiatric medications, NOTES depression, and denies voices, deniessubstance abuse. Endocrine: The patient denies thyroid disorders, [...] nourished, well hydrated in no acute distress. Thepatient is oriented to time, place, and person. VITALS: Blood pressure 148/86, pulse 64, temperature 36.2 C (97.1 F), height 157.5 cm (5' 2), weight 89.8 kg (198 lb), SpO2 95 [...] such as liver/spleen, perforation of the GI tract,inability to complete the procedure, complications of anesthesia, etc. - the patient understands. The patient wishes to proceed. I have answered all questions to the patient s satisfaction and the patient has no further questions. Diagnoses: (Z12.11) Colon cancer screening documented in this encounterLima City Hospital10-18-2022 Miscellaneous Notes* Telephone Encounter - Blanca Dixon Cma - 08/06/2022 7:54 AM EDT Patient notified and verbalized understanding. She states she will think about it and call back if she would like consult placed Blanca Dixon Cma * Telephone Encounter - Twin Barrera MD - 08/05/2022 5:40 PM EDT Let patient know wrist x-ray was ok. 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 Options are to monitor or I can refer to ortho. documented in this encounterLima City Hospital10-14-2022 History of Present illness Narrative* RT Kavitha(R) - 08/02/2022 3:00 PM EDT Radiology Service Progress Note PATIENT NAME: Edgar Burch DATE OF SERVICE: August 02, 2022 TIME: 2:57 PM PATIENT IDENTITY VERIFICATION COMPLETED USING TWO (2) IDENTIFIERS: Name and Date of confirmedby patient verbally. FALL SCREENING: Has the patient had 2 falls in the last year or 1 fall with injury or currently using an Ambulatory Assistive Device (Walker, Cane, Wheelchair, Crutches, etc.)? No PATIENT GENDER DATA: Female. status: : No status: NO. PATIENT RELEVANT IMPLANT DATA REVIEWED: Not Applicable RADIOLOGY DEPARTMENT: General X-ray: Exam(s) Completed: Upper Extremity X- Ray(s): Wrist, left PERIPHERAL IV DATA: Not applicable SIGNED BY: RT Kavitha(R) August 02, 2022 2:57 PM documented in this encounterLima City Hospital10-14-2022 History of Present illness Narrative* Twin Barrera MD - 08/02/2022 12:32 PM EDT Chief Complaint Left hear pain; spot on [...] she was going down hill, avoided all thecars, but then annetta broke along with the [...] 07/31/2017 Added automatically from request for surgery [id number] Trigger middle finger of right hand 08/02/2014 [...] TM normal. left canal slightly erythematous and painfulwith pulling on helix. left TM was normal. [...] routine. Twin Barrera MD documented in this encounterLima City Hospital09-29-2022 History of Present illness Narrative* Twin Barrera MD - 07/18/2022 2:57 PM EDT Chief Complaint No chief complaint on file. HPI Edgar Burch is a 56 year [...] she was going down hill, avoided all thecars, but then annetta broke along with the [...] 07/31/2017 Added automatically from request for surgery [id number] Trigger middle finger of right hand 08/02/2014 Trigger ring finger of right hand 08/02/2014 Type 2 diabetes mellitus without complication, without long-term current use of insulin ([facility]) 05/28/2016 Previous Surgical History PAST SURGICAL HISTORY [...] 1 tablet by mouth once daily. (Patient nottaking: Reported on 06/25/2022) buPROPion (WELLBUTRIN) 100 mg [...] diagnosis) - patient instructed to go to [facility] ER for evaluation and will need imagine. -ER called and notified. 2. Diverticulosis - ICD9: 562.10, ICD10: K57.90 - suspicion is low that this is diverticulitis Twin Barrera MD documented in this encounterLima City Hospital09-29-2022 Miscellaneous Notes* Telephone Encounter - Aditya Torre MA - 07/18/2022 8:30 AM EDT Patient notified and scheduled. Aditya Torre MA * Telephone Encounter - Twin Barrera MD - 07/17/2022 8:30 PM EDT Patient will either need seen in the office (me or TRISH) or go to ER. * Telephone Encounter - Gretchen Francois LPN - 07/17/2022 2:34 PM EDT Patient calling with complaints of diverticulitis symptoms for about 3 days. Yellow-orange loose stools. 2-3 times a day. Burning in rectum. Has been unable to contact gastroenterology. Colonoscopy has been canceled 2-3 times for various reasons. Patient unsure what to do. Has been following a bland diet. documented in this encounterLima City Hospital09-06-2022 History of Present illness Narrative* Paul Alegria APRN.LABOR STANDARDS DIRECTOR - 06/25/2022 10:24 AM EDT Subjective HPI HPI Edgar Burch is a [...] she was going down hill, avoided all thecars, but then annetta broke along with the [...] 07/31/2017 Added automatically from request for surgery [id number] Trigger middle finger of right hand 08/02/2014 [...] 1 tablet by mouth once daily. (Patient nottaking: Reported on 06/25/2022) FAMILY HISTORY Problem Relation [...] inflammation noted. Nose: Nose normal. Mouth/Throat: Lips: [place]. Mouth: Mucous membranes are moist. Pharynx: Uvula [...] plan Paul Alegria APRN.CNP documented in this encounterLima City Hospital08-31-2022 Instructions* Patient Instructions* Torrie Chapman APRN.CNP - 06/19/2022 8:53 AM [...] or sooner as needed. documented in this encounterLima City Hospital08-31-2022 History of Present illness Narrative* Torrie Chapman APRN.CNP - 06/19/2022 8:40 AM EDT This is a 56 year old female [...] syeda on them. Dizziness started yesterday which isconstant. Staying well hydrated. Feels like her gait is off from the dizziness. Will improve with rest. Has a history of Cdiff in April. Treated with vancomycin. Refers that her symptoms improved for about 2 weeks after finishing antibiotic. Had cardiac clearance completed for colonoscopy with general surgery. Upcoming appointment with on 06/27/22. Family history of colon cancer. [...] she was going down hill, avoided all thecars, but then annetta broke along with the [...] 07/31/2017 Added automatically from request for surgery [id number] Trigger middle finger of right hand 08/02/2014 Trigger ring finger of right hand 08/02/2014 Type 2 diabetes mellitus without complication, without long-term current use of insulin ([facility]) 05/28/2016 PAST SURGICAL HISTORY Procedure Laterality Date [...] discussed and patient voices understanding. Torrie Chapman APRN.LABOR STANDARDS DIRECTOR This note was partially generated using SYLLETA voice recognition system. Note was reviewed for accuracy. There may be minor misspellings or grammar miscues with SYLLETA voice recognition. documented in this encounterLima City Hospital08-25-2022 Miscellaneous Notes* Telephone Encounter - JARETH Junior - 06/13/2022 3:42 PM EDT TC to patient who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 Requested Visits Authorized [id number] Authorized Auto-Generat ed Referral 12/24/2022 01/23/2024 1 1 [facility] for referral (narrative)* Diagnostic Procedure Only (Routine) - Pending Review Specialty Diagnoses / Procedures Referred By Contac t Referred To Contact XR IMAGING Diagnoses Chronic pain of left knee Procedures XR KNEE GENERAL 4V AP BOTH/PA BOTH/LAT/MERC LEFT RADIOLOGIC EXAM KNEE COMPLETE 4/MORE VIEWS Evonne Reyes PA-C [address] [place] [address] Xr Imaging Referral ID Status Reason Start Date Expiration Date Visits Requested Visits Authorized [id number] Pending Review Auto-Generat ed Referral 03/25/2023 04/23/2024 1 1 * Diagnostic Procedure Only (Routine) - Pending Review Specialty Diagnoses / Procedures Referred By Contac t Referred To Contact BR IMAGING Diagnoses Encounter for screening mammogram for breast cancer Procedures BULL SCREENING SCREENING MAMMOGRAPHY BI 2-VIEW BREAST INC CAD Evonne Reyes PA-C [address] [place] [address] Br Imaging [address] [place] [address] Referral ID Status Reason Start Date Expiration Date Visits Requested Visits Authorized [id number] Pending Review Auto-Generat ed Referral 03/25/2023 04/23/2024 1 1 [facility] for referral (narrative)* Diagnostic Procedure Only (Routine) - Closed Specialty Diagnoses / Procedures Referred By Contac t Referred To Contact XR IMAGING Diagnoses Tail bone pain Procedures XR SACRUM/COCCYX 3V AP/LAT RADEX SACRUM & COCCYX MINIMUM 2 VIEWS Twin Barrera MD [address] [place] [address] Xr Imaging Referral ID Status Reason Start Date Expiration Date V isits Requested Visits Authorized [id number] Closed Auto-Generate d Referral 04/07/2023 05/06/2024 1 1 * Physical Therapy (Routine) - Pending Review Specialty Diagnoses / Procedures Referred By Contac t Referred To Contact [facility] Diagnoses Chronic pain of both knees Procedures CONSULT TO PHYSICAL THERAPY PHYSICAL THERAPY EVALUATION HIGH COMPLEX 45 MINS Twin Barrera MD [address] [place] [address] [facility] [address] [address] Referral ID Status Reason Start Date Expiration Date Visits Requested Visits Authorized [id number] Pending Review Auto-Generat ed Referral 04/07/2023 04/06/2024 1 1 [facility] for referral (narrative)* Outpatient Procedure (Routine) - Closed Specialty Diagnoses / Procedures Referred By Contac t Referred To Contact [facility] Diagnoses Epigastric abdominal pain Procedures EGD DIAGNOSTIC ESOPHAGOGASTRODUODENOSC OPY TRANSORAL DIAGNOSTIC Celina Solis MD [address] [place] [address] [facility] [place] [address] [place] [address] Referral ID Status Reason Start Date Expiration Date V isits Requested Visits Authorized [id number] Closed Auto-Generate d Referral 11/14/2022 11/14/2023 1 1 [facility] for referral (narrative)* Diagnostic Procedure Only (Routine) - Closed Specialty Diagnoses / Procedures Referred By Contac t Referred To Contact US IMAGING Diagnoses Generalized abdominal pain Procedures US ABD RT UPPER QUADRANT US ABDOMINAL REAL TIME W/IMAGE LIMITED Evonne Reyes PA-C [address] [place] [address] [place] [address] Referral ID Status Reason Start Date Expiration Date V isits Requested Visits Authorized [id number] Closed Auto-Generate d Referral 11/07/2022 12/07/2023 1 1 [facility] for referral (narrative)* Diagnostic Procedure Only (Routine) - Closed Specialty Diagnoses / Procedures Referred By Contac t Referred To Contact XR IMAGING Diagnoses Acute pain of right knee Procedures XR KNEE GENERAL 4V AP BOTH/PA BOTH/LAT/MERC RIGHT RADIOLOGIC EXAM KNEE COMPLETE 4/MORE VIEWS Kerri March APRN.CNP [address] [place] [phone] [place] [address] Referral ID Status Reason Start Date Expiration Date V isits Requested Visits Authorized [id number] Closed Auto-Generate d Referral 09/25/2023 10/24/2024 1 1 [facility] for referral (narrative)* Outpatient Procedure (Routine) - Pending Review Specialty Diagnoses / Procedures [facility] Diagnoses SOB (shortness of breath) Procedures SPIROMETRY WITH DILATOR IF OBSTRUCTED BRNCDILAT RSPSE SPMTRY PRE&POST-BRNCDILAT ADMElli Leslie MD [address] [place] [address] [facility] [place] [address] [place] [address] Referral ID Status Reason Start Date Expiration Date Visits Requested Visits Authorized [id number] Pending Review Auto-Generat ed Referral 12/03/2023 12/31/2024 1 1 [facility] for referral (narrative)* Diagnostic Procedure Only (Routine) - Pending Review Specialty Diagnoses / Procedures [facility] To [facility] Diagnoses LARRY (obstructive sleep apnea) Procedures HOME SLEEP APNEA TEST (HSAT) SLEEP STD AIRFLOW HRT RATE&O2 SAT EFFORT UNATT Minerva Ochoa MD [address] [place] [address] Neurological [place] [phone] Referral ID Status Reason Start Date Expiration Date Visits Requested Visits Authorized [id number] Pending Review Auto-Generat ed Referral 02/03/2024 02/02/2025 1 1 * Outpatient Procedure (Routine) - Authorized Specialty Diagnoses / Procedures Referred By Deangelo t Referred To Contact [facility] Diagnoses SOB (shortness of breath) Procedures NITRIC OXIDE, EXHALED NITRIC OXIDE GAS DETERMINATION Minerva Ochoa MD [address] [place] [address] [facility] [place] [address] [place] [address] Referral ID Status Reason Start Date Expiration Date Visits Requested Visits Authorized [id number] Authorized Auto-Generat ed Referral 02/03/2024 03/04/2025 1 1 [facility] for referral (narrative)* Diagnostic Procedure Only (Urgent) - Closed Specialty Diagnoses / Procedures Referred By Deangelo t Referred To Contact XR IMAGING Diagnoses Acute pain of left knee Procedures XR KNEE GENERAL 4V AP BOTH/PA BOTH/LAT/MERC LEFT RADIOLOGIC EXAM KNEE COMPLETE 4/MORE VIEWS Levi Mackenzie MD [address] [place] [address] Xr Imaging [facility] Referral ID Status Reason Start Date Expiration Date V isits Requested Visits Authorized [id number] Closed Auto-Generate d Referral 02/05/2024 03/06/2025 1 1 [facility] for referral (narrative)* Diagnostic Procedure Only (Routine) - Pending Review Specialty Diagnoses / Procedures Referred By Contac t Referred To Contact BR IMAGING Procedures BULL SCREENING W JESSICA SCREENING DIGITAL BREAST TOMOSYNTHESIS BI SCREENING MAMMOGRAPHY BI 2-VIEW BREAST INC CAD Twin Barrera MD [address] [place] [address] Br Imaging [address] [place] [address] Referral ID Status Reason Start Date Expiration Date Visits Requested Visits Authorized [id number] Pending Review Auto-Generat ed Referral 02/25/2024 03/26/2025 1 1 [facility] for referral (narrative)* Diagnostic Procedure Only (Routine) - Pending Review Specialty Diagnoses / Procedures Referred By Contjean t Referred To Contact XR IMAGING Diagnoses Right shoulder pain, unspecified chronicity Procedures XR SHOULDER GENERAL 3V OR MORE AP/TRUE AP/OTHER RIGHT RADEX SHOULDER COMPLETE MINIMUM 2 VIEWS Humble Vines MD [address] [place] [address] [place] [address] Referral ID Status Reason Start Date Expiration Date Visits Requested Visits Authorized [id number] Pending Review Auto-Generat ed Referral 03/10/2024 04/09/2025 1 1 [facility] for referral (narrative)* Outpatient Procedure (Routine) - New Request Specialty Diagnoses / Procedures Referred By Deangelo t Referred To Contact [facility] Diagnoses SOB (shortness of breath) Chest pain, unspecified type Procedures ECHO ECHO TTHRC R-T 2D W/WOM-MODE COMPL SPEC&COLR D Evonne Reyes PA-C [address] [place] [address] [facility] [place] [address] [place] [address] Referral ID Status Reason Start Date Expiration Date Visits Requested Visits Authorized [id number] New Request Auto-Generat ed Referral 06/01/2024 06/01/2025 1 1 [facility] for referral (narrative)* Diagnostic Procedure Only (Urgent) - Closed Specialty Diagnoses / Procedures Referred By Contac t Referred To Contact XR IMAGING Diagnoses Acute pain of left knee Procedures XR KNEE GENERAL 4V AP BOTH/PA BOTH/LAT/MERC LEFT RADIOLOGIC EXAM KNEE COMPLETE 4/MORE VIEWS Levi Mackenzie MD [address] [place] [address] [place] [address] Referral ID Status Reason Start Date Expiration Date V isits Requested Visits Authorized [id number] Closed Auto-Generate d Referral 02/05/2024 03/06/2025 1 1 [facility] for referral (narrative)* Diagnostic Procedure Only (Routine) - Closed Specialty Diagnoses / Procedures Referred By Contac t Referred To Contact XR IMAGING Diagnoses Acute pain of right knee Procedures XR KNEE GENERAL 4V AP BOTH/PA BOTH/LAT/MERC RIGHT RADIOLOGIC EXAM KNEE COMPLETE 4/MORE VIEWS Kerri March APRN.CNP [address] [place] [address] [place] [address] Referral ID Status Reason Start Date Expiration Date V isits Requested Visits Authorized [id number] Closed Auto-Generate d Referral 09/25/2023 10/24/2024 1 1 [facility] for referral (narrative)* Diagnostic Procedure Only (Routine) - Closed Specialty Diagnoses / Procedures Referred By Contac t Referred To Contact XR IMAGING Diagnoses Chronic pain of left knee Procedures XR KNEE GENERAL 4V AP BOTH/PA BOTH/LAT/MERC LEFT RADIOLOGIC EXAM KNEE COMPLETE 4/MORE VIEWS Evonne Reyes PA-C [address] [place], [place] [address] [place] [address] Referral ID Status Reason Start Date Expiration Date V isits Requested Visits Authorized [id number] Closed Auto-Generate d Referral 03/25/2023 04/23/2024 1 1 [facility] for referral (narrative)* Diagnostic Procedure Only (Routine) - Closed Specialty Diagnoses / Procedures Referred By Contac t Referred To Contact XR IMAGING Diagnoses Tail bone pain Procedures XR SACRUM/COCCYX 3V AP/LAT RADEX SACRUM & COCCYX MINIMUM 2 VIEWS Twin Barrera MD [address] [place] [address] [place] [address] Referral ID Status Reason Start Date Expiration Date V isits Requested Visits Authorized [id number] Closed Auto-Generate d Referral 04/07/2023 05/06/2024 1 1 [facility] for referral (narrative)* Diagnostic Procedure Only (Routine) - Closed Specialty Diagnoses / Procedures Referred By Contac t Referred To Contact XR IMAGING Diagnoses Viral gastritis Procedures XR ABDOMEN 1V SUPINE RADIOLOGIC EXAM ABDOMEN 1 VIEW Kerri March APRN.CNP [address] [place], [place] [id number] [place] [address] Referral ID Status Reason Start Date Expiration Date V isits Requested Visits Authorized [id number] Closed Auto-Generate d Referral 11/08/2022 12/08/2023 1 1 [facility] for referral (narrative)No reason for referral [facility] Phone: Reason for visit Narrative* Diagnostic Procedure Only (Routine) - Closed Specialty Diagnoses / Procedures Referred By Contac t Referred To Contact MOLECULAR & FUNCTIONAL IMAGING Diagnoses Atypical chest pain SOB (shortness of breath) Procedures NM CARDIAC PERF STRESS/PHARM MYOCARDIAL SPECT MULTIPLE STUDIES Twin Barrera MD [address] [place] [address] Molecular & Functional Imaging [address] [place] [address] Referral ID Status Reason Start Date Expiration Date V isits Requested Visits Authorized [id number] Closed Auto-Generate d Referral 02/04/2022 03/06/2023 1 1 [facility] for visit Narrative* Diagnostic Procedure Only (Routine) - Closed Specialty Diagnoses / Procedures Referred By Contac t Referred To Contact XR IMAGING Diagnoses Left wrist pain Procedures XR WRIST GENERAL 3V PA/LAT/OBL LEFT RADEX WRIST COMPLETE MINIMUM 3 VIEWS Twin Barrera MD [address] [place] [address] Xr Imaging Referral ID Status Reason Start Date Expiration Date V isits Requested Visits Authorized [id number] Closed Auto-Generate d Referral 08/02/2022 09/01/2023 1 1 [facility] for visit Narrative* Outpatient Procedure (Routine) - Closed Specialty Diagnoses / Procedures Referred By Contac t Referred To Contact [facility] Diagnoses Colon cancer screening Procedures COLONOSCOPY SCREENING COLONOSCOPY SCREENING COLONOSCOPY SCREENING COLONOSCOPY FLX DX W/COLLJ SPEC WHEN PFRMCelina Locke MD [address] [place] [address] [facility] [address] [address] Referral ID Status Reason Start Date Expiration Date V isits Requested Visits Authorized [id number] Closed Auto-Generate d Referral 05/30/2022 05/30/2023 1 1 [facility] for visit Narrative* Outpatient Procedure (Routine) - Closed Specialty Diagnoses / Procedures Referred By Contac t Referred To Contact [facility] Diagnoses Epigastric abdominal pain Procedures EGD DIAGNOSTIC ESOPHAGOGASTRODUODENOSC OPY TRANSORAL DIAGNOSTIC Celina Solis MD [address] [facility] [place] [address] [address] Referral ID Status Reason Start Date Expiration Date V isits Requested Visits Authorized [id number] Closed Auto-Generate d Referral 11/14/2022 11/14/2023 1 1 [facility] for visit Narrative* Diagnostic Procedure Only (Routine) - Closed Specialty Diagnoses / Procedures Referred By Contac t Referred To Contact XR IMAGING Diagnoses Right shoulder pain, unspecified chronicity Procedures XR SHOULDER GENERAL 3V OR MORE AP/TRUE AP/OTHER RIGHT RADEX SHOULDER COMPLETE MINIMUM 2 VIEWS Humble Vines MD [address] [place] [address] [place] [address] Referral ID Status Reason Start Date Expiration Date V isits Requested Visits Authorized [id number] Closed Auto-Generate d Referral 03/10/2024 04/09/2025 1 1 [facility] for visit Narrative* Diagnostic Procedure Only (Urgent) - Closed Specialty Diagnoses / Procedures Referred By Contac t Referred To Contact XR IMAGING Diagnoses Acute pain of left knee Procedures XR KNEE GENERAL 4V AP BOTH/PA BOTH/LAT/MERC LEFT RADIOLOGIC EXAM KNEE COMPLETE 4/MORE VIEWS Levi Mackenzie MD [address] [place] [address] [place] [address] Referral ID Status Reason Start Date Expiration Date V isits Requested Visits Authorized [id number] Closed Auto-Generate d Referral 02/05/2024 03/06/2025 1 1 [facility] for visit Narrative* Diagnostic Procedure Only (Routine) - Closed Specialty Diagnoses / Procedures Referred By Contac t Referred To Contact XR IMAGING Diagnoses Acute pain of right knee Procedures XR KNEE GENERAL 4V AP BOTH/PA BOTH/LAT/MERC RIGHT RADIOLOGIC EXAM KNEE COMPLETE 4/MORE VIEWS Kerri March APRN.LABOR STANDARDS DIRECTOR [address] [place] [phone] [place] [address] Referral ID Status Reason Start Date Expiration Date V isits Requested Visits Authorized [id number] Closed Auto-Generate d Referral 09/25/2023 10/24/2024 1 1 [facility] for visit Narrative* Diagnostic Procedure Only (Routine) - Closed Specialty Diagnoses / Procedures Referred By Contac t Referred To Contact XR IMAGING Diagnoses Chronic pain of left knee Procedures XR KNEE GENERAL 4V AP BOTH/PA BOTH/LAT/MERC LEFT RADIOLOGIC EXAM KNEE COMPLETE 4/MORE VIEWS Evonne Reyes PA-C [address] [place] [address] [place] [address] Referral ID Status Reason Start Date Expiration Date V isits Requested Visits Authorized [id number] Closed Auto-Generate d Referral 03/25/2023 04/23/2024 1 1 [facility] for visit Narrative* Diagnostic Procedure Only (Routine) - Closed Specialty Diagnoses / Procedures Referred By Contac t Referred To Contact XR IMAGING Diagnoses Tail bone pain Procedures XR SACRUM/COCCYX 3V AP/LAT RADEX SACRUM & COCCYX MINIMUM 2 VIEWS Twin Barrera MD [address] [place] [address] Xr Imaging [facility]95 Referral ID Status Reason Start Date Expiration Date V isits Requested Visits Authorized [id number] Closed Auto-Generate d Referral 04/07/2023 05/06/2024 1 1 [facility] for visit Narrative* Diagnostic Procedure Only (Routine) - Closed Specialty Diagnoses / Procedures Referred By Contac t Referred To Contact XR IMAGING Diagnoses Viral gastritis Procedures XR ABDOMEN 1V SUPINE RADIOLOGIC EXAM ABDOMEN 1 VIEW Kerri March APRN.LABOR STANDARDS DIRECTOR [address] [place] [phone] Xr Imaging [facility]95 Referral ID Status Reason Start Date Expiration Date V isits Requested Visits Authorized [id number] Closed Auto-Generate d Referral 11/08/2022 12/08/2023 1 1 [facility] for visit Narrative* Diagnostic Procedure Only (Routine) - Closed Specialty Diagnoses / Procedures Referred By Contac t Referred To Contact BR IMAGING Diagnoses Encounter for screening mammogram for malignant neoplasm of breast Procedures BULL SCREENING W JESSICA SCREENING DIGITAL BREAST TOMOSYNTHESIS BI SCREENING MAMMOGRAPHY BI 2-[place] [address] [place] [address] Phone: tel: fax: [facility] IM[facility] [address] [facility] [place] [address] Referral ID Status Reason Start Date Expiration Date V isits Requested Visits Authorized [id number] Closed Auto-Generate d Referral 02/25/2024 2025 1 1 [facility] for visit Narrative* Diagnostic Procedure Only (Urgent) - Closed Specialty Diagnoses / Procedures Referred By Contac t Referred To Contact XR IMAGING Diagnoses Pain in fibula Procedures XR TIBIA FIBULA 2V AP/LAT LEFT RADIOLOGIC EXAMINATION TIBIA & FIBULA 2 VIEWS Twin Barrera MD [address] [place] [address] Phone: tel: fax: [place] [address] Referral ID Status Reason Start Date Expiration Date V isits Requested Visits Authorized [id number] Closed Auto-Generate d Referral 03/15/2025 04/14/2026 1 1 [facility] Diagnostic Procedure Only (Routine) - Closed Specialty Diagnoses / Procedures Referred By Deangelo t Referred To Contact Radiology / RADIO [facility] SCAN [facility] Diagnoses Chest pain, unspecified type SOB (shortness of breath) Procedures CT ANGIOGRAPHY CHEST W/CONTRAST/NONCONTRAST CTA WWO CHEST 400 Kerri March, INSPECTOR CASING.LABOR STANDARDS DIRECTOR [address] [place] [address] Phone: tel: fax: RADIO CT SCAN [facility] [address] [place] [address] Phone: tel: Referral ID Status Reason Start Date Expiration Date Visits Re quested Visits Authorized [id number] Closed 04/19/2025 2025 1 1 [facility] Chief Complaint and Reason for Visit Chief Complaint DIZZINESS Chief Complaint DIZZINESS DIARRHEA Chief Complaint DIZZINESS DIARRHEA abd pain Chief Complaint DIARRHEA abd pain abd pain Chief Complaint sob Chief Complaint Admit Date GASTROPARESIS January 21, 2025 10:5 9am 6 M FU January 26, 2025 1:35 pm Reason for Visit Admit Date Gastroesophageal reflux disease December 12:02pm IBS (irritable bowel syndrome) December 12:02pm Chronic nausea December 21, 2024 12:0 2pm Chief Complaint Admit Date GASTROPARESIS January 21, 2025 10:5 9am 6 M FU January 26, 2025 1:35 pm E-ORDER January 27, 2025 12: 04pm Reason for Visit Admit Date Gastroesophageal reflux disease December 12:02pm IBS (irritable bowel syndrome) December 12:02pm Chronic nausea December 21, 2024 12:0 2pm Gastroparesis January 26, 2025 1:35 pm Loose stools January 26, 2025 1:35 pm Chief Complaint Admit Date GASTROPARESIS January 21, 2025 10:5 9am 6 M FU January 26, 2025 1:35 pm E-ORDER January 27, 2025 12: 04pm Pain in left lower leg March 15, 2025 3: 33pm Chief Complaint Admit Date GASTROPARESIS January 21, 2025 10:5 9am 6 M FU January 26, 2025 1:35 pm E-ORDER January 27, 2025 12: 04pm Pain in left lower leg March 15, 2025 3: 33pm 2 M FU March 29, 2025 12:3 9pm Chief Complaint Admit Date GASTROPARESIS January 21, 2025 10:5 9am 6 M FU January 26, 2025 1:35 pm E-ORDER January 27, 2025 12: 04pm Pain in left lower leg March 15, 2025 3: 33pm 2 M FU March 29, 2025 12:3 9pm CHEST PAIN April 15, 2025 3:10 pm Reason for Visit Admit Date Gastroesophageal reflux disease December 12:02pm IBS (irritable bowel syndrome) December 12:02pm Chronic nausea December 21, 2024 12:0 2pm Gastroparesis January 26, 2025 1:35 pm Loose stools January 26, 2025 1:35 pm Loose stools March 29, 2025 12:3 9pm Chief Complaint Admit Date Pain in left lower leg March 15, 2025 3: 33pm 2 M FU March 29, 2025 12:3 9pm CHEST PAIN April 15, 2025 3:10 pm Chest pain, SOB, FATIQUE June 01 11:09am Reason for Visit Admit Date Loose stools March 29, 2025 12:3 9pm Chest pain June 01, 2025 11 :09am Dyspnea on exertion June 01, 2025 11 :09am Family History No Family History Records Found Relationship Condition Age at Onset Recorded Date/T kade Unknown Family History?Diabe moustapha, Heart Disease, Hypertension, - Unknown May 28, 2016 6:03pm Family History?Diabe moustapha, Heart Disease, Hypertension, - Unknown May 28, 2016 6:03pm Family History?Heart Disease, - Unknown May 28, 2016 6:03pm Relationship Condition Age at Onset Recorded Date/T kade Unknown Family History?Diabe moustapha, Heart Disease, Hypertension, - Unknown May 28, 2016 5:03pm Family History?Diabe moustapha, Heart Disease, Hypertension, - Unknown May 28, 2016 5:03pm Family History?Heart Disease, - Unknown May 28, 2016 5:03pm Relationship Condition Age at Onset Recorded Date/T kade mother Diabetes mellitus Unknown Hypertension Unknown Pulmonary emphysema Unknown Cerebrovascular accident (CVA) Unknown Cardiac disease Unknown father Malignant neoplasm of colon Unknown Malignant neoplasm of lung Unknown sister Diabetes mellitus Unknown brother Diabetes mellitus Unknown Advance Directives No Advanced Directives Records Found Advance Directive Response Recorded Date/ Time Advance Directives No May 28 2 016 4:32pm Living Will No January 22, 2022 3:01pm Power of Seismic Engineer No January 22 3:01pm Documents on File Type Date Recorded Patient Scale Operator Expl anation Advance Directive(s) 09/02/2017 3:47 PM Advance Directive Response Recorded Date/ Time Advance Directives No May 28 2 016 4:32pm Living Will No April 08, 2022 2:40pm Power of Seismic Engineer No April 08 2:40pm Documents on File Type Date Recorded Patient Scale Operator Expl anation Advance Directive(s) 09/02/2017 3:47 PM Advance Directive Response Recorded Date/ Time Advance Directives No May 28 2 016 4:32pm Living Will No April 24, 2022 1 0:54am Power of Seismic Engineer No April 24, 2022 10:54am Advance Directive Response Recorded Date/ Time Advance Directives No May 28 2 016 4:32pm Living Will No July 18, 2022 4:23pm Power of Seismic Engineer No June 4:23pm Advance Directive Response Recorded Date/ Time Advance Directives No May 28 2 016 3:32pm Living Will No November 27 7:08pm Power of Seismic Engineer No November 27, 2023 7:08pm Advance Directive Response Recorded Date/ Time Living Will No December 16 025 2:44pm Do you have a Healthcare Power of Seismic Engineer? No December 16, 2024 2:44pm Advance Directives No May 28 2 016 4:32pm Advance Directive Response Recorded Date/ Time Living Will No December 16 025 2:44pm Do you have a Healthcare Power of Seismic Engineer? No December 16, 2024 2:44pm Do you have a Healthcare Power of Seismic Engineer? No April 15, 2025 3:20pm Advance Directives No May 28 4:32pm Advance Directive Response Recorded Date/ Time Do you have a Healthcare Power of Seismic Engineer? No April 15, 2025 3:20pm Advance Directives No May 28 016 4:32pm Medications Administered Section Inactive Administered Medications - [...] Given 08/07/2022 8:16 AM EDT 50 mcg Given 08/07/2022 8:08 AM EDT 50 mcg lactated ringers iv infusion 75 mL/hr, INTRAVENOUS, CONTINUOUS, Starting on Fri08/07/22 at 0800, Until Fri08/07/22 at 0835, Preprocedure New Bag/Syringe/Bottle 08/07/2022 7:55 AM EDT 75 mL/hr 75 mL/hr midazolam (PF) 1-5 mg injection (VERSED) 1-5 mg, INTRAVENOUS, DIRECTED, Starting on Fri08/07/22 at 0830, Until Fri08/07/22 at 1229, DOSING DIRECTED BY PHYSICIAN FOR PROCEDURAL SEDATION ONLY, Intraprocedure Given 08/07/2022 8:16 AM EDT 2 mg Given 08/07/2022 8:12 AM EDT 2 mg Given 08/07/2022 8:08 AM EDT 3 mg Inactive Administered Medications - up to 3 most recent administrations Medication Order MAR Action Action Date Dose Rate Site benzocaine 20% 1 [place] (TOPEX) 1 [place], TOPICAL, DIRECTED, Starting on Fri12/11/22 at 1400, [...] Given 12/11/2022 1:41 PM EST 1 mg Given 12/11/2022 1:38 PM EST 3 mg Reason for Referral Specialty Diagnoses / Procedures Referred By Contac t Referred To Contact Dermatology Diagnoses Skin lesion Procedures CONSULT TO DERMATOLOGY Evonne Reyes PA-C [address] [place] [address] Referral ID Status Reason Start Date Expiration Date Visits Requested Visits Authorized [id number] Ref Not Required PCP Requested Referral 2 09/03/2023 1 1 Specialty Diagnoses / Procedures Referred By Contac t Referred To Contact General Surgery Diagnoses Generalized abdominal pain Procedures CONSULT TO GENERAL SURGERY OFFICE/OUTPATIENT [facility] 60-74 MINUTES Evonne Reyes PA-C [address] [place] [address] Referral ID Status Reason Start Date Expiration Date Visits Requested Visits Authorized [id number] Pending Review PCP Requested Referral 11/07/2022 11/07/2023 1 1 Specialty Diagnoses / Procedures Referred By Contac t Referred To Contact US IMAGING Diagnoses Generalized abdominal pain Procedures US ABD RT UPPER QUADRANT US ABDOMINAL REAL TIME W/IMAGE LIMITED Evonne Reyes PA-C [address] [phone] [facility] Referral ID Status Reason Start Date Expiration Date Visits Requested Visits Authorized [id number] Pending Review Auto-Generat ed Referral 11/07/2022 12/07/2023 1 1 Specialty Diagnoses / Procedures Referred By Contac t Referred To Contact Nutrition Diagnoses Mixed hyperlipidemia Essential hypertension Type 2 diabetes mellitus without complication, without long-term current use of insulin (HCC) Procedures CONSULT TO NUTRITION THERAPY OFFICE/OUTPATIENT [facility] MDM 60-74 MINUTES Evonne Reyes PA-C [address] [phone] Referral ID Status Reason Start Date Expiration Date Visits Requested Visits Authorized [id number] Pending Review PCP Requested Referral 11/15/2022 11/15/2023 1 1 Specialty Diagnoses / Procedures Referred By Contac t Referred To Contact Gastroenterology Diagnoses Nausea Irritable bowel syndrome with both constipation and diarrhea Procedures CONSULT TO GASTROENTEROLOGY Leo Barerto MD [address] [phone] Mikey Huerta MD [address] [address] Referral ID Status Reason Start Date Expiration Date Visits Requested Visits Authorized [id number] Ref Not Required PCP Requested Referral 08/04/2024 1 1 Specialty Diagnoses / Procedures Referred By Contac t Referred To Contact CT IMAGING Diagnoses RUQ pain Generalized abdominal pain Chronic cholecystitis Left lower quadrant abdominal pain Nausea Procedures CT ABD/PEL W IVCON CT ABD & PELVIS W/CONTRAST Jessica Lal, INSPECTOR [employer]ING[employer]OR STANDARDS DIRECTOR [address] [place] [address] [place] [address] Referral ID Status Reason Start Date Expiration Date V isits Requested Visits Authorized [id number] Closed Auto-Generate d Referral 02/06/2023 03/07/2024 1 1 Specialty Diagnoses / Procedures Referred By Contac t Referred To Contact Orthopedics Diagnoses Acute pain of right knee Procedures CONSULT TO ORTHOPAEDICS OFFICE/OUTPATIENT [facility] 60-74 MINUTES Kerri March, INSPECTOR CASING.LABOR STANDARDS DIRECTOR [address] [place] [address] Referral ID Status Reason Start Date Expiration Date Visits Requested Visits Authorized [id number] Authorized PCP Requested Referral 3 09/29/2024 1 1 Specialty Diagnoses / Procedures Referred By Contac t Referred To Contact Orthopedics Diagnoses Left medial knee pain Knee ligamentous laxity, left Procedures CONSULT TO ORTHOPAEDICS OFFICE/OUTPATIENT [facility] 60 MINUTES Twin Barrera MD [address] [phone] Referral ID Status Reason Start Date Expiration Date Visits Requested Visits Authorized [id number] Authorized PCP Requested Referral 12/31/2023 12/30/2024 1 1 Specialty Diagnoses / Procedures Referred By Contac t Referred To Contact [facility] Diagnoses Cervicalgia Rotator cuff disorder, right Procedures CONSULT TO PHYSICAL THERAPY PHYSICAL THERAPY EVALUATION HIGH COMPLEX 45 MINS Jeremias Rosario V, DO [address] [phone] [facility] [address] [place] [address] Referral ID Status Reason Start Date Expiration Date Visits Requested Visits Authorized [id number] Authorized Auto-Generat ed Referral 10/20/2023 2024 99 99 Specialty Diagnoses / Procedures Referred By Contac t Referred To Contact Dermatology Diagnoses Rash Procedures CONSULT TO DERMATOLOGY Evonne Reyes PA-C [address] [place] [address] Referral ID Status Reason Start Date Expiration Date Visits Requested Visits Authorized [id number] Ref Not Required PCP Requested Referral 04/29/2024 04/29/2025 1 1 Specialty Diagnoses / Procedures Referred By Contac t Referred To Contact Gastroenterology Diagnoses Chronic nausea Procedures CONSULT TO GASTROENTEROLOGY OFFICE/OUTPATIENT [facility] 60 MINUTES Evonne Reyes PA-C [address] [place] [address] Referral ID Status Reason Start Date Expiration Date Visits Requested Visits Authorized [id number] Authorized PCP Requested Referral 04/29/2024 04/29/2025 1 1 Specialty Diagnoses / Procedures Referred By Contac t Referred To Contact Dermatology Diagnoses Splitting of nail Hair loss Procedures CONSULT TO DERMATOLOGY Twin Barrera MD [address] [place] [address] Referral ID Status Reason Start Date Expiration Date Visits Requested Visits Authorized [id number] Authorized PCP Requested Referral 11/03/2024 11/03/2025 1 1 Summary Purpose Additional Source Comments Goals (unrecognized section and content) Goals may be documented in a n alternate sectionGoals may be documented in an alternate sectionGoals may be documented in an alternate sectionGoals may be documented in an alternate sectionGoals may be documented in an alternate sectionGoals may be documented in an alternate section Source Comments (unrecognize d section and content) In the event this informatio n is protected by the Federal Confidentiality of Alcohol and Drug Abuse Patient Records regulations: The Federal rules restrict any use of the information to criminally investigate or prosecute any alcohol or drug abuse patient.[facility] the event this information is protected by the Federal Confidentiality of Alcohol and Drug Abuse Patient Records regulations: The Federal rules restrict any use of the information to criminally investigate or prosecute any alcohol or drug abuse patient.[facility]In the event this information is protected by the Federal Confidentiality of Alcohol and Drug Abuse Patient Records regulations: The Federal rules restrict any use of the information to criminally investigate or prosecute any alcohol or drug abuse patient.[facility]In the event this information is protected by the Federal Confidentiality of Alcohol and Drug Abuse Patient Records regulations: The Federal rules restrict any use of the information to criminally investigate or prosecute any alcohol or drug abuse patient.[facility]In the event this information is protected by the Federal Confidentiality of Alcohol and Drug Abuse Patient Records regulations: The Federal rules restrict any use of the information to criminally investigate or prosecute any alcohol or drug abuse patient.[facility]In the event this information is protected by the Federal Confidentiality of Alcohol and Drug Abuse Patient Records regulations: The Federal rules restrict any use of the information to criminally investigate or prosecute any alcohol or drug abuse patient.[facility]In the event this information is protected by the Federal Confidentiality of Alcohol and Drug Abuse Patient Records regulations: The Federal rules restrict any use of the information to criminally investigate or prosecute any alcohol or drug abuse patient.[facility]In the event this information is protected by the Federal Confidentiality of Alcohol and Drug Abuse Patient Records regulations: The Federal rules restrict any use of the information to criminally investigate or prosecute any alcohol or drug abuse patient.[facility]In the event this information is protected by the Federal Confidentiality of Alcohol and Drug Abuse Patient Records regulations: The Federal rules restrict any use of the information to criminally investigate or prosecute any alcohol or drug abuse patient.[facility]In the event this information is protected by the Federal Confidentiality of Alcohol and Drug Abuse Patient Records regulations: The Federal rules restrict any use of the information to criminally investigate or prosecute any alcohol or drug abuse patient.[facility]In the event this information is protected by the Federal Confidentiality of Alcohol and Drug Abuse Patient Records regulations: The Federal rules restrict any use of the information to criminally investigate or prosecute any alcohol or drug abuse patient.[facility]In the event this information is protected by the Federal Confidentiality of Alcohol and Drug Abuse Patient Records regulations: The Federal rules restrict any use of the information to criminally investigate or prosecute any alcohol or drug abuse patient.[facility]In the event this information is protected by the Federal Confidentiality of Alcohol and Drug Abuse Patient Records regulations: The Federal rules restrict any use of the information to criminally investigate or prosecute any alcohol or drug abuse patient.[facility]In the event this information is protected by the Federal Confidentiality of Alcohol and Drug Abuse Patient Records regulations: The Federal rules restrict any use of the information to criminally investigate or prosecute any alcohol or drug abuse patient.[facility]In the event this information is protected by the Federal Confidentiality of Alcohol and Drug Abuse Patient Records regulations: The Federal rules restrict any use of the information to criminally investigate or prosecute any alcohol or drug abuse patient.[facility]In the event this information is protected by the Federal Confidentiality of Alcohol and Drug Abuse Patient Records regulations: The Federal rules restrict any use of the information to criminally investigate or prosecute any alcohol or drug abuse patient.[facility]In the event this information is protected by the Federal Confidentiality of Alcohol and Drug Abuse Patient Records regulations: The Federal rules restrict any use of the information to criminally investigate or prosecute any alcohol or drug abuse patient.[facility]In the event this information is protected by the Federal Confidentiality of Alcohol and Drug Abuse Patient Records regulations: The Federal rules restrict any use of the information to criminally investigate or prosecute any alcohol or drug abuse patient.[facility] HospitalIn the event this information is protected by the Federal Confidentiality of Alcohol and Drug Abuse Patient Records regulations: The Federal rules restrict any use of the information to criminally investigate or prosecute any alcohol or drug abuse patient.[facility]In the event this information is protected by the Federal Confidentiality of Alcohol and Drug Abuse Patient Records regulations: The Federal rules restrict any use of the information to criminally investigate or prosecute any alcohol or drug abuse patient.[facility]In the event this information is protected by the Federal Confidentiality of Alcohol and Drug Abuse Patient Records regulations: The Federal rules restrict any use of the information to criminally investigate or prosecute any alcohol or drug abuse patient.[facility]In the event this information is protected by the Federal Confidentiality of Alcohol and Drug Abuse Patient Records regulations: The Federal rules restrict any use of the information to criminally investigate or prosecute any alcohol or drug abuse patient.[facility]In the event this information is protected by the Federal Confidentiality of Alcohol and Drug Abuse Patient Records regulations: The Federal rules restrict any use of the information to criminally investigate or prosecute any alcohol or drug abuse patient.[facility]In the event this information is protected by the Federal Confidentiality of Alcohol and Drug Abuse Patient Records regulations: The Federal rules restrict any use of the information to criminally investigate or prosecute any alcohol or drug abuse patient.[facility]In the event this information is protected by the Federal Confidentiality of Alcohol and Drug Abuse Patient Records regulations: The Federal rules restrict any use of the information to criminally investigate or prosecute any alcohol or drug abuse patient.[facility]In the event this information is protected by the Federal Confidentiality of Alcohol and Drug Abuse Patient Records regulations: The Federal rules restrict any use of the information to criminally investigate or prosecute any alcohol or drug abuse patient.[facility]In the event this information is protected by the Federal Confidentiality of Alcohol and Drug Abuse Patient Records regulations: The Federal rules restrict any use of the information to criminally investigate or prosecute any alcohol or drug abuse patient.[facility]In the event this information is protected by the Federal Confidentiality of Alcohol and Drug Abuse Patient Records regulations: The Federal rules restrict any use of the information to criminally investigate or prosecute any alcohol or drug abuse patient.[facility]In the event this information is protected by the Federal Confidentiality of Alcohol and Drug Abuse Patient Records regulations: The Federal rules restrict any use of the information to criminally investigate or prosecute any alcohol or drug abuse patient.[facility]In the event this information is protected by the Federal Confidentiality of Alcohol and Drug Abuse Patient Records regulations: The Federal rules restrict any use of the information to criminally investigate or prosecute any alcohol or drug abuse patient.[facility]In the event this information is protected by the Federal Confidentiality of Alcohol and Drug Abuse Patient Records regulations: The Federal rules restrict any use of the information to criminally investigate or prosecute any alcohol or drug abuse patient.[facility]In the event this information is protected by the Federal Confidentiality of Alcohol and Drug Abuse Patient Records regulations: The Federal rules restrict any use of the information to criminally investigate or prosecute any alcohol or drug abuse patient.[facility]In the event this information is protected by the Federal Confidentiality of Alcohol and Drug Abuse Patient Records regulations: The Federal rules restrict any use of the information to criminally investigate or prosecute any alcohol or drug abuse patient.[facility] HospitalIn the event this information is protected by the Federal Confidentiality of Alcohol and Drug Abuse Patient Records regulations: The Federal rules restrict any use of the information to criminally investigate or prosecute any alcohol or drug abuse patient.[facility]In the event this information is protected by the Federal Confidentiality of Alcohol and Drug Abuse Patient Records regulations: The Federal rules restrict any use of the information to criminally investigate or prosecute any alcohol or drug abuse patient.[facility]In the event this information is protected by the Federal Confidentiality of Alcohol and Drug Abuse Patient Records regulations: The Federal rules restrict any use of the information to criminally investigate or prosecute any alcohol or drug abuse patient.[facility]In the event this information is protected by the Federal Confidentiality of Alcohol and Drug Abuse Patient Records regulations: The Federal rules restrict any use of the information to criminally investigate or prosecute any alcohol or drug abuse patient.[facility]In the event this information is protected by the Federal Confidentiality of Alcohol and Drug Abuse Patient Records regulations: The Federal rules restrict any use of the information to criminally investigate or prosecute any alcohol or drug abuse patient.[facility]In the event this information is protected by the Federal Confidentiality of Alcohol and Drug Abuse Patient Records regulations: The Federal rules restrict any use of the information to criminally investigate or prosecute any alcohol or drug abuse patient.[facility]In the event this information is protected by the Federal Confidentiality of Alcohol and Drug Abuse Patient Records regulations: The Federal rules restrict any use of the information to criminally investigate or prosecute any alcohol or drug abuse patient.[facility] HospitalIn the event this information is protected by the Federal Confidentiality of Alcohol and Drug Abuse Patient Records regulations: The Federal rules restrict any use of the information to criminally investigate or prosecute any alcohol or drug abuse patient.[facility] HospitalIn the event this information is protected by the Federal Confidentiality of Alcohol and Drug Abuse Patient Records regulations: The Federal rules restrict any use of the information to criminally investigate or prosecute any alcohol or drug abuse patient.[facility]In the event this information is protected by the Federal Confidentiality of Alcohol and Drug Abuse Patient Records regulations: The Federal rules restrict any use of the information to criminally investigate or prosecute any alcohol or drug abuse patient.[facility] HospitalIn the event this information is protected by the Federal Confidentiality of Alcohol and Drug Abuse Patient Records regulations: The Federal rules restrict any use of the information to criminally investigate or prosecute any alcohol or drug abuse patient.[facility]In the event this information is protected by the Federal Confidentiality of Alcohol and Drug Abuse Patient Records regulations: The Federal rules restrict any use of the information to criminally investigate or prosecute any alcohol or drug abuse patient.[facility]In the event this information is protected by the Federal Confidentiality of Alcohol and Drug Abuse Patient Records regulations: The Federal rules restrict any use of the information to criminally investigate or prosecute any alcohol or drug abuse patient.[facility] HospitalIn the event this information is protected by the Federal Confidentiality of Alcohol and Drug Abuse Patient Records regulations: The Federal rules restrict any use of the information to criminally investigate or prosecute any alcohol or drug abuse patient.[facility]In the event this information is protected by the Federal Confidentiality of Alcohol and Drug Abuse Patient Records regulations: The Federal rules restrict any use of the information to criminally investigate or prosecute any alcohol or drug abuse patient.[facility] HospitalIn the event this information is protected by the Federal Confidentiality of Alcohol and Drug Abuse Patient Records regulations: The Federal rules restrict any use of the information to criminally investigate or prosecute any alcohol or drug abuse patient.[facility] HospitalIn the event this information is protected by the Federal Confidentiality of Alcohol and Drug Abuse Patient Records regulations: The Federal rules restrict any use of the information to criminally investigate or prosecute any alcohol or drug abuse patient.[facility] HospitalIn the event this information is protected by the Federal Confidentiality of Alcohol and Drug Abuse Patient Records regulations: The Federal rules restrict any use of the information to criminally investigate or prosecute any alcohol or drug abuse patient.[facility] HospitalIn the event this information is protected by the Federal Confidentiality of Alcohol and Drug Abuse Patient Records regulations: The Federal rules restrict any use of the information to criminally investigate or prosecute any alcohol or drug abuse patient.[facility]In the event this information is protected by the Federal Confidentiality of Alcohol and Drug Abuse Patient Records regulations: The Federal rules restrict any use of the information to criminally investigate or prosecute any alcohol or drug abuse patient.[facility] HospitalIn the event this information is protected by the Federal Confidentiality of Alcohol and Drug Abuse Patient Records regulations: The Federal rules restrict any use of the information to criminally investigate or prosecute any alcohol or drug abuse patient.[facility] HospitalIn the event this information is protected by the Federal Confidentiality of Alcohol and Drug Abuse Patient Records regulations: The Federal rules restrict any use of the information to criminally investigate or prosecute any alcohol or drug abuse patient.[facility] HospitalIn the event this information is protected by the Federal Confidentiality of Alcohol and Drug Abuse Patient Records regulations: The Federal rules restrict any use of the information to criminally investigate or prosecute any alcohol or drug abuse patient.[facility] HospitalIn the event this information is protected by the Federal Confidentiality of Alcohol and Drug Abuse Patient Records regulations: The Federal rules restrict any use of the information to criminally investigate or prosecute any alcohol or drug abuse patient.[facility] HospitalIn the event this information is protected by the Federal Confidentiality of Alcohol and Drug Abuse Patient Records regulations: The Federal rules restrict any use of the information to criminally investigate or prosecute any alcohol or drug abuse patient.[facility] HospitalIn the event this information is protected by the Federal Confidentiality of Alcohol and Drug Abuse Patient Records regulations: The Federal rules restrict any use of the information to criminally investigate or prosecute any alcohol or drug abuse patient.[facility] HospitalIn the event this information is protected by the Federal Confidentiality of Alcohol and Drug Abuse Patient Records regulations: The Federal rules restrict any use of the information to criminally investigate or prosecute any alcohol or drug abuse patient.[facility] HospitalIn the event this information is protected by the Federal Confidentiality of Alcohol and Drug Abuse Patient Records regulations: The Federal rules restrict any use of the information to criminally investigate or prosecute any alcohol or drug abuse patient.[facility] HospitalIn the event this information is protected by the Federal Confidentiality of Alcohol and Drug Abuse Patient Records regulations: The Federal rules restrict any use of the information to criminally investigate or prosecute any alcohol or drug abuse patient.[facility] HospitalIn the event this information is protected by the Federal Confidentiality of Alcohol and Drug Abuse Patient Records regulations: The Federal rules restrict any use of the information to criminally investigate or prosecute any alcohol or drug abuse patient.[facility] HospitalIn the event this information is protected by the Federal Confidentiality of Alcohol and Drug Abuse Patient Records regulations: The Federal rules restrict any use of the information to criminally investigate or prosecute any alcohol or drug abuse patient.[facility] HospitalIn the event this information is protected by the Federal Confidentiality of Alcohol and Drug Abuse Patient Records regulations: The Federal rules restrict any use of the information to criminally investigate or prosecute any alcohol or drug abuse patient.[facility] HospitalIn the event this information is protected by the Federal Confidentiality of Alcohol and Drug Abuse Patient Records regulations: The Federal rules restrict any use of the information to criminally investigate or prosecute any alcohol or drug abuse patient.[facility] HospitalIn the event this information is protected by the Federal Confidentiality of Alcohol and Drug Abuse Patient Records regulations: The Federal rules restrict any use of the information to criminally investigate or prosecute any alcohol or drug abuse patient.[facility] HospitalIn the event this information is protected by the Federal Confidentiality of Alcohol and Drug Abuse Patient Records regulations: The Federal rules restrict any use of the information to criminally investigate or prosecute any alcohol or drug abuse patient.[facility] HospitalIn the event this information is protected by the Federal Confidentiality of Alcohol and Drug Abuse Patient Records regulations: The Federal rules restrict any use of the information to criminally investigate or prosecute any alcohol or drug abuse patient.[facility] HospitalIn the event this information is protected by the Federal Confidentiality of Alcohol and Drug Abuse Patient Records regulations: The Federal rules restrict any use of the information to criminally investigate or prosecute any alcohol or drug abuse patient.[facility] HospitalIn the event this information is protected by the Federal Confidentiality of Alcohol and Drug Abuse Patient Records regulations: The Federal rules restrict any use of the information to criminally investigate or prosecute any alcohol or drug abuse patient.[facility] HospitalIn the event this information is protected by the Federal Confidentiality of Alcohol and Drug Abuse Patient Records regulations: The Federal rules restrict any use of the information to criminally investigate or prosecute any alcohol or drug abuse patient.[facility] HospitalIn the event this information is protected by the Federal Confidentiality of Alcohol and Drug Abuse Patient Records regulations: The Federal rules restrict any use of the information to criminally investigate or prosecute any alcohol or drug abuse patient.[facility] HospitalIn the event this information is protected by the Federal Confidentiality of Alcohol and Drug Abuse Patient Records regulations: The Federal rules restrict any use of the information to criminally investigate or prosecute any alcohol or drug abuse patient.[facility] HospitalIn the event this information is protected by the Federal Confidentiality of Alcohol and Drug Abuse Patient Records regulations: The Federal rules restrict any use of the information to criminally investigate or prosecute any alcohol or drug abuse patient.[facility] HospitalIn the event this information is protected by the Federal Confidentiality of Alcohol and Drug Abuse Patient Records regulations: The Federal rules restrict any use of the information to criminally investigate or prosecute any alcohol or drug abuse patient.[facility] HospitalIn the event this information is protected by the Federal Confidentiality of Alcohol and Drug Abuse Patient Records regulations: The Federal rules restrict any use of the information to criminally investigate or prosecute any alcohol or drug abuse patient.[facility] HospitalIn the event this information is protected by the Federal Confidentiality of Alcohol and Drug Abuse Patient Records regulations: The Federal rules restrict any use of the information to criminally investigate or prosecute any alcohol or drug abuse patient.[facility] HospitalIn the event this information is protected by the Federal Confidentiality of Alcohol and Drug Abuse Patient Records regulations: The Federal rules restrict any use of the information to criminally investigate or prosecute any alcohol or drug abuse patient.[facility] HospitalIn the event this information is protected by the Federal Confidentiality of Alcohol and Drug Abuse Patient Records regulations: The Federal rules restrict any use of the information to criminally investigate or prosecute any alcohol or drug abuse patient.[facility] HospitalIn the event this information is protected by the Federal Confidentiality of Alcohol and Drug Abuse Patient Records regulations: The Federal rules restrict any use of the information to criminally investigate or prosecute any alcohol or drug abuse patient.[facility] HospitalIn the event this information is protected by the Federal Confidentiality of Alcohol and Drug Abuse Patient Records regulations: The Federal rules restrict any use of the information to criminally investigate or prosecute any alcohol or drug abuse patient.[facility] HospitalIn the event this information is protected by the Federal Confidentiality of Alcohol and Drug Abuse Patient Records regulations: The Federal rules restrict any use of the information to criminally investigate or prosecute any alcohol or drug abuse patient.[facility] HospitalIn the event this information is protected by the Federal Confidentiality of Alcohol and Drug Abuse Patient Records regulations: The Federal rules restrict any use of the information to criminally investigate or prosecute any alcohol or drug abuse patient.[facility] HospitalIn the event this information is protected by the Federal Confidentiality of Alcohol and Drug Abuse Patient Records regulations: The Federal rules restrict any use of the information to criminally investigate or prosecute any alcohol or drug abuse patient.[facility] HospitalIn the event this information is protected by the Federal Confidentiality of Alcohol and Drug Abuse Patient Records regulations: The Federal rules restrict any use of the information to criminally investigate or prosecute any alcohol or drug abuse patient.[facility] HospitalIn the event this information is protected by the Federal Confidentiality of Alcohol and Drug Abuse Patient Records regulations: The Federal rules restrict any use of the information to criminally investigate or prosecute any alcohol or drug abuse patient.[facility] HospitalIn the event this information is protected by the Federal Confidentiality of Alcohol and Drug Abuse Patient Records regulations: The Federal rules restrict any use of the information to criminally investigate or prosecute any alcohol or drug abuse patient.[facility] HospitalIn the event this information is protected by the Federal Confidentiality of Alcohol and Drug Abuse Patient Records regulations: The Federal rules restrict any use of the information to criminally investigate or prosecute any alcohol or drug abuse patient.[facility] HospitalIn the event this information is protected by the Federal Confidentiality of Alcohol and Drug Abuse Patient Records regulations: The Federal rules restrict any use of the information to criminally investigate or prosecute any alcohol or drug abuse patient.[facility] HospitalIn the event this information is protected by the Federal Confidentiality of Alcohol and Drug Abuse Patient Records regulations: The Federal rules restrict any use of the information to criminally investigate or prosecute any alcohol or drug abuse patient.[facility] HospitalIn the event this information is protected by the Federal Confidentiality of Alcohol and Drug Abuse Patient Records regulations: The Federal rules restrict any use of the information to criminally investigate or prosecute any alcohol or drug abuse patient.[facility] HospitalIn the event this information is protected by the Federal Confidentiality of Alcohol and Drug Abuse Patient Records regulations: The Federal rules restrict any use of the information to criminally investigate or prosecute any alcohol or drug abuse patient.[facility] HospitalIn the event this information is protected by the Federal Confidentiality of Alcohol and Drug Abuse Patient Records regulations: The Federal rules restrict any use of the information to criminally investigate or prosecute any alcohol or drug abuse patient.[facility] HospitalIn the event this information is protected by the Federal Confidentiality of Alcohol and Drug Abuse Patient Records regulations: The Federal rules restrict any use of the information to criminally investigate or prosecute any alcohol or drug abuse patient.[facility] HospitalIn the event this information is protected by the Federal Confidentiality of Alcohol and Drug Abuse Patient Records regulations: The Federal rules restrict any use of the information to criminally investigate or prosecute any alcohol or drug abuse patient.[facility] HospitalIn the event this information is protected by the Federal Confidentiality of Alcohol and Drug Abuse Patient Records regulations: The Federal rules restrict any use of the information to criminally investigate or prosecute any alcohol or drug abuse patient.[facility] HospitalIn the event this information is protected by the Federal Confidentiality of Alcohol and Drug Abuse Patient Records regulations: The Federal rules restrict any use of the information to criminally investigate or prosecute any alcohol or drug abuse patient.[facility] HospitalIn the event this information is protected by the Federal Confidentiality of Alcohol and Drug Abuse Patient Records regulations: The Federal rules restrict any use of the information to criminally investigate or prosecute any alcohol or drug abuse patient.[facility] HospitalIn the event this information is protected by the Federal Confidentiality of Alcohol and Drug Abuse Patient Records regulations: The Federal rules restrict any use of the information to criminally investigate or prosecute any alcohol or drug abuse patient.[facility] HospitalIn the event this information is protected by the Federal Confidentiality of Alcohol and Drug Abuse Patient Records regulations: The Federal rules restrict any use of the information to criminally investigate or prosecute any alcohol or drug abuse patient.[facility] HospitalIn the event this information is protected by the Federal Confidentiality of Alcohol and Drug Abuse Patient Records regulations: The Federal rules restrict any use of the information to criminally investigate or prosecute any alcohol or drug abuse patient.[facility] HospitalIn the event this information is protected by the Federal Confidentiality of Alcohol and Drug Abuse Patient Records regulations: The Federal rules restrict any use of the information to criminally investigate or prosecute any alcohol or drug abuse patient.[facility] HospitalIn the event this information is protected by the Federal Confidentiality of Alcohol and Drug Abuse Patient Records regulations: The Federal rules restrict any use of the information to criminally investigate or prosecute any alcohol or drug abuse patient.[facility] HospitalIn the event this information is protected by the Federal Confidentiality of Alcohol and Drug Abuse Patient Records regulations: The Federal rules restrict any use of the information to criminally investigate or prosecute any alcohol or drug abuse patient.[facility] HospitalIn the event this information is protected by the Federal Confidentiality of Alcohol and Drug Abuse Patient Records regulations: The Federal rules restrict any use of the information to criminally investigate or prosecute any alcohol or drug abuse patient.[facility] HospitalIn the event this information is protected by the Federal Confidentiality of Alcohol and Drug Abuse Patient Records regulations: The Federal rules restrict any use of the information to criminally investigate or prosecute any alcohol or drug abuse patient.[facility] HospitalIn the event this information is protected by the Federal Confidentiality of Alcohol and Drug Abuse Patient Records regulations: The Federal rules restrict any use of the information to criminally investigate or prosecute any alcohol or drug abuse patient.[facility] HospitalIn the event this information is protected by the Federal Confidentiality of Alcohol and Drug Abuse Patient Records regulations: The Federal rules restrict any use of the information to criminally investigate or prosecute any alcohol or drug abuse patient.[facility] HospitalIn the event this information is protected by the Federal Confidentiality of Alcohol and Drug Abuse Patient Records regulations: The Federal rules restrict any use of the information to criminally investigate or prosecute any alcohol or drug abuse patient.[facility] HospitalIn the event this information is protected by the Federal Confidentiality of Alcohol and Drug Abuse Patient Records regulations: The Federal rules restrict any use of the information to criminally investigate or prosecute any alcohol or drug abuse patient.[facility]In the event this information is protected by the Federal Confidentiality of Alcohol and Drug Abuse Patient Records regulations: The Federal rules restrict any use of the information to criminally investigate or prosecute any alcohol or drug abuse patient.[facility] HospitalIn the event this information is protected by the Federal Confidentiality of Alcohol and Drug Abuse Patient Records regulations: The Federal rules restrict any use of the information to criminally investigate or prosecute any alcohol or drug abuse patient.[facility]In the event this information is protected by the Federal Confidentiality of Alcohol and Drug Abuse Patient Records regulations: The Federal rules restrict any use of the information to criminally investigate or prosecute any alcohol or drug abuse patient.[facility] HospitalIn the event this information is protected by the Federal Confidentiality of Alcohol and Drug Abuse Patient Records regulations: The Federal rules restrict any use of the information to criminally investigate or prosecute any alcohol or drug abuse patient.[facility] HospitalIn the event this information is protected by the Federal Confidentiality of Alcohol and Drug Abuse Patient Records regulations: The Federal rules restrict any use of the information to criminally investigate or prosecute any alcohol or drug abuse patient.[facility] HospitalIn the event this information is protected by the Federal Confidentiality of Alcohol and Drug Abuse Patient Records regulations: The Federal rules restrict any use of the information to criminally investigate or prosecute any alcohol or drug abuse patient.[facility] HospitalIn the event this information is protected by the Federal Confidentiality of Alcohol and Drug Abuse Patient Records regulations: The Federal rules restrict any use of the information to criminally investigate or prosecute any alcohol or drug abuse patient.[facility] HospitalIn the event this information is protected by the Federal Confidentiality of Alcohol and Drug Abuse Patient Records regulations: The Federal rules restrict any use of the information to criminally investigate or prosecute any alcohol or drug abuse patient.[facility] HospitalIn the event this information is protected by the Federal Confidentiality of Alcohol and Drug Abuse Patient Records regulations: The Federal rules restrict any use of the information to criminally investigate or prosecute any alcohol or drug abuse patient.[facility]In the event this information is protected by the Federal Confidentiality of Alcohol and Drug Abuse Patient Records regulations: The Federal rules restrict any use of the information to criminally investigate or prosecute any alcohol or drug abuse patient.[facility] HospitalIn the event this information is protected by the Federal Confidentiality of Alcohol and Drug Abuse Patient Records regulations: The Federal rules restrict any use of the information to criminally investigate or prosecute any alcohol or drug abuse patient.[facility] HospitalIn the event this information is protected by the Federal Confidentiality of Alcohol and Drug Abuse Patient Records regulations: The Federal rules restrict any use of the information to criminally investigate or prosecute any alcohol or drug abuse patient.[facility] HospitalIn the event this information is protected by the Federal Confidentiality of Alcohol and Drug Abuse Patient Records regulations: The Federal rules restrict any use of the information to criminally investigate or prosecute any alcohol or drug abuse patient.[facility]In the event this information is protected by the Federal Confidentiality of Alcohol and Drug Abuse Patient Records regulations: The Federal rules restrict any use of the information to criminally investigate or prosecute any alcohol or drug abuse patient.[facility] HospitalIn the event this information is protected by the Federal Confidentiality of Alcohol and Drug Abuse Patient Records regulations: The Federal rules restrict any use of the information to criminally investigate or prosecute any alcohol or drug abuse patient.[facility]In the event this information is protected by the Federal Confidentiality of Alcohol and Drug Abuse Patient Records regulations: The Federal rules restrict any use of the information to criminally investigate or prosecute any alcohol or drug abuse patient.[facility]In the event this information is protected by the Federal Confidentiality of Alcohol and Drug Abuse Patient Records regulations: The Federal rules restrict any use of the information to criminally investigate or prosecute any alcohol or drug abuse patient.[facility]In the event this information is protected by the Federal Confidentiality of Alcohol and Drug Abuse Patient Records regulations: The Federal rules restrict any use of the information to criminally investigate or prosecute any alcohol or drug abuse patient.[facility]In the event this information is protected by the Federal Confidentiality of Alcohol and Drug Abuse Patient Records regulations: The Federal rules restrict any use of the information to criminally investigate or prosecute any alcohol or drug abuse patient.[facility]In the event this information is protected by the Federal Confidentiality of Alcohol and Drug Abuse Patient Records regulations: The Federal rules restrict any use of the information to criminally investigate or prosecute any alcohol or drug abuse patient.[facility]In the event this information is protected by the Federal Confidentiality of Alcohol and Drug Abuse Patient Records regulations: The Federal rules restrict any use of the information to criminally investigate or prosecute any alcohol or drug abuse patient.[facility]In the event this information is protected by the Federal Confidentiality of Alcohol and Drug Abuse Patient Records regulations: The Federal rules restrict any use of the information to criminally investigate or prosecute any alcohol or drug abuse patient.[facility]In the event this information is protected by the Federal Confidentiality of Alcohol and Drug Abuse Patient Records regulations: The Federal rules restrict any use of the information to criminally investigate or prosecute any alcohol or drug abuse patient.[facility]In the event this information is protected by the Federal Confidentiality of Alcohol and Drug Abuse Patient Records regulations: The Federal rules restrict any use of the information to criminally investigate or prosecute any alcohol or drug abuse patient.[facility]In the event this information is protected by the Federal Confidentiality of Alcohol and Drug Abuse Patient Records regulations: The Federal rules restrict any use of the information to criminally investigate or prosecute any alcohol or drug abuse patient.[facility]In the event this information is protected by the Federal Confidentiality of Alcohol and Drug Abuse Patient Records regulations: The Federal rules restrict any use of the information to criminally investigate or prosecute any alcohol or drug abuse patient.[facility] HospitalIn the event this information is protected by the Federal Confidentiality of Alcohol and Drug Abuse Patient Records regulations: The Federal rules restrict any use of the information to criminally investigate or prosecute any alcohol or drug abuse patient.[facility] Reason for Visit (unrecogniz ed section and content) Reason Comments Fatigue weak, mouth pain, 18 teeth pulled on 01/17 Reason Comments Results Reason Comments Diarrhea Reason Comments ED Follow-up Reason Comments ER F/U Reason Comments Patient Question Reason Comments ER Summary Reason Comments Patient Update Results Reason Comments Patient Update Reason Comments Consult Colonoscopy Specialty Diagnoses / Procedures Referred By Deangelo t Referred To Contact Gastroenterology Diagnoses Colon cancer screening Procedures CONSULT TO GASTROENTEROLOGY NEW PATIENT VISIT LEVEL 5 Twin Barrera MD [address] [place] [address] Referral ID Status Reason Start Date Expiration Date V isits Requested Visits Authorized [id number] Closed PCP Requested Referral 06/04/2021 06/04/2022 1 1 Reason Comments Orders Reason Comments Reminder Call Reason Comments Results colonoscopy clearance Reason Comments Radiology Mammogram Specialty Diagnoses / Procedures Referred By Contac t Referred To Contact BR IMAGING Diagnoses Breast pain, right Procedures BULL DIAGNOSTIC RT DIAGNOSTIC MAMMOGRAPHY COMPUTER-AIDED DETCJ UNI Twin Barrera MD [address] [place] [address] [facility] Imaging [address] [place] [address] Referral ID Status Reason Start Date Expiration Date V isits Requested Visits Authorized [id number] Closed Auto-Generate d Referral 06/04/2021 07/04/2022 1 [...] Pressure Check Reason Onset Date Comments ACM JOSSY RN 10/24/2022 Chart review for ED utilization [...] Procedures CONSULT TO GENERAL SURGERY OFFICE/OUTPATIENT [facility] MDM 60-74 MINUTES Evonne Reyes PA-C [address] [place] [address] Referral ID Status Reason Start Date Expiration Date V isits Requested Visits Authorized [id number] Closed PCP Requested Referral 11/07/2022 11/07/2023 1 [...] exam egd f/u asc 11/15 Procedures OFFICE/OUTPATIENT [facility] MDM 40-54 MIN EST DDI PATIENT Twin Barrera MD [address] [place] [address] Monisha Contreras PA-C [address] [place] [address] Referral ID Status Reason Start Date Expiration Date V isits Requested Visits Authorized [id number] Authorized 11/18/2022 11/18/2023 99 99 Reason Comments Follow Up HIDA scan results Specialty Diagnoses / Procedures [facility] Referred To Contact General Surgery / GENERAL SURGERY Diagnoses review HIDA scan results Procedures EST DDI PATIENT Celina Solis MD [address] [place] [address] Celina Solis MD [address] [place] [address] Referral ID Status Reason Start Date Expiration Date V isits Requested Visits Authorized [id number] Denied Patient Cleared - Admin/Chairm an/Director advise to proceed 01/14/2023 01/14/2023 2 0 Reason Comments Medication Problem Reason Comments 01/30/2023 LAP KESHAV CONTRERAS 03/03/2023 lap keshav contreras Reason Comments Consult RUQ pain Specialty Diagnoses / Procedures Referred By [facility] Referred To Contact General Surgery / GENERAL SURGERY Diagnoses RUQ pain Generalized abdominal pain Chronic cholecystitis Procedures CONSULT TO GENERAL SURGERY OFFICE/OUTPATIENT [facility] 60-74 MINUTES Jessica Lal APRN.LABOR STANDARDS DIRECTOR [address] [place] [address] [facility] [address] [place] [address] Referral ID Status Reason Start Date Expiration Date V isits Requested Visits Authorized [id number] Closed PCP Requested Referral 02/06/2023 02/06/2024 1 1 Reason Comments Preparations For Surgery Reason Comments Appointment Reason Comments Yearly Exam Reason Comments Blood Pressure Reason Comments Blood Pressure Reason Onset Date Comments Allied Health Visit 06/19/2023 Medication A dherence Outreach Reason Comments Follow Up Still having diarrhe a since lap keshav 03/03/2023. Specialty Diagnoses / Procedures [facility] Referred To Contact General Surgery / GENERAL SURGERY Diagnoses bowel issues since lap keshav keep DP Procedures EST DDI PATIENT Twin Barrera MD [address] [place] [address] Leo Barreto MD [address] [facility] [place] [address] Referral ID Status Reason Start Date Expiration Date V isits Requested Visits Authorized [id number] Authorized 08/04/2023 08/04/2024 99 99 Reason Comments Ear Pain Bilateral x2 days Reason Comments Radiology CT Specialty Diagnoses / Procedures Referred By Contac t Referred To Contact CT IMAGING Diagnoses RUQ pain Generalized abdominal pain Chronic cholecystitis Left lower quadrant abdominal pain Nausea Procedures CT ABD/PEL W IVCON CT ABD & PELVIS W/CONTRAST Jessica Lal, INSPECTOR CASING.LABOR STANDARDS DIRECTOR [phone] [place] [address] Referral ID Status Reason Start Date Expiration Date V isits Requested Visits Authorized [id number] Closed Auto-Generate d Referral 02/06/2023 03/07/2024 1 1 Specialty Diagnoses / Procedures Referred By Contac t Referred To Contact CT IMAGING Diagnoses RUQ pain Left lower quadrant abdominal pain Nausea Epigastric pain LLQ abdominal pain Procedures CT ABD/PEL W IVCON CT ABD & PELVIS W/CONTRAST Jessica Lal, INSPECTOR CASING.LABOR STANDARDS DIRECTOR [phone] [place] [address] Referral ID Status Reason Start Date Expiration Date V isits Requested Visits Authorized [id number] Closed Auto-Generate d Referral 02/06/2023 03/07/2024 1 1 Reason Comments Radiology US Specialty Diagnoses / Procedures Referred By Contac t Referred To Contact US IMAGING Diagnoses Generalized abdominal pain Procedures US ABD RT UPPER QUADRANT US ABDOMINAL REAL TIME W/IMAGE LIMITED Evonne Reyes PA-C [address] [place] [address] [place] [address] Referral ID Status Reason Start Date Expiration Date V isits Requested Visits Authorized [id number] Closed Auto-Generate d Referral 11/07/2022 12/07/2023 1 1 Reason Onset Date Comments ACM JOSSY RN 09/15/2023 Medication Ad herence review completed per request of payer Reason Onset Date Comments Refill Request 09/22/2023 Reason Comments 6 Month Exam Reason Comments ER Discharge Summary Imaging Reason Comments ER F/U [facility] ER follow up 2/8 dx: shortness of breath; requesting order for air purifier Reason Comments Pain Reason Comments Diabetes Refractive Amblyopia Evaluation Left eye Cataract Evaluation Specialty Diagnoses / Procedures Referred By Deangelo t Referred To Contact Optometry / OPHTHALMOLOGY Diagnoses Diabetic eye exam (HCC) Diabetic- Trouble reading/fog in Eye Procedures OPHTH MEDICAL XM&EVAL INTERMEDIATE ESTAB PT OPHTH MEDICAL XM&EVAL COMPRHNSV ESTAB PT 1/> OFFICE/OUTPATIENT ESTABLISHED HIGH MDM 40 MIN EST ADULT Self CooperriderAnnmarien Jared II, OD [address] [place] [address] Referral ID Status Reason Start Date Expiration Date Visits Re quested Visits Authorized [id number] Closed 01/06/2024 2024 1 1 Reason Comments Spirometry Specialty Diagnoses / Procedures Referred By Deangelo t Referred To Contact [facility] Diagnoses SOB (shortness of breath) Procedures SPIROMETRY WITH DILATOR IF OBSTRUCTED BRNCDILAT RSPSE SPMTRY PRE&POST-BRNCDILAT Elli Bill MD [address] [place] [address] [facility] [address] [place] [address] Referral ID Status Reason Start Date Expiration Date V isits Requested Visits Authorized [id number] Closed Auto-Generate d Referral 12/03/2023 12/31/2024 1 1 Reason Comments Shortness of Breath On Exertion and when exposed to second has smoke- New patient Specialty Diagnoses / Procedures Referred By Deangelo t Referred To Contact Pulmonary and Critical Care Medicine / PULMONARY MEDICINE Diagnoses breathing issues Procedures [facility] Minerva Ochoa MD [address] [place] [address] Minerva Ochoa MD [address] [place] [address] Referral ID Status Reason Start Date Expiration Date Visits Re quested Visits Authorized [id number] Closed 02/03/2024 2024 1 1 Reason Comments Fall L knee pain x2 days Reason Comments Pain (Shoulder Pain) Right shoulder X 2 days Reason Comments right shoulder pain REF: Dejan March Reason Comments 3 week post visit right rotator cuff dis order Reason Comments Derm Problem Rash upper abdomen a nd right breast x 3-4 days Reason Comments PT Eval Specialty Diagnoses / Procedures Referred By Deangelo t Referred To Contact [facility] Diagnoses Cervicalgia Rotator cuff disorder, right Procedures CONSULT TO PHYSICAL THERAPY PHYSICAL THERAPY EVALUATION HIGH COMPLEX 45 MINS Jeremias Rosario V, DO [address] [place] [address] [facility] [address] [place] [address] Referral ID Status Reason Start Date Expiration Date Visits Requested Visits Authorized [id number] Authorized Auto-Generat ed Referral 10/20/2023 2024 99 99 Reason Comments Medicare Wellness Exam Reason Comments Consult DERM Reason Comments Outside [facility] Ordered Reason Comments ER F/U Reason Comments Recheck Medication and blood pressure Reason Comments Acute Visit Reason Onset Date Comments Allied Health Visit 09/06/2024 Medication A dherence Outreach Reason Comments Letter Request Reason Comments Medication Question Reason Comments F/U 6 months Reason Comments side effects? Reason Onset Date Comments Refill Request 12/22/2024 Reason Comments Consult GI/LABS/EGD - outsid e provider Reason Comments Procedure Outside facility - g astric emptying Reason Comments Results Outside labs Reason Comments Results Outside Facilty Reason Comments Headache Reason Comments Musculoskeletal Problem leg swelling Reason Comments Pain Reason Onset Date Comments Results 03/15/2025 Reason Comments Chest Pain Reason Onset Date Comments Results 04/19/2025 Specialty Diagnoses / Procedures Referred By Deangelo kim Referred To Contact Optometry / OPHTHALMOLOGY Diagnoses Encounter for eye exam Eye Exam - Diabetic Procedures OFFICE/OUTPATIENT ESTABLISHED HIGH MDM 40 MIN EST ADULT Madai Morton II, OD [address] [place] [address] Phone: tel: fax: Madai Morton II, OD [address] [place] [address] Phone: tel: fax: Referral ID Status Reason Start Date Expiration Date V isits Requested Visits Authorized [id number] Closed Financial Clearance Required - OON Payor 04/26/2025 2025 1 1 Reason Comments Medicare Wellness Exam Reason Comments Patient Request Reason Comments Abstract Cardiology OV note - WHG Reason Comments Depression Reason Comments Referral Request Care Teams (unrecognized sec tion and content) Talent Development Manager Relationship Specialty Start Date End Date Twin Barrera MD [address] [place] [address] PCP - General Family Practice 05/18/14 Talent Development Manager Relationship Specialty Start Date End Date Twin Barrera MD [address] [place] [address] [place] [address] PCP - General Family Practice 05/18/14 Talent Development Manager Relationship Specialty Start Date End Date Twin Barrera MD [address] [place] [address] [place] [address] PCP - General Family Practice 05/18/14 Talent Development Manager Relationship Specialty Start Date End Date Twin Barrera MD [address] [place] [address] [place] [address] PCP - General Family Practice 05/18/14 Talent Development Manager Relationship Specialty Start Date End Date Twin Barrera MD [address] [place] [address] [place] [address] PCP - General Family Practice 05/18/14 Talent Development Manager Relationship Specialty Start Date End Date Twin Barrera MD [address] [place] [address] [place] [address] PCP - General Family Practice 05/18/14 Talent Development Manager Relationship Specialty Start Date End Date Twin Barrera MD [address] [place] [address] [place] [address] PCP - General Family Practice 05/18/14 Talent Development Manager Relationship Specialty Start Date End Date Twin Barrera MD [address] [place] [address] [place] [address] PCP - General Family Practice 05/18/14 Talent Development Manager Relationship Specialty Start Date End Date Twin Barrera MD [address] [place] [address] PCP - General Family Practice 05/18/14 Talent Development Manager Relationship Specialty Start Date End Date Twin Barrera MD [address] [place] [address] PCP - General Family Practice 05/18/14 Talent Development Manager Relationship Specialty Start Date End Date Twin Barrera MD [facility] [place] [address] PCP - General Family Practice 05/18/14 Talent Development Manager Relationship Specialty Start Date End Date Twin Barrera MD [facility] [place] [address] PCP - General Family Medicine 05/18/14 Talent Development Manager Relationship Specialty Start Date End Date Twin Barrera MD [facility] [place] [address] PCP - General Family Medicine 05/18/14 Talent Development Manager Relationship Specialty Start Date End Date Twin Barrera MD [facility] [place] [address] PCP - General Family Medicine 05/18/14 Talent Development Manager Relationship Specialty Start Date End Date Twin Barrera MD [facility] [place] [address] PCP - General Family Medicine 05/18/14 Talent Development Manager Relationship Specialty Start Date End Date Twin Barrera MD [facility] [place] [address] PCP - General Family Medicine 05/18/14 Talent Development Manager Relationship Specialty Start Date End Date Twin Barrera MD [facility] [place] [address] PCP - General Family Medicine 05/18/14 Talent Development Manager Relationship Specialty Start Date End Date Twin Barrera MD [address] [place] [address] PCP - General Family Medicine 05/18/14 Talent Development Manager Relationship Specialty Start Date End Date Twin Barrera MD [address] [place] [address] PCP - General Family Medicine 05/18/14 Talent Development Manager Relationship Specialty Start Date End Date Twin Barrera MD [facility] [place] [address] PCP - General Family Medicine 05/18/14 Talent Development Manager Relationship Specialty Start Date End Date Twin Barrera MD [address] [place] [address], [place] [address] PCP - General Family Medicine 05/18/14 Talent Development Manager Relationship Specialty Start Date End Date Twin Barrera MD [facility] [place] [address] PCP - General Family Medicine 05/18/14 Talent Development Manager Relationship Specialty Start Date End Date Twin Barrera MD [facility] [place] [address] PCP - General Family Medicine 05/18/14 Talent Development Manager Relationship Specialty Start Date End Date Twin Barrera MD [facility] [place] [address] PCP - General Family Medicine 05/18/14 Talent Development Manager Relationship Specialty Start Date End Date Twin Barrera MD [facility] [place] [address] PCP - General Family Medicine 05/18/14 Talent Development Manager Relationship Specialty Start Date End Date Twin Barrera MD [facility] [place] [address] PCP - General Family Medicine 05/18/14 Talent Development Manager Relationship Specialty Start Date End Date Twin Barrera MD [address] [place] [address] PCP - General Family Medicine 05/18/14 Talent Development Manager Relationship Specialty Start Date End Date Twin Barrera MD [address] [place] [address] PCP - General Family Medicine 05/18/14 Talent Development Manager Relationship Specialty Start Date End Date Twin Barrera MD [address] [place] [address] PCP - General Family Medicine 05/18/14 Talent Development Manager Relationship Specialty Start Date End Date Twin Barrera MD [address] [place] [address] [place] [address] PCP - General Family Medicine 05/18/14 Talent Development Manager Relationship Specialty Start Date End Date Twin Barrera MD [address] [place] [address] [place] [address] PCP - General Family Medicine 05/18/14 Talent Development Manager Relationship Specialty Start Date End Date Twin Barrera MD [facility] [place] [address] PCP - General Family Medicine 05/18/14 Talent Development Manager Relationship Specialty Start Date End Date Twin Barrera MD [address] [place] [address] PCP - General Family Medicine 05/18/14 Talent Development Manager Relationship Specialty [place] [address] [place] [address], [place] [address] PCP - General Family Medicine 05/18/14 Talent Development Manager Relationship Specialty Start Date End Date Twin Barrera MD [address] [place] [address] PCP - General Family Medicine 05/18/14 Talent Development Manager Relationship Specialty Start Date End Date Twin Barrera MD [address] [place] [address] PCP - General Family Medicine 05/18/14 Talent Development Manager Relationship Specialty Start Date End Date Twin Barrera MD [address] [place] [address] PCP - General Family Medicine 05/18/14 Talent Development Manager Relationship Specialty Start Date End Date Twin Brarera MD [address] [place] [address] PCP - General Family Medicine 05/18/14 Talent Development Manager Relationship Specialty Start Date End Date Twin Barrera MD [address] [place] [address] PCP - General Family Medicine 05/18/14 Talent Development Manager Relationship Specialty Start Date End Date Twin Barrera MD [address] [place] [address] PCP - General Family Medicine 05/18/14 Talent Development Manager Relationship Specialty Start Date End Date Twin Barrera MD [address] [place] [address] PCP - General Family Medicine 05/18/14 Talent Development Manager Relationship Specialty Start Date End Date Twin Barrera MD [address] [place] [address] PCP - General Family Medicine 05/18/14 Talent Development Manager Relationship Specialty Start Date End Date Twin Barrera MD [address] [place] [address] PCP - General Family Medicine 05/18/14 Talent Development Manager Relationship Specialty Start Date End Date Twin Barrera MD [address] [place] [address] PCP - General Family Medicine 05/18/14 Team Status: Active Member Role Status Dates Dr. Twin Barrera MD Family Provider Active Dr. Twin Barrera MD Primary Care Provider Active Team Status: Inactive Member Role Status Dates Dr. Twin Barrera MD Primary Care Provider Active Dr. Fidel Daley DO Emergency Provider Active Talent Development Manager Relationship Specialty Start Date End Date Twin Barrera MD [address] [place] [address] PCP - General Family Medicine 05/18/14 Talent Development Manager Relationship Specialty Start Date End Date Twin Barrera MD [address] [place] [address] PCP - General Family Medicine 05/18/14 Talent Development Manager Relationship Specialty Start Date End Date Twin Barrera MD [address] [place] [address] PCP - General Family Medicine 05/18/14 Talent Development Manager Relationship Specialty Start Date End Date Twin Barrera MD [address] [place], [place] [address] [phone] PCP - General Family Medicine 05/18/14 Talent Development Manager Relationship Specialty Start Date End Date Twin Barrera MD [address] [place] [address] PCP - General Family Medicine 05/18/14 Talent Development Manager Relationship Specialty Start Date End Date Twin Barrera MD [address] [place] [address] PCP - General Family Medicine 05/18/14 Talent Development Manager Relationship Specialty Start Date End Date Twin Barrera MD [address] [place] [address] PCP - General Family Medicine 05/18/14 Talent Development Manager Relationship Specialty Start Date End Date Twin Barrera MD [address] [place] [address] PCP - General Family Medicine 05/18/14 Talent Development Manager Relationship Specialty Start Date End Date Twin Barrera MD [address] [place] [address] PCP - General Family Medicine 05/18/14 Talent Development Manager Relationship Specialty Start Date End Date Twin Barrera MD [address] [place] [address] PCP - General Family Medicine 05/18/14 Talent Development Manager Relationship Specialty Start Date End Date Twin Barrera MD [address] [place] [address] PCP - General Family Medicine 05/18/14 Talent Development Manager Relationship Specialty Start Date End Date Twin Barrera MD [address] [place] [address] PCP - General Family Medicine 05/18/14 Talent Development Manager Relationship Specialty Start Date End Date Twin Barrera MD [address] [place] [address] PCP - General Family Medicine 05/18/14 Talent Development Manager Relationship Specialty Start Date End Date Twin Barrera MD [address] [place] [address] PCP - General Family Medicine 05/18/14 Talent Development Manager Relationship Specialty Start Date End Date Twin Barrera MD [address] [place] [address] PCP - General Family Medicine 05/18/14 Talent Development Manager Relationship Specialty Start Date End Date Twin Barrera MD [address] [place] [address] PCP - General Family Medicine 05/18/14 Talent Development Manager Relationship Specialty Start Date End Date Twin Barrera MD [address] [place] [address] PCP - General Family Medicine 05/18/14 Talent Development Manager Relationship Specialty Start Date End Date Twin Barrera MD [address] [place] [address] PCP - General Family Medicine 05/18/14 Talent Development Manager Relationship Specialty Start Date End Date Twin Barrera MD [address] [place] [address] PCP - General Family Medicine 05/18/14 Talent Development Manager Relationship Specialty Start Date End Date Twin Barrera MD [address] [place] [address] PCP - General Family Medicine 05/18/14 Talent Development Manager Relationship Specialty Start Date End Date Twin Barrera MD [address] [place] [address] PCP - General Family Medicine 05/18/14 Talent Development Manager Relationship Specialty Start Date End Date Twin Barrera MD [address] [place] [address] PCP - General Family Medicine 05/18/14 Talent Development Manager Relationship Specialty Start Date End Date Twin Barrera MD [address] [place] [address] PCP - General Family Medicine 05/18/14 Talent Development Manager Relationship Specialty Start Date End Date Twin Barrera MD [address] [place] [address] PCP - General Family Medicine 05/18/14 Talent Development Manager Relationship Specialty Start Date End Date Twin Barrera MD [address] [place] [address] PCP - General Family Medicine 05/18/14 Kerri March APRN.LABOR STANDARDS DIRECTOR [address] [place] [address] [employer] Family Medicine 09/25/24 Evonne Reyes PA-C [address] [place] [address] [employer] [facility] 09/25/24 Talent Development Manager Relationship Specialty Start Date End Date Twin Barrera MD [address] [place] [address] PCP - General Family Medicine 05/18/14 Kerri March, LISSETTE.LABOR STANDARDS DIRECTOR [address] [place] [address] [employer] Family Medicine 09/25/24 Evonne Reyes PA-C [address] [place] [address] [facility] 09/25/24 Talent Development Manager Relationship Specialty Start Date End Date Twin Barrera MD [address] [place] [address] PCP - General Family Medicine 05/18/14 Kerri March APRN.LABOR STANDARDS DIRECTOR [address] [place] [address] [facility] 09/25/24 Evonne Reyes PA-C [address] [place] [address] [facility] 09/25/24 Talent Development Manager Relationship Specialty Start Date End Date Twin Barrera MD [address] [place] [address] PCP - General Family Medicine 05/18/14 Kerri March APRN.LABOR STANDARDS DIRECTOR [address] [place] [address] [facility] Family Medicine 09/25/24 Evonne Reyes PA-C [address] [place] [address] [employer] Family Medicine 09/25/24 Talent Development Manager Relationship Specialty Start Date End Date Twin Barrera MD [address] [place] [address] PCP - General Family Medicine 05/18/14 Kerri March APRN.LABOR STANDARDS DIRECTOR [address] [facility] [place] [address] [facility] 09/25/24 Evonne Reyes PA-C [address] [facility], [place] [address] [facility] 09/25/24 Talent Development Manager Relationship Specialty Start Date End Date Twin Barrera MD [address] [place] [address] PCP - General Family Medicine 05/18/14 Kerri March APRN.LABOR STANDARDS DIRECTOR [address] [facility] [place] [address] [facility] 09/25/24 Evonne Reyes PA-C [address] [facility], [place] [address] [facility] 09/25/24 Team Status: Active Member Role Status Dates Dr. Twin Barrera MD Primary Care Provider Active Team Status: Inactive Member Role Status Dates Dr. Twin Barrera MD Primary Care Provider Active Start: December 21, 2024 End: December 21, 2024 Dr. Twin Barrera MD Referring Provider Active Start: December 21, 2024 End: December 21, 2024 Dr. Josias Benavides DO Attending Provider Active Start: December 21, 2024 End: December 21, 2024 Team Status: Active Member Role Status Dates Dr. Twin Barrera MD Primary Care Provider Active Start: December 21, 2024 Dr. Twin Barrera MD Referring Provider Active Start: December 21, 2024 Dr. oJsias Benavides DO Attending Provider Active Start: December 21, 2024 Dr. Josias Benavides DO Other Provider Active St art: December 21, 2024 Team Status: Inactive Member Role Status Dates Dr. Twin Barrera MD Primary Care Provider Active Start: January 21, 2025 End: January 21, 2025 SHAKEEL Lin Attending Provider Active Start: January 21, 2025 End: January 21, 2025 SHAKEEL Lin Referring Provider Active Start: January 21, 2025 End: January 21, 2025 Team Status: Active Member Role Status Dates Dr. Twin Barrera MD Primary Care Provider Active Start: January 26, 2025 Dr. Twin Barrera MD Referring Provider Active Start: January 26, 2025 SHAKEEL Lin Attending Provider Active Start: January 26, 2025 Team Status: Inactive Member Role Status Dates Dr. Twin Barrera MD Primary Care Provider Active Start: January 26, 2025 End: January 26, 2025 Dr. Twin Barrera MD Referring Provider Active Start: January 26, 2025 End: January 26, 2025 SHAKEEL Lin Attending Provider Active Start: January 26, 2025 End: January 26, 2025 Team Status: Inactive Member Role Status Dates Dr. Twin Barrera MD Primary Care Provider Active Start: January 27, 2025 End: January 27, 2025 SHAKEEL Lin Attending Provider Active Start: January 27, 2025 End: January 27, 2025 SHAKEEL Lin Referring Provider Active Start: January 27, 2025 End: January 27, 2025 Talent Development Manager Relationship Specialty Start Date End Date Twin Barrera MD [address] [place] [address] PCP - General Family Medicine 05/18/14 Kerri March APRN.CNP [address] [place] [address] [id number] [employer] [facility] 09/25/24 Evonne Reyes PA-C [address] [place] [address] [id number] [employer] [facility] 09/25/24 Talent Development Manager Relationship Specialty Start Date End Date Twin Barrera MD [address] [place] [id number] PCP - General Family Medicine 05/18/14 Kerri March APRN.CNP [address] [place] [address] [employer] [facility] 09/25/24 Evonne Reyes PA-C [address] [place] [address] [employer] [facility] 09/25/24 Talent Development Manager Relationship Specialty Start Date End Date Twin Barrera MD [address] [place] [address] PCP - General Family Medicine 05/18/14 Evonne Reyes PA-C [address] [place] [address] [employer] [facility] 09/25/24 Talent Development Manager Relationship Specialty Start Date End Date Twin Barrera MD [address] [place] [address] PCP - General Family Medicine 05/18/14 Evonne Reyes PA-C [address] [place] [address] [employer] [facility] 09/25/24 Talent Development Manager Relationship Specialty Start Date End Date Twin Barrera MD [address] [place] [address] PCP - General Family Medicine 05/18/14 Evonne Reyes PA-C [address] [place] [address] [facility] 09/25/24 Talent Development Manager Relationship Specialty Start Date End Date Twin Barrera MD [address] [place], [place] [id number] PCP - General Family Medicine 05/18/14 Evonne Reyes PA-C [address] [place], [place] [id number] [facility] 09/25/24 Team Status: Inactive Member Role Status Dates Dr. Twin Barrera MD Primary Care Provider Active Start: March 15, 2025 End: March 15, 2025 Dr. Twin Barrera MD Attending Provider Active Start: March 15, 2025 End: March 15, 2025 Dr. Twin Barrera MD Referring Provider Active Start: March 15, 2025 End: March 15, 2025 Team Status: Active Member Role Status Dates Dr. Twin Barrera MD Primary Care Provider Active Start: March 15, 2025 Dr. Yunior Gutierres MD Attending Provider Active S tart: March 15, 2025 Team Status: Active Member Role Status Dates Dr. Twin Barrera MD Primary Care Provider Active Start: March 15, 2025 Dr. Twin Barrera MD Referring Provider Active Start: March 15, 2025 Dr. Yunior Gutierres MD Attending Provider Active S tart: March 15, 2025 Team Status: Inactive Member Role Status Dates Dr. Twin Barrera MD Primary Care Provider Active Start: March 29, 2025 End: March 29, 2025 Dr. Twin Barrera MD Referring Provider Active Start: March 29, 2025 End: March 29, 2025 SHAKEEL Lin Attending Provider Active Start: March 29, 2025 End: March 29, 2025 Team Status: Active Member Role/Relationship Status Dates Dr. Twin Barrera MD Primary Care Provider Active Team Status: Inactive Member Role/Relationship Status Dates Dr. Twin Barrera MD Primary Care Provider Active Start: December 21, 2024 End: December 21, 2024 Dr. Twin Barrera MD Referring Provider Active Start: December 21, 2024 End: December 21, 2024 Dr. Josias Benavides DO Attending Provider Active Start: December 21, 2024 End: December 21, 2024 Team Status: Active Member Role/Relationship Status Dates Dr. Twin Barrera MD Primary Care Provider Active Start: December 21, 2024 Dr. Twin Barrera MD Referring Provider Active Start: December 21, 2024 Dr. Josias Benavides DO Attending Provider Active Start: December 21, 2024 Dr. Josias Benavides DO Other Provider Active St art: December 21, 2024 Team Status: Inactive Member Role/Relationship Status Dates Dr. Twin Barrera MD Primary Care Provider Active Start: January 21, 2025 End: January 21, 2025 SHAKEEL Lin Attending Provider Active Start: January 21, 2025 End: January 21, 2025 SHAKEEL Lin Referring Provider Active Start: January 21, 2025 End: January 21, 2025 Team Status: Inactive Member Role/Relationship Status Dates Dr. Twin Barrera MD Primary Care Provider Active Start: January 26, 2025 End: January 26, 2025 Dr. Twin Barrera MD Referring Provider Active Start: January 26, 2025 End: January 26, 2025 SHAKEEL Lin Attending Provider Active Start: January 26, 2025 End: January 26, 2025 Team Status: Inactive Member Role/Relationship Status Dates Dr. Twin Barrera MD Primary Care Provider Active Start: January 27, 2025 End: January 27, 2025 SHAKEEL Lin Attending Provider Active Start: January 27, 2025 End: January 27, 2025 SHAKEEL Lin Referring Provider Active Start: January 27, 2025 End: January 27, 2025 Team Status: Inactive Member Role/Relationship Status Dates Dr. Twin Barrera MD Primary Care Provider Active Start: March 15, 2025 End: March 15, 2025 Dr. Twin Barrera MD Attending Provider Active Start: March 15, 2025 End: March 15, 2025 Dr. Twin Barrera MD Referring Provider Active Start: March 15, 2025 End: March 15, 2025 Team Status: Active Member Role/Relationship Status Dates Dr. Twin Barrera MD Primary Care Provider Active Start: March 15, 2025 Dr. Twin Barrera MD Referring Provider Active Start: March 15, 2025 Dr. Yunior Gutierres MD Attending Provider Active S tart: March 15, 2025 Team Status: Inactive Member Role/Relationship Status Dates Dr. Twin Barrera MD Primary Care Provider Active Start: March 29, 2025 End: March 29, 2025 Dr. Twin Barrera MD Referring Provider Active Start: March 29, 2025 End: March 29, 2025 SHAKEEL Lin Attending Provider Active Start: March 29, 2025 End: March 29, 2025 Team Status: Inactive Member Role/Relationship Status Dates Dr. Twin Barrera MD Primary Care Provider Active Start: April 15, 2025 End: April 15, 2025 Dr. Wes Calabrese MD Emergency Provider Active S tart: April 15, 2025 End: April 15, 2025 Talent Development Manager Relationship Specialty Start Date End Date Twin Barrera MD [address] [place] [address] PCP - General Family Medicine 05/18/14 Kerri March, LISSETTE.LABOR STANDARDS DIRECTOR [address] [place] [id number] [employer] [facility] 03/21/25 Evonne Reyes PA-C [address] [place] [address] [employer] [facility] 03/21/25 Talent Development Manager Relationship Specialty Start Date End Date Twin Barrera MD [address] [place] [address] PCP - General Family Medicine 05/18/14 Kerri March APRN.LABOR STANDARDS DIRECTOR [facility] [place] [address] [employer] [facility] 03/21/25 Evonne Reyes PA-C [address] [place] [address] [employer] [facility] 03/21/25 Talent Development Manager Relationship Specialty Start Date End Date Twin Barrera MD [address] [place] [address] PCP - General Family Medicine 05/18/14 Kerri March APRN.LABOR STANDARDS DIRECTOR [address] [place] [address] [employer] [facility] 03/21/25 Evonne Reyes PA-C [address] [place] [address] [employer] [facility] 03/21/25 Talent Development Manager Relationship Specialty Start Date End Date Twin Barrera MD [address] [place] [address] PCP - General Family Medicine 05/18/14 Kerri March APRN.LABOR STANDARDS DIRECTOR [address] [place] [address] [employer] [facility] 03/21/25 Evonne Reyes PA-C [address] [place] [address] [employer] [facility] 03/21/25 Talent Development Manager Relationship Specialty Start Date End Date Twin Barrera MD [address] [place] [address] PCP - General Family Medicine 05/18/14 Kerri March, LISSETTE.LABOR STANDARDS DIRECTOR [address] [place] [address] [employer] [facility] 03/21/25 Evonne Reyes PA-C [address] [place] [address] [employer] [facility] 03/21/25 Talent Development Manager Relationship Specialty Start Date End Date Twin Barrera MD [address] [place] [address] PCP - General Family Medicine 05/18/14 Kerri March APRN.LABOR STANDARDS DIRECTOR [address] [place] [address] [employer] [facility] 03/21/25 Evonne Reyes PA-C [address] [place] [address] [employer] [facility] 03/21/25 Talent Development Manager Relationship Specialty Start Date End Date Twin Barrera MD [address] [place] [address] PCP - General Family Medicine 05/18/14 Kerri March APRN.LABOR STANDARDS DIRECTOR [address] [place] [address] [employer] [facility] 03/21/25 Evonne Reyes PA-C [address] [place] [address] [employer] [facility] 03/21/25 Talent Development Manager Relationship Specialty Start Date End Date Twin Barrera MD [address] [place] [address] PCP - General Family Medicine 05/18/14 Kerri March APRN.LABOR STANDARDS DIRECTOR [address] [facility] [place] [address] [employer] Family [facility] 03/21/25 Evonne Reyes PA-C [address] [facility], [place] 45[address] [facility] 03/21/25 Talent Development Manager Relationship Specialty Start Date End Date Twin Barrera MD [address] [place] [address] PCP - General Family Medicine 05/18/14 Kerri March, INSPECTOR CASING.LABOR STANDARDS DIRECTOR [address] [facility] [place] [address] [facility] 03/21/25 Evonne Reyes PA-C [address] [facility], [place] 7[address] [facility] 03/21/25 Team Status: Inactive Member Role/Relationship Status Dates Dr. Twin Barrera MD Primary Care Provider Active Start: March 15, 2025 End: March 15, 2025 Dr. Twin Barrera MD Attending Provider Active Start: March 15, 2025 End: March 15, 2025 Dr. Twin Barrera MD Referring Provider Active Start: March 15, 2025 End: March 15, 2025 Team Status: Active Member Role/Relationship Status Dates Dr. Twin Barrera MD Primary Care Provider Active Start: March 15, 2025 Dr. Twin Barrera MD Referring Provider Active Start: March 15, 2025 Dr. Yunior Gutierres MD Attending Provider Active S tart: March 15, 2025 Team Status: Inactive Member Role/Relationship Status Dates Dr. Twin Barrera MD Primary Care Provider Active Start: March 29, 2025 End: March 29, 2025 Dr. Twin Barrera MD Referring Provider Active Start: March 29, 2025 End: March 29, 2025 SHAKEEL Lin Attending Provider Active Start: March 29, 2025 End: March 29, 2025 Team Status: Inactive Member Role/Relationship Status Dates Dr. Twin Barrera MD Primary Care Provider Active Start: April 15, 2025 End: April 15, 2025 Dr. Wes Calabrese MD Attending Provider Active S tart: April 15, 2025 End: April 15, 2025 Dr. Wes Calabrese MD Emergency Provider Active S tart: April 15, 2025 End: April 15, 2025 Team Status: Inactive Member Role/Relationship Status Dates Dr. Twin Barrera MD Primary Care Provider Active Start: June 01, 2025 End: June 01, 2025 Dr. Twin Barrera MD Referring Provider Active Start: June 01, 2025 End: June 01, 2025 Dr. Hugh Latif MD Attending Provider Active Start: June 01, 2025 End: June 01, 2025 Talent Development Manager Relationship Specialty Start Date End Date Twin Barrera MD [address] [place] [address] PCP - General Family Medicine 05/18/14 Kerri March, LISSETTE.LABOR STANDARDS DIRECTOR [address] [place] [id number] [employer] [facility] 03/21/25 Evonne Reyes PA-C [address] [place] [address] [employer] [facility] 03/21/25 Talent Development Manager Relationship Specialty Start Date End Date Twin Barrera MD [address] [place] [address] [id number] PCP - General Family Medicine 05/18/14 Kerri March, LISSETTE.LABOR STANDARDS DIRECTOR [address] [place] [address] [facility] 03/21/25 Evonne Reyes PA-C [address] [place] [address] [facility] 03/21/25 Talent Development Manager Relationship Specialty Start Date End Date Twin Barrera MD [address] [place], [place] [id number] PCP - General Family Medicine 05/18/14 Kerri March APRN.LABOR STANDARDS DIRECTOR [address] [place] [address] [facility] 03/21/25 Evonne Reyes PA-C [address] [place] [address] [facility] 03/21/25 INFORMATION SOURCE (unrecogn ized section and content) DATE CREATED AUTHOR 03/05/2023 [facility] DATE CREATED AUTHOR AUTHOR'S ORGANIZ ATION 01/07/2024 [facility] DATE CREATED AUTHOR AUTHOR'S ORGANIZ ATION 04/21/2025 [facility] DATE CREATED AUTHOR AUTHOR'S ORGANIZ ATION 06/27/2025 [facility] DATE CREATED AUTHOR AUTHOR'S ORGANIZ ATION 06/28/2025 [facility] Inactive Administered Medications - up to 3 most recent administrations Administered Medications (un recognized section and content) Medication Order MAR Action Action Date Dose Rate Site triamcinolone acetonide 80 mg injection (KeNALog 40) 80 mg, INTRAMUSCULAR, ONCE, 1 dose, On Fri11/28/23 at 1030 Given 11/28/2023 10:32 AM EST 80 mg Buttocks, Right FOR RECORDS PERTAINING TO PATIENTS WHO ARE [...] BE BASED ON THE PRIMARY CLINICAL RECORDS. [facility] [employer] [facility] provides no warranty or guarantee of the accuracy or completeness of information in this document.
--- NOTE | 2025-06-29 12:56 | STRESSREP ---
Stress Test Report Date: 06/29/2025 Procedure: Pharmacologic stress nuclear imaging study Indications: Chest pain Consent: Per the patient Procedure: The patient underwent pharmacologic (Regadenoson 0.4mg ) evaluation with a peak heart rate of 89 beats per minute (55%predicted maximal heart rate) and a peak blood pressure of 138/70 mmHg. The baseline ECG demonstrated sinus rhythm with frequent PVCs. The peak pharmacologic ECG did not show any ischemic changes. Frequent PVCs pretest, during pharmacological infusion and in recovery. Some in bigeminal manner. There was no complaint of chest discomfort during pharmacologic infusion or recovery. The patient was injected with 12.0 millicuries of technetium 99m Cardiolite and subsequently rest SPECT Cardiolite nuclear imaging was obtained in the horizontal long, vertical long, and short axis views. The patient underwent pharmacologic (Regadenoson) evaluation. The patient was injected with 34.8 millicuries of technetium 99m Cardiolite and subsequently stress SPECT Cardiolite nuclear imaging was obtained in the horizontal long, vertical long, and short axis views. No gated study was obtained. The examination was stopped secondary to completion of protocol. Rest and stress SPECT Cardiolite nuclear imaging status post realignment, normalization, and attenuation correction demonstrate no fixed or reversible perfusion defect. Impression: 1. Pharmacologic (Regadenoson) evaluation 2. Peak pharmacologic ECG with no diagnostic ischemic changes. 3. Frequent PVCs pretest, during pharmacologic infusion and in recovery, ventricular bigeminy noted. 5. Rest and stress SPECT Cardiolite nuclear imaging demonstrate relative uniform tracer uptake and myocardial perfusion appearing within normal limits. 6. No gated study was available. This note was generated with [employer] software. It may contain incorrect words, spelling, and punctuation that were not noted in checking the note before signing.
== END | disposition home or self-care (01) ==
LOC: CVS 05:59
PROVIDERS: PCP Family Medicine; Referring Provider Internal Medicine Cardiovascular Disease; Visit Provider Internal Medicine Cardiovascular Disease
DX: R07.9 Chest pain, unspecified (principal); R06.09 Other forms of dyspnea
CPT/HCPCS: 78452; 93017; 93306; A9500; Q9957; A4216; C8929; J2785

== ENCOUNTER → 2025-08-04 | Outpatient (CLI) | payer MEDICARE, MEDICAID, SELFPAY ==
[2025-08-06 00:07] LABS: Calprotectin, Stool 6 ug/g (0-120)
== END | disposition home or self-care (01) ==
PROVIDERS: PCP Family Medicine; Referring Provider Student in an Organized Health Care Education/Training Program; Visit Provider Student in an Organized Health Care Education/Training Program
DX: R19.5 Other fecal abnormalities (principal); K58.9 Irritable bowel syndrome, unspecified
CPT/HCPCS: 83630; 83993; 87177; 87209; 87329; 87493